=== PATIENT | female | born 1950 | race African-American/Black ===

== ENCOUNTER → 2017-08-21 15:03 | Outpatient (CLI) | payer MEDICARE, SELFPAY ==
[2017-08-21 16:24] LABS: Absolute Lymphocyte Count 1.56 X10^3/ul (0.83-4.51); Absolute Neutrophil Count 2.5 X10^3/uL (2.0-7.7); Basophil# 0.01 X10^3/uL; Basophil% 0.2 % (0-1); Eosinophil# 0.21 X10^3/uL; Hemoglobin 14.3 g/dl (12.0-15.0); Lymphocyte # 1.56 X10^3/ul (4.0); Lymphocyte % 29.7 % (19-41); Mean Corp Hgb Conc 32.5 g/gl (32-36); Mean Corpuscular Hgb 28.2 pg (27.0-32.0); Mean Corpuscular Volume 86.8 fL (81-99); Mean Platelet Vol. 11.2 fl (6.2-12.0); Monocyte# 1.01 X10^3/uL; Monocyte% 19.2 % (0-10); Neutrophil # 2.47 X10^3/uL (2.7-7.7); Neutrophil % 46.9 % (47-70); Platelet Count 206 K/mm3 (150-450); RBC Distribution Width CV 16.4 % (11.6-14.6); RBC Distribution Width SD 51.8 fl (35.1-43.9); Red Blood Count 5.07 M/mm3 (4.2-5.4); White Blood Count 5.3 K/mm3 (4.4-11.0)
[2017-08-21 16:28] LABS: POSITIVE COUNT NO; POSITIVE DIFFERENTIAL NO; POSITIVE MORPHOLOGY NO
[2017-08-21 16:46] LABS: ALB/GLOB Ratio 0.8 RATIO (0.9-2.4); AST(SGOT) 24 U/L (15-37); Alanine Aminotransfer ALT/SGPT 24 U/L (13-56); Albumin, Serum 3.3 g/dL (3.2-5.0); Alkaline Phosphatase 114 U/L (45-117); Anion Gap 6 (5-15); BUN 15 mg/dL (7-18); BUN/Creat Ratio 23.8 RATIO (10-20); Calcium,Total 8.7 mg/dL (8.5-10.1); Chloride 107 mmol/L (98-107); Creatinine, Serum 0.63 mg/dL (0.55-1.02); EST Glomerular Filtration Rate 101 mL/min (>60); Est Glom Filt Rate - Afr Amer 122 mL/min (>60); Globulin 3.9 g/dL (2.2-4.2); Glucose 81 mg/dL (74-106); Potassium 3.8 mmol/L (3.5-5.1); Protein, Total 7.2 g/dL (6.4-8.2); Sodium Level 142 mmol/L (136-145)
[2017-08-21 16:52] LABS: Vitamin D,25 Hydroxy 40.3 ng/mL (29.95-100.01)
== END ==
PROVIDERS: Family Provider Family Medicine Geriatric Medicine; PCP Family Medicine Geriatric Medicine; Visit Provider Family Medicine Geriatric Medicine
DX: I10 Essential (primary) hypertension (principal); E55.9 Vitamin D deficiency, unspecified
CPT/HCPCS: 36415; 80053; 82306; 84443; 85025

== ENCOUNTER 2017-10-03 14:30 | Outpatient (RCR) | payer MEDICARE, MEDICAID, SELFPAY ==
--- NOTE | 2017-08-30 09:55 | HP.PTEVAL_ITS ---
Patient's Visit Information PRICE MACK is a 66 year old F referred to Physical Therapy by Manjeet CANTOR with a diagnosis of Bilateral knee OA. Date of Evaluation: 08/30/17 Physical Therapist: Tiffanie Jones - Visit Plan Frequency: 2x /Week Duration: 4 Weeks Plan: Focus on LE strength and functional mobility - Subjective Subjective: Patient reports that her knees don't hurt when she is sitting they only hurt when she is moving. Both legs are equally painful. Can't walk due to her RA which damaged her joints- has been walking with an AD since 2008. Still lives in assisted living indpendently- 2nd floor apt with an elevator. Has someone who cooks meals, laundry and cleaning. Does not do the stairs without a lot of help. Does do stairs at her sisters house but 2 people have to carry her up the stairs. Agg: getting up from sitting to standing Worst: 7 /10 Best: 0/10 Eases: sitting down. Sometimes the right ankle hurts worse than the left. No pain in the hip or back. No recent x-rays. Does not walk outside on a normal basis due to the uneven ground. Feels like the knees are getting worse. PMHx/Meds: scanned in chart- no changes. Sleep: not disturbed. - Objective Posture: FH, RS, increased kyphosis. Gait: antalgic-uses FWW- slow small steps. Stairs: 6 step with I with significant use of UE. Balance: WS but unable to SLS. Sit to Stand: single UE with significant UE use. ROM: WFL. Strength:4/5 throughout LE - Goals Goal 1:: Patient will be I with HEP and progression Goal Time Frame: 4-6 Weeks Goal 2:: Patient will ambulate >300 feet with LRD and a good pattern Goal Time Frame: 4-6 Weeks Goal 3:: Patient will demo ability to asc/desc 8'' stairs x5 with 2 HR for saftey exiting her apt Goal Time Frame: 4-6 Weeks Goal 4:: Patient will sit to stand with no UE A x3 Goal Time Frame: 4-6 Weeks - Rehabilitation Potential Physical Therapy Diagnosis: Patient presents with hypmobility- she has decreased strength and endurance leading to poor gait and inability to perform ADL's. Rehabilitation Potential: Fair - Anticipated Interventions Patient/Client Instruction: Educate patient on: Benefits of Fitness Program For the Purpose of:: To increase tolerance to activity/condition/position Therapeutic Exercise to Include: Strength training, Endurance training, Balance training, Agility training, Body mechanics, Postural training, Flexibilty training, Gait and locomotor training, Passive ROM, Active ROM, Dynamic Lumbar Stabilization For the Purpose of:: To improve muscle performance and motor function Functional Training to Include: Gait training Thank you for the opportunity to evaluate your patient. For Medicare and Medicare HMO plans, please review the plan of care and approve it. It will need to be FAXED BACK to us at [phone] for Medicare purposes. Please let me know if there are questions or concerns regarding this plan of care. Physician Signature: Date:
--- NOTE | 2017-10-03 15:35 | HP.PTREVAL_ITS ---
Manjeet Chi Issac, It has been my pleasure to treat PRICE MACK over the last 7 visits for Bilateral knee OA. Please see the progress note below for an update on the physical therapy plan of care! Subjective: Patient reports that she is tired and sleepy but PT seems to help. Feels tightness in the knees when she is walking. Worst: 4/10 Best: 0/10. Painfree when she is sitting. Is using the walking inside the apartment- but is in the w/c in open spaces. Objective/Function: Posture: FH, RS, Increased kyphosis. Gait: antalgic- wide silva- walker- decreased step length. Palpation: tender along medial and lateral joint line. ROM: wfl. Strength: Ankle: 4+/5, Knee: 4+/5, hip: 4+/5. Stairs: non recip with 2 HR and mod A. Sit to Stand: x5 with 2 hands Plan Plan: hold until insurance verification is completed Goals Goal 1:: Patient will be I with HEP and progression Goal Time Frame: 4-6 Weeks Goal Progress: Progressing Goal 2:: Patient will ambulate >300 feet with LRD and a good pattern Goal Time Frame: 4-6 Weeks Goal Progress: Progressing Goal 3:: Patient will demo ability to asc/desc 8'' stairs x5 with 2 HR for saftey exiting her apt Goal Time Frame: 4-6 Weeks Goal Progress: Progressing Goal 4:: Patient will sit to stand with no UE A x3 Goal Time Frame: 4-6 Weeks Goal Progress: Progressing Anticipated Interventions Patient/Client Instruction: Educate patient on: Benefits of Fitness Program For the Purpose of:: To increase tolerance to activity/condition/position Therapeutic Exercise to Include: Strength training, Endurance training, Balance training, Agility training, Body mechanics, Postural training, Flexibilty training, Gait and locomotor training, Passive ROM, Active ROM, Dynamic Lumbar Stabilization For the Purpose of:: To improve muscle performance and motor function Functional Training to Include: Gait training Please do not hesitate to contact me at [phone] by phone or Fax: if you have questions or concerns regarding this new plan of care! Sincerely, Tiffanie Jones
--- NOTE | 2017-11-13 14:01 | HP.PT.NRP ---
HP - Discharge Summary (1) - Patient Information PRICE MACK was seen in my office for initial evaluation on 08/30/17. The following Plan of Care was established for this patient: Initial Frequency: 2x /Week Initial Duration: 4 Weeks - Anticipated Interventions Patient/Client Instruction: Educate patient on: Benefits of Fitness Program For the Purpose of:: To increase tolerance to activity/condition/position Therapeutic Exercise to Include: Strength training, Endurance training, Balance training, Agility training, Body mechanics, Postural training, Flexibilty training, Gait and locomotor training, Passive ROM, Active ROM, Dynamic Lumbar Stabilization For the Purpose of:: To improve muscle performance and motor function Functional Training to Include: Gait training This patient was last seen in our office . Pertinent comments regarding their Physical therapy will appear below: Patient has not returned for 30 days and is appropriate for discharge. Return to MD for further evaluation as needed. At this point I will be discontinuing this patient from physical therapy. I would be happy to see this patient again in the future if found appropriate by the physician. Thank you! Tiffanie Jones
== END 2017-10-03 19:00 | disposition home or self-care (01) ==
LOC: PT 14:30
PROVIDERS: Family Provider Family Medicine Geriatric Medicine; PCP Family Medicine Geriatric Medicine; Visit Provider Family Medicine Geriatric Medicine
DX: M17.0 Bilateral primary osteoarthritis of knee (principal)
CPT/HCPCS: 97110; 97162; 97530

== ENCOUNTER → 2017-12-07 20:00 | Outpatient (CLI) | payer MEDICARE, MEDICAID, SELFPAY | PROVIDERS: Family Provider Family Medicine Geriatric Medicine; PCP Family Medicine Geriatric Medicine; Visit Provider Nurse Practitioner Acute Care | DX: G47.10 Hypersomnia, unspecified (principal) | CPT/HCPCS: 95810 ==

== ENCOUNTER → 2018-10-15 | Outpatient (CLI) | payer MEDICARE, MEDICAID, SELFPAY ==
--- NOTE | 2018-10-15 13:16 | ECHOD_ITS ---
Reason For Study: Dyspnea/SOB Procedure This was a 2D Doppler, Color Flow transthoracic echocardiogram. Exam performed in department. Left Ventricle Normal LV size. Left ventricular systolic function is normal. The estimated ejection fraction is 65 %. Stage 1 diastolic dysfunction. No regional wall motion abnormalities noted. Right Ventricle Normal RV size. Normal systolic function. Atria Normal left atrium. Normal right atrium. Mitral Valve Normal mitral valve. Tricuspid Valve Normal tricuspid valve. Mild (1+) tricuspid valve insufficiency. Pulmonary artery systolic pressure is 31 mmHg. Aortic Valve Normal aortic valve. Trisinus/trileaflet aortic valve. Pulmonic Valve Normal pulmonic valve. Great Vessels Normal aortic root. The pulmonary artery is normal size. Normal inferior vena cava. Pericardium/Pleural No pericardial effusion. MMode/2D Measurements & Calculations LVIDd: 4.3 cm IVSd: 0.94 cm Ao root diam: 2.4 cm LVIDs: 2.7 cm LVPWd: 0.83 cm RVDd: 3.5 cm FS: 37.5 % LAV(MOD-bp): 50.5 ml LVAd ap4: 21.5 cm2 SV(MOD-sp4): 36.2 ml LAV(MOD-bp) Indexed: 28.2 ml/m2 EDV(MOD-sp4): 53.4 ml LAV(MOD-sp2): 34.5 ml EDV(sp4-el): 52.4 ml LAV(MOD-sp4): 65.2 ml LVAs ap4: 10.6 cm2 ESV(MOD-sp4): 17.1 ml ESV(sp4-el): 16.7 ml EF(MOD-sp4): 67.9 % EF(sp4-el): 68.1 % SV(sp4-el): 35.7 ml LA A4 area: 20.9 cm2 LA dimension(2D): 4.8 cm RA A4 area: 12.1 cm2 Doppler Measurements & Calculations MV E max edson: 86.1 cm/sec Lat Peak E' Edson: 8.8 cm/sec Med Peak E' Edson: 10.6 cm/sec MV A max edson: 97.0 cm/sec E/E' lat: 9.7 E/E' med: 8.1 MV E/A: 0.89 Ao V2 max: 190.6 cm/sec LV V1 max: 118.5 cm/sec PA V2 max: 102.9 cm/sec Ao max P.5 mmHg LV V1 max P.6 mmHg Ao V2 mean: 118.4 cm/sec Ao mean P.5 mmHg Ao V2 VTI: 39.5 cm TR max edson: 267.9 cm/sec TR max P.7 mmHg Interpretation Summary Normal LV size. Left ventricular systolic function is normal. The estimated ejection fraction is 65 %. Mild (1+) tricuspid valve insufficiency. Stage 1 diastolic dysfunction. Ordering Physician: Gokul Dumont Referring Physician: Manjeet Davenport Chi Performed By: Jennifer Inman, BLAS, RVT
== END | disposition home or self-care (01) ==
LOC: CVS 13:15
PROVIDERS: Family Provider Family Medicine Geriatric Medicine; PCP Family Medicine Geriatric Medicine; Referring Provider Internal Medicine Cardiovascular Disease; Visit Provider Internal Medicine Cardiovascular Disease
DX: R60.0 Localized edema (principal)
CPT/HCPCS: 93306

== ENCOUNTER → 2019-04-08 | Outpatient (CLI) | payer MEDICARE, MEDICAID, SELFPAY ==
[2019-01-08 12:08] VITALS: BMI 34.7
[2019-04-08 16:13] LABS: Amphetamine Urine VISTA NEGATIVE (<1000 ng/mL); Barbiturate Urine VISTA NEGATIVE (< 200 ng/mL); Benzodiazepine Urine VISTA POSITIVE (< 200 ng/mL); Cocaine Urine VISTA NEGATIVE (< 300 ng/mL); Ecstacy Urine VISTA NEGATIVE (< 500 ng/mL); Methadone Urine VISTA NEGATIVE (< 300 ng/mL); PCP Urine VISTA NEGATIVE (< 25 ng/mL); THC Urine VISTA NEGATIVE (< 50 ng/mL); Vista UDS pH Range 6
== END | disposition home or self-care (01) ==
PROVIDERS: Family Provider Family Medicine Geriatric Medicine; PCP Family Medicine Geriatric Medicine; Referring Provider Anesthesiology Pain Medicine; Visit Provider Anesthesiology Pain Medicine
DX: F11.20 Opioid dependence, uncomplicated (principal)
CPT/HCPCS: 80307

== ENCOUNTER 2019-07-01 10:30 | Outpatient (RCR) | payer MEDICARE, MEDICAID, SELFPAY ==
[2019-01-08 12:08] VITALS: BMI 34.7
--- NOTE | 2019-05-13 14:59 | HP.PTEVAL_ITS ---
Patient's Visit Information PRICE MACK is a 68 year old F referred to Physical Therapy by ROBERT GONCALVES with a diagnosis of RA, sarcopenia, osteoporosis,. Date of Evaluation: 05/13/19 Physical Therapist: DILLON Patterson - Visit Plan Frequency: 2x /Week Duration: 4 Weeks Plan: 2X/ week for 4 weeks for R knee AROM, R knee and hip strengthening, sit to stand transfers, gait training, standing balance activities with HEP - Subjective Findings: Pt is living at [facility] and is in Assisted Living. Pt reports that her R leg is bone on bone and they did a shot and a procedure and it did not work. Getting up it hurts and then walking only sometimes makes it hurt. It does not hurt much to sit in a chair. She might have to have a R TKR and wants to hold off on it. Pt is having trouble doing anything at home unless she is sitting. Pt reports that she has trouble picking her R leg up and that her R leg is weak. She never walks around without the rollator. She is able to get in and out of bed by herself. She does microwave stuff or goes down for meals. She uses her walker to go down for meals. She does not do stairs and she does not drive. She need B UE's to be able to get up out of a chair and it takes her awhile to get up. Pt feels that getting into the van was a little difficult for her to get into. - Pain R leg Pain Intensity (Out of 10): 1 Comment: dull discomfort ache - Objective Sit to stand: uses B arms to stand up and takes her approx 30 seconds to stand and get her bearings before she graps her rollator and gets ready to walk. Gait: walks pushing through the rollator with her hands and decrease step length and not completely picking R leg up off the floor. LE MMT: B hip flex 3-//5, R knee ext 3-/5, L knee ext 3+/5, B knee flex 4-/5 ( increase pain on the R), B hip abd 4-/5. R knee AROM: 94 degrees flexion and -61 degrees extension. Pt refused to do a step up in the // bars due to knee pain. Pt was able to stand and balance unsupported X 15 seconds before she had to hold onto the // bars. - Goals Goal 1:: I HEP Goal Time Frame: 4-6 Weeks Goal 2:: Increase LE strength by 1/2 muscle grade (At time of eval: LE MMT: B hip flex 3-//5, R knee ext 3-/5, L knee ext 3+/5, B knee flex 4-/5 ( increase pain on the R), B hip abd 4-/5). Goal Time Frame: 4-6 Weeks Goal 3:: Be able to walk not dragging R LE with gait with front wheeled walker with SBA Goal Time Frame: 4-6 Weeks Goal 4:: R knee AROM: -12 degrees extension to 110 degrees knee flexion Goal Time Frame: 4-6 Weeks - Rehabilitation Potential Rehabilitation Potential: Good - Anticipated Interventions Thank you for the opportunity to evaluate your patient. For Medicare and Medicare HMO plans, please review the plan of care and approve it. It will need to be FAXED BACK to us at [phone] for Medicare purposes. For Medicare only, by signing this I certify the plan of care. Please let me know if there are questions or concerns regarding this plan of care. Physician Sign ature: Date:
--- NOTE | 2019-05-15 08:08 | HP.OTEVAL ---
Patient's Visit Information PRICE MACK is a 68 year old F, referred to Occupational Therapy by ROBERT GONCALVES, with a diagnosis of OA.RA. Date of Evaluation: 05/13/19 Occupational Therapist: Kerry Webster, WILLIAN/Tone, CHT - Subjective Subjective: This 68 year old female was seen for OT eval with dx of RA, OA -. Pt arrives with order for eval and teat- pt states has concerns are for her right knee- pt states her hands are not painful but she would like to know what she can do to prevent them from getting worse. Pt states she has had OA and RA deformitites for years, but recently noticed the inability to straighten her finers. pt does not wear braces at night and reports she does sit and read and feels her fingers are partially closed the majority of the time. - ADLs Dressing: Shoes Comments: needs help with shoes Fasteners: Tie shoes Kitchen: Open jars, Open bottle caps Comments: pt states she does use a shower chair while bathing, long handled sponge, grab bars. Pt states she has a wc, scooter, long handle shoe horn, and warm in worker. Pt states she does participate in a ex group 2-3 x week. pt states staff cleans and does her laundry 1x week. Pt states her sister does her shopping. - ROM Wrist: right 30/15 left 10/15 ROM Comments: right RF -40/105. right MF -50/95. right RF -60/100 - Strength Diesel Locomotive Firer: right staffing specialist 25# left 25# - Sensation Sensation Comments: denies - Quick DASH-Disab of Arm,Shoulder& Hand Quick DASH Score: 52.2725 - Goals Goal:: Pt will demo a increase in bilateral staffing specialist strength by 10# to increase pts ind with ADls by d/c Goal:: Pt will demo understanding of joint protection and ergonomics when performing BADLs and IADLs by d/c. Pt will demo understanding of ad. Eq. use to decrease stress on joints to allow pt to perform BADSL and IADLS at AKHIL level. - Rehabilitation General Assessment: Pt demo with OA, RA deformities to bilateral wrist/hands limiting pts strength and ability to perform ADLs and IADLS. Pt demo need for skilled OT services 1-2x week for 4 weeks to increase pts understanding of joint protection, ad. eq use to increase pts ind. with ADls. Today therapist was ed. on joint protection danette. to apply to her ADls and IADLs. pt was given handout and demo understanding and agree to POC. Rehabilitation Potential: Fair - Anticipated Interventions Anticipated Interventions: A/AAROM/PROM, Strengthening, Modalities, Joint Protection/Energy Conservation, Ergonomic Education - Visit Plan Frequency: 1x/Week Duration: 3 Weeks TEXT: Thank you for the opportunity to evaluate your patient. For Medicare and Medicare HMO plans, please review the plan of care and approve it. It will need to be FAXED BACK to us at [phone] for Medicare purposes. Please let me know if there are questions or concerns regarding this plan of care. Physician Signature: Date:
--- NOTE | 2019-06-11 10:41 | HP.OTDCSUM_ITS ---
HP - OT D/C Summary It has been my pleasure to treat PRICE MACK under orders from ROBERT GONCALVES, for the diagnosis of OA.RA for a total of 4 visit(s). Please see the following information for a summary of their discharge status. - Objective Objective/Function: pt demo B emergency medical technician strength at 30#. pt continues to demo limited bilateral shoulder ROM due to arthritis but this is has been pts baseline for past 10 years. pt does got to adult day center 2 days a week and does a group exercise program. pt has no new concerns and agrees to D/C - Goals Patient Goals: Regain Mobility, Regain Strength, Decrease Swelling/Stiffness, Be More Independent in ADLS Goal:: Pt will demo a increase in bilateral emergency medical technician strength by 10# to increase pts ind with ADls by d/c Goal:: Pt will demo understanding of joint protection and ergonomics when performing BADLs and IADLs by d/c. Pt will demo understanding of ad. Eq. use to decrease stress on joints to allow pt to perform BADSL and IADLS at AKHIL level. - Plan Plan: D/C - D/C Information Discharge Comments: Pt was seen in OT for 4 therapy sessions, ed.pt on use of ad. eq and joint protection danette. for hands and use of ad. eq. due to limited shoulder ROM. Pt is at baseline for shoulder ROM as her limitations has been 10 years or more since her RA flared. pt resides in [facility] and has assist for ADLs as needed. pt demo understanding of ROM ex, joint protecion and ad. eq. and agree to D/C If there are questions or concerns regarding this patient's occupational therapy, please fell free to call me at [phone]. Thank you for the referral of this patient. Sincerely, Kerry Webster, OTR/L, CHT
--- NOTE | 2019-07-01 11:50 | HP.PTDCSUM ---
HP - PT D/C Summary It has been my pleasure to treat PRICE MACK under orders from ROBERT GONCALVES, for the diagnosis of RA, sarcopenia, osteoporosis, for a total of 7 visit(s). Discharge Date: 07/01/19 Please see the following information for a summary of their discharge status. - Subjective Subjective: Pt reports that she starts with pain management on Jul 08 to see if the shots help and then she will get a knee replacement. SHe is also going to the wound center for a wound on her leg that she has been digging and scratching and it and now it is infected and they have to dig it out at the wound center. She feels that she might be walkign a little better but that is it. Maybe she is a little stronger. - Pain R leg Pain Intensity (Out of 10): 0 - Overall Improvement % Improvement: 20 - Objective Objective/Function: Seated in a chair as pt did not want to lay down (-50 degrees from full extension to 95 degrees R knee flexion). LE MMT: B hip flex 3-/5, R knee ext 3-/5, L knee ext 3+/5, B knee flex 4-/5, B hip abd 4-/5). LEFS - Goals Goal 1:: I HEP Goal Progress: Goal Met Goal 2:: Increase LE strength by 1/2 muscle grade (At time of eval: LE MMT: B hip flex 3-//5, R knee ext 3-/5, L knee ext 3+/5, B knee flex 4-/5 ( increase pain on the R), B hip abd 4-/5). Goal Progress: Not Progressing Goal 3:: Be able to walk not dragging R LE with gait with front wheeled walker with SBA Goal Progress: Progressing Goal 4:: R knee AROM: -12 degrees extension to 110 degrees knee flexion Goal Progress: Not Progressing - Plan Plan: DC PT - D/C Information Discharge Comments: DC PT to HEP If there are questions or concerns regarding this patient's physical therapy, please feel free to call me at [phone]. Thank you for the referral of this patient. Sincerely, Brenda Vaughn, MPT
== END 2019-07-01 19:00 | disposition home or self-care (01) ==
LOC: PT 10:30
PROVIDERS: Family Provider Family Medicine Geriatric Medicine; PCP Family Medicine Geriatric Medicine
DX: M06.9 Rheumatoid arthritis, unspecified (principal); M19.90 Unspecified osteoarthritis, unspecified site; M62.84 Sarcopenia
CPT/HCPCS: 97110; 97162; 97166; 97530

== ENCOUNTER 2019-07-25 10:00 | Outpatient (RCR) | payer MEDICARE, MEDICAID, SELFPAY ==
[2019-01-08 12:08] VITALS: BMI 34.7
[2019-07-11 09:30] VITALS: BP 127/83; PULSE 75; RESP 16; TEMP 36.3; BMI 36.8
[2019-07-11 11:19] LABS: Absolute Lymphocyte Count 1.67 X10^3/uL (0.83-4.51); Basophil# 0.02 X10^3/uL; Basophil% 0.3 % (0-1); Eosinophil# 0.21 X10^3/uL; Eosinophils% 3.6 % (0-5); Hematocrit 44.6 % (37-47); Hemoglobin 13.9 g/dL (12.0-15.0); Lymphocyte # 1.67 X10^3/ul (4.0); Lymphocyte % 28.9 % (19-41); Mean Corp Hgb Conc 31.2 g/dL (32-36); Mean Corpuscular Hgb 26.9 pg (27.0-32.0); Mean Corpuscular Volume 86.3 fL (81-99); Mean Platelet Vol. 10.7 fl (6.2-12.0); Monocyte# 0.85 X10^3/uL; Monocyte% 14.7 % (0-10); NRBC Flagged by Analyzer 0 % (0-5); Neutrophil # 3.02 X10^3/uL (2.7-7.7); Neutrophil % 52.3 % (47-70); Platelet Count 268 K/mm3 (150-450); RBC Distribution Width CV 17.2 % (11.6-14.6); RBC Distribution Width SD 54.1 fl (35.1-43.9); Red Blood Count 5.17 M/mm3 (4.2-5.4); White Blood Count 5.8 K/mm3 (4.4-11.0)
[2019-07-11 11:22] LABS: Erythrocyte Sedimentation Rate 25 mm/hr (0-30)
[2019-07-11 11:33] LABS: ALB/GLOB Ratio 0.7 RATIO (0.9-2.4); AST(SGOT) 23 U/L (15-37); Alanine Aminotransfer ALT/SGPT 27 U/L (13-56); Albumin, Serum 3.3 g/dL (3.2-5.0); Alkaline Phosphatase 112 U/L (45-117); Anion Gap 3 (5-15); BUN 16 mg/dL (7-18); BUN/Creat Ratio 20.6 RATIO (10-20); Calcium,Total 9.3 mg/dL (8.5-10.1); Chloride 109 mmol/L (98-107); Creatinine, Serum 0.78 mg/dL (0.55-1.02); EST Glomerular Filtration Rate 79 mL/min (>60); Est Glom Filt Rate - Afr Amer 95 mL/min (>60); Estimated Creatinine Clearance 67.37 ml/min; Globulin 4.8 g/dL (2.2-4.2); Glucose 76 mg/dL (74-106); Prealbumin 24.5 mg/dL (20.0-40.0); Protein, Total 8.1 g/dL (6.4-8.2); Sodium Level 141 mmol/L (136-145)
--- NOTE | 2019-07-11 12:14 | PCM.WC.HP ---
(1) Ulcer of right lower extremity with fat layer exposed Status: Chronic Current Visit: Yes Code(s): L97.912 - Non-pressure chronic ulcer of unspecified part of right lower leg with fat layer exposed (2) Venous insufficiency of both lower extremities Status: Chronic Current Visit: Yes Code(s): I87.2 - Venous insufficiency (chronic) (peripheral) History of Present Illness Date of Service: 07/11/19 Chief Complaint: Non healing right leg ulcer History of Wound: Ms. Sanabria presents today due to nonhealing right leg ulcer. The exact etiology is unknown but it appears that it got worse from persistent scratching which patient admits to you. She was initially taken to a [facility] dealer by the [facility]. Per note from facility, they have been applying Santyl. Patient reports some drainage but denies chills, fever or feeling unwell. She however attests to significant pain. She admits to tobacco abuse and states that she smokes about 5-6 drinks daily. Denies any known history of diabetes mellitus. Past Medical History Past Medical History: Chronic Problems (Last Reviewed 07/11/19 @ 06:46 by Kiara Londono) Ulcer of right lower extremity with fat layer exposed (Chronic) Venous insufficiency of both lower extremities (Chronic) Essential (primary) hypertension (Chronic) Lower extremity edema (Chronic) Intermittent palpitations (Chronic) Hyperlipidemia (Chronic) Surgical History: noncontributory Allergies/Adverse Reactions: Allergies No Known Allergies Allergy (Verified 07/11/19 09:50) Home Medications: Ambulatory Orders Medication Instructions Recorded Adalimumab [Humira] 40 mg SQ Q14D 03/27/15 Celecoxib [Celebrex] 200 mg PO DAILY 03/27/15 Mirabegron [Myrbetriq] 50 mg PO DAILY 03/27/15 [place]-3 Fatty Acids/Fish Oil [Fish 2 ea PO DAILY 03/27/15 Oil 1,000 mg Capsule] Potassium Chloride [K-Dur] 10 meq PO DAILY 03/27/15 Sertraline HCl [Zoloft] 200 mg PO DAILY 03/27/15 Vitamin B Complex 1 ea PO DAILY 03/27/15 predniSONE tablet 5 mg PO DAILY 03/27/15 Pravastatin Sodium [Pravachol] 40 mg PO QHS 09/14/15 Warfarin [Coumadin ([facility])] 5.5 mg PO SUMOWEFR 09/14/15 Warfarin [Coumadin ([facility])] 6 mg PO TUTHSA 09/14/15 montelukast 10 mg tablet 10 mg PO QPM 01/03/18 metoprolol tartrate 25 mg tablet 25 mg PO BID #60 tab 01/08/19 Acetaminophen [Acetaminophen Extra 1,000 mg PO BID PRN 07/11/19 Strength] Alprazolam [Xanax] 0.5 mg PO Q6H PRN 07/11/19 Benzonatate [Tessalon Perle] 200 mg PO Q8H PRN 07/11/19 Bismuth Subsalicylate [Siletz 15 ml PO Q6H PRN 07/11/19 Bismuth] Diphenhydramine HCl [Banophen] 25 mg PO Q6H PRN 07/11/19 Fluticasone 0.05% [Flonase Nasal 1 spray NASAL BID 07/11/19 [place]] Gluc Light/Chondro Light A/Vit C/Mn 2 ea PO DAILY 07/11/19 [Glucosamine Chondroitin Tab] Guaifenesin [Mucus Relief] 400 mg PO BID PRN 07/11/19 Hydrocodone/Acetaminophen 1 ea PO TID 07/11/19 [Hydrocodon-Acetaminophen 5-325] Lactobacillus Acidophilus 1 ea PO DAILY 07/11/19 [Acidophilus] Loperamide [Imodium] 2 mg PO Q8H PRN PRN 07/11/19 Multivitamin [Daily Value] 1 ea PO DAILY 07/11/19 Naphazoline HCl/Glycerin [Clear 2 drp OP BID 07/11/19 Eyes Max Redness Rlf Drp] Peg 400/Hypromellose/Glycerin 15 ml OP DAILY PRN 07/11/19 [Artificial Tears] Psyllium Husk [Natural Fiber] 0.52 gm PO DAILY PRN 07/11/19 Saliva Substitute Combo No.9 ml MM DAILY PRN 07/11/19 [Biotene] Simethicone 125 mg PO 4X/DAY PRN 07/11/19 Tizanidine HCl [Zanaflex] 2 mg PO Q8H PRN 07/11/19 Smoking Status: Current every day smoker Review of Systems Constitutional: Denies: Anorexia, Chills, Fever Eyes: Denies: Pain, Redness HEENT: Denies: Difficulty Swallowing Cardiovascular: Denies: Chest Pain, Chest Pressure Respiratory: Denies: Hemoptysis Gastrointestinal: Denies: Hematemesis, Vomiting Skin: Denies: Jaundice - Physical Exam Vital Signs Temp Pulse Resp BP 97.3 F L 75 16 127/83 H 07/11/19 09:30 07/11/19 09:30 07/11/19 09:30 07/11/19 09:30 General: Alert, Oriented x3, Cooperative, No apparent distress HEENT: Atraumatic, Normocephalic Oral: Moist Mucosa Neck: Supple Lungs: Normal air movement Cardiovascular: Regular rate, Regular Rhythm, Normal S1, Normal S2 Abdomen: Soft, Non Tender, Obese Extremities: No cyanosis, Edema Skin: Ulcer/ Wound Wound Measurements and Assessment WC - Nurse 1 - General Ulcer Measurement Start: 07/11/19 09:29 Freq: Status: Active Protocol: Activity Type Activity Date Activity User E-Sign Co-Sign Detail Recorded Client Recorded Date Recorded By Document 07/11/19 09:30 [facility] [id number] 07/11/19 09:47 [facility] 07/11/19 09:30 Wound Center Nurse 1 [Ulcer Assessment] #1- R MED LE -Combined with other wound No -Current Size (cm) - Length 2.1 -Current Size (cm) - Width 2.2 -Current Size (cm) - Depth 0.5 -Total Square Cm 4.62 -Date of Last Picture (Recall this 07/11/19 field) -Photo Taken Yes -Epithelialization None Present -Tunneling No -Undermining/Tunneling No -Circular Undermining No -Exudate Amt Small -Exudate Type Serosanguineous -Wound Margin Distinct, Outline Attached -Granulation Amt None Present (0 %) -Granulation Quality Red -Slough/Fibrin Yes -Necrosis Amt Large (67-100%) -Necrotic Tissue Type Adherent Slough -Texture (Yajaira-wound Skin Appearance) Assessed, Scarring -Moisture (Yajaira-wound Skin Appearance Assessed ) -Color (Yajaira-wound Skin Appearance) Assessed -Temperature (Yajaira-wound Skin No Abnormality Appearance) (Pt Warm) -Tenderness on Palpation (Yajaira-wound No Skin Appearance) -Ulcer Cleansing Rinsed/ Irrigated with Saline -Foul Odor after Cleansing No -Anesthetic Used 5% Lidocaine Gel [Edema Assessment] -Lower Limb Edema Present Yes -Right Calf (cm) 36 -Right Ankle (cm) 26.1 -Left Calf (cm) 37.5 -Left Ankle (cm) 24.5 WC - Nurse 2 - General Ulcer CM Notes Start: 07/11/19 09:29 Freq: Status: Active Protocol: Activity Type Activity Date Activity User E-Sign Co-Sign Detail Recorded Client Recorded Date Recorded By Document 07/11/19 10:03 MW [id number] 07/11/19 10:10 MW 07/11/19 10:03 Wound Center Nurse 2 [Procedure/Treatment] #1- R MED LE -Time 10:03 -Correct Patient Yes -Correct Side, Site, Position Yes -Correct Procedure Yes -Procedure Performed Yes -Type of Procedure Debridement -Clinical Debridement Subcutaneous -Post Debridement Size (cm) - Length 2.3 -Post Debridement Size (cm) - Width 2.5 -Post Debridement Size (cm) - Depth 0.7 -Total Square Cm 5.75 -Wound/Ulcer Outcome Not Healed -Ulcer Cleansing Rinsed/ Irrigated with Saline -Foul Odor after Cleansing No -Bioengineered Tissue No -Bleeding Controlled with Pressure -Offloading No -Treatment Response Procedure Tolerated Well [See Physician Procedure note for Specifics] Pain Scale: 0-10 Numeric [Pain] -Is Patient Pain Free? Yes Musculoskeletal: No Muscle Wasting Neurological: Cranial nerves II-XII grossly intact Psych/Mental Status: Normal Affect Debridement Note Post-Debridement Measurements/Treatment - Nurse 2 - General Ulcer CM Notes Start: 07/11/19 09:29 Freq: Status: Active Protocol: Activity Type Activity Date Activity User E-Sign Co-Sign Detail Recorded Client Recorded Date Recorded By Document 07/11/19 10:03 MW [id number] 07/11/19 10:10 MW 07/11/19 10:03 Wound Center Nurse 2 #1- R MED LE -Time 10:03 -Correct Patient Yes -Correct Side, Site, Position Yes -Correct Procedure Yes -Procedure Performed Yes -Type of Procedure Debridement -Clinical Debridement Subcutaneous -Post Debridement Size (cm) - Length 2.3 -Post Debridement Size (cm) - Width 2.5 -Post Debridement Size (cm) - Depth 0.7 -Total Square Cm 5.75 -Wound/Ulcer Outcome Not Healed -Ulcer Cleansing Rinsed/ Irrigated with Saline -Foul Odor after Cleansing No -Bioengineered Tissue No -Bleeding Controlled with Pressure -Offloading No -Treatment Response Procedure Tolerated Well Pain Scale: 0-10 Numeric Is Patient Pain Free? Yes Wound debrided: Right leg Type of Debridement: Excisional debridement Anesthesia Used: 4% Lidocaine Solution Depth: Down to and including healthy tissue, in the subcutaneous layer Percentage of wound debrided: 100 Instrument Used: 5mm curette Tissue Removed: Slough and devitalized tissue Severity: Fat Layer Exposed Amount of bleeding with debridement: Mild Bleeding Controlled with: Pressure Patient tolerated procedure well Assessment/Plan Active Problems (Last Reviewed 07/11/19 @ 06:46 by Kiara Londono) Ulcer of right lower extremity with fat layer exposed (Chronic) Venous insufficiency of both lower extremities (Chronic) Assessment: Nonhealing right leg ulcer. Probes to bone. Plan: Debridement done as documented above. Procedure was well-tolerated. As above, bone probed. Concern for osteomyelitis. X-ray ordered. Cultures taken. CBC, CMP, prealbumin, CRP and ESR also ordered. Follow-up with results. For now, continue Santyl daily. Double layer Tubigrip for edema management. Elevate lower extremities when seated in bed. Increase protein intake. Questions were answered and she was advised to call with any further questions or concerns. Follow-up in a week. This note was generated with [employer] dictation software. It may contain incorrect words, spelling, and punctuation that were not noted in checking the note before signing. Multi Select Codes - Visit Charges Office Visit/Consults: 65087 OV L4 New - E and M code level 4 - Integumentary Integumentary CPT Codes: 40905 Jennifer subq tissue 20 sq cm/<
[2019-07-18 09:51] VITALS: BP 136/76; PULSE 84; RESP 18; TEMP 36.6; BMI 36.8
--- NOTE | 2019-07-18 10:59 | PCM.WC.PN ---
(1) Ulcer of right lower extremity with fat layer exposed Status: Chronic Current Visit: Yes Code(s): L97.912 - Non-pressure chronic ulcer of unspecified part of right lower leg with fat layer exposed (2) Venous insufficiency of both lower extremities Status: Chronic Current Visit: Yes Code(s): I87.2 - Venous insufficiency (chronic) (peripheral) Type of Wound Date of Service: 07/18/19 Chief Complaint: Non healing right leg ulcer History of Wound: Ms. Sanabria presents today due to nonhealing right leg ulcer. The exact etiology is unknown but it appears that it got worse from persistent scratching which patient admits to you. 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 Per note from facility, they have been applying Santyl. Patient reports some drainage but denies chills, fever or feeling unwell. She however attests to significant pain. She admits to tobacco abuse and states that she smokes about 5-6 drinks daily. Denies any known history of diabetes mellitus. Progress of Wound: No new concerns at this time. Xray not suggestive of Osteomyelitis and culture with minimal growth. - Physical Exam Vital Signs Temp Pulse Resp BP 97.8 F 84 18 136/76 H 07/18/19 09:51 07/18/19 09:51 07/18/19 09:51 07/18/19 09:51 General: Alert, Oriented x3, Cooperative, No apparent distress HEENT: Atraumatic, Normocephalic Oral: Moist Mucosa Neck: Supple Lungs: Normal air movement Extremities: No cyanosis Skin: Ulcer/ Wound Wound Measurements and Assessment WC - Nurse 1 - General Ulcer Measurement Start: 07/11/19 09:29 Freq: Status: Active Protocol: Activity Type Activity Date Activity User E-Sign Co-Sign Detail Recorded Client Recorded Date Recorded By Document 07/18/19 09:51 RB [id number] 07/18/19 10:01 RB 07/18/19 09:51 Wound Center Nurse 1 [Ulcer Assessment] #1- R MED LE -Combined with other wound No -Current Size (cm) - Length 2.7 -Current Size (cm) - Width 2.1 -Current Size (cm) - Depth 0.5 -Total Square Cm 5.67 -Tunneling No -Undermining/Tunneling No -Circular Undermining No -Exudate Amt Medium -Exudate Type Serosanguineous -Wound Margin Thickened & Rolled Under -Granulation Amt Medium (34-66%) -Granulation Quality [place] -Slough/Fibrin Yes -Necrosis Amt Large (67-100%) -Necrotic Tissue Type Adherent Slough -Structure Exposed N/A -Texture (Yajaira-wound Skin Appearance) Assessed -Moisture (Yajaira-wound Skin Appearance Assessed ) -Color (Yajaira-wound Skin Appearance) Assessed -Temperature (Yajaira-wound Skin No Abnormality Appearance) (Pt Warm) -Tenderness on Palpation (Yajaira-wound No Skin Appearance) -Ulcer Cleansing Rinsed/ Irrigated with Saline -Foul Odor after Cleansing No -Anesthetic Used 4% Lidocaine Solution [Edema Assessment] -Lower Limb Edema Present Yes -Right Calf (cm) 34.9 -Right Ankle (cm) 24 WC - Nurse 2 - General Ulcer CM Notes Start: 07/11/19 09:29 Freq: Status: Active Protocol: Activity Type Activity Date Activity User E-Sign Co-Sign Detail Recorded Client Recorded Date Recorded By Document 07/18/19 10:11 MW [id number] 07/18/19 10:15 MW 07/18/19 10:11 Wound Center Nurse 2 [Procedure/Treatment] #1- R MED LE -Time 10:11 -Correct Patient Yes -Correct Side, Site, Position Yes -Correct Procedure Yes -Procedure Performed Yes -Type of Procedure Debridement -Clinical Debridement Subcutaneous -Post Debridement Size (cm) - Length 2.3 -Post Debridement Size (cm) - Width 2.1 -Post Debridement Size (cm) - Depth 0.8 -Total Square Cm 4.83 -Wound/Ulcer Outcome Not Healed -Ulcer Cleansing Rinsed/ Irrigated with Saline -Foul Odor after Cleansing No -Bioengineered Tissue No -Bleeding Controlled with Pressure -Offloading No -Treatment Response Procedure Tolerated Well [See Physician Procedure note for Specifics] Pain Scale: 0-10 Numeric [Pain] -Is Patient Pain Free? Yes Musculoskeletal: No Muscle Wasting Neurological: Cranial nerves II-XII grossly intact Psych/Mental Status: Normal Affect Debridement Note Post-Debridement Measurements/Treatment WC - Nurse 2 - General Ulcer CM Notes Start: 07/11/19 09:29 Freq: Status: Active Protocol: Activity Type Activity Date Activity User E-Sign Co-Sign Detail Recorded Client Recorded Date Recorded By Document 07/11/19 10:03 MW [id number] 07/11/19 10:10 MW Document 07/18/19 10:11 MW [id number] 07/18/19 10:15 MW 07/11/19 07/18/19 10:03 10:11 Wound Center Nurse 2 #1- R MED LE -Time 10:03 10:11 -Correct Patient Yes Yes -Correct Side, Site, Position Yes Yes -Correct Procedure Yes Yes -Procedure Performed Yes Yes -Type of Procedure Debridement Debridement -Clinical Debridement Subcutaneous Subcutaneous -Post Debridement Size (cm) - Length 2.3 2.3 -Post Debridement Size (cm) - Width 2.5 2.1 -Post Debridement Size (cm) - Depth 0.7 0.8 -Total Square Cm 5.75 4.83 -Wound/Ulcer Outcome Not Healed Not Healed -Ulcer Cleansing Rinsed/ Rinsed/ Irrigated with Irrigated with Saline Saline -Foul Odor after Cleansing No No -Bioengineered Tissue No No -Bleeding Controlled with Pressure Pressure -Offloading No No -Treatment Response Procedure Procedure Tolerated Well Tolerated Well Pain Scale: 0-10 Numeric Is Patient Pain Free? Yes Yes Wound debrided: Right Leg Type of Debridement: Excisional debridement Anesthesia Used: 4% Lidocaine Solution Depth: Down to and including healthy tissue, in the subcutaneous layer Percentage of wound debrided: 100 Instrument Used: 7mm curette Tissue Removed: Slough and devitalized tissue Severity: Fat Layer Exposed Amount of bleeding with debridement: Mild Bleeding Controlled with: Pressure Patient tolerated procedure well Assessment/Plan Active Problems (Last Reviewed 07/11/19 @ 06:46 by Kiara Londono) Ulcer of right lower extremity with fat layer exposed (Chronic) Venous insufficiency of both lower extremities (Chronic) Assessment: Nonhealing right leg ulcer. Probes to bone. Plan: Debridement done as documented above. Procedure was well-tolerated. As above, Xray negative for acute osseous abnormality. Still significant depth, will apply fo a SNAP Vac due to depth and drainage. Continue Santyl for now. Double layer Tubigrip for edema management. Elevate lower extremities when seated and in bed. Increase protein intake. Her questions were answered and she was advised to call with any further questions or concerns. Follow-up in a week. This note was generated with [employer] software. It may contain incorrect words, spelling, and punctuation that were not noted in checking the note before signing. Code Visit 111xxx-113xx: 88662 Jennifer subq tissue 20 sq cm/<
[2019-07-25 09:42] VITALS: BP 155/100; RESP 16; TEMP 36.3; BMI 36.8
--- NOTE | 2019-07-25 10:24 | PN.PCM_ITS ---
(1) Ulcer of right lower extremity with fat layer exposed Status: Chronic Current Visit: Yes Code(s): L97.912 - Non-pressure chronic ulcer of unspecified part of right lower leg with fat layer exposed (2) Venous insufficiency of both lower extremities Status: Chronic Current Visit: Yes Code(s): I87.2 - Venous insufficiency (chronic) (peripheral) Type of Wound Date of Service: 07/25/19 Chief Complaint: Non healing right leg ulcer History of Wound: Ms. Sanabria presents today due to nonhealing right leg ulcer. The exact etiology is unknown but it appears that it got worse from persistent scratching which patient admits to you. She was initially taken to a mechanical applications engineer by the residential/assisted living facility. Per note from facility, they have been applying Santyl. Patient reports some drainage but denies chills, fever or feeling unwell. She however attests to significant pain. She admits to tobacco abuse and states that she smokes about 5-6 drinks daily. Denies any known history of diabetes mellitus. Progress of Wound: No new concerns at this time. Now approved for snap. - Physical Exam Vital Signs Temp Pulse Resp BP 97.3 F L 84 16 155/100 H 07/25/19 09:42 07/18/19 09:51 07/25/19 09:42 07/25/19 09:42 General: Alert, Oriented x3, Cooperative, No apparent distress HEENT: Atraumatic, Normocephalic Oral: Moist Mucosa Neck: Supple Abdomen: Soft, Obese Extremities: No cyanosis Skin: Ulcer/ Wound Wound Measurements and Assessment WC - Nurse 1 - General Ulcer Measurement Start: 07/11/19 09:29 Freq: Status: Active Protocol: Activity Type Activity Date Activity User E-Sign Co-Sign Detail Recorded Client Recorded Date Recorded By Document 07/25/19 09:42 PHAN [id number] 07/25/19 09:58 PHAN 07/25/19 09:42 Wound Center Nurse 1 [Ulcer Assessment] #1- R MED LE -Combined with other wound No -Current Size (cm) - Length 2.5 -Current Size (cm) - Width 2.4 -Current Size (cm) - Depth 0.6 -Total Square Cm 6.00 -Photo Taken No -Epithelialization None Present -Tunneling No -Undermining/Tunneling No -Circular Undermining No -Exudate Amt Small -Exudate Type Serosanguineous -Wound Margin Distinct, Outline Attached -Granulation Amt None Present (0 %) -Granulation Quality Hyper- granulation -Slough/Fibrin Yes -Necrosis Amt None Present (0 %) -Necrotic Tissue Type Adherent Slough -Structure Exposed N/A -Texture (Yajaira-wound Skin Appearance) Scarring -Moisture (Yajaira-wound Skin Appearance No Abnormality, ) Assessed -Color (Yajaira-wound Skin Appearance) No Abnormality, Assessed -Temperature (Yajaira-wound Skin No Abnormality Appearance) (Pt Warm) -Tenderness on Palpation (Yajaira-wound Yes Skin Appearance) -Ulcer Cleansing Rinsed/ Irrigated with Saline -Foul Odor after Cleansing No -Anesthetic Used 4% Lidocaine Solution [Edema Assessment] -Lower Limb Edema Present No -Right Calf (cm) 34 -Right Ankle (cm) 24.1 WC - Nurse 2 - General Ulcer CM Notes Start: 07/11/19 09:29 Freq: Status: Active Protocol: Activity Type Activity Date Activity User E-Sign Co-Sign Detail Recorded Client Recorded Date Recorded By Document 07/25/19 10:20 MW [id number] 07/25/19 10:21 MW 07/25/19 10:20 Wound Center Nurse 2 [Procedure/Treatment] #1- R MED LE -Time 10:20 -Correct Patient Yes -Correct Side, Site, Position Yes -Correct Procedure Yes -Procedure Performed Yes -Type of Procedure Debridement -Clinical Debridement Subcutaneous -Post Debridement Size (cm) - Length 2.4 -Post Debridement Size (cm) - Width 2.0 -Post Debridement Size (cm) - Depth 0.8 -Total Square Cm 4.80 -Wound/Ulcer Outcome Not Healed -Ulcer Cleansing Rinsed/ Irrigated with Saline -Foul Odor after Cleansing No -Bioengineered Tissue No -Bleeding Controlled with Pressure -Offloading No -Treatment Response Procedure Tolerated Well [See Physician Procedure note for Specifics] Pain Scale: 0-10 Numeric [Pain] -Is Patient Pain Free? Yes Musculoskeletal: No Muscle Wasting Neurological: Cranial nerves II-XII grossly intact Psych/Mental Status: Normal Affect Debridement Note Post-Debridement Measurements/Treatment WC - Nurse 2 - General Ulcer CM Notes Start: 07/11/19 09:29 Freq: Status: Active Protocol: Activity Type Activity Date Activity User E-Sign Co-Sign Detail Recorded Client Recorded Date Recorded By Document 07/11/19 10:03 MW [id number] 07/11/19 10:10 MW Document 07/18/19 10:11 MW [id number] 07/18/19 10:15 MW Document 07/25/19 10:20 MW [id number] 07/25/19 10:21 MW 07/11/19 07/18/19 07/25/19 10:03 10:11 10:20 Wound Center Nurse 2 #1- R MED LE -Time 10:03 10:11 10:20 -Correct Patient Yes Yes Yes -Correct Side, Site, Position Yes Yes Yes -Correct Procedure Yes Yes Yes -Procedure Performed Yes Yes Yes -Type of Procedure Debridement Debridement Debridement -Clinical Debridement Subcutaneous Subcutaneous Subcutaneous -Post Debridement Size (cm) - Length 2.3 2.3 2.4 -Post Debridement Size (cm) - Width 2.5 2.1 2.0 -Post Debridement Size (cm) - Depth 0.7 0.8 0.8 -Total Square Cm 5.75 4.83 4.80 -Wound/Ulcer Outcome Not Healed Not Healed Not Healed -Ulcer Cleansing Rinsed/ Rinsed/ Rinsed/ Irrigated with Irrigated with Irrigated with Saline Saline Saline -Foul Odor after Cleansing No No No -Bioengineered Tissue No No No -Bleeding Controlled with Pressure Pressure Pressure -Offloading No No No -Treatment Response Procedure Procedure Procedure Tolerated Well Tolerated Well Tolerated Well Pain Scale: 0-10 Numeric Is Patient Pain Free? Yes Yes Yes Wound debrided: Right Leg Type of Debridement: Excisional debridement Anesthesia Used: 5% Lidocaine Gel Depth: Down to and including healthy tissue, in the subcutaneous layer Percentage of wound debrided: 100 Instrument Used: 7mm curette Tissue Removed: Slough and devitalized tissue Severity: Fat Layer Exposed Amount of bleeding with debridement: Mild Bleeding Controlled with: Pressure Patient tolerated procedure well Assessment/Plan Active Problems (Last Reviewed 07/11/19 @ 06:46 by Kiara Londono) Ulcer of right lower extremity with fat layer exposed (Chronic) Venous insufficiency of both lower extremities (Chronic) Assessment: Nonhealing right leg ulcer. Probes to bone. Plan: Debridement done as documented above. Procedure was well-tolerated. Switch to Snap. Change on Monday. Double layer Tubigrip for edema management. Elevate lower extremities when seated and in bed. Increase protein intake. Her questions were answered and she was advised to call with any further questions or concerns. Follow-up in a week. This note was generated with [employer] dictation software. It may contain incorrect words, spelling, and punctuation that were not noted in checking the note before signing. Code Visit 111xxx-113xx: 30768 Jennifer subq tissue 20 sq cm/<
== END 2019-07-26 23:59 ==
LOC: WC 10:00
PROVIDERS: PCP Family Medicine Geriatric Medicine; Referring Provider Family Medicine Geriatric Medicine; Visit Provider Internal Medicine
DX: I87.2 Venous insufficiency (chronic) (peripheral) (principal); L97.812 Non-pressure chronic ulcer of other part of right lower leg with fat layer exposed; F17.200 Nicotine dependence, unspecified, uncomplicated; E78.5 Hyperlipidemia, unspecified; I10 Essential (primary) hypertension; Z79.899 Other long term (current) drug therapy
CPT/HCPCS: 11042; 80053; 84134; 85025; 85652; 87070; 87075; 87077; 87186; 87205; 97607; 99213; G0463

== ENCOUNTER 2019-07-27 01:15 | Emergency (ER) | payer MEDICARE, MEDICAID, SELFPAY ==
[2019-07-27 01:16] VITALS: BP 144/79; PULSE 68; RESP 16; TEMP 36.7; O2SAT 100; BMI 35.2
--- NOTE | 2019-07-27 01:37 | ED.DCSUM_ITS ---
- ER Visit Summary Date of Service: 07/27/19 Chief Complaint: Wound VAC not working History of Present Illness: The patient is a [address] Jeni Hollingsworth. She is a poor informant. She reports that she has a wound on her right leg that she goes to the wound center for. She denies having had surgery on this. She reports that tonight she stepped on the tubing for her wound VAC. She denies any pain. Physical Examination: Vitals: Stable. Afebrile. General: Well-nourished and well-developed. Head: Normocephalic atraumatic. Neck: Supple, no lymphadenopathy. No JVD. Nontender. Cardiovascular: Regular rate and rhythm. No murmurs. Respiratory: No respiratory distress. Clear to auscultation bilaterally. Abdominal: Soft, nontender, nondistended, normal bowel sounds. No guarding, rebound, or peritoneal signs. Back: Nontender. Extremities: Nontender, no edema. Anterior right cobb there is a wound VAC that is approximately 3 cm in diameter. It is sealed well. There is no drainage from this. There is no erythema. Skin: Normal color, no rash. Neurologic: Alert and oriented ?3. Cranial nerves II through XII are intact. Normal strength and sensation. Psych: Normal affect. Emergency Department Course and Treatment: The patient's dressing was inspected. It is sealed well. The pump was reset and is functioning. Treatment Plan: Patient will be discharged with instructions to follow-up with the wound clinic as previously scheduled. Return to the emergency department for any worsening symptoms. Disposition: To home in improved and stable condition. Impression: 1 1. Wound check. This note was generated with [email or web address] dictation software. It may contain incorrect words, spelling, and punctuation that were not noted in review of the chart prior to signing ED Disposition - Plan for ED Patient: Disposition: [facility] Acute Care Instructions: Wound Care Referrals: Clinic,Wound [None] - Keep Rosalie appointment
--- NOTE | 2019-07-27 01:38 | ED.RN ---
tubing to wound vac trimmed so patient wound not trip over tubing anymore, suction obtained. care home staff called and updated on education and function of the wound vac
== END 2019-07-27 02:57 ==
LOC: ED 01:45
PROVIDERS: Emergency Provider Emergency Medicine; PCP Nurse Practitioner Adult Health; Referring Provider Nurse Practitioner Adult Health
DX: Z48.01 Encounter for change or removal of surgical wound dressing (principal); Z72.0 Tobacco use
CPT/HCPCS: 99284

== ENCOUNTER 2019-08-22 11:30 | Outpatient (RCR) | payer MEDICARE, MEDICAID, SELFPAY ==
[2019-07-27 01:10] VITALS: BP 155/100; PULSE 84; RESP 16; TEMP 36.3
[2019-07-29 14:22] VITALS: BP 129/76; PULSE 71; RESP 16; TEMP 36.8; BMI 35.2
[2019-08-01 09:59] VITALS: BP 121/69; PULSE 63; RESP 18; TEMP 36.3; BMI 35.2
--- NOTE | 2019-08-01 11:47 | PCM.WC.PN ---
(1) Ulcer of right lower extremity with fat layer exposed Status: Chronic Current Visit: Yes Code(s): L97.912 - Non-pressure chronic ulcer of unspecified part of right lower leg with fat layer exposed (2) Venous insufficiency of both lower extremities Status: Chronic Current Visit: Yes Code(s): I87.2 - Venous insufficiency (chronic) (peripheral) (3) Lower extremity edema Status: Chronic Current Visit: No Code(s): R60.0 - Localized edema Type of Wound Date of Service: 08/01/19 Chief Complaint: Non healing right leg ulcer History of Wound: Ms. Sanabria presents today due to nonhealing right leg ulcer. The exact etiology is unknown but it appears that it got worse from persistent scratching which patient admits to you. She was initially taken to a tobacco sieve operator by the senior living/assisted living facility. Per note from facility, they have been applying Santyl. Patient reports some drainage but denies chills, fever or feeling unwell. She however attests to significant pain. She admits to tobacco abuse and states that she smokes about 5-6 drinks daily. Denies any known history of diabetes mellitus. Progress of Wound: Stable. No new concerns at this time. - Physical Exam Vital Signs Temp Pulse Resp BP 97.3 F L 63 18 121/69 H 08/01/19 09:59 08/01/19 09:59 08/01/19 09:59 08/01/19 09:59 General: Alert, Oriented x3, Cooperative, No apparent distress HEENT: Atraumatic, Normocephalic Oral: Moist Mucosa Neck: Supple Lungs: Normal air movement Extremities: No cyanosis, Edema Skin: Ulcer/ Wound Wound Measurements and Assessment - Nurse 1 - General Ulcer Measurement Start: 07/29/19 14:22 Freq: Status: Active Protocol: Activity Type Activity Date Activity User E-Sign Co-Sign Detail Recorded Client Recorded Date Recorded By Document 08/01/19 09:59 [id number] 08/01/19 10:07 08/01/19 09:59 Wound Center Nurse 1 [Ulcer Assessment] #1- R MED LE -Combined with other wound No -Current Size (cm) - Length 2.3 -Current Size (cm) - Width 2 -Current Size (cm) - Depth 0.6 -Total Square Cm 4.6 -Photo Taken No -Epithelialization None Present -Tunneling No -Undermining/Tunneling No -Circular Undermining No -Exudate Amt Medium -Exudate Type Serosanguineous -Wound Margin Distinct, Outline Attached -Granulation Amt Large (67-100%) -Granulation Quality [place] -Slough/Fibrin Yes -Necrosis Amt None Present (0 %) -Necrotic Tissue Type Adherent Slough -Structure Exposed N/A,None/ Limited to Skin Breakdown -Texture (Yajaira-wound Skin Appearance) No Abnormality, Assessed -Moisture (Yajaira-wound Skin Appearance No Abnormality, ) Assessed -Color (Yajaira-wound Skin Appearance) No Abnormality, Assessed -Temperature (Yajaira-wound Skin No Abnormality Appearance) (Pt Warm) -Tenderness on Palpation (Yajaira-wound No Skin Appearance) -Ulcer Cleansing Wound Cleanser -Foul Odor after Cleansing No -Anesthetic Used 4% Lidocaine Solution,5% Lidocaine Gel [Edema Assessment] -Lower Limb Edema Present Yes -Right Calf (cm) 33.4 -Right Ankle (cm) 24.7 WC - Nurse 2 - General Ulcer CM Notes Start: 07/29/19 14:22 Freq: Status: Active Protocol: Activity Type Activity Date Activity User E-Sign Co-Sign Detail Recorded Client Recorded Date Recorded By Document 08/01/19 10:42 MW [id number] 08/01/19 11:02 MW 08/01/19 10:42 Wound Center Nurse 2 [Procedure/Treatment] #1- R MED LE -Time 10:58 -Correct Patient Yes -Correct Side, Site, Position Yes -Correct Procedure Yes -Procedure Performed Yes -Type of Procedure Debridement -Clinical Debridement Subcutaneous -Post Debridement Size (cm) - Length 2.3 -Post Debridement Size (cm) - Width 1.8 -Post Debridement Size (cm) - Depth 0.8 -Total Square Cm 4.14 -Wound/Ulcer Outcome Not Healed -Ulcer Cleansing Rinsed/ Irrigated with Saline -Foul Odor after Cleansing No -Bioengineered Tissue No -Bleeding Controlled with Pressure -Offloading No -Treatment Response Procedure Tolerated Well [See Physician Procedure note for Specifics] Pain Scale: 0-10 Numeric [Pain] -Is Patient Pain Free? Yes Neurological: Cranial nerves II-XII grossly intact Psych/Mental Status: Normal Affect Debridement Note Post-Debridement Measurements/Treatment WC - Nurse 2 - General Ulcer CM Notes Start: 07/29/19 14:22 Freq: Status: Active Protocol: Activity Type Activity Date Activity User E-Sign Co-Sign Detail Recorded Client Recorded Date Recorded By Document 08/01/19 10:42 MW [id number] 08/01/19 11:02 MW 08/01/19 10:42 Wound Center Nurse 2 #1- R MED LE -Time 10:58 -Correct Patient Yes -Correct Side, Site, Position Yes -Correct Procedure Yes -Procedure Performed Yes -Type of Procedure Debridement -Clinical Debridement Subcutaneous -Post Debridement Size (cm) - Length 2.3 -Post Debridement Size (cm) - Width 1.8 -Post Debridement Size (cm) - Depth 0.8 -Total Square Cm 4.14 -Wound/Ulcer Outcome Not Healed -Ulcer Cleansing Rinsed/ Irrigated with Saline -Foul Odor after Cleansing No -Bioengineered Tissue No -Bleeding Controlled with Pressure -Offloading No -Treatment Response Procedure Tolerated Well Pain Scale: 0-10 Numeric Is Patient Pain Free? Yes Wound debrided: Right Leg Type of Debridement: Excisional debridement Anesthesia Used: 4% Lidocaine Solution Depth: Down to and including healthy tissue, in the subcutaneous layer Percentage of wound debrided: 100 Instrument Used: 5mm curette Tissue Removed: Slough and devitalized tissue Severity: Fat Layer Exposed Amount of bleeding with debridement: Mild Bleeding Controlled with: Pressure Patient tolerated procedure well Assessment/Plan Active Problems (Last Reviewed 07/11/19 @ 06:46 by Kiara Londono) Ulcer of right lower extremity with fat layer exposed (Chronic) Venous insufficiency of both lower extremities (Chronic) Assessment: Nonhealing right leg ulcer. Probes to bone. Plan: Debridement done as documented above. Procedure was well-tolerated. Continue Snap. Change on Monday. Elevate lower extremities when seated and in bed. Increase protein intake. Her questions were answered and she was advised to call with any further questions or concerns. Follow-up in a week. This note was generated with [employer] software. It may contain incorrect words, spelling, and punctuation that were not noted in checking the note before signing. Code Visit 111xxx-113xx: [id number] Jennifer subq tissue 20 sq cm/<
[2019-08-05 14:53] VITALS: BP 154/84; PULSE 78; RESP 16; TEMP 36.6; BMI 35.2
[2019-08-08 10:35] VITALS: BP 134/99; PULSE 77; RESP 16; BMI 35.2
--- NOTE | 2019-08-08 12:53 | PCM.WC.PN ---
(1) Ulcer of right lower extremity with fat layer exposed Status: Chronic Current Visit: Yes Code(s): L97.912 - Non-pressure chronic ulcer of unspecified part of right lower leg with fat layer exposed (2) Venous insufficiency of both lower extremities Status: Chronic Current Visit: Yes Code(s): I87.2 - Venous insufficiency (chronic) (peripheral) (3) Lower extremity edema Status: Chronic Current Visit: Yes Code(s): R60.0 - Localized edema Type of Wound Date of Service: 08/08/19 Chief Complaint: Non healing right leg ulcer History of Wound: Ms. Sanabria presents today due to nonhealing right leg ulcer. The exact etiology is unknown but it appears that it got worse from persistent scratching which patient admits to you. She was initially taken to a nurse midwife by the [place] [facility]. Per note from facility, they have been applying Santyl. Patient reports some drainage but denies chills, fever or feeling unwell. She however attests to significant pain. She admits to tobacco abuse and states that she smokes about 5-6 drinks daily. Denies any known history of diabetes mellitus. Progress of Wound: Stable, no new concerns at this time. - Physical Exam Vital Signs Temp Pulse Resp BP 97.8 F 77 16 134/99 H 08/05/19 14:53 08/08/19 10:35 08/08/19 10:35 08/08/19 10:35 General: Alert, Oriented x3, Cooperative, No apparent distress HEENT: Atraumatic, Normocephalic Oral: Moist Mucosa Neck: Supple Lungs: Normal air movement Abdomen: Non Tender, Obese Extremities: No cyanosis, Edema Skin: Ulcer/ Wound Wound Measurements and Assessment WC - Nurse 1 - General Ulcer Measurement Start: 07/29/19 14:22 Freq: Status: Active Protocol: Activity Type Activity Date Activity User E-Sign Co-Sign Detail Recorded Client Recorded Date Recorded By Document 08/05/19 14:53 MW [id number] 08/05/19 15:19 MW Document 08/08/19 10:35 BMF [id number] 08/08/19 10:50 BMF 08/05/19 08/08/19 14:53 10:35 Wound Center Nurse 1 [Ulcer Assessment] #1- R MED LE -Combined with other wound No No -Current Size (cm) - Length 2.3 -Current Size (cm) - Width 2.5 -Current Size (cm) - Depth 0.5 -Total Square Cm 5.75 -Photo Taken No -Epithelialization None Present -Tunneling No -Undermining/Tunneling No -Circular Undermining No -Exudate Amt Small -Exudate Type Serosanguineous -Wound Margin Distinct, Outline Attached -Granulation Amt Medium (34-66%) -Granulation Quality Red -Slough/Fibrin Yes -Necrosis Amt Medium (34-66%) -Necrotic Tissue Type Adherent Slough -Texture (Yajaira-wound Skin Appearance) Assessed, Scarring -Moisture (Yajaira-wound Skin Appearance Assessed,Dry/ ) Scaly -Color (Yajaira-wound Skin Appearance) Assessed -Temperature (Yajaira-wound Skin No Abnormality Appearance) (Pt Warm) -Tenderness on Palpation (Yajaira-wound Yes Skin Appearance) -Ulcer Cleansing soapy water -Foul Odor after Cleansing No -Anesthetic Used 4% Lidocaine Solution,5% Lidocaine Gel [Edema Assessment] -Lower Limb Edema Present No WC - Nurse 2 - General Ulcer CM Notes Start: 07/29/19 14:22 Freq: Status: Active Protocol: Activity Type Activity Date Activity User E-Sign Co-Sign Detail Recorded Client Recorded Date Recorded By Document 08/08/19 11:25 MW [id number] 08/08/19 11:29 MW 08/08/19 11:25 Wound Center Nurse 2 [Procedure/Treatment] -Time 11:26 -Correct Patient Yes -Correct Side, Site, Position Yes -Correct Procedure Yes -Procedure Performed Yes -Type of Procedure Debridement -Clinical Debridement Subcutaneous -Post Debridement Size (cm) - Length 2.1 -Post Debridement Size (cm) - Width 2.0 -Post Debridement Size (cm) - Depth 0.8 -Total Square Cm 4.20 -Wound/Ulcer Outcome Not Healed -Ulcer Cleansing Rinsed/ Irrigated with Saline -Foul Odor after Cleansing No -Bioengineered Tissue No -Bleeding Controlled with Pressure -Offloading No -Treatment Response Procedure Tolerated Well [See Physician Procedure note for Specifics] Pain Scale: 0-10 Numeric [Pain] -Is Patient Pain Free? Yes Musculoskeletal: No Muscle Wasting Neurological: Cranial nerves II-XII grossly intact Psych/Mental Status: Normal Affect Debridement Note Post-Debridement Measurements/Treatment WC - Nurse 2 - General Ulcer CM Notes Start: 07/29/19 14:22 Freq: Status: Active Protocol: Activity Type Activity Date Activity User E-Sign Co-Sign Detail Recorded Client Recorded Date Recorded By Document 08/01/19 10:42 MW [id number] 08/01/19 11:02 MW Document 08/08/19 11:25 MW [id number] 08/08/19 11:29 MW 08/01/19 08/08/19 10:42 11:25 Wound Center Nurse 2 #1- R MED LE -Time 10:58 11:26 -Correct Patient Yes Yes -Correct Side, Site, Position Yes Yes -Correct Procedure Yes Yes -Procedure Performed Yes Yes -Type of Procedure Debridement Debridement -Clinical Debridement Subcutaneous Subcutaneous -Post Debridement Size (cm) - Length 2.3 2.1 -Post Debridement Size (cm) - Width 1.8 2.0 -Post Debridement Size (cm) - Depth 0.8 0.8 -Total Square Cm 4.14 4.20 -Wound/Ulcer Outcome Not Healed Not Healed -Ulcer Cleansing Rinsed/ Rinsed/ Irrigated with Irrigated with Saline Saline -Foul Odor after Cleansing No No -Bioengineered Tissue No No -Bleeding Controlled with Pressure Pressure -Offloading No No -Treatment Response Procedure Procedure Tolerated Well Tolerated Well Pain Scale: 0-10 Numeric Is Patient Pain Free? Yes Yes Wound debrided: Right Leg Type of Debridement: Excisional debridement Anesthesia Used: 4% Lidocaine Solution, 5% Lidocaine Gel Depth: Down to and including healthy tissue, in the subcutaneous layer Percentage of wound debrided: 100 Instrument Used: 7mm curette Tissue Removed: Slough and devitalized tissue Severity: Fat Layer Exposed Amount of bleeding with debridement: Mild Bleeding Controlled with: Pressure Patient tolerated procedure well Assessment/Plan Active Problems (Last Reviewed 07/11/19 @ 06:46 by Kiara Londono) Ulcer of right lower extremity with fat layer exposed (Chronic) Venous insufficiency of both lower extremities (Chronic) Lower extremity edema (Chronic) Assessment: Nonhealing right leg ulcer. Probes to bone. Plan: Debridement done as documented above. Procedure was well-tolerated. Snap not available so will switch to Pomogram with guaze overtop. 3M wraps for edema management. Follow up on Monday for a nurse visit/ change. Elevate lower extremities when seated and in bed. Increase protein intake. Her questions were answered and she was advised to call with any further questions or concerns. Follow-up in a week with me. This note was generated with [email or web address] dictation software. It may contain incorrect words, spelling, and punctuation that were not noted in checking the note before signing. Code Visit 111xxx-113xx: [id number] Jennifer subq tissue 20 sq cm/<
[2019-08-12 13:23] VITALS: BP 151/96; PULSE 72; RESP 16; TEMP 36.3; BMI 35.2
[2019-08-15 11:59] VITALS: BP 128/67; PULSE 75; RESP 16; BMI 35.2
--- NOTE | 2019-08-15 12:27 | PCM.WC.PN ---
(1) Ulcer of right lower extremity with fat layer exposed Status: Chronic Current Visit: Yes Code(s): L97.912 - Non-pressure chronic ulcer of unspecified part of right lower leg with fat layer exposed (2) Venous insufficiency of both lower extremities Status: Chronic Current Visit: Yes Code(s): I87.2 - Venous insufficiency (chronic) (peripheral) (3) Lower extremity edema Status: Chronic Current Visit: Yes Code(s): R60.0 - Localized edema Type of Wound Date of Service: 08/15/19 Chief Complaint: Non healing right leg ulcer History of Wound: Ms. Sanabria presents today due to nonhealing right leg ulcer. The exact etiology is unknown but it appears that it got worse from persistent scratching which patient admits to you. She was initially taken to a residential treatment specialist by [facility]. Per note from facility, they have been applying Santyl. Patient reports some drainage but denies chills, fever or feeling unwell. She however attests to significant pain. She admits to tobacco abuse and states that she smokes about 5-6 drinks daily. Denies any known history of diabetes mellitus. Progress of Wound: No new concerns. Tolerated the 3M wraps. - Physical Exam Vital Signs Temp Pulse Resp BP 97.3 F L 75 16 128/67 H 08/12/19 13:23 08/15/19 11:59 08/15/19 11:59 08/15/19 11:59 General: Alert, Oriented x3, Cooperative, No apparent distress HEENT: Atraumatic, Normocephalic Oral: Moist Mucosa Neck: Supple Lungs: Normal air movement Extremities: No cyanosis Skin: Ulcer/ Wound Wound Measurements and Assessment WC - Nurse 1 - General Ulcer Measurement Start: 07/29/19 14:22 Freq: Status: Active Protocol: Activity Type Activity Date Activity User E-Sign Co-Sign Detail Recorded Client Recorded Date Recorded By Document 08/12/19 13:23 [facility] [id number] 08/12/19 13:25 BM Document 08/15/19 11:59 BM [id number] 08/15/19 12:07 BM 08/12/19 08/15/19 13:23 11:59 [Ulcer Assessment] #1- R MED LE -Combined with other wound No -Current Size (cm) - Length 2.4 -Current Size (cm) - Width 1.9 -Current Size (cm) - Depth 0.5 -Total Square Cm 4.56 -Photo Taken No -Epithelialization None Present -Tunneling No -Undermining/Tunneling No -Circular Undermining No -Exudate Amt Small -Exudate Type Serosanguineous -Wound Margin Distinct, Outline Attached -Granulation Amt Medium (34-66%) -Granulation Quality Red -Slough/Fibrin Yes -Necrosis Amt Medium (34-66%) -Necrotic Tissue Type Adherent Slough -Texture (Yajaira-wound Skin Appearance) Assessed, Scarring -Moisture (Yajaira-wound Skin Appearance Assessed,Dry/ ) Scaly -Color (Yajaira-wound Skin Appearance) Assessed -Temperature (Yajaira-wound Skin No Abnormality Appearance) (Pt Warm) -Tenderness on Palpation (Yajaira-wound No Skin Appearance) -Ulcer Cleansing SOAPY WATER -Foul Odor after Cleansing No -Anesthetic Used 5% Lidocaine Gel Wound Center Nurse 1 [Edema Assessment] -Lower Limb Edema Present Yes No -Right Calf (cm) 33.5 33.6 -Right Ankle (cm) 23.5 23.5 WC - Nurse 2 - General Ulcer CM Notes Start: 07/29/19 14:22 Freq: Status: Active Protocol: Activity Type Activity Date Activity User E-Sign Co-Sign Detail Recorded Client Recorded Date Recorded By Document 08/15/19 12:23 MW [id number] 08/15/19 12:26 MW 08/15/19 12:23 Wound Center Nurse 2 [Procedure/Treatment] #1- R MED LE -Time 12:24 -Correct Patient Yes -Correct Side, Site, Position Yes -Correct Procedure Yes -Procedure Performed Yes -Type of Procedure Debridement -Clinical Debridement Subcutaneous -Post Debridement Size (cm) - Length 2.2 -Post Debridement Size (cm) - Width 1.7 -Post Debridement Size (cm) - Depth 0.8 -Total Square Cm 3.74 -Wound/Ulcer Outcome Not Healed -Ulcer Cleansing Rinsed/ Irrigated with Saline -Foul Odor after Cleansing No -Bioengineered Tissue No -Bleeding Controlled with Pressure -Offloading No -Treatment Response Procedure Tolerated Well [See Physician Procedure note for Specifics] Pain Scale: 0-10 Numeric [Pain] -Is Patient Pain Free? Yes Neurological: Cranial nerves II-XII grossly intact Psych/Mental Status: Normal Affect Debridement Note Post-Debridement Measurements/Treatment WC - Nurse 2 - General Ulcer CM Notes Start: 07/29/19 14:22 Freq: Status: Active Protocol: Activity Type Activity Date Activity User E-Sign Co-Sign Detail Recorded Client Recorded Date Recorded By Document 08/01/19 10:42 MW [id number] 08/01/19 11:02 MW Document 08/08/19 11:25 MW [id number] 08/08/19 11:29 MW Document 08/15/19 12:23 MW [id number] 08/15/19 12:26 MW 08/01/19 08/08/19 08/15/19 10:42 11:25 12:23 Wound Center Nurse 2 #1- R MED LE -Time 10:58 11:26 12:24 -Correct Patient Yes Yes Yes -Correct Side, Site, Position Yes Yes Yes -Correct Procedure Yes Yes Yes -Procedure Performed Yes Yes Yes -Type of Procedure Debridement Debridement Debridement -Clinical Debridement Subcutaneous Subcutaneous Subcutaneous -Post Debridement Size (cm) - Length 2.3 2.1 2.2 -Post Debridement Size (cm) - Width 1.8 2.0 1.7 -Post Debridement Size (cm) - Depth 0.8 0.8 0.8 -Total Square Cm 4.14 4.20 3.74 -Wound/Ulcer Outcome Not Healed Not Healed Not Healed -Ulcer Cleansing Rinsed/ Rinsed/ Rinsed/ Irrigated with Irrigated with Irrigated with Saline Saline Saline -Foul Odor after Cleansing No No No -Bioengineered Tissue No No No -Bleeding Controlled with Pressure Pressure Pressure -Offloading No No No -Treatment Response Procedure Procedure Procedure Tolerated Well Tolerated Well Tolerated Well Pain Scale: 0-10 Numeric Is Patient Pain Free? Yes Yes Yes Wound debrided: Right Leg Type of Debridement: Excisional debridement Anesthesia Used: 4% Lidocaine Solution, 5% Lidocaine Gel Depth: Down to and including healthy tissue, in the subcutaneous layer Percentage of wound debrided: 100 Instrument Used: 7mm curette Tissue Removed: Slough and devitalized tissue Severity: Fat Layer Exposed Amount of bleeding with debridement: Mild Bleeding Controlled with: Pressure Patient tolerated procedure well Assessment/Plan Active Problems (Last Reviewed 07/11/19 @ 06:46 by Kiara Londono) Ulcer of right lower extremity with fat layer exposed (Chronic) Venous insufficiency of both lower extremities (Chronic) Lower extremity edema (Chronic) Assessment: Nonhealing right leg ulcer. Probes to bone. Plan: Debridement done as documented above. Procedure was well-tolerated. Some improvement noted. Continue Pomogram with guaze overtop and 3M wraps for edema management. Leave in place for 1 week. Elevate lower extremities when seated and in bed. Increase protein intake. Her questions were answered and she was advised to call with any further questions or concerns. Follow-up in a week with me. This note was generated with [employer] dictation software. It may contain incorrect words, spelling, and punctuation that were not noted in checking the note before signing. Code Visit 111xxx-113xx: [id number] Jennifer subq tissue 20 sq cm/<
[2019-08-22 12:19] VITALS: BP 138/79; PULSE 76; RESP 18; TEMP 37; BMI 35.2
--- NOTE | 2019-08-22 16:32 | PCM.WC.PN ---
(1) Ulcer of right lower extremity with fat layer exposed Status: Chronic Current Visit: Yes Code(s): L97.912 - Non-pressure chronic ulcer of unspecified part of right lower leg with fat layer exposed (2) Venous insufficiency of both lower extremities Status: Chronic Current Visit: Yes Code(s): I87.2 - Venous insufficiency (chronic) (peripheral) (3) Lower extremity edema Status: Chronic Current Visit: Yes Code(s): R60.0 - Localized edema Type of Wound Date of Service: 08/22/19 Chief Complaint: Non healing right leg ulcer History of Wound: Ms. Sanabria presents today due to nonhealing right leg ulcer. The exact etiology is unknown but it appears that it got worse from persistent scratching which patient admits to you. She was initially taken to a screen cleaner by the skilled nursing/assisted living facility. Per note from facility, they have been applying Santyl. Patient reports some drainage but denies chills, fever or feeling unwell. She however attests to significant pain. She admits to tobacco abuse and states that she smokes about 5-6 drinks daily. Denies any known history of diabetes mellitus. Progress of Wound: No new concerns. Improving. tolerating 3M wraps. - Physical Exam Vital Signs Temp Pulse Resp BP 98.6 F 76 18 138/79 H 08/22/19 12:19 08/22/19 12:19 08/22/19 12:19 08/22/19 12:19 General: Alert, Oriented x3, Cooperative, No apparent distress HEENT: Atraumatic, Normocephalic Oral: Moist Mucosa Neck: Supple Lungs: Normal air movement Extremities: No cyanosis, Edema Skin: Ulcer/ Wound Wound Measurements and Assessment WC - Nurse 1 - General Ulcer Measurement Start: 07/29/19 14:22 Freq: Status: Active Protocol: Activity Type Activity Date Activity User E-Sign Co-Sign Detail Recorded Client Recorded Date Recorded By Document 08/22/19 12:19 DV [id number] 08/22/19 12:21 DV 08/22/19 12:19 Wound Center Nurse 1 [Ulcer Assessment] #1- R MED LE -Combined with other wound No -Current Size (cm) - Length 2.2 -Current Size (cm) - Width 1.7 -Current Size (cm) - Depth 0.8 -Total Square Cm 3.74 -Photo Taken No -Epithelialization None Present -Tunneling No -Undermining/Tunneling No -Circular Undermining No -Exudate Amt Large -Exudate Type Serosanguineous -Wound Margin Flat & Intact -Granulation Amt Small (1-33%) -Granulation Quality [place] -Slough/Fibrin Yes -Necrosis Amt Large (67-100%) -Necrotic Tissue Type Adherent Slough -Structure Exposed None/Limited to Skin Breakdown -Texture (Yajaira-wound Skin Appearance) Assessed, Localized Edema ,Scarring -Moisture (Yajaira-wound Skin Appearance Assessed, ) Maceration, Weeping -Color (Yajaira-wound Skin Appearance) Assessed, Erythema -Temperature (Yajaira-wound Skin No Abnormality Appearance) (Pt Warm) -Tenderness on Palpation (Yajaira-wound No Skin Appearance) -Ulcer Cleansing Rinsed/ Irrigated with Saline -Foul Odor after Cleansing No -Anesthetic Used 4% Lidocaine Solution,5% Lidocaine Gel WC - Nurse 2 - General Ulcer CM Notes Start: 07/29/19 14:22 Freq: Status: Active Protocol: Activity Type Activity Date Activity User E-Sign Co-Sign Detail Recorded Client Recorded Date Recorded By Document 08/22/19 12:36 MW [id number] 08/22/19 12:39 MW 08/22/19 12:36 Wound Center Nurse 2 [Procedure/Treatment] -Time 12:38 -Correct Patient Yes -Correct Side, Site, Position Yes -Correct Procedure Yes -Procedure Performed Yes -Type of Procedure Debridement -Clinical Debridement Subcutaneous -Post Debridement Size (cm) - Length 1.8 -Post Debridement Size (cm) - Width 1.6 -Post Debridement Size (cm) - Depth 0.6 -Total Square Cm 2.88 -Wound/Ulcer Outcome Not Healed -Ulcer Cleansing Rinsed/ Irrigated with Saline -Foul Odor after Cleansing No -Bioengineered Tissue No -Bleeding Controlled with Pressure -Offloading No -Treatment Response Procedure Tolerated Well [See Physician Procedure note for Specifics] Pain Scale: 0-10 Numeric [Pain] -Is Patient Pain Free? Yes Musculoskeletal: No Muscle Wasting Neurological: Cranial nerves II-XII grossly intact Psych/Mental Status: Normal Affect Debridement Note Post-Debridement Measurements/Treatment WC - Nurse 2 - General Ulcer CM Notes Start: 07/29/19 14:22 Freq: Status: Active Protocol: Activity Type Activity Date Activity User E-Sign Co-Sign Detail Recorded Client Recorded Date Recorded By Document 08/01/19 10:42 MW [id number] 08/01/19 11:02 MW Document 08/08/19 11:25 MW [id number] 08/08/19 11:29 MW Document 08/15/19 12:23 MW [id number] 08/15/19 12:26 MW Document 08/22/19 12:36 MW [id number] 08/22/19 12:39 MW 08/01/19 08/08/19 08/15/19 10:42 11:25 12:23 Wound Center Nurse 2 #1- R ip.access LE -Time 10:58 11:26 12:24 -Correct Patient Yes Yes Yes -Correct Side, Site, Position Yes Yes Yes -Correct Procedure Yes Yes Yes -Procedure Performed Yes Yes Yes -Type of Procedure Debridement Debridement Debridement -Clinical Debridement Subcutaneous Subcutaneous Subcutaneous -Post Debridement Size (cm) - Length 2.3 2.1 2.2 -Post Debridement Size (cm) - Width 1.8 2.0 1.7 -Post Debridement Size (cm) - Depth 0.8 0.8 0.8 -Total Square Cm 4.14 4.20 3.74 -Wound/Ulcer Outcome Not Healed Not Healed Not Healed -Ulcer Cleansing Rinsed/ Rinsed/ Rinsed/ Irrigated with Irrigated with Irrigated with Saline Saline Saline -Foul Odor after Cleansing No No No -Bioengineered Tissue No No No -Bleeding Controlled with Pressure Pressure Pressure -Offloading No No No -Treatment Response Procedure Procedure Procedure Tolerated Well Tolerated Well Tolerated Well Pain Scale: 0-10 Numeric Is Patient Pain Free? Yes Yes Yes 08/22/19 12:36 Wound Center Nurse 2 #1- R ip.access LE -Time 12:38 -Correct Patient Yes -Correct Side, Site, Position Yes -Correct Procedure Yes -Procedure Performed Yes -Type of Procedure Debridement -Clinical Debridement Subcutaneous -Post Debridement Size (cm) - Length 1.8 -Post Debridement Size (cm) - Width 1.6 -Post Debridement Size (cm) - Depth 0.6 -Total Square Cm 2.88 -Wound/Ulcer Outcome Not Healed -Ulcer Cleansing Rinsed/ Irrigated with Saline -Foul Odor after Cleansing No -Bioengineered Tissue No -Bleeding Controlled with Pressure -Offloading No -Treatment Response Procedure Tolerated Well Pain Scale: 0-10 Numeric Is Patient Pain Free? Yes Wound debrided: Right leg Type of Debridement: Excisional debridement Anesthesia Used: 4% Lidocaine Solution Depth: Down to and including healthy tissue, in the subcutaneous layer Percentage of wound debrided: 100 Instrument Used: 5mm curette Tissue Removed: Slough and devitalized tissue Severity: Fat Layer Exposed Amount of bleeding with debridement: Mild Bleeding Controlled with: Pressure Patient tolerated procedure well Assessment/Plan Active Problems (Last Reviewed 07/11/19 @ 06:46 by Kiara Londono) Ulcer of right lower extremity with fat layer exposed (Chronic) Venous insufficiency of both lower extremities (Chronic) Lower extremity edema (Chronic) Assessment: Nonhealing right leg ulcer. Probes to bone. Plan: Debridement done as documented above. Procedure was well-tolerated. Some improvement noted. Continue Pomogram with guaze overtop and 3M wraps for edema management. Leave in place for 1 week. Elevate lower extremities when seated and in bed. Increase protein intake. Her questions were answered and she was advised to call with any further questions or concerns. Follow-up in a week with me. This note was generated with [employer] dictation software. It may contain incorrect words, spelling, and punctuation that were not noted in checking the note before signing. Code Visit [id number]: [id number] Jennifer subq tissue 20 sq cm/<
== END 2019-08-24 23:59 ==
LOC: WC 11:30
PROVIDERS: PCP Nurse Practitioner Adult Health; Referring Provider Family Medicine Geriatric Medicine; Visit Provider Internal Medicine
DX: I87.2 Venous insufficiency (chronic) (peripheral) (principal); R60.0 Localized edema; L97.812 Non-pressure chronic ulcer of other part of right lower leg with fat layer exposed; F17.200 Nicotine dependence, unspecified, uncomplicated
CPT/HCPCS: 11042; 29581; 97607

== ENCOUNTER 2019-09-19 10:00 | Outpatient (RCR) | payer MEDICARE, MEDICAID, SELFPAY ==
[2019-08-25 00:52] VITALS: BP 138/79; PULSE 76; RESP 18; TEMP 37
[2019-09-05 13:08] VITALS: BP 128/82; PULSE 66; RESP 16; TEMP 36.3; BMI 35.2
--- NOTE | 2019-09-06 08:30 | PN.PCM_ITS ---
(1) Ulcer of right lower extremity with fat layer exposed Status: Chronic Current Visit: Yes Code(s): L97.912 - Non-pressure chronic ulcer of unspecified part of right lower leg with fat layer exposed (2) Essential (primary) hypertension Status: Chronic Current Visit: No Code(s): I10 - Essential (primary) hypertension (3) Lower extremity edema Status: Chronic Current Visit: Yes Code(s): R60.0 - Localized edema (4) Venous insufficiency of both lower extremities Status: Chronic Current Visit: No Code(s): I87.2 - Venous insufficiency (chronic) (peripheral) Type of Wound Date of Service: 09/05/19 Chief Complaint: Non healing right leg ulcer History of Wound: Ms. Sanabria presents today due to nonhealing right leg ulcer. The exact etiology is unknown but it appears that it got worse from persistent scratching which patient admits to you. She was initially taken to a rod filler by the [place] [facility]. Per note from facility, they have been applying Santyl. Patient reports some drainage but denies chills, fever or feeling unwell. She however attests to significant pain. She admits to tobacco abuse and states that she smokes about 5-6 drinks daily. Denies any known history of diabetes mellitus. Progress of Wound: No new concerns. Improving. tolerating 3M wraps. - Physical Exam Vital Signs Temp Pulse Resp BP 97.3 F L 66 16 128/82 H 09/05/19 13:08 09/05/19 13:08 09/05/19 13:08 09/05/19 13:08 General: Alert, Oriented x3, Cooperative, No apparent distress HEENT: Atraumatic Oral: Moist Mucosa Lungs: Clear to auscultation, Normal air movement Cardiovascular: Regular rate Abdomen: Soft, Non Tender, Obese Extremities: No clubbing, No cyanosis, Edema - Generalized bilateral lower extremity edema, Peripheral Pulses Normal Skin: Ulcer/ Wound - See nursing documentation, slough and devitalized tissue present, no signs of infection at this time Wound Measurements and Assessment WC - Nurse 1 - General Ulcer Measurement Start: 09/05/19 13:08 Freq: Status: Active Protocol: Activity Type Activity Date Activity User E-Sign Co-Sign Detail Recorded Client Recorded Date Recorded By Document 09/05/19 13:08 [facility] [id number] 09/05/19 13:18 BMF 09/05/19 13:08 Wound Center Nurse 1 [Ulcer Assessment] #1- R MED LE -Combined with other wound No -Current Size (cm) - Length 1.5 -Current Size (cm) - Width 0.8 -Current Size (cm) - Depth 0.4 -Total Square Cm 1.20 -Date of Last Picture (Recall this 09/05/19 field) -Photo Taken Yes -Epithelialization None Present -Tunneling No -Undermining/Tunneling No -Circular Undermining No -Exudate Amt Small -Exudate Type Serosanguineous -Wound Margin Distinct, Outline Attached -Granulation Amt Large (67-100%) -Granulation Quality Red -Slough/Fibrin Yes -Necrosis Amt Small (1-33%) -Necrotic Tissue Type Adherent Slough -Texture (Yajaira-wound Skin Appearance) Assessed, Scarring -Moisture (Yajaira-wound Skin Appearance Assessed,Dry/ ) Scaly -Color (Yajaira-wound Skin Appearance) Assessed -Temperature (Yajaira-wound Skin No Abnormality Appearance) (Pt Warm) -Tenderness on Palpation (Yajaira-wound No Skin Appearance) -Ulcer Cleansing soapy water -Foul Odor after Cleansing No -Anesthetic Used 5% Lidocaine Gel [Edema Assessment] -Lower Limb Edema Present Yes -Right Calf (cm) 32 -Right Ankle (cm) 22.7 WC - Nurse 2 - General Ulcer CM Notes Start: 09/05/19 13:08 Freq: Status: Active Protocol: Activity Type Activity Date Activity User E-Sign Co-Sign Detail Recorded Client Recorded Date Recorded By Document 09/05/19 13:37 [id number] 09/05/19 13:38 09/05/19 13:37 Wound Center Nurse 2 [Procedure/Treatment] #1- R MED LE -Time 13:37 -Correct Patient Yes -Correct Side, Site, Position Yes -Correct Procedure Yes -Procedure Performed Yes -Type of Procedure Debridement -Clinical Debridement Subcutaneous -Post Debridement Size (cm) - Length 1.2 -Post Debridement Size (cm) - Width 1.1 -Post Debridement Size (cm) - Depth 0.5 -Total Square Cm 1.32 -Wound/Ulcer Outcome Not Healed -Ulcer Cleansing Rinsed/ Irrigated with Saline -Foul Odor after Cleansing No -Bioengineered Tissue No -Bleeding Controlled with Pressure -Offloading No -Treatment Response Procedure Tolerated Well [See Physician Procedure note for Specifics] Pain Scale: 0-10 Numeric [Pain] -Is Patient Pain Free? Yes Neurological: Neuro grossly intact Psych/Mental Status: Normal Affect, Alert and oriented to time, place, person, mood and affect Debridement Note Post-Debridement Measurements/Treatment WC - Nurse 2 - General Ulcer CM Notes Start: 09/05/19 13:08 Freq: Status: Active Protocol: Activity Type Activity Date Activity User E-Sign Co-Sign Detail Recorded Client Recorded Date Recorded By Document 09/05/19 13:37 [id number] 09/05/19 13:38 PHAN 09/05/19 13:37 Wound Center Nurse 2 #1- R MED LE -Time 13:37 -Correct Patient Yes -Correct Side, Site, Position Yes -Correct Procedure Yes -Procedure Performed Yes -Type of Procedure Debridement -Clinical Debridement Subcutaneous -Post Debridement Size (cm) - Length 1.2 -Post Debridement Size (cm) - Width 1.1 -Post Debridement Size (cm) - Depth 0.5 -Total Square Cm 1.32 -Wound/Ulcer Outcome Not Healed -Ulcer Cleansing Rinsed/ Irrigated with Saline -Foul Odor after Cleansing No -Bioengineered Tissue No -Bleeding Controlled with Pressure -Offloading No -Treatment Response Procedure Tolerated Well Pain Scale: 0-10 Numeric Is Patient Pain Free? Yes Wound debrided: Right lower extremity ulceration Laterality: Right Type of Debridement: Excisional debridement Anesthesia Used: 5% Lidocaine Gel Depth: in the subcutaneous layer Percentage of wound debrided: 100 Instrument Used: 5mm curette Tissue Removed: Slough and devitalized tissue Severity: Fat Layer Exposed Amount of bleeding with debridement: Mild Bleeding Controlled with: Pressure Patient tolerated procedure well Assessment/Plan Active Problems (Last Reviewed 07/11/19 @ 06:46 by Kiara Londono) Ulcer of right lower extremity with fat layer exposed (Chronic) Lower extremity edema (Chronic) Assessment: Nonhealing right leg ulcer. Probes to bone. Plan: Courtesy visit for Dr. Marion-Debridement done as documented above. Procedure was well-tolerated. Some improvement noted. Continue Promogram with Gauze overtop and 3M wraps for edema management. Leave in place for 1 week. Elevate lower extremities when seated and in bed. Increase protein intake. Her questions were answered and she was advised to call with any further questions or concerns. Follow-up in a week with me. This note was generated with [employer] dictation software. It may contain incorrect words, spelling, and punctuation that were not noted in checking the note before signing. 111xxx-113xx: [id number] Jennifer subq tissue 20 sq cm/<
[2019-09-12 09:59] VITALS: BP 157/82; PULSE 72; RESP 18; TEMP 36.2; BMI 35.2
--- NOTE | 2019-09-12 11:49 | PCM.WC.PN ---
(1) Ulcer of right lower extremity with fat layer exposed Status: Chronic Current Visit: Yes Code(s): L97.912 - Non-pressure chronic ulcer of unspecified part of right lower leg with fat layer exposed (2) Venous insufficiency of both lower extremities Status: Chronic Current Visit: Yes Code(s): I87.2 - Venous insufficiency (chronic) (peripheral) Type of Wound Date of Service: 09/12/19 Chief Complaint: Non healing right leg ulcer History of Wound: Ms. Sanabria presents today due to nonhealing right leg ulcer. The exact etiology is unknown but it appears that it got worse from persistent scratching which patient admits to you. She was initially taken to a carbon dioxide operator by the intermediate/assisted living facility. Per note from facility, they have been applying Santyl. Patient reports some drainage but denies chills, fever or feeling unwell. She however attests to significant pain. She admits to tobacco abuse and states that she smokes about 5-6 drinks daily. Denies any known history of diabetes mellitus. Progress of Wound: No new concerns. Improving. tolerating 3M wraps. - Physical Exam Vital Signs Temp Pulse Resp BP 97.2 F L 72 18 157/82 H 09/12/19 09:59 09/12/19 09:59 09/12/19 09:59 09/12/19 09:59 General: Alert, Oriented x3, Cooperative, No apparent distress HEENT: Atraumatic Oral: Moist Mucosa Neck: Supple Lungs: Normal air movement Extremities: No cyanosis, Edema Skin: Ulcer/ Wound Wound Measurements and Assessment WC - Nurse 1 - General Ulcer Measurement Start: 09/05/19 13:08 Freq: Status: Active Protocol: Activity Type Activity Date Activity User E-Sign Co-Sign Detail Recorded Client Recorded Date Recorded By Document 09/12/19 09:59 RB [id number] 09/12/19 10:09 RB 09/12/19 09:59 Wound Center Nurse 1 [Ulcer Assessment] #1- R MED LE -Combined with other wound No -Current Size (cm) - Length 1 -Current Size (cm) - Width 0.6 -Current Size (cm) - Depth 0.1 -Total Square Cm 0.6 -Tunneling No -Undermining/Tunneling No -Circular Undermining No -Exudate Amt Small -Exudate Type Serosanguineous -Wound Margin Flat & Intact -Granulation Amt Large (67-100%) -Granulation Quality Red -Slough/Fibrin Yes -Necrosis Amt Small (1-33%) -Necrotic Tissue Type Adherent Slough -Structure Exposed N/A -Texture (Yajaira-wound Skin Appearance) Assessed, Scarring -Moisture (Yajaira-wound Skin Appearance Assessed,Dry/ ) Scaly -Color (Yajaira-wound Skin Appearance) Assessed -Temperature (Yajaira-wound Skin No Abnormality Appearance) (Pt Warm) -Tenderness on Palpation (Yajaira-wound No Skin Appearance) -Ulcer Cleansing Wound Cleanser -Foul Odor after Cleansing No -Anesthetic Used 5% Lidocaine Gel [Edema Assessment] -Lower Limb Edema Present Yes -Right Calf (cm) 33 -Right Ankle (cm) 23 WC - Nurse 2 - General Ulcer CM Notes Start: 09/05/19 13:08 Freq: Status: Active Protocol: Activity Type Activity Date Activity User E-Sign Co-Sign Detail Recorded Client Recorded Date Recorded By Document 09/12/19 10:13 MW [id number] 09/12/19 10:16 MW 09/12/19 10:13 Wound Center Nurse 2 [Procedure/Treatment] #1- R MED LE -Time 10:15 -Correct Patient Yes -Correct Side, Site, Position Yes -Correct Procedure Yes -Procedure Performed Yes -Type of Procedure Debridement -Clinical Debridement Subcutaneous -Post Debridement Size (cm) - Length 1.4 -Post Debridement Size (cm) - Width 0.6 -Post Debridement Size (cm) - Depth 0.2 -Total Square Cm 0.84 -Wound/Ulcer Outcome Not Healed -Ulcer Cleansing Wound Cleanser -Foul Odor after Cleansing No -Bioengineered Tissue No -Bleeding Controlled with Pressure -Offloading No -Treatment Response Procedure Tolerated Well [See Physician Procedure note for Specifics] Pain Scale: 0-10 Numeric [Pain] -Is Patient Pain Free? Yes Neurological: Cranial nerves II-XII grossly intact Psych/Mental Status: Normal Affect Debridement Note Post-Debridement Measurements/Treatment - Nurse 2 - General Ulcer CM Notes Start: 09/05/19 13:08 Freq: Status: Active Protocol: Activity Type Activity Date Activity User E-Sign Co-Sign Detail Recorded Client Recorded Date Recorded By Document 09/05/19 13:37 [id number] 09/05/19 13:38 JF Document 09/12/19 10:13 MW [id number] 09/12/19 10:16 MW 09/05/19 09/12/19 13:37 10:13 Wound Center Nurse 2 #1- R MED LE -Time 13:37 10:15 -Correct Patient Yes Yes -Correct Side, Site, Position Yes Yes -Correct Procedure Yes Yes -Procedure Performed Yes Yes -Type of Procedure Debridement Debridement -Clinical Debridement Subcutaneous Subcutaneous -Post Debridement Size (cm) - Length 1.2 1.4 -Post Debridement Size (cm) - Width 1.1 0.6 -Post Debridement Size (cm) - Depth 0.5 0.2 -Total Square Cm 1.32 0.84 -Wound/Ulcer Outcome Not Healed Not Healed -Ulcer Cleansing Rinsed/ Wound Cleanser Irrigated with Saline -Foul Odor after Cleansing No No -Bioengineered Tissue No No -Bleeding Controlled with Pressure Pressure -Offloading No No -Treatment Response Procedure Procedure Tolerated Well Tolerated Well Pain Scale: 0-10 Numeric Is Patient Pain Free? Yes Yes Wound debrided: Right Leg Type of Debridement: Excisional debridement Anesthesia Used: 4% Lidocaine Solution Depth: Down to and including healthy tissue, in the subcutaneous layer Percentage of wound debrided: 100 Instrument Used: 3mm curette Tissue Removed: Slough and devitalized tissue Severity: Fat Layer Exposed Amount of bleeding with debridement: Mild Bleeding Controlled with: Pressure Patient tolerated procedure well Assessment/Plan Active Problems (Last Reviewed 07/11/19 @ 06:46 by Kiara Londono) Ulcer of right lower extremity with fat layer exposed (Chronic) Venous insufficiency of both lower extremities (Chronic) Lower extremity edema (Chronic) Assessment: Nonhealing right leg ulcer. Probes to bone. Plan: Improving. Debridement done as documented above. Procedure was well-tolerated. Continue Promogram with Gauze overtop and 3M wraps for edema management. Leave in place for 1 week. Elevate lower extremities when seated and in bed. Increase protein intake. Her questions were answered and she was advised to call with any further questions or concerns. Follow-up in a week. This note was generated with [employer] software. It may contain incorrect words, spelling, and punctuation that were not noted in checking the note before signing. 111xxx-[id number]: [id number] Jennifer subq tissue 20 sq cm/<
[2019-09-19 09:51] VITALS: BP 150/81; PULSE 70; RESP 18; TEMP 36.3; BMI 35.2
--- NOTE | 2019-09-19 11:12 | PCM.WC.PN ---
(1) Ulcer of right lower extremity with fat layer exposed Status: Chronic Current Visit: Yes Code(s): L97.912 - Non-pressure chronic ulcer of unspecified part of right lower leg with fat layer exposed (2) Venous insufficiency of both lower extremities Status: Chronic Current Visit: Yes Code(s): I87.2 - Venous insufficiency (chronic) (peripheral) Type of Wound Date of Service: 09/19/19 Chief Complaint: Non healing right leg ulcer History of Wound: Ms. Sanabria presents today due to nonhealing right leg ulcer. The exact etiology is unknown but it appears that it got worse from persistent scratching which patient admits to you. She was initially taken to a dental hygiene administrative assistant by the fpc/assisted living facility. Per note from facility, they have been applying Santyl. Patient reports some drainage but denies chills, fever or feeling unwell. She however attests to significant pain. She admits to tobacco abuse and states that she smokes about 5-6 drinks daily. Denies any known history of diabetes mellitus. Progress of Wound: Continues to show good improvement. No acute concerns at this time. - Physical Exam Vital Signs Temp Pulse Resp BP 97.3 F L 70 18 150/81 H 09/19/19 09:51 09/19/19 09:51 09/19/19 09:51 09/19/19 09:51 General: Alert, Oriented x3, Cooperative, No apparent distress HEENT: Atraumatic, Normocephalic Oral: Moist Mucosa Neck: Supple Lungs: Normal air movement Extremities: No cyanosis, Edema Skin: Ulcer/ Wound Wound Measurements and Assessment WC - Nurse 1 - General Ulcer Measurement Start: 09/05/19 13:08 Freq: Status: Active Protocol: Activity Type Activity Date Activity User E-Sign Co-Sign Detail Recorded Client Recorded Date Recorded By Document 09/19/19 09:51 [facility] [id number] 09/19/19 09:59 [facility] 09/19/19 09:51 Wound Center Nurse 1 [Ulcer Assessment] #1- R MED LE -Combined with other wound No -Current Size (cm) - Length 0.7 -Current Size (cm) - Width 0.4 -Current Size (cm) - Depth 0.2 -Total Square Cm 0.28 -Photo Taken No -Epithelialization Small 1-33% -Tunneling No -Undermining/Tunneling No -Circular Undermining No -Exudate Amt Small -Exudate Type Serosanguineous -Wound Margin Distinct, Outline Attached -Granulation Amt Small (1-33%) -Granulation Quality [place] -Slough/Fibrin Yes -Necrosis Amt Medium (34-66%) -Necrotic Tissue Type Adherent Slough -Texture (Yajaira-wound Skin Appearance) Assessed, Scarring -Moisture (Yajaira-wound Skin Appearance Assessed,Dry/ ) Scaly -Color (Yajaira-wound Skin Appearance) Assessed -Temperature (Yajaira-wound Skin No Abnormality Appearance) (Pt Warm) -Tenderness on Palpation (Yajaira-wound Yes Skin Appearance) -Ulcer Cleansing SOAPY WATER -Foul Odor after Cleansing No -Anesthetic Used 5% Lidocaine Gel [Edema Assessment] -Lower Limb Edema Present Yes -Right Calf (cm) 34.1 -Right Ankle (cm) 22.1 WC - Nurse 2 - General Ulcer CM Notes Start: 09/05/19 13:08 Freq: Status: Active Protocol: Activity Type Activity Date Activity User E-Sign Co-Sign Detail Recorded Client Recorded Date Recorded By Document 09/19/19 10:15 MW [id number] 09/19/19 10:16 MW 09/19/19 10:15 Wound Center Nurse 2 [Procedure/Treatment] #1- R MED LE -Time 10:16 -Correct Patient Yes -Correct Side, Site, Position Yes -Correct Procedure Yes -Procedure Performed Yes -Type of Procedure Debridement -Clinical Debridement Subcutaneous -Post Debridement Size (cm) - Length 0.4 -Post Debridement Size (cm) - Width 0.4 -Post Debridement Size (cm) - Depth 0.1 -Total Square Cm 0.16 -Wound/Ulcer Outcome Not Healed -Ulcer Cleansing Rinsed/ Irrigated with Saline -Foul Odor after Cleansing No -Bioengineered Tissue No -Bleeding Controlled with Pressure -Offloading No -Treatment Response Procedure Tolerated Well [See Physician Procedure note for Specifics] Pain Scale: 0-10 Numeric [Pain] -Is Patient Pain Free? Yes Musculoskeletal: No Muscle Wasting Neurological: Cranial nerves II-XII grossly intact Psych/Mental Status: Normal Affect Debridement Note Post-Debridement Measurements/Treatment WC - Nurse 2 - General Ulcer CM Notes Start: 09/05/19 13:08 Freq: Status: Active Protocol: Activity Type Activity Date Activity User E-Sign Co-Sign Detail Recorded Client Recorded Date Recorded By Document 09/05/19 13:37 [id number] 09/05/19 13:38 JF Document 09/12/19 10:13 MW [id number] 09/12/19 10:16 MW Document 09/19/19 10:15 MW [id number] 09/19/19 10:16 MW 09/05/19 09/12/19 09/19/19 13:37 10:13 10:15 Wound Center Nurse 2 #1- R MED LE -Time 13:37 10:15 10:16 -Correct Patient Yes Yes Yes -Correct Side, Site, Position Yes Yes Yes -Correct Procedure Yes Yes Yes -Procedure Performed Yes Yes Yes -Type of Procedure Debridement Debridement Debridement -Clinical Debridement Subcutaneous Subcutaneous Subcutaneous -Post Debridement Size (cm) - Length 1.2 1.4 0.4 -Post Debridement Size (cm) - Width 1.1 0.6 0.4 -Post Debridement Size (cm) - Depth 0.5 0.2 0.1 -Total Square Cm 1.32 0.84 0.16 -Wound/Ulcer Outcome Not Healed Not Healed Not Healed -Ulcer Cleansing Rinsed/ Wound Cleanser Rinsed/ Irrigated with Irrigated with Saline Saline -Foul Odor after Cleansing No No No -Bioengineered Tissue No No No -Bleeding Controlled with Pressure Pressure Pressure -Offloading No No No -Treatment Response Procedure Procedure Procedure Tolerated Well Tolerated Well Tolerated Well Pain Scale: 0-10 Numeric Is Patient Pain Free? Yes Yes Yes Wound debrided: Right Leg Type of Debridement: Excisional debridement Anesthesia Used: 4% Lidocaine Solution, 5% Lidocaine Gel Depth: Down to and including healthy tissue, in the subcutaneous layer Percentage of wound debrided: 100 Instrument Used: 3mm curette Tissue Removed: Slough and devitalized tissue Severity: Fat Layer Exposed Amount of bleeding with debridement: Mild Bleeding Controlled with: Pressure Patient tolerated procedure well Assessment/Plan Active Problems (Last Reviewed 07/11/19 @ 06:46 by Kiara Londono) Ulcer of right lower extremity with fat layer exposed (Chronic) Venous insufficiency of both lower extremities (Chronic) Lower extremity edema (Chronic) Assessment: Nonhealing right leg ulcer. Probes to bone. Plan: Improving. Debridement done as documented above. Procedure was well-tolerated. Continue Promogram with Gauze overtop and 3M wraps for edema management. Leave in place for 1 week. Elevate lower extremities when seated and in bed. Increase protein intake. Her questions were answered and she was advised to call with any further questions or concerns. Follow-up in a week. This note was generated with [employer] dictation software. It may contain incorrect words, spelling, and punctuation that were not noted in checking the note before signing. [id number]: [id number] Jennifer subq tissue 20 sq cm/<
== END 2019-09-24 23:59 ==
LOC: WC 10:00
PROVIDERS: PCP Nurse Practitioner Adult Health; Referring Provider Family Medicine Geriatric Medicine; Visit Provider Internal Medicine
DX: I87.2 Venous insufficiency (chronic) (peripheral) (principal); R60.0 Localized edema; L97.812 Non-pressure chronic ulcer of other part of right lower leg with fat layer exposed; I10 Essential (primary) hypertension; F17.200 Nicotine dependence, unspecified, uncomplicated
CPT/HCPCS: 11042; 29581

== ENCOUNTER 2019-09-26 10:04 | Outpatient (RCR) | payer MEDICARE, MEDICAID, SELFPAY ==
[2019-09-25 00:41] VITALS: BP 150/81; PULSE 70; RESP 18; TEMP 36.3
[2019-09-26 11:46] VITALS: BP 123/87; PULSE 82; RESP 16; TEMP 35.9; BMI 35.2
--- NOTE | 2019-09-26 13:24 | PCM.WC.PN ---
(1) Ulcer of right lower extremity with fat layer exposed Status: Chronic Current Visit: Yes Code(s): L97.912 - Non-pressure chronic ulcer of unspecified part of right lower leg with fat layer exposed (2) Venous insufficiency of both lower extremities Status: Chronic Current Visit: Yes Code(s): I87.2 - Venous insufficiency (chronic) (peripheral) Type of Wound Date of Service: 09/26/19 Chief Complaint: Non healing right leg ulcer History of Wound: Ms. Sanabria presents today due to nonhealing right leg ulcer. The exact etiology is unknown but it appears that it got worse from persistent scratching which patient admits to you. She was initially taken to a applications support specialist by the long term/assisted living facility. Per note from facility, they have been applying Santyl. Patient reports some drainage but denies chills, fever or feeling unwell. She however attests to significant pain. She admits to tobacco abuse and states that she smokes about 5-6 drinks daily. Denies any known history of diabetes mellitus. Progress of Wound: Healed. No new concerns at this time. - Physical Exam Vital Signs Temp Pulse Resp BP 96.6 F L 82 16 123/87 H 09/26/19 11:46 09/26/19 11:46 09/26/19 11:46 09/26/19 11:46 General: Alert, Oriented x3, Cooperative, No apparent distress HEENT: Atraumatic, Normocephalic Oral: Moist Mucosa Neck: Supple Lungs: Normal air movement Extremities: Edema Wound Measurements and Assessment WC - Nurse 1 - General Ulcer Measurement Start: 09/26/19 11:46 Freq: Status: Active Protocol: Activity Type Activity Date Activity User E-Sign Co-Sign Detail Recorded Client Recorded Date Recorded By Document 09/26/19 11:46 [facility] [id number] 09/26/19 11:57 [facility] 09/26/19 11:46 Wound Center Nurse 1 [Ulcer Assessment] #1- R MED LE -Combined with other wound No -Current Size (cm) - Length 0.1 -Current Size (cm) - Width 0.1 -Current Size (cm) - Depth 0.1 -Total Square Cm 0.01 -Photo Taken No -Epithelialization Large 67-100% -Tunneling No -Undermining/Tunneling No -Circular Undermining No -Exudate Amt None Present -Necrosis Amt Small (1-33%) -Necrotic Tissue Type Eschar -Texture (Yajaira-wound Skin Appearance) Assessed, Scarring -Moisture (Yajaira-wound Skin Appearance Assessed,Dry/ ) Scaly -Color (Yajaira-wound Skin Appearance) Assessed -Temperature (Yajaira-wound Skin No Abnormality Appearance) (Pt Warm) -Tenderness on Palpation (Yajaira-wound No Skin Appearance) -Ulcer Cleansing soapy water -Foul Odor after Cleansing No -Anesthetic Used 5% Lidocaine Gel [Edema Assessment] -Lower Limb Edema Present Yes -Right Calf (cm) 33.6 -Right Ankle (cm) 22.5 WC - Nurse 2 - General Ulcer CM Notes Start: 09/26/19 11:46 Freq: Status: Active Protocol: Activity Type Activity Date Activity User E-Sign Co-Sign Detail Recorded Client Recorded Date Recorded By Document 09/26/19 12:09 MW [id number] 09/26/19 12:17 MW 09/26/19 12:09 Wound Center Nurse 2 [Procedure/Treatment] #1- R [employer] LE -Time 12:11 -Correct Patient Yes -Correct Side, Site, Position Yes -Correct Procedure Yes -Procedure Performed No -Post Debridement Size (cm) - Length 0 -Post Debridement Size (cm) - Width 0 -Post Debridement Size (cm) - Depth 0 -Total Square Cm 0 -Wound/Ulcer Outcome Healed- Epithelialized [See Physician Procedure note for Specifics] Pain Scale: 0-10 Numeric [Pain] -Is Patient Pain Free? Yes Neurological: Cranial nerves II-XII grossly intact Psych/Mental Status: Normal Affect Debridement Note Post-Debridement Measurements/Treatment WC - Nurse 2 - General Ulcer CM Notes Start: 09/26/19 11:46 Freq: Status: Active Protocol: Activity Type Activity Date Activity User E-Sign Co-Sign Detail Recorded Client Recorded Date Recorded By Document 09/26/19 12:09 MW [id number] 09/26/19 12:17 MW 09/26/19 12:09 Wound Center Nurse 2 #1- R MED LE -Time 12:11 -Correct Patient Yes -Correct Side, Site, Position Yes -Correct Procedure Yes -Procedure Performed No -Post Debridement Size (cm) - Length 0 -Post Debridement Size (cm) - Width 0 -Post Debridement Size (cm) - Depth 0 -Total Square Cm 0 -Wound/Ulcer Outcome Healed- Epithelialized Pain Scale: 0-10 Numeric Is Patient Pain Free? Yes No debridement was completed today Assessment/Plan Active Problems (Last Reviewed 07/11/19 @ 06:46 by Kiara Londono) Ulcer of right lower extremity with fat layer exposed (Chronic) Venous insufficiency of both lower extremities (Chronic) Assessment: Nonhealing right leg ulcer. Probes to bone. ( Healed ) Plan: Healed. No new concerns at this time. Adaptic and guaze x 2 weeks. Compression stockings. Elevate lower extremities when seated and in bed. Increase protein intake. Her questions were answered and she was advised to call with any further questions or concerns. Discharged from the wound clinic. This note was generated with [employer] dictation software. It may contain incorrect words, spelling, and punctuation that were not noted in checking the note before signing. Office Visits / Consults: [id number] OV L3 Est
== END 2019-10-24 23:59 ==
LOC: WC 10:04
PROVIDERS: PCP Nurse Practitioner Adult Health; Referring Provider Family Medicine Geriatric Medicine; Visit Provider Internal Medicine
DX: L97.912 Non-pressure chronic ulcer of unspecified part of right lower leg with fat layer exposed (principal); I87.2 Venous insufficiency (chronic) (peripheral); F17.210 Nicotine dependence, cigarettes, uncomplicated
CPT/HCPCS: 99213; G0463

== ENCOUNTER → 2020-08-06 10:01 | Outpatient (CLI) | payer MEDICARE, MEDICAID, SELFPAY ==
[2020-03-16 15:40] VITALS: BMI 35.2
== END ==
PROVIDERS: PCP Nurse Practitioner Adult Health; Visit Provider Internal Medicine Cardiovascular Disease
DX: R00.2 Palpitations (principal); R53.83 Other fatigue; I10 Essential (primary) hypertension; E78.5 Hyperlipidemia, unspecified; R60.0 Localized edema; I87.2 Venous insufficiency (chronic) (peripheral); F17.200 Nicotine dependence, unspecified, uncomplicated; Z86.711 Personal history of pulmonary embolism
CPT/HCPCS: 93225; 93226

== ENCOUNTER 2020-09-07 08:32 | Day surgery (SDC) | payer MEDICARE, MEDICAID, SELFPAY ==
[2020-08-21 09:12] VITALS: BMI 29.0
[2020-09-07] VITALS (10 sets, daily range): BP systolic 118–157; BP diastolic 67–95; PULSE 55–78; RESP 16; TEMP 36.1–36.2; O2SAT 18–100; BMI 39.6
--- NOTE | 2020-09-07 05:53 | HP_ITS ---
Intake Vital Signs 08/21/20 Height 4 ft 9 in 08/21/20 Weight: 134 lb 08/21/20 BMI 29.0 08/21/20 BP 132/85 H 08/21/20 Blood Pressure Location Rt brachial 08/21/20 Position Sitting 08/21/20 Respiration 16 Intake Visit Reasons: COLONOSCOPY, ABNORMAL COLOGUARD Chief Complaint: Follow-up visit. [employer] Required: No Is patient in pain?: No Allergies No Known Allergies Allergy (Verified 08/21/20 09:13) Medications Celecoxib [Celebrex] 200 mg PO DAILY 03/27/15 [History Confirmed 08/21/20] Julian-3 Fatty Acids/Fish Oil [Fish Oil 1,000 mg Capsule] 2 ea PO DAILY 03/27/15 [History Confirmed 08/21/20] Potassium Chloride Oral Tablet [K-Dur] 10 meq PO DAILY 03/27/15 [History Confirmed 08/21/20] Sertraline HCl [Zoloft] 200 mg PO DAILY 03/27/15 [History Confirmed 08/21/20] Vitamin B Complex 1 ea PO DAILY 03/27/15 [History Confirmed 08/21/20] predniSONE tablet 5 mg PO DAILY 03/27/15 [History Confirmed 08/21/20] Pravastatin Sodium [Pravachol] 40 mg PO QHS 09/14/15 [History Confirmed 08/21/20] metoprolol tartrate 25 mg tablet 25 mg PO BID #60 tab 01/08/19 [History Confirmed 08/21/20] Acetaminophen [Acetaminophen Extra Strength] 1,000 mg PO BID PRN 07/11/19 [History Confirmed 08/21/20] Alprazolam [Xanax] 0.5 mg PO Q6H PRN 07/11/19 [History Confirmed 08/21/20] Benzonatate [Tessalon Perle] 200 mg PO Q8H PRN 07/11/19 [History Confirmed 08/21/20] Bismuth Subsalicylate [[place] Bismuth] 15 ml PO Q6H PRN 07/11/19 [History Confirmed 08/21/20] Diphenhydramine HCl [Banophen] 25 mg PO Q6H PRN 07/11/19 [History Confirmed 08/21/20] Gluc Light/Chondro Light A/Vit C/Mn [Glucosamine Chondroitin Tab] 2 ea PO DAILY 07/11/19 [History Confirmed 08/21/20] Guaifenesin [Mucus Relief] 400 mg PO BID PRN 07/11/19 [History Confirmed 08/21/20] Loperamide [Imodium] 2 mg PO Q8H PRN PRN 07/11/19 [History Confirmed 08/21/20] Multivitamin [Daily Value] 1 ea PO DAILY 07/11/19 [History Confirmed 08/21/20] Naphazoline HCl/Glycerin [Clear Eyes Max Redness Rlf Drp] 2 drp OP BID 07/11/19 [History Confirmed 08/21/20] Saliva Substitute Combo No.9 [Biotene] ml MM DAILY PRN 07/11/19 [History Confirmed 08/21/20] Simethicone 125 mg PO 4X/DAY PRN 07/11/19 [History Confirmed 08/21/20] Tizanidine HCl [Zanaflex] 2 mg PO Q8H PRN 07/11/19 [History Confirmed 08/21/20] Lactobacillus acidophilus 10 mg PO DAILY 08/07/20 [History Confirmed 08/21/20] adalimumab 40 mg/0.8 mL subcutaneous syringe kit See Rx Instructions SC .COMPLEX 08/07/20 [History Confirmed 08/21/20] cholecalciferol (vitamin D3) 50 mcg (2,000 unit) capsule 50 mcg PO DAILY 08/07/20 [History Confirmed 08/21/20] fluticasone propionate 50 mcg/actuation nasal spray,suspension 1 spray INTRANASAL BID PRN 08/07/20 [History Confirmed 08/21/20] hydrocodone 5 mg-acetaminophen 325 mg tablet 1 tab PO TID tab 08/07/20 [History Confirmed 08/21/20] mirabegron 50 mg tablet,extended release 24 hr 50 mg PO DAILY 08/07/20 [History Confirmed 08/21/20] psyllium husk 0.4 gram capsule 0.4 g PO DAILY PRN 08/07/20 [History Confirmed 08/21/20] warfarin 6 mg tablet 6 mg PO DAILY tab 08/07/20 [History Confirmed 08/21/20] PFSH Medical History Essential (primary) hypertension (Chronic) Hyperlipidemia (Chronic) Lower extremity edema (Chronic) Venous insufficiency of both lower extremities (Chronic) History of pulmonary embolism (Resolved 2011) Nicotine dependence (Chronic) Positive colorectal cancer screening using Cologuard test (Acute) Anxiety (Chronic) Bladder dysfunction (Chronic) Compression fracture of thoracic vertebra (Chronic) Mental retardation (Chronic) Morbid obesity (Chronic) Osteoporosis (Chronic) Rheumatoid arthritis (Chronic) Deep vein thrombosis (Resolved) Ulcer of right lower extremity with fat layer exposed (Resolved) Surgical History History of right hip replacement (Chronic) History of total left knee replacement (Chronic) Family History Other Hypertension Social History (Updated 08/21/20 @ 09:[address] Maryse Samuels MD) Smoking Status: Current every day smoker alcohol intake: current alcohol intake frequency: holidays/special occasions only HPI HPI HPI: PRICE MACK, is a 69 F who presents to the office today for HPI HPI Surgical H&P: Yes HPI: PRICE MACK, is a 69 F who presents to the office today for positive Cologuard test. Patient states she has bowel movements daily denies any blood. She states sometimes she feels like she still needs to go out; however she states she has been having decent sized bowel movements. Patient states she had 1 previous colonoscopy thinks at [facility] prior about 10 years ago unable to remember the exact date. Patient denies any abdominal pain/nausea/vomiting/reflux. Patient is on Coumadin due to previous PE sounds like after her left knee replacement in 2006. ROS General General: Yes fatigue; no breast cancer Psych Psychiatric: Yes depression and anxiety Resp Respiratory: Yes cough Gastro Gastrointestinal: No abdominal pain, No nausea or vomiting, No diarrhea, Yes constipation, No blood in stool, No acid reflux, Yes hemorrhoids, No black,tarry stools Exam Const General: cooperative, comfortable, no acute distress Resp Effort & Inspection: normal respiratory effort Cardio Rate: regular rate GI Inspection: non-distended Palpation: soft, no guarding, nontender Psych Affect: normal affect Assessment & Plan Problems 1. Positive colorectal cancer screening using Cologuard test R19.5 Plan We will have discussed with the WATER SUPERINTENDENT Bobbi Pandey and whether patient is able to come off her Coumadin or if she needs to be bridged with Lovenox due to her history of PE. Would want patient off the Coumadin 5 days prior to EGD and colonoscopy I have discussed the above with the patient and her sister. I have offered the patient EGD and colonoscopy for evaluation. I have explained the risks/benefits of the procedure and described the procedure. I have discussed the risks with the patient, including but not limited to: infection, bleeding, perforation of the GI tract requiring emergency surgery, inability to complete the procedure, injury to any internal organs, complications of anesthesia, etc. - the patient understands and agrees to proceed. I have answered all the patient's questions to the patient's satisfaction and the patient has no further questions. The patient has been given instructions for the colon cleansing preparation. 1 day of clears, MiraLAX Dulcolax prep starting at 10 AM/noon. Maryse Samuels M.D. Pager: [phone] [facility] [address] [place] [address], [address] [place] [address] Office: [phone] Orders Orders: Colonoscopy Today EGD Today Plan Detail Follow Up We will schedule EGD and colonoscopy for 18 see about patient is able to stop her Coumadin her needs to be bridged prior. Coding Level of Care Code Off vis,new,level 3 Diagnoses Positive colorectal cancer screening using Cologuard test R19.5 COVID (Procedure Consent) Procedure Criteria Procedure Criteria: Yes Elective The surgeon/proceduralist and patient have discussed in detail the risk of exposure to and/or potential harm posed by the COVID-19 virus with having a surgery/procedure at this time versus the risk of? delaying the surgery/procedure. It is not possible to know either the risk of delaying the surgery or procedure or chance of getting an infection with perfect accuracy, but a joint decision was made between the patient and the surgeon/proceduralist ?to proceed at this time with the scheduled surgery/procedure as indicated on the consent form. I have re-examined the patient. There are no clinical changes since date of exam.
[2020-09-07] MEDS: Lactated Ringers 1,000 ML 100 ML IV (09:27)
--- NOTE | 2020-09-07 09:45 | IMM_PTH ---
PATIENT: PRICE MACK LOC: EN U#:[id number] AGE/SX: 69/F ROOM: RE09/07/[address]: Dr. Maryse Samuels MD : 1950 BED: DIS: 09/07/2020 SPEC #: [id number] RECD: 09/08/20 08:20 STATUS: SHALINI REBrenna #: [id number] JAMAL: 09/07/20 09:[address]: Maryse Samuels DEPT: IMMUNOHISTOCHEMISTRY RECD BY: Vikki Wilde ENTERED: 09/08/20 08:20 SP TYPE: IMMUNO OTHR DR: Bobbi Pandey, HAIR OR BEAUTY SALON MANAGER-C Tissues: A - Stomach, NOS Procedures: H Pylori (initial) PHYSICIAN & INSTITUTION [place] [address] SPECIMEN INFORMATION: Tissue Source: A - Antral biopsy Clinical Info: Abnormal Cologuard Specimen Number: [id number] CPT code: 25467 METHODOLOGY: Deparaffinized sections of prefer/formalin-fixed tissue or PAP/DQ stained slides are incubated with monoclonal/polyclonal antibodies/oligonucleotide probes. Localization is made via biotin free immunoperoxidase method. Appropriate controls are performed and reacted as expected. Results on target cell population are indicated in the following table: RESULTS: ANTIBODY / CLONE RESULT Block A H Pylori (polyclonal) negative These tests were developed and their performance characteristics determined by [facility]. They may not have been cleared or approved by the U.S. Food and Drug Administration. The FDA has determined that such clearance or approval is not necessary. INTERPRETATION: A. Antral biopsy: Negative for Helicobacter pylori organisms. AM:etelvina 09/10/2020
--- NOTE | 2020-09-07 09:45 | COLBX_PTH ---
PATIENT: PRICE MACK LOC: EN U#:[id number] AGE/SX: 69/F ROOM: RE09/07/[address]: Dr. Maryse Samuels MD : 1950 BED: DIS: 09/07/2020 SPEC #: [id number] RECD: 09/07/20 13:02 STATUS: SHALINI JENNIFER #: [id number] JAMAL: 09/07/20 09:[address]: Maryse Samuels DEPT: SURGICAL PATHOLOGY RECD BY: Sofía Isaac ENTERED: 09/08/20 07:44 SP TYPE: COLON BX OTHR DR: Bobbi Pandey, BARGE CAPTAIN-C Tissues: A - Gastric mucous membrane B - Gastric mucous membrane C - Ascending colon D - Sigmoid colon biopsy Procedures: Special Stain Group II Special Stain Group I Surgery Specimen Level IV GMS Stain (control) Alcian Blue/PAS (control) HEADER OPERATION: Colonoscopy, [place] [place] PRE-OP DIAGNOSIS: Abnormal Cologuard TISSUE SUBMITTED: A - Antral biopsy, H. pylori and path, B - GE junction biopsy, C - Proximal ascending polyp, D - Sigmoid colon polyp MICROSCOPIC DIAGNOSIS A. Gastric antrum, biopsy: Mild chronic inflammation. See comment. B. Gastroesophageal junction, biopsy: Focal changes of reflux. Focal acute inflammation. No evidence of goblet cell metaplasia. See comment. C. Proximal ascending colon polyp, biopsy: Fragments of tubular adenoma. D. Sigmoid colon polyp, biopsy: Mild architectural change. No evidence of inflammation. No adenomatous change. AM:etelvina 09/09/2020 COMMENT A. The results of immunohistochemistry for Helicobacter pylori will be reported separately ([id number]). B. Alcian blue/PAS stain with matched control supports the above diagnosis. GMS stain with matched control was used in the evaluation of this case. MICROSCOPIC DESCRIPTION Slides are reviewed. GROSS DESCRIPTION A - Received in fixative is one container labeled with the patient's name and designated antral biopsy. The specimen consists of one irregular fragment of light altamirano soft tissue that measures 0.5 x 0.3 x 0.1 cm. The specimen is totally submitted in one cassette. B - Received in fixative is one container labeled with the patient's name and designated GE junction. The specimen consists of multiple irregular fragments of light altamirano soft tissue that in aggregate measure 1 x 0.5 x 0.1 cm. The specimen is totally submitted in one cassette. C - Received in fixative is one container labeled with the patient's name and designated proximal ascending colon polyp. The specimen consists of multiple irregular fragments of light altamirano soft tissue that in aggregate measure 1 x 0.5 x 0.1 cm. The specimen is totally submitted in one cassette. D - Received in fixative is one container labeled with the patient's name and designated sigmoid colon. The specimen consists of two irregular fragments of light altamirano soft tissue that in aggregate measure 0.5 x 0.3 x 0.1 cm. The specimen is totally submitted in one cassette. / AM:etelvina 09/08/20 TC:2 CPT: 45042 x4, 06128, 62917
[2020-09-07 10:56] LABS: INR Fingerstick 1.2
--- NOTE | 2020-09-07 11:20 | RAD_ITS ---
STUDY: X-RAY CHEST REASON FOR EXAM: Female, 69 years old. SHORTNESS OF BREATH -- PORTABLE IN PACU TECHNIQUE: Single AP portable view of the chest. COMPARISON: Comparison is made with prior study dated 10/23/2015. FINDINGS: EKG electrodes are seen. Minimal increased markings at the lung bases suggestive of linear scarring. There is no demonstrated pleural abnormality. There is moderate cardiac enlargement. Normal mediastinum and dora. Normal visualized pulmonary arteries. There is atherosclerotic tortuosity of the aortic arch and descending thoracic aorta. Normal visualized thoracic spine. There is degenerative osteoarthritis of the bilateral shoulders. There is no demonstrated abnormality of the visualized soft tissue structures of the upper abdomen. RAD/Chest 1 View (Portable) IMPRESSION: Cardiomegaly. Mild increased linear markings at the lung bases suggestive of scarring. Electronically Signed: Burak Han MD at 12:24 EDT , Service support ,
--- NOTE | 2020-09-07 14:50 | OP.CCLET_ITS ---
09/07/2020 Bobbi Pandey Re : Upper GI endoscopy procedure for Ana M Sanabria Dear Dannie This procedure was performed on Monday, September 07, 2020. My impressions and recommendations are as follows: Impressions : - Z-line irregular, 37 cm from the incisors. Biopsied. - Esophageal mucosal changes were present. Findings are suggestive of reflux inflammation. Biopsied. Injected. - Normal examined duodenum. - Erythematous mucosa in the antrum. Recommendations : - Discharge patient to home. - Resume previous diet. - Post-Procedure Resumption of Anticoagulants: Restart warfarin in 4 days [Dose] PO adjustment by primary physician. - Await pathology results. - Use Protonix (pantoprazole) 40 mg PO BID 2 weeks then Q day. - Use sucralfate tablets 1 gram PO QID for 1 month. My findings are described in the full procedure note, which is enclosed. If I can be of further assistance, please feel free to contact me at Doctor phone number(s): , Work: . Sincerely, MD Maryse Olivo MD 09/07/2020 11:08:42 AM This report has been signed electronically.
--- NOTE | 2020-09-07 14:50 | OP.COLON_ITS ---
Patient Name: Ana M Sanabria Procedure Date: 09/07/2020 10:31 AM Date of : 1950 Age: 69 Procedure: Colonoscopy Indications: Positive Cologuard test Providers: Maryse Samuels MD Referring MD: Bobbi Pandey Medicines: Monitored Anesthesia Care Patient Profile: This is a 69 year old female. Last Colonoscopy: more than 10 years ago. Complications: No immediate complications. Procedure: Pre-Anesthesia Assessment: - Prior to the procedure, a History and Physical was performed, and patient medications and allergies were reviewed. The patient's tolerance of previous anesthesia was also reviewed. The risks and benefits of the procedure and the sedation options and risks were discussed with the patient. All questions were answered, and informed consent was obtained. Prior Anticoagulants: The patient has taken Coumadin (warfarin), last dose was 5 days prior to procedure. ASA Grade Assessment: Per anesthesia. After reviewing the risks and benefits, the patient was deemed in satisfactory condition to undergo the procedure. After I obtained informed consent, the scope was passed under direct vision. Throughout the procedure, the patient's blood pressure, pulse, and oxygen saturations were monitored continuously. The colonoscope was introduced through the anus and advanced to the cecum, identified by the appendiceal orifice, ileocecal valve and palpation. The colonoscopy was performed without difficulty. The patient tolerated the procedure well. The quality of the bowel preparation was good. Scope In: 10:35:58 AM Scope Withdrawal Time 0 hours 17 minutes 19 seconds Scope Out: 11:00:54 AM Total Procedure Duration Time 0 hours 24 minutes 56 seconds Findings: A 5 mm polyp was found in the proximal ascending colon. The polyp was sessile. The polyp was removed with a cold biopsy forceps. Resection and retrieval were complete. A less than 5 mm polyp was found in the sigmoid colon. The polyp was sessile. The polyp was removed with a cold biopsy forceps. Resection and retrieval were complete. The retroflexed view of the distal rectum and anal verge was normal and showed no anal or rectal abnormalities. Hemorrhoids were found on perianal exam. Impression: - One 5 mm polyp in the proximal ascending colon, removed with a cold biopsy forceps. Resected and retrieved. - One less than 5 mm polyp in the sigmoid colon, removed with a cold biopsy forceps. Resected and retrieved. - The distal rectum and anal verge are normal on retroflexion view. - Hemorrhoids found on perianal exam. Recommendation: - Discharge patient to home. - Resume previous diet. - Continue present medications. - Await pathology results. - Repeat colonoscopy for surveillance based on pathology results. Procedure Code(s): --- Professional --- 52709, Colonoscopy, flexible; with biopsy, single or multiple Diagnosis Code(s): --- Professional --- D12.2, Benign neoplasm of ascending colon D12.5, Benign neoplasm of sigmoid colon K64.9, Unspecified hemorrhoids R19.5, Other fecal abnormalities CPT copyright 2017 [employer]. All rights reserved. The codes documented in this report are preliminary and upon traffic safety administrator review may be revised to meet current compliance requirements. MD Maryse Olivo MD 09/07/2020 11:12:09 AM This report has been signed electronically. Number of Addenda: 0 Note Initiated On: 09/07/2020 10:31 AM
--- NOTE | 2020-09-07 14:50 | OP.CCLET_ITS ---
09/07/2020 Bobbi Pandey Re : Colonoscopy procedure for Ana M Sanabria Dear Dannie This procedure was performed on Monday, September 07, 2020. My impressions and recommendations are as follows: Impressions : - One 5 mm polyp in the proximal ascending colon, removed with a cold biopsy forceps. Resected and retrieved. - One less than 5 mm polyp in the sigmoid colon, removed with a cold biopsy forceps. Resected and retrieved. - The distal rectum and anal verge are normal on retroflexion view. - Hemorrhoids found on perianal exam. Recommendations : - Discharge patient to home. - Resume previous diet. - Continue present medications. - Await pathology results. - Repeat colonoscopy for surveillance based on pathology results. My findings are described in the full procedure note, which is enclosed. If I can be of further assistance, please feel free to contact me at Doctor phone number(s): , Work: . Sincerely, MD Maryse Olivo MD 09/07/2020 11:12:09 AM This report has been signed electronically.
--- NOTE | 2020-09-07 14:50 | OP.EGD_ITS ---
Patient Name: Ana M Sanabria Procedure Date: 09/07/2020 9:37 AM Date of : 1950 Age: 69 Procedure: Upper GI endoscopy Indications: +cologuard Providers: Maryse Samuels MD Referring MD: Bobbi Pandey Medicines: Monitored Anesthesia Care Patient Profile: This is a 69 year old female. Complications: No immediate complications. Procedure: Pre-Anesthesia Assessment: - Prior to the procedure, a History and Physical was performed, and patient medications and allergies were reviewed. The patient's tolerance of previous anesthesia was also reviewed. The risks and benefits of the procedure and the sedation options and risks were discussed with the patient. All questions were answered, and informed consent was obtained. Prior Anticoagulants: The patient has taken Coumadin (warfarin), last dose was 5 days prior to procedure. ASA Grade Assessment: Per anesthesia. After reviewing the risks and benefits, the patient was deemed in satisfactory condition to undergo the procedure. After obtaining informed consent, the endoscope was passed under direct vision. Throughout the procedure, the patient's blood pressure, pulse, and oxygen saturations were monitored continuously. The gastroscope was introduced through the mouth, and advanced to the second part of duodenum. The upper GI endoscopy was accomplished without difficulty. The patient tolerated the procedure well. Scope In: 10:19:18 AM Scope Out: 10:31:36 AM Total Procedure Duration Time 0 hours 12 minutes 18 seconds Findings: The Z-line was irregular and was found 37 cm from the incisors. Biopsies were taken with a cold forceps for histology. Moderate inflammation was found in the distal esophagus. Biopsies were taken with a cold forceps for histology. Area was successfully injected with 0.4 cc of a 1:10,000 solution of epinephrine for hemostasis of bleeding caused by the procedure. The examined duodenum was normal. Mildly erythematous mucosa without bleeding was found in the gastric antrum. The cardia and gastric fundus were normal on retroflexion. Impression: - Z-line irregular, 37 cm from the incisors. Biopsied. - Esophageal mucosal changes were present. Findings are suggestive of reflux inflammation. Biopsied. Injected. - Normal examined duodenum. - Erythematous mucosa in the antrum. Recommendation: - Discharge patient to home. - Resume previous diet. - Post-Procedure Resumption of Anticoagulants: Restart warfarin in 4 days [Dose] PO adjustment by primary physician. - Await pathology results. - Use Protonix (pantoprazole) 40 mg PO BID 2 weeks then Q day. - Use sucralfate tablets 1 gram PO QID for 1 month. Procedure Code(s): --- Professional --- 80663, Esophagogastroduodenoscopy, flexible, transoral; with biopsy, single or multiple Diagnosis Code(s): --- Professional --- K22.8, Other specified diseases of esophagus K31.89, Other diseases of stomach and duodenum CPT copyright 2017 [employer]. All rights reserved. The codes documented in this report are preliminary and upon furniture polisher review may be revised to meet current compliance requirements. MD Maryse Olivo MD 09/07/2020 11:08:42 AM This report has been signed electronically. Number of Addenda: 0 Note Initiated On: 09/07/2020 9:37 AM
== END 2020-09-07 13:40 | disposition home or self-care (01) ==
LOC: EN 08:33 → AC 08:33
PROVIDERS: PCP Nurse Practitioner Adult Health; Referring Provider Nurse Practitioner Adult Health; Visit Provider Surgery
PROC: 0DJD8ZZ Inspection of Lower Intestinal Tract, Via Natural or Artificial Opening Endoscopic (ICD-10-PCS; CPT 45378; principal; 2020-09-07 09:40)
DX: R19.5 Other fecal abnormalities (principal); E78.5 Hyperlipidemia, unspecified; D12.2 Benign neoplasm of ascending colon; D12.5 Benign neoplasm of sigmoid colon; K64.9 Unspecified hemorrhoids; I10 Essential (primary) hypertension; E66.01 Morbid (severe) obesity due to excess calories; Z68.39 Body mass index [BMI] 39.0-39.9, adult; F41.9 Anxiety disorder, unspecified; M06.9 Rheumatoid arthritis, unspecified; F17.200 Nicotine dependence, unspecified, uncomplicated; F32.9 Major depressive disorder, single episode, unspecified; K22.8 Other specified diseases of esophagus; K31.89 Other diseases of stomach and duodenum; Z79.899 Other long term (current) drug therapy; Z79.52 Long term (current) use of systemic steroids; Z79.01 Long term (current) use of anticoagulants; Z79.51 Long term (current) use of inhaled steroids; Z86.711 Personal history of pulmonary embolism
CPT/HCPCS: 43239; 45380; 36416; 71045; 85610; 88305; 88312; 88313; 88342; J7120; J2405; J3490

== ENCOUNTER 2021-01-21 13:58 | Outpatient (RCR) | payer MEDICARE, MEDICAID, SELFPAY ==
[2021-01-12 08:53] VITALS: BMI 35.2
[2021-01-21 14:39] VITALS: BP 119/80; PULSE 72; TEMP 36.5; BMI 35.2
--- NOTE | 2021-01-21 16:57 | PCM.WC.HP ---
History of Present Illness Date of Service: 01/21/21 Chief Complaint: Non healing right fifth toe ulcer History of Wound: This is a 70-year-old female who presents to the wound healing center today with complaint of a nonhealing ulcer to her right fifth toe. 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 The patient states that she has had a callus on her toe for the past month and that she currently resides in a assisted living facility and they have been utilizing freeze away on the callus, she states that the callus then opened up and has had some purulent drainage. She has been covering with gauze but otherwise no other wound care at this time. She denies any systemic or localized signs of infection at this time. Past medical, family, and social history reviewed and not pertinent to the current visit and all other systems reviewed and negative with exception of those listed above. [facility] Medical History (Updated 01/21/21 @ 17:08 by Jason Alvarado NP, [employer]) Anxiety Bladder dysfunction Compression fracture of thoracic vertebra Deep vein thrombosis Essential (primary) hypertension History of pulmonary embolism (2011) Hyperlipidemia Lower extremity edema Mental retardation Morbid obesity Nicotine dependence Osteoporosis Positive colorectal cancer screening using Cologuard test Rheumatoid arthritis Toe ulcer, right Ulcer of right lower extremity with fat layer exposed Venous insufficiency of both lower extremities Home Medications omega-3 fatty acids-fish oil 2 ea PO DAILY 03/27/15 [History Last Taken Unknown] potassium chloride 10 meq PO DAILY 03/27/15 [History Last Taken Unknown] prednisone 10 mg PO DAILY 03/27/15 [History Last Taken Unknown] sertraline 200 mg PO DAILY 03/27/15 [History Last Taken Unknown] vitamin B complex 1 ea PO DAILY 03/27/15 [History Last Taken Unknown] pravastatin 40 mg PO QHS 09/14/15 [History Last Taken Unknown] metoprolol tartrate 25 mg tablet 25 mg PO BID #60 tab 01/08/19 [History Last Taken Unknown] acetaminophen 1,000 mg PO BID PRN 07/11/19 [History Last Taken Unknown] bismuth subsalicylate 15 ml PO Q6H PRN 07/11/19 [History Last Taken Unknown] diphenhydramine HCl 25 mg PO Q6H PRN 07/11/19 [History Last Taken Unknown] loperamide 2 mg PO Q8H PRN PRN 07/11/19 [History Last Taken Unknown] multivitamin 1 ea PO DAILY 07/11/19 [History Last Taken Unknown] naphazoline-glycerin 2 drp OP BID 07/11/19 [History Last Taken Unknown] saliva substitute combo no.9 30 ml MM DAILY PRN 07/11/19 [History Last Taken Unknown] simethicone 125 mg PO 4X/DAY PRN 07/11/19 [History Last Taken Unknown] tizanidine 2 mg PO Q8H PRN 07/11/19 [History Last Taken Unknown] cholecalciferol (vitamin D3) 50 mcg (2,000 unit) capsule 50 mcg PO DAILY 08/07/20 [History Last Taken Unknown] mirabegron 50 mg tablet,extended release 24 hr 50 mg PO DAILY 08/07/20 [History Last Taken Unknown] warfarin 6 mg tablet 6 mg PO DAILY tab 08/07/20 [History Last Taken Unknown] aripiprazole 2 mg PO DAILY 09/07/20 [History Last Taken Unknown] benzonatate 200 mg PO Q8H PRN PRN 09/07/20 [History Last Taken Unknown] buprenorphine 1 ea TD QWEEK 09/07/20 [History Last Taken Unknown] capsaicin 57 gm TP DAILY 09/07/20 [History Last Taken Unknown] celecoxib 200 mg PO DAILY 09/07/20 [History Last Taken Unknown] fluticasone propionate 2 spray NASAL DAILY 09/07/20 [History Last Taken Unknown] gabapentin 100 mg PO DAILY 09/07/20 [History Last Taken Unknown] guaifenesin 400 mg PO BID PRN 09/07/20 [History Last Taken Unknown] hydrocodone-acetaminophen 1 ea PO TID 09/07/20 [History Last Taken Unknown] methotrexate sodium 15 mg PO QWEEK 09/07/20 [History Last Taken Unknown] montelukast 10 mg PO DAILY 09/07/20 [History Last Taken Unknown] nystatin (bulk) 1,000,000 unit MC BID 09/07/20 [History Last Taken Unknown] oxybutynin chloride 10 mg PO DAILY 09/07/20 [History Last Taken Unknown] pantoprazole 40 mg PO BID #56 tab 09/07/20 [Rx Last Taken Unknown] phenol 177 ml MM Q2H PRN 09/07/20 [History Last Taken Unknown] psyllium husk 0.4 gm PO DAILY PRN 09/07/20 [History Last Taken Unknown] saliva substitute combo no.9 15 ml MM 5X/DAY 09/07/20 [History Last Taken Unknown] sucralfate 1 gm PO 4X/DAY #84 tab 09/07/20 [Rx Last Taken Unknown] warfarin 2.5 mg PO DAILY 09/07/20 [History Last Taken Unknown] Allergy/AdvReac Type Severity Reaction Status Date / Time No Known Allergies Allergy Verified 01/21/21 14:46 Family History Other Hypertension Surgical History History of right hip replacement History of total left knee replacement Social History Smoking Status: Current every day smoker alcohol intake: current alcohol intake frequency: holidays/special occasions only ROS ROS Narrative Negative x10 systems with exception of those listed above Constitutional Constitutional: Reports systems reviewed and no addt'l complaints, except as documented Eyes Eyes: Reports systems reviewed and no addt'l complaints, except as documented ENT HEENT: Reports systems reviewed and no addt'l complaints, except as documented Cardiovascular Cardiovascular: Reports systems reviewed and no addt'l complaints, except as documented Respiratory/Chest Respiratory/Chest: Reports systems reviewed and no addt'l complaints, except as documented Gastrointestinal Gastrointestinal: Reports systems reviewed and no addt'l complaints, except as documented Genitourinary Genitourinary: Reports systems reviewed and no addt'l complaints, except as documented Musculoskeletal Musculoskeletal: Reports systems reviewed and no addt'l complaints, except as documented Integumentary Integumentary: Reports systems reviewed and no addt'l complaints, except as documented Neurologic Neurologic: Reports systems reviewed and no addt'l complaints, except as documented Psychiatric Psychiatric: Reports systems reviewed and no addt'l complaints, except as documented Endocrine Endocrinology: Reports systems reviewed and no addt'l complaints, except as documented Hematologic/Lymphatic Hematologic/Lymphatic: Reports systems reviewed and no addt'l complaints, except as documented Allergic/Immunologic Allergic/Immunologic: Reports systems reviewed and no addt'l complaints, except as documented Vital Signs Vital Signs Vital Signs: 01/21/21 14:39 Temperature 97.7 F L Temperature Source Temporal Pulse Rate 72 Blood Pressure 119/80 Blood Pressure Mean 93 Blood Pressure Source Monitor Weight Body Mass Index (BMI) 35.2 Physical Exam Const alert, oriented x3, no apparent distress, healthy appearing and well nourished Constitutional Narrative: Patient does have limitations and is delayed at times General Appearance: cooperative Exam Limitations: no limitations HEENT normocephalic Head and Scalp: normal to inspection Mouth: oral and palatal mucosa normal Eyes General Eye: normal appearance of both eyes Resp normal respiratory effort, normal air movement and no use of accessory muscles Effort and Inspection: able to speak in complete sentences Auscultation: clear to auscultation bilaterally Cardio regular rate, regular rhythm, S1 normal heart sound, S2 normal heart sound, no murmurs and peripheral pulses 2+ throughout Palpation: normal PMI Rate: regular rate Heart Sounds: S1 normal and S2 normal GI normal to inspection, nondistended, normoactive bowel sounds, soft to palpation, non-tender and non-distended Palpation: soft Extremity normal to inspection and full ROM General Extremity: normal exam except as noted Skin Wound Narrative: Small ulceration noted on right fifth toe with callused edges and adherent slough, no signs of obvious infection at this time Neuro oriented x3 and moves all extremities Sensorium / Orientation: awake, alert, oriented to person, oriented to place and oriented to time Psych mental status grossly normal, thought process normal and denies hallucinations Psych Narrative: Cognitive delays Appearance: grossly normal Attitude: calm Activity / Motor Behavior: appropriate eye contact Speech: normal speech Thought Process: normal thought process Thought Content: normal thought content Attention / Concentration: attention grossly intact Insight: insight good Judgement: judgement good Debridement Note Debridement Note Post-Debridement Measurements and Additional Note: Post-Debridement Measurements/Treatment - Nurse 1 - General Ulcer Assessment Start: 01/21/21 14:39 Freq: Status: Active Protocol: JAZZ Activity Type Activity Date Activity User E-Sign Co-Sign Detail Recorded Client Recorded Date Recorded By Document 01/21/21 14:39 ABHI [id number] 01/21/21 14:46 ABHI 01/21/21 14:39 - Today's Visit Information Type of service Initial Visit Arrival Mode Ambulatory, Walker Patient Identification Verified (Name & Yes ) Patient Requires Transmission-Based No Precautions Safety Precautions NA Height and Weight Body Mass Index (BMI) 35.2 BMI Classification Obese Vital Signs Temperature (97.8 F-99.1 F) 97.7 F L Temperature Source Temporal Pulse Rate (60-100) 72 Pulse Location Monitor Blood Pressure (90/60-120/80) 119/80 Blood Pressure Mean 93 Source Monitor History Since Last Visit- (Skip if this is Patient's initial visit) Left Footwear Regular Shoe Right Footwear Surgical Shoe with pressure relief insole Pain Scale: 0-10 Numeric Is Patient Pain Free? Yes Pain Scale: [place]/López Faces Is Patient Pain Free? Yes Lower Extremity Assessment/ Foot Assessment/ Toe Nail Assessment Right -Popliteal Doppler Monophasic -Posterior Tibial Palpable No -Posterior Tibial Doppler Monophasic -Dorsalis Pedis Doppler Monophasic -Extremity Color Normal WC - Nurse 2 - General Ulcer CM Notes Start: 01/21/21 14:39 Freq: Status: Active Protocol: Activity Type Activity Date Activity User E-Sign Co-Sign Detail Recorded Client Recorded Date Recorded By Document 01/21/21 14:48 MW [id number] 01/21/21 14:57 MW 01/21/21 14:48 Wound Center Nurse 2 #2 RIGHT 5TH TOE -Time 14:51 -Correct Patient Yes -Correct Side, Site, Position Yes -Correct Procedure Yes -Procedure Performed Yes -Type of Procedure Debridement -Clinical Debridement Subcutaneous -Tissue Removed Subcutaneous -Post Debridement (cm) - Length 0.7 -Post Debridement (cm) - Width 0.7 -Post Debridement (cm) - Depth 0.3 -Total Square (Post) (cm) 0.49 -Area of Debridement (cm) - Length 0.7 -Area of Debridement (cm) - Width 0.7 -Total Square (Area) (cm) 0.49 -Tunneling No -Undermining/Tunneling No -Circular Undermining No -Wound/Ulcer Outcome Not Healed -Ulcer Cleansing Rinsed/ Irrigated with Saline -Foul Odor after Cleansing No -Bioengineered Tissue No -Bleeding Controlled with Pressure -Offloading No -Treatment Response Procedure Tolerated Well -Debridement - Subq, 1st 20sq cm Yes Pain Scale: 0-10 Numeric Is Patient Pain Free? Yes WC - Nurse 3 - General Ulcer D/C NN Start: 01/21/21 14:39 Freq: Status: Active Protocol: Activity Type Activity Date Activity User E-Sign Co-Sign Detail Recorded Client Recorded Date Recorded By Document 01/21/21 15:18 ABHI [id number] 01/21/21 15:21 ABHI 01/21/21 15:18 Wound Care Nurse 3 #2 RIGHT 5TH TOE -Ulcer Cleansing Rinsed/ Irrigated with Saline -Foul Odor after Cleansing No -Primary Dressing Applied Promogran -Primary Dressing Covered/Secured with Dry Gauze & Roll Gauze, Secured with Tape -Promogran 1 left leg -Lotion applied to leg before No compression wrap -Tubular Bandage Single Layer -Size of Tubigrip Used Size C -Size C ($) 1 -Stockings No Right leg -Lotion applied to leg before No compression wrap -Tubular Bandage Single Layer -Size of Tubigrip Used Size C -Size C ($) 1 -Stockings No WC - Visit Discharge Discharge Condition Stable Ambulatory Status Ambulatory, Walker Transportation Private Auto Clinical Summary of Care Provided Yes Additional Wound Wound debrided: Right fifth toe ulcer Laterality: Right Type of Debridement: Excisional debridement Anesthesia Used: 5% Lidocaine Gel Depth: Down to and including healthy tissue and in the subcutaneous layer Percentage of wound debrided: 100 Instrument Used: 3mm curette Tissue Removed: Slough and devitalized tissue Severity: Fat Layer Exposed Amount of bleeding with debridement: Mild Bleeding Controlled with: Pressure Patient tolerated procedure: Patient tolerated procedure well Charges/Coding Visit Charges Office Visits / Consults: [id number] OV L4 Est Procedures Integumentary [id number]: [id number] Jennifer subq tissue 20 sq cm/< Assessment/Plan Assessment/Plan (1) Toe ulcer, right: CODE(S): L97.519 - Non-pressure chronic ulcer of other part of right foot with unspecified severity (2) Essential (primary) hypertension: CODE(S): I10 - Essential (primary) hypertension (3) Venous insufficiency of both lower extremities: CODE(S): I87.2 - Venous insufficiency (chronic) (peripheral) (4) History of pulmonary embolism: CODE(S): Z86.711 - Personal history of pulmonary embolism (5) Nicotine dependence: CODE(S): F17.200 - Nicotine dependence, unspecified, uncomplicated PLAN: Debridement performed today in clinic as annotated above. Ashly applied. At home wound-care instructions: Daily application of moistened Ashly cover with gauze Change dressing once daily or more frequently as needed due to contamination. Wash wounds daily with antibacterial soap and water, rinse and dry thoroughly before each dressing change. Compression: Single-layer Tubigrip's Off-loading: The patient was instructed to avoid pressure and friction on the affected areas. Reposition every 2 hours at minimum. Avoid prolonged standing and/or dangling of legs. When seated, feet should be elevated at chest level. Frequent ambulation is encouraged. Diet: Patient encouraged to increase protein intake while taking caution to avoid high carbohydrate and/or sugar intake. [Smoking: The risks of smoking and benefits of smoking cessation were discussed with the patient today. The patient is encouraged to quit smoking. If smoking cessation aids are desired, the patient should contact their primary care provider to discuss appropriate options.] Labs/cultures/imaging: Cultures ordered and collected today. Routine baseline lab work held. Vascular studies held at this time. Follow-up: Return to clinic in 1 week for re-evaluation. Return sooner or report to the emergency room should symptoms worsen, or new symptoms arise. This note was generated with [employer] dictation software. It may contain incorrect words, spelling, and punctuation that were not noted in checking the note before signing. I have spent 35 minutes today reviewing labs, records, and history. Time includes coordinating care, interpretation of tests, and counseling the patient/family. This also includes time I spent with the patient for exam, treatment plan, and education as well as documenting clinical information in the electronic health record.
== END 2021-01-23 23:59 ==
LOC: WC 13:58
PROVIDERS: Visit Provider Nurse Practitioner Family
DX: I87.2 Venous insufficiency (chronic) (peripheral) (principal); L97.512 Non-pressure chronic ulcer of other part of right foot with fat layer exposed; I10 Essential (primary) hypertension; Z86.711 Personal history of pulmonary embolism; F17.200 Nicotine dependence, unspecified, uncomplicated; Z79.01 Long term (current) use of anticoagulants; E78.5 Hyperlipidemia, unspecified; F79 Unspecified intellectual disabilities; E66.01 Morbid (severe) obesity due to excess calories; M06.9 Rheumatoid arthritis, unspecified; Z79.52 Long term (current) use of systemic steroids; Z79.899 Other long term (current) drug therapy
CPT/HCPCS: 11042; 87070; 87075; 87077; 87205; 99213; G0463

== ENCOUNTER 2021-02-18 14:30 | Outpatient (RCR) | payer MEDICARE, MEDICAID, SELFPAY ==
[2021-01-24 00:39] VITALS: BP 119/80; PULSE 72; TEMP 36.5
[2021-01-28 14:41] VITALS: BP 115/72; PULSE 83; TEMP 36.1; BMI 35.2
--- NOTE | 2021-01-28 19:04 | PN.PCM_ITS ---
History of Present Illness Date of Service: 01/28/21 Chief Complaint: Non healing right fifth toe ulcer History of Wound: This is a 70-year-old female who presents to the wound healing center today with complaint of a nonhealing ulcer to her right fifth toe. 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 The patient states that she has had a callus on her toe for the past month and that she currently resides in a assisted living facility and they have been utilizing freeze away on the callus, she states that the callus then opened up and has had some purulent drainage. She has been covering with gauze but otherwise no other wound care at this time. She denies any systemic or localized signs of infection at this time. Past medical, family, and social history reviewed and not pertinent to the current visit and all other systems reviewed and negative with exception of those listed above. Progress of Wound: stable no new concerns Objective Data Objective Data Vital Signs: Vital Signs Temp Pulse BP 96.9 F L 83 115/72 01/28/21 14:41 01/28/21 14:41 01/28/21 14:41 Body Mass Index (BMI) 35.2 Charges/Coding Procedures Integumentary 111xxx-113xx: 41511 Jennifer subq tissue 20 sq cm/< Physical Exam Const alert, oriented x3, no apparent distress, healthy appearing and well nourished Constitutional Narrative: Patient does have limitations and is delayed at times General Appearance: cooperative Exam Limitations: no limitations HEENT normocephalic Head and Scalp: normal to inspection Mouth: oral and palatal mucosa normal Eyes General Eye: normal appearance of both eyes Resp normal respiratory effort, normal air movement and no use of accessory muscles Effort and Inspection: able to speak in complete sentences Auscultation: clear to auscultation bilaterally Cardio regular rate, regular rhythm, S1 normal heart sound, S2 normal heart sound, no murmurs and peripheral pulses 2+ throughout Palpation: normal PMI Rate: regular rate Heart Sounds: S1 normal and S2 normal GI normal to inspection, nondistended, normoactive bowel sounds, soft to palpation, non-tender and non-distended Palpation: soft Extremity normal to inspection and full ROM General Extremity: normal exam except as noted Skin Wound Narrative: Small ulceration noted on right fifth toe with callused edges and adherent slough, no signs of obvious infection at this time Neuro oriented x3 and moves all extremities Sensorium / Orientation: awake, alert, oriented to person, oriented to place and oriented to time Psych mental status grossly normal, thought process normal and denies hallucinations Psych Narrative: Cognitive delays Appearance: grossly normal Attitude: calm Activity / Motor Behavior: appropriate eye contact Speech: normal speech Thought Process: normal thought process Thought Content: normal thought content Attention / Concentration: attention grossly intact Insight: insight good Judgement: judgement good Debridement Note Debridement Note Post-Debridement Measurements and Additional Note: Post-Debridement Measurements/Treatment - Nurse 1 - General Ulcer Assessment Start: 01/28/21 14:41 Freq: Status: Active Protocol: JAZZ Activity Type Activity Date Activity User E-Sign Co-Sign Detail Recorded Client Recorded Date Recorded By Document 01/28/21 14:41 ABHI [id number] 01/28/21 14:51 ABHI 01/28/21 14:41 WC - Today's Visit Information Type of service Follow-up Visit (Physician/SENIOR MECHANICAL ESTIMATOR ) Arrival Mode Wheelchair Patient Identification Verified (Name & Yes ) Patient Requires Transmission-Based No Precautions Height and Weight Body Mass Index (BMI) 35.2 BMI Classification Obese Vital Signs Temperature (97.8 F-99.1 F) 96.9 F L Temperature Source Temporal Pulse Rate (60-100) 83 Pulse Location Monitor Blood Pressure (90/60-120/80) 115/72 Blood Pressure Mean (mm Hg) 86 Source Monitor History Since Last Visit- (Skip if this is Patient's initial visit) Have you changed medications since your No last visit? Any new allergies or adverse reactions No Had a fall/change in ADL's that may No increase risk of falls Signs or symptoms of abuse and/or No neglect since last visit Have you been in the hospital since your No last visit? Has dressing in place as prescribed Yes Has compression in place as prescribed No Has offloadiing in place as prescribed Yes Left Footwear Regular Shoe Right Footwear Surgical Shoe with pressure relief insole KESHAWN - Nurse 1 - General Ulcer Measurement Start: 01/28/21 14:41 Freq: Status: Active Protocol: Activity Type Activity Date Activity User E-Sign Co-Sign Detail Recorded Client Recorded Date Recorded By Document 01/28/21 14:41 ABHI [id number] 01/28/21 14:51 AK 01/28/21 14:41 Wound Center Nurse 1 #2 RIGHT 5TH TOE -Combined with other wound No -Current Size (cm) - Length 0.1 -Current Size (cm) - Width 0.1 -Current Size (cm) - Depth 0.1 -Total Square Cm 0.01 -Photo Taken No -Tunneling No -Undermining/Tunneling No -Circular Undermining No -Exudate Amt None Present -Wound Margin Distinct, Outline Attached -Granulation Amt None Present (0 %) -Slough/Fibrin No -Necrosis Amt None Present (0 %) -Texture (Yajaira-wound Skin Appearance) No Abnormality, Assessed -Moisture (Yajaira-wound Skin Appearance) No Abnormality, Assessed -Color (Yajaira-wound Skin Appearance) No Abnormality, Assessed -Temperature (Yajaira-wound Skin No Abnormality Appearance) (Pt Warm) -Tenderness on Palpation (Yajaira-wound No Skin Appearance) -Ulcer Cleansing Rinsed/ Irrigated with Saline -Anesthetic Used 4% Lidocaine Solution Lower Limb Edema Present No WC - Nurse 2 - General Ulcer CM Notes Start: 01/28/21 14:41 Freq: Status: Active Protocol: Activity Type Activity Date Activity User E-Sign Co-Sign Detail Recorded Client Recorded Date Recorded By Document 01/28/21 15:02 MW [id number] 01/28/21 15:03 MW 01/28/21 15:02 Wound Center Nurse 2 #2 RIGHT 5TH TOE -Time 15:02 -Correct Patient Yes -Correct Side, Site, Position Yes -Correct Procedure Yes -Procedure Performed Yes -Type of Procedure Debridement -Clinical Debridement Subcutaneous -Tissue Removed Subcutaneous -Post Debridement (cm) - Length 0.6 -Post Debridement (cm) - Width 0.5 -Post Debridement (cm) - Depth 0.2 -Total Square (Post) (cm) 0.30 -Area of Debridement (cm) - Length 0.6 -Area of Debridement (cm) - Width 0.5 -Total Square (Area) (cm) 0.30 -Tunneling No -Undermining/Tunneling No -Circular Undermining No -Wound/Ulcer Outcome Not Healed -Ulcer Cleansing Rinsed/ Irrigated with Saline -Foul Odor after Cleansing No -Bioengineered Tissue No -Bleeding Controlled with Pressure -Offloading No -Treatment Response Procedure Tolerated Well -Debridement - Subq, 1st 20sq cm Yes Pain Scale: 0-10 Numeric Is Patient Pain Free? Yes WC - Nurse 3 - General Ulcer D/C NN Start: 01/28/21 14:41 Freq: Status: Active Protocol: Activity Type Activity Date Activity User E-Sign Co-Sign Detail Recorded Client Recorded Date Recorded By Document 01/28/21 15:10 ABHI [id number] 01/28/21 15:29 AHBI 01/28/21 15:10 Wound Care Nurse 3 #2 RIGHT 5TH TOE -Ulcer Cleansing Rinsed/ Irrigated with Saline -Foul Odor after Cleansing No -Primary Dressing Applied Promogran Ashly Matter -Primary Dressing Covered/Secured with Dry Gauze & Roll Gauze, Secured with Tape -Promogran Ashly Matter 1 Additional Wound Wound debrided: Right fifth toe ulcer Laterality: Right Type of Debridement: Excisional debridement Anesthesia Used: 5% Lidocaine Gel Depth: in the subcutaneous layer Percentage of wound debrided: 100 Instrument Used: 5mm curette Tissue Removed: Slough and devitalized tissue Severity: Fat Layer Exposed Amount of bleeding with debridement: Mild Bleeding Controlled with: Pressure Patient tolerated procedure: Patient tolerated procedure well Assessment/Plan Assessment/Plan (1) Toe ulcer, right: CODE(S): L97.519 - Non-pressure chronic ulcer of other part of right foot with unspecified severity (2) Essential (primary) hypertension: CODE(S): I10 - Essential (primary) hypertension (3) Venous insufficiency of both lower extremities: CODE(S): I87.2 - Venous insufficiency (chronic) (peripheral) (4) History of pulmonary embolism: CODE(S): Z86.711 - Personal history of pulmonary embolism (5) Nicotine dependence: CODE(S): F17.200 - Nicotine dependence, unspecified, uncomplicated PLAN: Debridement performed today in clinic as annotated above. Ashly applied. At home wound-care instructions: Daily application of moistened Ashly cover with gauze Change dressing once daily or more frequently as needed due to contamination. Wash wounds daily with antibacterial soap and water, rinse and dry thoroughly before each dressing change. Compression: Single-layer Tubigrip's Off-loading: The patient was instructed to avoid pressure and friction on the affected areas. Reposition every 2 hours at minimum. Avoid prolonged standing and/or dangling of legs. When seated, feet should be elevated at chest level. F requent ambulation is encouraged. Diet: Patient encouraged to increase protein intake while taking caution to avoid high carbohydrate and/or sugar intake. [Smoking: The risks of smoking and benefits of smoking cessation were discussed with the patient today. The patient is encouraged to quit smoking. If smoking cessation aids are desired, the patient should contact their primary care provider to discuss appropriate options.] Labs/cultures/imaging: Cultures ordered and collected prior and showed anaerobic cocci, patient was started on Keflex. Routine baseline lab work held. Vascular studies held at this time. Follow-up: Return to clinic in 1 week for re-evaluation. Return sooner or report to the emergency room should symptoms worsen, or new symptoms arise. This note was generated with [employer] dictation software. It may contain incorrect words, spelling, and punctuation that were not noted in checking the note before signing. I have spent 35 minutes today reviewing labs, records, and history. Time includes coordinating care, interpretation of tests, and counseling the patient/family. This also includes time I spent with the patient for exam, treatment plan, and education as well as documenting clinical information in the electronic health record.
[2021-02-04 14:24] VITALS: BP 122/63; PULSE 67; TEMP 37.2; BMI 35.2
--- NOTE | 2021-02-04 19:16 | PCM.WC.PN ---
History of Present Illness Date of Service: 02/04/21 Chief Complaint: Non healing right fifth toe ulcer History of Wound: This is a 70-year-old female who presents to the wound healing center today with complaint of a nonhealing ulcer to her right fifth toe. 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 The patient states that she has had a callus on her toe for the past month and that she currently resides in a assisted living facility and they have been utilizing freeze away on the callus, she states that the callus then opened up and has had some purulent drainage. She has been covering with gauze but otherwise no other wound care at this time. She denies any systemic or localized signs of infection at this time. Past medical, family, and social history reviewed and not pertinent to the current visit and all other systems reviewed and negative with exception of those listed above. Progress of Wound: stable no new concerns, patient was previously initiated on Keflex for her positive anaerobic bacteria, however just started the antibiotic 3 days ago. She was instructed to check her INR due to her Coumadin levels Objective Data Objective Data Vital Signs: Vital Signs Temp Pulse BP 98.9 F 67 122/63 H 02/04/21 14:24 02/04/21 14:24 02/04/21 14:24 Body Mass Index (BMI) 35.2 Charges/Coding Procedures Integumentary 111xxx-113xx: 38906 Jennifer subq tissue 20 sq cm/< Physical Exam Const alert, oriented x3, no apparent distress, healthy appearing and well nourished Constitutional Narrative: Patient does have limitations and is delayed at times General Appearance: cooperative Exam Limitations: no limitations HEENT normocephalic Head and Scalp: normal to inspection Mouth: oral and palatal mucosa normal Eyes General Eye: normal appearance of both eyes Resp normal respiratory effort, normal air movement and no use of accessory muscles Effort and Inspection: able to speak in complete sentences Auscultation: clear to auscultation bilaterally Cardio regular rate, regular rhythm, S1 normal heart sound, S2 normal heart sound, no murmurs and peripheral pulses 2+ throughout Palpation: normal PMI Rate: regular rate Heart Sounds: S1 normal and S2 normal GI normal to inspection, nondistended, normoactive bowel sounds, soft to palpation, non-tender and non-distended Palpation: soft Extremity normal to inspection and full ROM General Extremity: normal exam except as noted Skin Wound Narrative: Small ulceration noted on right fifth toe with callused edges and adherent slough, no signs of obvious infection at this time Neuro oriented x3 and moves all extremities Sensorium / Orientation: awake, alert, oriented to person, oriented to place and oriented to time Psych mental status grossly normal, thought process normal and denies hallucinations Psych Narrative: Cognitive delays Appearance: grossly normal Attitude: calm Activity / Motor Behavior: appropriate eye contact Speech: normal speech Thought Process: normal thought process Thought Content: normal thought content Attention / Concentration: attention grossly intact Insight: insight good Judgement: judgement good Debridement Note Debridement Note Post-Debridement Measurements and Additional Note: Post-Debridement Measurements/Treatment - Nurse 1 - General Ulcer Assessment Start: 01/28/21 14:41 Freq: Status: Active Protocol: [email or web address].LOWEXT Activity Type Activity Date Activity User E-Sign Co-Sign Detail Recorded Client Recorded Date Recorded By Document 01/28/21 14:41 NH [id number] 01/28/21 14:51 NH Document 02/04/21 14:24 NH [id number] 02/04/21 14:36 NH 01/28/21 02/04/21 14:41 14:24 - Today's Visit Information Type of service Follow-up Visit Follow-up Visit (Physician/AUTOMATION MACHINE BUILDER (Physician/AUTOMATION MACHINE BUILDER ) ) Arrival Mode Wheelchair Ambulatory, Wheelchair Patient Identification Verified (Name & Yes Yes ) Patient Requires Transmission-Based No Precautions Height and Weight Body Mass Index (BMI) 35.2 35.2 BMI Classification Obese Obese Vital Signs Temperature (97.8 F-99.1 F) 96.9 F L 98.9 F Temperature Source Temporal Temporal Pulse Rate (60-100) 83 67 Pulse Location Monitor Monitor Blood Pressure (90/60-120/80) 115/72 122/63 H Blood Pressure Mean (mm Hg) 86 82 Source Monitor Monitor History Since Last Visit- (Skip if this is Patient's initial visit) Have you changed medications since your No No last visit? Any new allergies or adverse reactions No No Had a fall/change in ADL's that may No No increase risk of falls Signs or symptoms of abuse and/or No No neglect since last visit Have you been in the hospital since your No No last visit? Has dressing in place as prescribed Yes Yes Has compression in place as prescribed No Yes Has offloadiing in place as prescribed Yes Yes Left Footwear Regular Shoe Regular Shoe Right Footwear Surgical Shoe Surgical Shoe with pressure with pressure relief insole relief insole WC - Nurse 1 - General Ulcer Measurement Start: 01/28/21 14:41 Freq: Status: Active Protocol: Activity Type Activity Date Activity User E-Sign Co-Sign Detail Recorded Client Recorded Date Recorded By Document 01/28/21 14:41 AK [id number] 01/28/21 14:51 AK Document 02/04/21 14:24 AK [id number] 02/04/21 14:36 AK 01/28/21 02/04/21 14:41 14:24 Wound Center Nurse 1 #2 RIGHT 5TH TOE -Combined with other wound No -Current Size (cm) - Length 0.1 0.6 -Current Size (cm) - Width 0.1 0.4 -Current Size (cm) - Depth 0.1 0.1 -Total Square Cm 0.01 0.24 -Photo Taken No -Tunneling No No -Undermining/Tunneling No No -Circular Undermining No No -Exudate Amt None Present Medium -Exudate Type Serous -Wound Margin Distinct, Distinct, Outline Outline Attached Attached -Granulation Amt None Present (0 %) -Slough/Fibrin No -Necrosis Amt None Present (0 None Present (0 %) %) -Texture (Yajaira-wound Skin Appearance) No Abnormality, Assessed, Assessed Scarring -Moisture (Yajaira-wound Skin Appearance) No Abnormality, Assessed, Assessed Maceration -Color (Yajaira-wound Skin Appearance) No Abnormality, No Abnormality, Assessed Assessed -Temperature (Yajaira-wound Skin No Abnormality No Abnormality Appearance) (Pt Warm) (Pt Warm) -Tenderness on Palpation (Yajaira-wound No No Skin Appearance) -Ulcer Cleansing Rinsed/ Rinsed/ Irrigated with Irrigated with Saline Saline -Foul Odor after Cleansing No -Anesthetic Used 4% Lidocaine 4% Lidocaine Solution Solution Lower Limb Edema Present No Right Calf (cm) 35 Right Ankle (cm) 27 WC - Nurse 2 - General Ulcer CM Notes Start: 01/28/21 14:41 Freq: Status: Active Protocol: Activity Type Activity Date Activity User E-Sign Co-Sign Detail Recorded Client Recorded Date Recorded By Document 01/28/21 15:02 MW [id number] 01/28/21 15:03 MW Document 02/04/21 14:50 MW [id number] 02/04/21 14:51 MW 01/28/21 02/04/21 15:02 14:50 Wound Center Nurse 2 #2 RIGHT 5TH TOE -Time 15:02 14:50 -Correct Patient Yes Yes -Correct Side, Site, Position Yes Yes -Correct Procedure Yes Yes -Procedure Performed Yes Yes -Type of Procedure Debridement Debridement -Clinical Debridement Subcutaneous Subcutaneous -Tissue Removed Subcutaneous Subcutaneous -Post Debridement (cm) - Length 0.6 0.5 -Post Debridement (cm) - Width 0.5 0.4 -Post Debridement (cm) - Depth 0.2 0.2 -Total Square (Post) (cm) 0.30 0.20 -Area of Debridement (cm) - Length 0.6 0.5 -Area of Debridement (cm) - Width 0.5 0.4 -Total Square (Area) (cm) 0.30 0.20 -Tunneling No No -Undermining/Tunneling No No -Circular Undermining No No -Wound/Ulcer Outcome Not Healed Not Healed -Ulcer Cleansing Rinsed/ Rinsed/ Irrigated with Irrigated with Saline Saline -Foul Odor after Cleansing No No -Bioengineered Tissue No No -Bleeding Controlled with Pressure Pressure -Offloading No No -Treatment Response Procedure Procedure Tolerated Well Tolerated Well -Debridement - Subq, 1st 20sq cm Yes Yes Pain Scale: 0-10 Numeric Is Patient Pain Free? Yes Yes WC - Nurse 3 - General Ulcer D/C NN Start: 01/28/21 14:41 Freq: Status: Active Protocol: Activity Type Activity Date Activity User E-Sign Co-Sign Detail Recorded Client Recorded Date Recorded By Document 01/28/21 15:10 AK [id number] 01/28/21 15:29 AK Document 02/04/21 15:06 DL [id number] 02/04/21 15:06 DL 01/28/21 02/04/21 15:10 15:06 Wound Care Nurse 3 #2 RIGHT 5TH TOE -Ulcer Cleansing Rinsed/ Rinsed/ Irrigated with Irrigated with Saline Saline -Foul Odor after Cleansing No No -Primary Dressing Applied Promogran Promogran Ashly Matter -Primary Dressing Covered/Secured with Dry Gauze & Dry Gauze, Roll Gauze, Secured with Secured with Tape Tape -Other Covering tubigrips -Promogran 1 -Promogran Ashly Matter 1 Treatment Response Procedure Tolerated Well Pain Scale: 0-10 Numeric Is Patient Pain Free? Yes WC - Visit Discharge Discharge Condition Stable Ambulatory Status Ambulatory, Walker Additional Wound Wound debrided: right 5th toe ulcer Laterality: Right Type of Debridement: Excisional debridement Anesthesia Used: 5% Lidocaine Gel Depth: Down to and including healthy tissue and in the subcutaneous layer Percentage of wound debrided: 100 Instrument Used: 3mm curette Tissue Removed: Slough and devitalized tissue Severity: Fat Layer Exposed Amount of bleeding with debridement: Mild Bleeding Controlled with: Pressure Patient tolerated procedure: Patient tolerated procedure well Assessment/Plan Assessment/Plan (1) Toe ulcer, right: CODE(S): L97.519 - Non-pressure chronic ulcer of other part of right foot with unspecified severity (2) Essential (primary) hypertension: CODE(S): I10 - Essential (primary) hypertension (3) Venous insufficiency of both lower extremities: CODE(S): I87.2 - Venous insufficiency (chronic) (peripheral) (4) History of pulmonary embolism: CODE(S): Z86.711 - Personal history of pulmonary embolism (5) Nicotine dependence: CODE(S): F17.200 - Nicotine dependence, unspecified, uncomplicated PLAN: Debridement performed today in clinic as annotated above. Promogran applied. At home wound-care instructions: Daily application of moistened Promogran cover with gauze Change dressing once daily or more frequently as needed due to contamination. Wash wounds daily with antibacterial soap and water, rinse and dry thoroughly before each dressing change. Compression: Single-layer Tubigrip's Off-loading: The patient was instructed to avoid pressure and friction on the affected areas. Reposition every 2 hours at minimum. Avoid prolonged standing and/or dangling of legs. When seated, feet should be elevated at chest level. Frequent ambulation is encouraged. Diet: Patient encouraged to increase protein intake while taking caution to avoid high carbohydrate and/or sugar intake. [Smoking: The risks of smoking and benefits of smoking cessation were discussed with the patient today. The patient is encouraged to quit smoking. If smoking cessation aids are desired, the patient should contact their primary care provider to discuss appropriate options.] Labs/cultures/imaging: Cultures ordered and collected prior and showed anaerobic cocci, patient was started on Keflex, she was instructed to have her INR checked while on this. Routine baseline lab work held. Vascular studies held at this time. Follow-up: Return to clinic in 2 week for re-evaluation. Return sooner or report to the emergency room should symptoms worsen, or new symptoms arise. This note was generated with [employer] dictation software. It may contain incorrect words, spelling, and punctuation that were not noted in checking the note before signing. I have spent 35 minutes today reviewing labs, records, and history. Time includes coordinating care, interpretation of tests, and counseling the patient/family. This also includes time I spent with the patient for exam, treatment plan, and education as well as documenting clinical information in the electronic health record.
[2021-02-18 15:11] VITALS: BP 138/82; TEMP 36.6; BMI 35.2
--- NOTE | 2021-02-18 19:09 | PCM.WC.PN ---
History of Present Illness Date of Service: 02/18/21 Chief Complaint: Non healing right fifth toe ulcer History of Wound: This is a 70-year-old female who presents to the wound healing center today with complaint of a nonhealing ulcer to her right fifth toe. 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 The patient states that she has had a callus on her toe for the past month and that she currently resides in a assisted living facility and they have been utilizing freeze away on the callus, she states that the callus then opened up and has had some purulent drainage. She has been covering with gauze but otherwise no other wound care at this time. She denies any systemic or localized signs of infection at this time. Past medical, family, and social history reviewed and not pertinent to the current visit and all other systems reviewed and negative with exception of those listed above. Progress of Wound: The patient's wound is healed without any signs of infection at this time. Objective Data Objective Data Vital Signs: Vital Signs Temp Pulse BP 97.9 F 67 138/82 H 02/18/21 15:11 02/04/21 14:24 02/18/21 15:11 Body Mass Index (BMI) 35.2 Charges/Coding Visit Charges Office Visits / Consults: 27680 OV L3 Est Physical Exam Const alert, oriented x3, no apparent distress, healthy appearing and well nourished Constitutional Narrative: Patient does have limitations and is delayed at times General Appearance: cooperative Exam Limitations: no limitations HEENT normocephalic Head and Scalp: normal to inspection Mouth: oral and palatal mucosa normal Eyes General Eye: normal appearance of both eyes Resp normal respiratory effort, normal air movement and no use of accessory muscles Effort and Inspection: able to speak in complete sentences Auscultation: clear to auscultation bilaterally Cardio regular rate, regular rhythm, S1 normal heart sound, S2 normal heart sound, no murmurs and peripheral pulses 2+ throughout Palpation: normal PMI Rate: regular rate Heart Sounds: S1 normal and S2 normal GI normal to inspection, nondistended, normoactive bowel sounds, soft to palpation, non-tender and non-distended Palpation: soft Extremity normal to inspection and full ROM General Extremity: normal exam except as noted Skin Wound Narrative: Small ulceration noted on right fifth toe is now healed, no signs of obvious infection at this time Neuro oriented x3 and moves all extremities Sensorium / Orientation: awake, alert, oriented to person, oriented to place and oriented to time Psych mental status grossly normal, thought process normal and denies hallucinations Psych Narrative: Cognitive delays Appearance: grossly normal Attitude: calm Activity / Motor Behavior: appropriate eye contact Speech: normal speech Thought Process: normal thought process Thought Content: normal thought content Attention / Concentration: attention grossly intact Insight: insight good Judgement: judgement good Assessment/Plan Assessment/Plan (1) Toe ulcer, right: CODE(S): L97.519 - Non-pressure chronic ulcer of other part of right foot with unspecified severity (2) Essential (primary) hypertension: CODE(S): I10 - Essential (primary) hypertension (3) Venous insufficiency of both lower extremities: CODE(S): I87.2 - Venous insufficiency (chronic) (peripheral) (4) History of pulmonary embolism: CODE(S): Z86.711 - Personal history of pulmonary embolism (5) Nicotine dependence: CODE(S): F17.200 - Nicotine dependence, unspecified, uncomplicated PLAN: Patient's wound is healed without any signs of infection at this time. At home wound-care instructions: Daily application of Adaptic cover with gauze for wound protection for the next 2 weeks, also instructed to use her postop shoe for at least the next 2 weeks as well. Compression: Single-layer Tubigrip's Off-loading: The patient was instructed to avoid pressure and friction on the affected areas. Reposition every 2 hours at minimum. Avoid prolonged standing and/or dangling of legs. When seated, feet should be elevated at chest level. Frequent ambulation is encouraged. Diet: Patient encouraged to increase protein intake while taking caution to avoid high carbohydrate and/or sugar intake. [Smoking: The risks of smoking and benefits of smoking cessation were discussed with the patient today. The patient is encouraged to quit smoking. If smoking cessation aids are desired, the patient should contact their primary care provider to discuss appropriate options.] Follow-up: Discharge from the wound healing center today as her wounds are healed, follow-up if new wounds occur.. Return sooner or report to the emergency room should symptoms worsen, or new symptoms arise. This note was generated with [employer] software. It may contain incorrect words, spelling, and punctuation that were not noted in checking the note before signing. I have spent 35 minutes today reviewing labs, records, and history. Time includes coordinating care, interpretation of tests, and counseling the patient/family. This also includes time I spent with the patient for exam, treatment plan, and education as well as documenting clinical information in the electronic health record.
== END 2021-02-18 15:47 | disposition home or self-care (01) ==
LOC: WC 14:30
PROVIDERS: Visit Provider Nurse Practitioner Family
DX: I87.2 Venous insufficiency (chronic) (peripheral) (principal); I10 Essential (primary) hypertension; Z86.711 Personal history of pulmonary embolism; Z79.01 Long term (current) use of anticoagulants; L84 Corns and callosities; E66.9 Obesity, unspecified; Z68.35 Body mass index [BMI] 35.0-35.9, adult; L97.512 Non-pressure chronic ulcer of other part of right foot with fat layer exposed; F17.200 Nicotine dependence, unspecified, uncomplicated
CPT/HCPCS: 11042; 99213; G0463

== ENCOUNTER 2021-03-01 09:09 | Emergency (ER) | payer MEDICARE, MEDICAID, SELFPAY ==
[2021-03-01] VITALS (9 sets, daily range): BP systolic 94–129; BP diastolic 56–87; PULSE 85–97; RESP 14–20; TEMP 36.4–36.8; O2SAT 94–100; BMI 37.5
--- NOTE | 2021-03-01 09:25 | EKG12_ITS ---
Test Reason : WOUND Blood Pressure : / mmHG Vent. Rate : 093 BPM Atrial Rate : 093 BPM P-R Int : 142 ms QRS Dur : 086 ms QT Int : 360 ms P-R-T Axes : 039 -26 007 degrees QTc Int : 447 ms Normal sinus rhythm Poor R wave progression Confirmed by BARBARA CHU, HAYDEE ([id number]), editor managing newspaper ALEXANDRA LARRY ([id number]) on 03/02/2021 8:48:30 AM Referred By: TL Confirmed By:HAYDEE JIMENEZ MD
--- NOTE | 2021-03-01 09:26 | EDS_ITS ---
HPI History of Present Illness Chief Complaint: Wound Informant: patient Narrative Narrative: Sent in for wound check after being evaluated nursing from assisted living. States small redness left lower extremity 2 days ago overnight has progressed up the leg with blistering. She is on warfarin for history of PE. There is pain to the legs. She has bilateral lower extremity swelling with venous insufficiency history. Denies CHF. Denies fever cough or urinary symptoms. She is not a diabetic. Patient primary transport wheelchair and electric scooter however states can use a walker. Prior similar symptoms: No PFSH PFSH Medical History Anxiety Bladder dysfunction Compression fracture of thoracic vertebra Deep vein thrombosis Essential (primary) hypertension History of pulmonary embolism (2011) Hyperlipidemia Lower extremity edema Mental retardation Morbid obesity Nicotine dependence Osteoporosis Positive colorectal cancer screening using Cologuard test Rheumatoid arthritis Toe ulcer, right Ulcer of right lower extremity with fat layer exposed Venous insufficiency of both lower extremities Home Medications omega-3 fatty acids-fish oil 2 ea PO DAILY 03/27/15 [History Last Taken Unknown] potassium chloride 10 meq PO DAILY 03/27/15 [History Last Taken Unknown] prednisone 10 mg PO DAILY 03/27/15 [History Last Taken Unknown] sertraline 200 mg PO DAILY 03/27/15 [History Last Taken Unknown] vitamin B complex 1 ea PO DAILY 03/27/15 [History Last Taken Unknown] pravastatin 40 mg PO QHS 09/14/15 [History Last Taken Unknown] metoprolol tartrate 25 mg tablet 25 mg PO BID #60 tab 01/08/19 [History Last Taken Unknown] acetaminophen 1,000 mg PO BID PRN 07/11/19 [History Last Taken Unknown] bismuth subsalicylate 15 ml PO Q6H PRN 07/11/19 [History Last Taken Unknown] diphenhydramine HCl 25 mg PO Q6H PRN 07/11/19 [History Last Taken Unknown] loperamide 2 mg PO Q8H PRN PRN 07/11/19 [History Last Taken Unknown] multivitamin 1 ea PO DAILY 07/11/19 [History Last Taken Unknown] naphazoline-glycerin 2 drp OP BID 07/11/19 [History Last Taken Unknown] saliva substitute combo no.9 30 ml MM DAILY PRN 07/11/19 [History Last Taken Unknown] simethicone 125 mg PO 4X/DAY PRN 07/11/19 [History Last Taken Unknown] tizanidine 2 mg PO Q8H PRN 07/11/19 [History Last Taken Unknown] cholecalciferol (vitamin D3) 50 mcg (2,000 unit) capsule 50 mcg PO DAILY 08/07/20 [History Last Taken Unknown] mirabegron 50 mg tablet,extended release 24 hr 50 mg PO DAILY 08/07/20 [History Last Taken Unknown] warfarin 6 mg tablet 6 mg PO DAILY tab 08/07/20 [History Last Taken Unknown] aripiprazole 2 mg PO DAILY 09/07/20 [History Last Taken Unknown] benzonatate 200 mg PO Q8H PRN PRN 09/07/20 [History Last Taken Unknown] buprenorphine 1 ea TD QWEEK 09/07/20 [History Last Taken Unknown] capsaicin 57 gm TP DAILY 09/07/20 [History Last Taken Unknown] celecoxib 200 mg PO DAILY 09/07/20 [History Last Taken Unknown] fluticasone propionate 2 spray NASAL DAILY 09/07/20 [History Last Taken Unknown] gabapentin 100 mg PO DAILY 09/07/20 [History Last Taken Unknown] guaifenesin 400 mg PO BID PRN 09/07/20 [History Last Taken Unknown] hydrocodone-acetaminophen 1 ea PO TID 09/07/20 [History Last Taken Unknown] methotrexate sodium 15 mg PO QWEEK 09/07/20 [History Last Taken Unknown] montelukast 10 mg PO DAILY 09/07/20 [History Last Taken Unknown] nystatin (bulk) 1,000,000 unit MC BID 09/07/20 [History Last Taken Unknown] oxybutynin chloride 10 mg PO DAILY 09/07/20 [History Last Taken Unknown] pantoprazole 40 mg PO BID #56 tab 09/07/20 [Rx Last Taken Unknown] phenol 177 ml MM Q2H PRN 09/07/20 [History Last Taken Unknown] psyllium husk 0.4 gm PO DAILY PRN 09/07/20 [History Last Taken Unknown] saliva substitute combo no.9 15 ml MM 5X/DAY 09/07/20 [History Last Taken Unknown] sucralfate 1 gm PO 4X/DAY #84 tab 09/07/20 [Rx Last Taken Unknown] warfarin 2.5 mg PO DAILY 09/07/20 [History Last Taken Unknown] cephalexin 500 mg capsule 500 mg PO Q8H #21 cap 01/28/21 [Rx Last Taken Unknown] Allergy/AdvReac Type Severity Reaction Status Date / Time No Known Allergies Allergy Verified 01/21/21 14:46 Family History Other Hypertension Surgical History History of right hip replacement History of total left knee replacement Social History Smoking Status: Current every day smoker tobacco type: cigarettes alcohol intake: current alcohol intake frequency: holidays/special occasions only ROS ROS ED Constitutional Constitutional ED: Denies chills, fever(s) or sweats Eyes Eyes: Denies change in vision ENT ENT ED: Denies dysphagia or sore throat Cardiovascular Cardiovascular: Denies chest pain, leg edema, palpitations or racing heartbeat Respiratory/Chest Respiratory/Chest: Denies cough, dyspnea or dyspnea on exertion Gastrointestinal Gastrointestinal: Denies abdominal pain, diarrhea, nausea or vomiting Genitourinary Genitourinary ED: Denies dysuria, hematuria or urinary frequency Musculoskeletal Musculoskeletal: Denies back pain, extremity pain or neck pain Integumentary Reports rash and other Details: Erythema to the left lower extremity ; Denies wounds Neurologic Neurologic: Denies headache(s), paresthesias or weakness EXAM Physical Exam Const Vital Signs: 03/01/21 09:10 03/01/21 09:12 03/01/21 09:34 Temperature 98 F 98 F 98 F Temperature Source Oral Oral Oral Pulse Rate 97 97 Respiratory Rate 14 14 Blood Pressure 119/77 119/77 Blood Pressure Mean 91 91 Pulse Ox 97 97 100 Oxygen Delivery Method Room Air Room Air Room Air 03/01/21 10:42 03/01/21 10:44 03/01/21 11:10 Temperature 98.2 F 98.2 F 97.8 F Temperature Source Oral Oral Oral Pulse Rate 90 85 Respiratory Rate 20 H 19 H Blood Pressure 129/87 H 108/60 Blood Pressure Mean 101 76 Pulse Ox 97 94 Oxygen Delivery Method Room Air Room Air 03/01/21 12:00 Temperature 97.6 F L Temperature Source Temporal Pulse Rate 93 Respiratory Rate 14 Blood Pressure 126/76 H Blood Pressure Mean 92 Pulse Ox 98 Oxygen Delivery Method Room Air Positive well nourished and well developed General Appearance ED: well developed and NAD HEENT Reports moist mucous membranes normocephalic and atraumatic Eyes PERRL, EOMs intact bilaterally and conjunctivae normal General Eye ED: Yes normal appearance of both eyes Neck no lymphadenopathy and supple General: Negative for tenderness Chest Wall Chest: Negative for tenderness Resp normal respiratory effort and normal air movement Effort and Inspection: symmetric chest movement; Negative for respiratory distress Cardio regular rate, regular rhythm and no murmurs Peripheral Pulses: pulses 2+ throughout GI normal to inspection, nondistended, normoactive bowel sounds and non-tender Palpation: Negative for guarding or rebound tenderness present Back/Spine no CVA tenderness and no thoracic nor lumbar tenderness Extremity normal to inspection Extremity Narrative: 2-3+ bilateral lower extremity edema. Left lower extremity purpuric erythema whole left lower leg stenting to the medial thigh. There is a large blister medial aspect of the leg to palm sizes, small blister lateral distal leg golf ball size. Calf tenderness. Neurovascular intact distally. General Extremety ED: Yes edema; Negative for tenderness General Extremity: edema Neuro oriented x3 and no sensory deficits noted Sensorium / Orientation: awake and alert Skin no rashes or lesions noted and no wounds MDM MDM MDM Narrative Medical decision making narrative: Patient extensive cellulitis peripheral lesion with blister left lower leg extending up to the medial thigh. This was outlined by myself. Sepsis labs were ordered. White count returned at 25.7 lactic acid 2.3. She is afebrile. She is covered Zosyn and vancomycin. Ultrasound was negative. Creatinine returned at 1.5 up of 0.78 from comparison in June 2019. Given 500 cc bolus of fluids secondary to MATTHEW. INR 2.7. I did have hospitalist evaluate in the ED, with sudden onset redness up the leg concerning for a deep infection or necrotizing fasciitis. Clindamycin is added. We have no specialist available that can manage concerns for necrotizing fasciitis, plastic surgeon is out of town who would manages this. Call out to multiple facilities. Discussed with [facility] transfer line at [facility] with Dr. Flores, updated on concerns and findings. He accepts the patient. He did not want reversal at this time. Recommend keeping her n.p.o. Fluids were continued. Edition spoke with SICU attending Dr. Samuels also updated and is awaiting patient. Lab Data Attestation: I reviewed the patient's lab results. Labs: Laboratory Results - last 24 hr 03/01/21 03/01/21 03/01/21 09:20 09:20 09:20 WBC 25.7 H RBC 4.98 Hgb 14.7 Hct 46.1 MCV 92.6 MCH 29.5 MCHC 31.9 L RDW Std Deviation 56.0 H RDW Coeff of Isidro 17.2 H Plt Count 123 L MPV 11.0 Immature Gran % (Auto) 0.900 Neut % (Auto) 90.6 H Lymph % (Auto) 3.2 L Bent % (Auto) 4.7 Eos % (Auto) 0.3 Baso % (Auto) 0.3 Absolute Neuts (auto) 23.3 H Absolute Lymphs (auto) 0.83 Nucleated RBC % 0 Differential Comment SCANNED PT 28.0 H INR 2.7 APTT 34.5 Sodium 141 Potassium 4.2 Chloride 109 H Carbon Dioxide 25.0 Anion Gap 7 BUN 28 H Creatinine 1.51 H Estim Creat Clear Calc 30.79 Est GFR (MDRD) Af Amer 44 L Est GFR (MDRD) Non-Af 36 L BUN/Creatinine Ratio 18.5 Glucose 105 Lactic Acid Calcium 9.0 Total Bilirubin 1.10 H AST 33 ALT 47 Alkaline Phosphatase 83 Total Protein 6.8 Albumin 3.5 Globulin 3.3 Albumin/Globulin Ratio 1.1 03/01/21 09:20 WBC RBC Hgb Hct MCV MCH MCHC RDW Std Deviation RDW Coeff of Isidro Plt Count MPV Immature Gran % (Auto) Neut % (Auto) Lymph % (Auto) Bent % (Auto) Eos % (Auto) Baso % (Auto) Absolute Neuts (auto) Absolute Lymphs (auto) Nucleated RBC % Differential Comment PT INR APTT Sodium Potassium Chloride Carbon Dioxide Anion Gap BUN Creatinine Estim Creat Clear Calc Est GFR (MDRD) Af Amer Est GFR (MDRD) Non-Af BUN/Creatinine Ratio Glucose Lactic Acid 2.3 H* Calcium Total Bilirubin AST ALT Alkaline Phosphatase Total Protein Albumin Globulin Albumin/Globulin Ratio Radiography Diagnostic Testing: Left lower extremity ultrasound: Negative for DVT. EKG Initial EKG: Attestation: I personally reviewed and interpreted this EKG as follows: Comments: Sinus rate of 93, no ST or T wave changes. Critical Care Time Critical Care Time: Yes Critical care time (excluding procedures): 30-74 minutes, Discussing w/Patient &/or Family/Retail Loss Prevention Investigator, Discussing w/Consultants, Arranging Admission or Transfer, Performing Direct Patient Care at Bedside and - (50) Discharge Plan Triage Chief Complaint: Wound ED Provider: Julio Ayala Dx/Rx/DC Orders Clinical Impression: Cellulitis of left leg, Severe sepsis Prescriptions: No Action metoprolol tartrate 25 mg tablet 25 mg PO BID Qty: 60 RF: 0 Myrbetriq 50 mg tablet extended release 24 hr 50 mg PO DAILY RF: 0 cholecalciferol (vitamin D3) 50 mcg (2,000 unit) capsule 50 mcg PO DAILY RF: 0 warfarin 6 mg tablet 6 mg PO DAILY RF: 0 sertraline 100 MG tablet 200 mg PO DAILY RF: 0 prednisone 5 MG tablet 10 mg PO DAILY RF: 0 vitamin B complex 1 EACH capsule 1 ea PO DAILY RF: 0 potassium chloride 10 MEQ tablet 10 meq PO DAILY RF: 0 omega-3 fatty acids-fish oil 1 EACH capsule 2 ea PO DAILY RF: 0 pravastatin 10 MG tablet 40 mg PO QHS RF: 0 multivitamin 1 EACH tablet 1 ea PO DAILY RF: 0 loperamide 2 MG capsule 2 mg PO Q8H PRN PRN (Reason: Diarrhea) RF: 0 simethicone 125 MG capsule 125 mg PO 4X/DAY PRN (Reason: Indigestion) RF: 0 acetaminophen 500 MG tablet 1,000 mg PO BID PRN (Reason: Pain Or Fever) RF: 0 diphenhydramine HCl 25 MG capsule 25 mg PO Q6H PRN (Reason: Itching) RF: 0 bismuth subsalicylate 262 MG/15 ML suspension 15 ml PO Q6H PRN (Reason: Indigestion) RF: 0 tizanidine 2 MG capsule 2 mg PO Q8H PRN (Reason: Spasms) RF: 0 naphazoline-glycerin 30 ML drops 2 drp OP BID RF: 0 saliva substitute combo no.9 473 ML mouthwash 30 ml MM DAILY PRN (Reason: Dry Mouth) RF: 0 celecoxib 200 MG capsule 200 mg PO DAILY RF: 0 oxybutynin chloride 10 MG tablet extended release 24hr 10 mg PO DAILY RF: 0 capsaicin 57 GM cream 57 gm TP DAILY RF: 0 warfarin 3 MG tablet 2.5 mg PO DAILY RF: 0 methotrexate sodium 2.5 MG tablet 15 mg PO QWEEK RF: 0 benzonatate 100 MG capsule 200 mg PO Q8H PRN PRN (Reason: Cough) RF: 0 hydrocodone-acetaminophen 1 TABLET tablet 1 ea PO TID RF: 0 montelukast 10 MG tablet 10 mg PO DAILY RF: 0 gabapentin 100 MG capsule 100 mg PO DAILY RF: 0 fluticasone propionate 1 SPRAY spray,suspension 2 spray NASAL DAILY RF: 0 phenol 177 ML aerosol,spray 177 ml MM Q2H PRN (Reason: Sore Throat) RF: 0 guaifenesin 400 MG tablet 400 mg PO BID PRN (Reason: Congestion) RF: 0 aripiprazole 2 MG tablet 2 mg PO DAILY RF: 0 buprenorphine 1 EACH patch weekly 1 ea TD QWEEK RF: 0 saliva substitute combo no.9 237 ML bottle 15 ml MM 5X/DAY RF: 0 psyllium husk 0.4 GM capsule 0.4 gm PO DAILY PRN (Reason: Constipation) RF: 0 nystatin (bulk) 1,000,000 UNIT powder 1,000,000 unit MC BID RF: 0 pantoprazole 40 MG tablet 40 mg PO BID Qty: 56 RF: 1 sucralfate 1 GM tablet 1 gm PO 4X/DAY Qty: 84 RF: 0 cephalexin 500 mg capsule 500 mg PO Q8H Qty: 21 RF: 0 Referrals: Kamila Hollingsworth [Other] Disposition Disposition: Transfer to Another Type [facility]
--- NOTE | 2021-03-01 09:26 | VDLE_ITS ---
Reason For Study: LLE SWELLING RIGHT GSV is normal. CFV is compressible, spontaneous, phasic, competent and demonstrates normal augmentation. FV is compressible, spontaneous, phasic, competent and demonstrates normal augmentation. POP V is compressible, spontaneous, phasic, competent and demonstrates normal augmentation. T/P Trunk is compressible. PTV is compressible. PERV not visualized. Procedure This is a venous duplex using B-mode, color flow and spectral Doppler. Exam performed portable in ED. The exam was diagnostic. The study was technically difficult. A preliminary report was called and/or faxed to ED. VL/Venous Duplex US, Unilateral Interpretation Summary There is no evidence of left lower extremity deep vein thrombosis. Left great s aphenous vein appears patent and compressible segmentally. Technically difficult, left peroneal vein not visualized Ordering Physician: Julio Ayala Referring Physician: OTD Performed By: Jyothi Alexandra, BLAS, RVT
[2021-03-01 09:39] LABS: Absolute Lymphocyte Count 0.83 X10^3/uL (0.83-4.51); Absolute Neutrophil Count 23.3 X10^3/uL (2.0-7.7); Basophil# 0.07 X10^3/uL; Basophil% 0.3 % (0-1); Eosinophil# 0.07 X10^3/uL; Eosinophils% 0.3 % (0-5); Hematocrit 46.1 % (37-47); Hemoglobin 14.7 g/dL (12.0-15.0); Lymphocyte # 0.83 X10^3/ul (0.83-4.51); Lymphocyte % 3.2 % (19-41); Mean Corp Hgb Conc 31.9 g/dL (32-36); Mean Corpuscular Hgb 29.5 pg (27.0-32.0); Mean Corpuscular Volume 92.6 fL (81-99); Monocyte% 4.7 % (0-10); NRBC Flagged by Analyzer 0 % (0-5); Neutrophil # 23.32 X10^3/uL (2.7-7.7); Neutrophil % 90.6 % (47-70); POSITIVE DIFFERENTIAL YES; POSITIVE MORPHOLOGY YES; Platelet Count 123 K/mm3 (150-450); RBC Distribution Width CV 17.2 % (11.6-14.6); Red Blood Count 4.98 M/mm3 (4.2-5.4); White Blood Count 25.7 K/mm3 (4.4-11.0)
[2021-03-01 09:44] LABS: Differential Indicated SCAN CRITERIA MET
[2021-03-01 09:52] LABS: ALB/GLOB Ratio 1.1 RATIO (0.9-2.4); AST(SGOT) 33 U/L (15-37); Alanine Aminotransfer ALT/SGPT 47 U/L (13-56); Albumin, Serum 3.5 g/dL (3.2-5.0); Alkaline Phosphatase 83 U/L (45-117); Anion Gap 7 (5-15); BUN 28 mg/dL (7-18); BUN/Creat Ratio 18.5 RATIO (10-20); Chloride 109 mmol/L (98-107); Creatinine, Serum 1.51 mg/dL (0.55-1.02); EST Glomerular Filtration Rate 36 mL/min (>60); Est Glom Filt Rate - Afr Amer 44 mL/min (>60); Estimated Creatinine Clearance 30.79 ml/min; Globulin 3.3 g/dL (2.2-4.2); Glucose 105 mg/dL (74-106); Potassium 4.2 mmol/L (3.5-5.1); Protein, Total 6.8 g/dL (6.4-8.2); Sodium Level 141 mmol/L (136-145)
[2021-03-01 09:57] LABS: International Normalized Ratio 2.7; Partial Thromboplast Time 34.5 Seconds (24.1-36.2)
[2021-03-01 10:01] LABS: Differential Comment SCANNED; Lactic Acid 2.3 mmol/L (0.4-1.9)
[2021-03-01] MEDS: fentaNYL 100 MCG/2 ML Ampul 25 MCG IV (12:56)
[2021-03-01] MEDS: 0.9% Normal Saline 1,000 ML 1000 ML IV (12:56)
[2021-03-01 13:33] LABS: Reflex Lactate? Y
--- NOTE | 2021-03-01 14:12 | ED.RN ---
PT'S SISTER IVANA ZAVALA UPDATED ON PT'S STATUS AND TRANSFER TO [facility]
[2021-03-01 15:02] LABS: Lactic Acid 1.4 mmol/L (0.4-1.9)
== END 2021-03-01 14:52 | disposition other institution (70) ==
PROVIDERS: Emergency Provider Emergency Medicine
DX: L03.116 Cellulitis of left lower limb (principal); R65.20 Severe sepsis without septic shock; F17.210 Nicotine dependence, cigarettes, uncomplicated; Z86.711 Personal history of pulmonary embolism
CPT/HCPCS: 36415; 80053; 83605; 85025; 85610; 85730; 87040; 87426; 93005; 93971; 96361; 96365; 96366; 96367; 96375; 99285; J7030; J7040; J7050; A4216

== ENCOUNTER 2021-07-22 08:05 | Outpatient (RCR) | payer MEDICARE, MEDICAID, SELFPAY ==
[2021-07-22 08:21] VITALS: BP 127/71; PULSE 71; RESP 18; TEMP 36.3; BMI 39.4
--- NOTE | 2021-07-22 09:05 | PCM.WC.HP ---
History of Present Illness Date of Service: 07/22/21 Chief Complaint: Left lower extremity posterior ulceration History of Wound: This is a 70-year-old female who presents to the wound healing center today with complaint of a nonhealing ulcer posterior left lower extremity. 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 Patient states she is at an assisted living facility where they care for her posterior ulceration. They have been applying Aquacel Ag and a compression dressing with Jorge wraps. She is elevating the left lower extremity and offloading with pillow padding. She denies any systemic or localized signs of infection at this time. Past medical, family, and social history reviewed and not pertinent to the current visit and all other systems reviewed and negative with exception of those listed above. [facility] Medical History Anxiety Bladder dysfunction Compression fracture of thoracic vertebra Deep vein thrombosis Essential (primary) hypertension History of pulmonary embolism (2011) Hyperlipidemia Lower extremity edema Mental retardation Morbid obesity Nicotine dependence Osteoporosis Positive colorectal cancer screening using Cologuard test Rheumatoid arthritis Toe ulcer, right Ulcer of right lower extremity with fat layer exposed Venous insufficiency of both lower extremities Home Medications omega-3 fatty acids-fish oil 2 ea PO DAILY 03/27/15 [History Last Taken Unknown] potassium chloride 10 meq PO DAILY 03/27/15 [History Last Taken Unknown] prednisone 10 mg PO DAILY 03/27/15 [History Last Taken Unknown] sertraline 200 mg PO DAILY 03/27/15 [History Last Taken Unknown] vitamin B complex 1 ea PO DAILY 03/27/15 [History Last Taken Unknown] pravastatin 40 mg PO QHS 09/14/15 [History Last Taken Unknown] metoprolol tartrate 25 mg tablet 25 mg PO BID #60 tab 01/08/19 [History Last Taken Unknown] acetaminophen 1,000 mg PO BID PRN 07/11/19 [History Last Taken Unknown] bismuth subsalicylate 15 ml PO Q6H PRN 07/11/19 [History Last Taken Unknown] diphenhydramine HCl 25 mg PO Q6H PRN 07/11/19 [History Last Taken Unknown] loperamide 2 mg PO Q8H PRN PRN 07/11/19 [History Last Taken Unknown] multivitamin 1 ea PO DAILY 07/11/19 [History Last Taken Unknown] naphazoline-glycerin 2 drp OP BID 07/11/19 [History Last Taken Unknown] saliva substitute combo no.9 30 ml MM DAILY PRN 07/11/19 [History Last Taken Unknown] simethicone 125 mg PO 4X/DAY PRN 07/11/19 [History Last Taken Unknown] tizanidine 2 mg PO Q8H PRN 07/11/19 [History Last Taken Unknown] cholecalciferol (vitamin D3) 50 mcg (2,000 unit) capsule 50 mcg PO DAILY 08/07/20 [History Last Taken Unknown] mirabegron 50 mg tablet,extended release 24 hr 50 mg PO DAILY 08/07/20 [History Last Taken Unknown] warfarin 6 mg tablet 6 mg PO DAILY tab 08/07/20 [History Last Taken Unknown] aripiprazole 2 mg PO DAILY 09/07/20 [History Last Taken Unknown] benzonatate 200 mg PO Q8H PRN PRN 09/07/20 [History Last Taken Unknown] buprenorphine 1 ea TD QWEEK 09/07/20 [History Last Taken Unknown] capsaicin 57 gm TP DAILY 09/07/20 [History Last Taken Unknown] celecoxib 200 mg PO DAILY 09/07/20 [History Last Taken Unknown] fluticasone propionate 2 spray NASAL DAILY 09/07/20 [History Last Taken Unknown] gabapentin 100 mg PO DAILY 09/07/20 [History Last Taken Unknown] guaifenesin 400 mg PO BID PRN 09/07/20 [History Last Taken Unknown] hydrocodone-acetaminophen 1 ea PO TID 09/07/20 [History Last Taken Unknown] methotrexate sodium 15 mg PO QWEEK 09/07/20 [History Last Taken Unknown] montelukast 10 mg PO DAILY 09/07/20 [History Last Taken Unknown] nystatin (bulk) 1,000,000 unit MC BID 09/07/20 [History Last Taken Unknown] oxybutynin chloride 10 mg PO DAILY 09/07/20 [History Last Taken Unknown] pantoprazole 40 mg PO BID #56 tab 09/07/20 [Rx Last Taken Unknown] phenol 177 ml MM Q2H PRN 09/07/20 [History Last Taken Unknown] psyllium husk 0.4 gm PO DAILY PRN 09/07/20 [History Last Taken Unknown] saliva substitute combo no.9 15 ml MM 5X/DAY 09/07/20 [History Last Taken Unknown] sucralfate 1 gm PO 4X/DAY #84 tab 09/07/20 [Rx Last Taken Unknown] warfarin 2.5 mg PO DAILY 09/07/20 [History Last Taken Unknown] cephalexin 500 mg capsule 500 mg PO Q8H #21 cap 01/28/21 [Rx Last Taken Unknown] Allergy/AdvReac Type Severity Reaction Status Date / Time No Known Allergies Allergy Verified 01/21/21 14:46 Family History Other Hypertension Surgical History History of right hip replacement History of total left knee replacement Social History Smoking Status: Current every day smoker tobacco type: cigarettes alcohol intake: current alcohol intake frequency: holidays/special occasions only ROS Constitutional Constitutional: Denies chills, fatigue, fever(s) or weakness Eyes Eyes: Denies change in vision, double vision or dry eyes ENT HEENT: Denies dysphagia, nasal congestion, nasal discharge or sore throat Cardiovascular Cardiovascular: Denies chest pain, dyspnea or fatigue Respiratory/Chest Respiratory/Chest: Denies cough, productive cough or wheezing Gastrointestinal Gastrointestinal: Denies abdominal pain, constipation, diarrhea, nausea or vomiting Genitourinary Genitourinary: Denies dysuria, urinary frequency or urinary urgency Musculoskeletal Musculoskeletal: Denies joint pain, joint stiffness, numbness or tingling Integumentary Integumentary: Reports dry skin, skin ulcer, wounds and other Details: Posterior left lower extremity wound ; Denies pruritus or rash Neurologic Neurologic: Denies dizziness, numbness, paresthesias or tingling Psychiatric Psychiatric: Denies anxiety or depression Endocrine Endocrinology: Denies cold intolerance, heat intolerance or polydipsia Hematologic/Lymphatic Hematologic/Lymphatic: Denies easy bleeding or easy bruising Vital Signs Vital Signs Vital Signs: 07/22/21 08:21 Temperature 97.3 F L Temperature Source Temporal Pulse Rate 71 Respiratory Rate 18 Blood Pressure 127/71 H Blood Pressure Mean 89 Blood Pressure Source Monitor Blood Pressure Position Sitting Blood Pressure Location Left Forearm Weight Weight: 82.554 kg Body Mass Index (BMI) 39.4 Physical Exam Const alert, oriented x3 and no apparent distress General Appearance: cooperative HEENT normocephalic Eyes General Eye: normal appearance of both eyes Neck General: normal visual inspection Lymph Lymphatic: no lymphadenopathy noted Resp normal respiratory effort Cardio regular rate and regular rhythm Extremity Peripheral Pulses: Yes posterior tibial pulses present bilateral (Multiphasic on Doppler) dopplerable and dorsalis pedis pulses present bilateral (Multiphasic on Doppler) dopplerable Skin General Skin Exam: dry skin and venous stasis; Negative for fluctuance Lesions: No no lesions Rashes: No no rashes Wound Narrative: Left lower extremity posterior leg/calf ulceration secondary to chronic venous insufficiency. Wound measures 11 cm x 7.5 cm and demonstrates a 50-50 fibrotic granular base with rolled wound edges and fibrotic tissue at the margin with serosanguineous exudate. Wound demonstrates no localized signs of erythema, purulence, malodor, red streaking or other localized signs of infection. Surrounding skin is atrophic. Neuro Motor Exam: strength 5/5 throughout and clonus absent Debridement Note Debridement Note Wound debrided: Left posterior lower extremity Laterality: Left Wound Grade/Stage: Isaac grade 1 Type of Debridement: Excisional debridement Anesthesia Used: 4% Lidocaine Solution Depth: Down to and including healthy tissue and in the subcutaneous layer Percentage of wound debrided: 100 Instrument Used: 3mm curette Tissue Removed: Fibrous, devitalized subcutaneous, biofilm, slough Severity: Fat Layer Exposed Amount of bleeding with debridement: Mild Bleeding Controlled with: Pressure Patient tolerated procedure: Patient tolerated procedure well Post-Debridement Measurements and Additional Note: Post-Debridement Measurements/Treatment - Nurse 1 - General Ulcer Assessment Start: 07/22/21 08:20 Freq: Status: Active Protocol: KESHAWN.LOWJOY Activity Type Activity Date Activity User E-Sign Co-Sign Detail Recorded Client Recorded Date Recorded By Document 07/22/21 08:21 PHAN [id number] 07/22/21 08:40 PHAN Edit Result 07/22/21 08:21 PHAN (1) [id number] 07/22/21 08:42 PHAN (1) Left - Posterior Tibial Palpable => Yes - Posterior Tibial Doppler => Multiphasic - Dorsalis Pedis Palpable => Yes - Dorsalis Pedis Doppler => Multiphasic - Extremity Color => Hyperpigmented - Hair Growth on Legs => No - Hair Growth on Toes => No - Temperature of Extremity => Warm - Capillary Refill => Less than 3 => Seconds - Thick => Yes - Discolored => Yes - Deformed => Yes - Improper Length & Hygeine => No 07/22/21 08:21 WC - Today's Visit Information Type of service Initial Visit Arrival Mode Ambulatory, Walker, Wheelchair Transfer Assistance Manual Patient Identification Verified (Name & Yes ) Patient Requires Transmission-Based No Precautions Height and Weight Height 4 ft 9 in Weight 82.554 kg Weight in Pounds 182.0 lbs Weight Measurement Method Estimated by Patient Body Mass Index (BMI) 39.4 BMI Classification Obese BSA - [place] 1.73 Vital Signs Temperature (97.8 F-99.1 F) 97.3 F L Temperature Source Temporal Pulse Rate (60-100) 71 Pulse Location Monitor Respiratory Rate (12-18) 18 Respiratory rate source Observation Blood Pressure (90/60-120/80) 127/71 H Blood Pressure Mean 89 Source Monitor Position Sitting Blood Pressure Location Left Forearm History Since Last Visit- (Skip if this is Patient's initial visit) Left Footwear Regular Shoe Right Footwear Regular Shoe Pain Scale: 0-10 Numeric Is Patient Pain Free? Yes Lower Extremity Assessment/ Foot Assessment/ Toe Nail Assessment Left -Posterior Tibial Palpable Yes -Posterior Tibial Doppler Multiphasic -Dorsalis Pedis Palpable Yes -Dorsalis Pedis Doppler Multiphasic -Extremity Color Hyperpigmented -Hair Growth on Legs No -Hair Growth on Toes No -Temperature of Extremity Warm -Capillary Refill Less than 3 Seconds -Thick Yes -Discolored Yes -Deformed Yes -Improper Length & Hygeine No Communication Assessment Preferred language [place] Layer Required No Able to Read Yes Able to Write Yes Communication Tools None Right Hearing Abillity Normal Left Hearing Abillity Normal Visual Assistive Devices Glasses Teaching Assessment Preferences Verbal,Written, Audio/Visual, Demonstration Barriers to Learning None Readiness To Learn Good Willingness to Engage in Self Management Med Activies Readiness to Engage in Self Management Med Activities Anxiety Level Calm Cooperation Cooperative Perception Coherent Interest in Health Problem Asks Questions Education Importance Acknowledges Need Does Patient Smoke tobacco or other No substances Smoking Status Current every day smoker Is Patient Diabetic No Functional Assessment Recent Decline in Ability to Perform Ambulation Assistive Device With Patient Yes List Device(s) with Patient wheelchair and walker Culture/Christianity/Airport Traffic Controller Cultural/Christianity Needs that may affect No Treatment Plan Would you allow our hospital band aid machine operator to No meet you for the purpose of spiritual/ emotional support? Airport Traffic Controller to contact place of sabianist No Teaching: Wound Center *Welcome to the Wound Center -Person Taught Patient -Teaching Method Discussion, Demonstration -Response to teaching Return demonstration, Verbalize understanding WC - Nurse 1 - General Ulcer Measurement Start: 07/22/21 08:20 Freq: Status: Active Protocol: Activity Type Activity Date Activity User E-Sign Co-Sign Detail Recorded Client Recorded Date Recorded By Document 07/22/21 08:21 [id number] 07/22/21 08:40 PHAN 07/22/21 08:21 Wound Center Nurse 1 3-left medial lower leg -Combined with other wound No -Current Size (cm) - Length 11 -Current Size (cm) - Width 7.5 -Current Size (cm) - Depth 0.8 -Total Square Cm 82.5 -Photo Taken Yes -Epithelialization Small 1-33% -Tunneling No -Undermining/Tunneling No -Circular Undermining No -Classification - Thickness Full Thickness without Exposed Support Structure -Exudate Amt Large -Exudate Type Serosanguineous -Wound Margin Flat & Intact -Granulation Amt Large (67-100%) -Granulation Quality [place] -Slough/Fibrin Yes -Necrosis Amt Medium (34-66%) -Necrotic Tissue Type Adherent Slough -Structure Exposed N/A -Texture (Yajaira-wound Skin Appearance) Assessed, Localized Edema -Moisture (Yajaira-wound Skin Appearance) Assessed,Dry/ Scaly -Color (Yajaira-wound Skin Appearance) Assessed, Hemosiderin Staining -Temperature (Yajaira-wound Skin No Abnormality Appearance) (Pt Warm) -Tenderness on Palpation (Yajaira-wound No Skin Appearance) -Ulcer Cleansing Rinsed/ Irrigated with Saline -Foul Odor after Cleansing No -Anesthetic Used 4% Lidocaine Solution Lower Limb Edema Present Yes Right Calf (cm) 34.6 Right Ankle (cm) 26.2 Left Calf (cm) 41.6 Left Ankle (cm) 25.3 Assessment/Plan Assessment/Plan (1) Venous insufficiency of both lower extremities: CODE(S): I87.2 - Venous insufficiency (chronic) (peripheral) (2) Lower extremity edema: CODE(S): R60.0 - Localized edema (3) History of pulmonary embolism: CODE(S): Z86.711 - Personal history of pulmonary embolism (4) Hyperlipidemia: CODE(S): E78.5 - Hyperlipidemia, unspecified (5) Essential (primary) hypertension: CODE(S): I10 - Essential (primary) hypertension (6) Venous ulcer of left lower extremity without varicose veins: CODE(S): I87.2 - Venous insufficiency (chronic) (peripheral); L97.929 - Non-pressure chronic ulcer of unspecified part of left lower leg with unspecified severity (7) Non-pressure chronic ulcer of 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 She has prior history of pulmonary embolism and is currently on warfarin. She states she is living in an assisted living facility and has not been able to have a cigarette since she has been there. She states that they change her dressings daily with Aquacel Ag, dry sterile dressing, and compressive Jorge wrap. She is elevating her lower extremities and using a pillow to offload the back of her leg. Ulceration posterior left lower extremity was examined today. Ulceration site measures 11 cm x 7.5 cm with no localized signs of infection. I discussed continued offloading with soft pillows to the back of the leg. Debridement was performed to the ulceration site today with a #3 curette removing fibrous, devitalized subcutaneous, biofilm, slough. Surrounding skin is atrophic and dry. She may apply lotion to the surrounding skin. Promogran placed into the wound bed and dressed with Aquacel Ag then a super absorbent dressing with 3M 2 layer Coban dressing. Dressings are to be changed once a day at her assisted living facility. Patient is a known chronic smoker who asks me today if she can continue to smoke. I discussed with her the essentials of proper wound healing and stressed the importance of smoking cessation today to ensure proper wound healing. I informed her that continuing to smoke will slow down the progression of her wound healing by decreasing blood flow to the extremity and the ulceration site and complicate her healing status and overall health. Patient states that she will try the best she can. I reviewed and discussed his case today. Debridement was performed today as noted in the clinical panel to all of the ulcer sites. The following work up and care recommendations were made: Dressing: Promogran to the ulceration site, Aquacel Ag then super absorbent then 3M 2 layer Coban changed once daily Wash: Soap and water Tissue growth optimization: Promogran Offload: Offload with pillows soft to the back of the leg Vascular: Multiphasic pulses on Doppler Edema: Elevate the left lower extremity and comply with compression wrap dressing Infection: No localized signs of infection Pain: Patient may take over the [id number] Tylenol extra strength Host factors: Smoking cessation and edema control, increase protein intake I answered all the patient's questions. To return to the wound healing center in 1 week or call sooner if the patient has any questions or concerns. The problems addressed require a low medical decision making level which includes two or more minor problems, a stable chronic illness, or an acute uncomplicated illness or injury. The medical decision making level is low. There is noted low risk of morbidity after considering this treatment plan and diagnostic data. Note: [employer] speech recognition pasta maker software was used to create portions of this document. Sound-alike and misspelled words, as well as other pasta maker errors may be contained in the documentation.
== END 2021-07-26 23:59 ==
LOC: WC 08:05
PROVIDERS: PCP Family Medicine; Visit Provider Student in an Organized Health Care Education/Training Program
DX: I87.2 Venous insufficiency (chronic) (peripheral) (principal); L97.222 Non-pressure chronic ulcer of left calf with fat layer exposed; M06.9 Rheumatoid arthritis, unspecified; E66.01 Morbid (severe) obesity due to excess calories; I10 Essential (primary) hypertension; E78.5 Hyperlipidemia, unspecified; R60.0 Localized edema; Z86.711 Personal history of pulmonary embolism; F17.210 Nicotine dependence, cigarettes, uncomplicated; Z79.01 Long term (current) use of anticoagulants; Z86.718 Personal history of other venous thrombosis and embolism; F79 Unspecified intellectual disabilities; Z68.39 Body mass index [BMI] 39.0-39.9, adult; Z79.899 Other long term (current) drug therapy; Z79.52 Long term (current) use of systemic steroids
CPT/HCPCS: 11042; 11045; 29581; 99213; G0463

== ENCOUNTER 2021-08-19 11:00 | Outpatient (RCR) | payer MEDICARE, MEDICAID, SELFPAY ==
[2021-07-27 00:49] VITALS: BP 127/71; PULSE 71; RESP 18; TEMP 36.3; BMI 39.4
[2021-08-05 11:07] VITALS: TEMP 36.8; BMI 39.4
--- NOTE | 2021-08-05 12:40 | PN.PCM_ITS ---
History of Present Illness Date of Service: 08/05/21 Chief Complaint: Left lower extremity posterior ulceration History of Wound: This is a 70-year-old female who presents to the wound healing center today with complaint of a nonhealing ulcer posterior left lower extremity. 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 Patient states she is at an assisted living facility where they care for her posterior ulceration. They have been applying Aquacel Ag and a compression dressing with Jorge wraps. She is elevating the left lower extremity and o ffloading with pillow padding. She denies any systemic or localized signs of infection at this time. Past medical, family, and social history reviewed and not pertinent to the current visit and all other systems reviewed and negative with exception of those listed above. Subjective Subjective This is a 70-year-old female who presents to the wound care center for follow-up of a nonhealing posterior left lower extremity ulceration secondary to chronic venous insufficiency. She denies any nausea, vomiting, fever, chills, shortness of breath or other constitutional symptoms. She states that she is still trying to stop smoking. She denies any other complaints at this time. Objective Data Objective Data Vital Signs: Vital Signs Temp Pulse Resp BP 98.3 F 71 18 127/71 H 08/05/21 11:07 07/27/21 00:49 07/27/21 00:49 07/27/21 00:49 Weight: 82.554 kg Body Mass Index (BMI) 39.4 Physical Exam Const alert, oriented x3 and no apparent distress General Appearance: cooperative and comfortable HEENT normocephalic Eyes General Eye: normal appearance of both eyes Neck General: normal visual inspection Lymph Lymphatic: no lymphadenopathy noted and no lymphedema noted Resp normal respiratory effort Cardio regular rate and regular rhythm Skin General Skin Exam: dry skin and venous stasis; Negative for fluctuance Lesions: no lesions Rashes: no rashes Wound Narrative: Left lower extremity posterior leg/calf ulceration secondary to venous insufficiency. Wound previously measured 11 cm x 7.5 cm by 0.8 cm on 07/22/2021. Ulceration measures 12 cm x 5.7 cm x 0.3 cm today and demonstrates a 50-50 fibrotic granular base with rolled wound edges and fibrotic tissue at the margin with serosanguineous exudate. Wound demonstrates no localized signs of erythema, purulence, malodor, red streaking or other localized signs of infection. Surrounding skin is atrophic. Neuro Motor Exam: strength 5/5 throughout Debridement Note Debridement Note Wound debrided: Left posterior lower extremity Laterality: Left Wound Grade/Stage: Isaac grade 1 Type of Debridement: Excisional debridement Anesthesia Used: 5% Lidocaine Gel and Cetacaine Depth: in the subcutaneous layer Percentage of wound debrided: 100 Instrument Used: 3mm curette Tissue Removed: Fibrous, devitalized subcutaneous, biofilm, slough Severity: Fat Layer Exposed Amount of bleeding with debridement: Mild Bleeding Controlled with: Pressure Patient tolerated procedure: Patient tolerated procedure well Post-Debridement Measurements and Additional Note: Post-Debridement Measurements/Treatment - Nurse 1 - General Ulcer Assessment Start: 08/05/21 11:07 Freq: Status: Active Protocol: JAZZ Activity Type Activity Date Activity User E-Sign Co-Sign Detail Recorded Client Recorded Date Recorded By Document 08/05/21 11:07 PHAN [id number] 08/05/21 11:19 PHAN 08/05/21 11:07 - Today's Visit Information Type of service Follow-up Visit (Physician/SPOOL SALVAGER ) Arrival Mode Wheelchair Transfer Assistance Manual Patient Identification Verified (Name & Yes ) Patient Requires Transmission-Based No Precautions Height and Weight Body Mass Index (BMI) 39.4 BMI Classification Obese Vital Signs Temperature (97.8 F-99.1 F) 98.3 F Temperature Source Temporal History Since Last Visit- (Skip if this is Patient's initial visit) Have you changed medications since your Yes last visit? Any new allergies or adverse reactions No Had a fall/change in ADL's that may No increase risk of falls Signs or symptoms of abuse and/or No neglect since last visit Have you been in the hospital since your No last visit? Has dressing in place as prescribed Yes Has compression in place as prescribed Yes Has offloadiing in place as prescribed Yes Experienced any changes in pain level or No management Left Footwear Regular Shoe Right Footwear Regular Shoe Pain Scale: 0-10 Numeric Is Patient Pain Free? Yes - Nurse 1 - General Ulcer Measurement Start: 08/05/21 11:07 Freq: Status: Active Protocol: Activity Type Activity Date Activity User E-Sign Co-Sign Detail Recorded Client Recorded Date Recorded By Document 08/05/21 11:07 PHAN [id number] 08/05/21 11:19 PHAN 08/05/21 11:07 Wound Center Nurse 1 3-left medial lower leg -Combined with other wound No -Current Size (cm) - Length 12.0 -Current Size (cm) - Width 5.7 -Current Size (cm) - Depth 0.3 -Total Square Cm 68.40 -Photo Taken Yes -Epithelialization Small 1-33% -Tunneling No -Undermining/Tunneling No -Circular Undermining No -Exudate Amt Large -Exudate Type Serosanguineous -Wound Margin Flat & Intact -Granulation Amt Large (67-100%) -Granulation Quality [place] -Slough/Fibrin Yes -Necrosis Amt Small (1-33%) -Necrotic Tissue Type Adherent Slough -Structure Exposed N/A -Texture (Yajaira-wound Skin Appearance) Assessed, Localized Edema -Moisture (Yajaira-wound Skin Appearance) Assessed,Dry/ Scaly -Color (Yajaira-wound Skin Appearance) Assessed -Temperature (Yajaira-wound Skin No Abnormality Appearance) (Pt Warm) -Tenderness on Palpation (Yajaira-wound No Skin Appearance) -Ulcer Cleansing Wound Cleanser -Foul Odor after Cleansing No -Anesthetic Used 4% Lidocaine Solution Lower Limb Edema Present Yes Left Calf (cm) 34.8 Left Ankle (cm) 23.0 Assessment/Plan Assessment/Plan (1) Non-pressure chronic ulcer of left calf with fat layer exposed: CODE(S): L97.222 - Non-pressure chronic ulcer of left calf with fat layer exposed (2) Venous ulcer of left lower extremity without varicose veins: CODE(S): I87.2 - Venous insufficiency (chronic) (peripheral); L97.929 - Non-pressure chronic ulcer of unspecified part of left lower leg with unspecified severity (3) Venous insufficiency of both lower extremities: CODE(S): I87.2 - Venous insufficiency (chronic) (peripheral) (4) Lower extremity edema: CODE(S): R60.0 - Localized edema (5) History of pulmonary embolism: CODE(S): Z86.711 - Personal history of pulmonary embolism (6) Nicotine dependence: CODE(S): F17.200 - Nicotine dependence, unspecified, uncomplicated (7) Hyperlipidemia: CODE(S): E78.5 - Hyperlipidemia, unspecified (8) Essential (primary) hypertension: CODE(S): I10 - Essential (primary) hypertension PLAN: This is a 70-year-old female who presents to the wound care center for follow-up of left lower extremity ulceration secondary to venous insufficiency, complicated by essential primary hypertension, hyperlipidemia, lower extremity edema, and nicotine dependence. She has prior history of pulmonary embolism is currently on warfarin. She states she is living in an assisted living facility has not been able to have a cigarette since she has been there. She states that they change her dressings daily with Aquacel Ag, dry sterile dressing, and a compressive Jorge wrap. She is elevating her lower extremity and using a pillow to offload the back of her leg. I reviewed vascular studies which demonstrate multiphasic pulses on Doppler. Ulceration posterior left lower extremity was examined today and noted to be decreasing in size. Ulceration on 07/22/2021 measured 11 cm x 7.5 cm x 0.8 cm and today measures 12 cm x 5.7 cm x 0.3 cm with no localized signs of infection. Ulceration site was debrided sharply with a 3 mm curette removing fibrous, devitalized subcutaneous, biofilm, slough. Surrounding skin is atrophic and dry. Promogran applied to ulceration site and dressed with Aquacel Ag, then a super absorbent dressing with 3M 2 layer Coban dressing. Dressings are to be changed once a day at her assisted living facility. I discussed that she may apply lotion to the surrounding skin in between dressing changes but not to place any lotion in the wound bed. Patient is a known chronic smoker who has previously asked to continue to smoke. I discussed with her the essentials of proper wound healing and stressed the importance of smoking cessation today to ensure proper wound healing. I informed her that continued to smoke will slow down the progression of her wound healing by decreasing blood flow to the extremity in the ulceration site and complicate her healing status and overall health. Patient states that she will try the best she can to stop smoking. I reviewed and discussed his case today. Debridement was performed today as noted in the clinical panel to all of the ulcer sites. The following work up and care recommendations were made: Dressing: Promogran to the ulceration site, Aquacel Ag then super absorbent dressing, then 3M 2 layer Coban changed once daily. Wash: Soap and water Tissue growth optimization: Promogran Offload: Offloading with soft pillows to the back of the leg and elevate lower extremity Vascular: Multiphasic pulses on Doppler Edema: Elevate left lower extremity comply with compression wrap dressing Infection: No localized signs of infection Pain: May take [id number] Tylenol extra strength Host factors: Smoking cessation and edema control secondary to chronic venous insufficiency, increase protein intake I answered all the patient's questions. To return to the wound healing center in 1 week or call sooner if the patient has any questions or concerns. Note: [employer] speech recognition taxi driver supervisor software was used to create portions of this document. Sound-alike and misspelled words, as well as other taxi driver supervisor errors may be contained in the documentation.
[2021-08-12 11:36] VITALS: BP 131/64; PULSE 91; RESP 16; TEMP 35.9; BMI 39.4
--- NOTE | 2021-08-12 13:15 | PN.PCM_ITS ---
History of Present Illness Date of Service: 08/12/21 Chief Complaint: Left lower extremity posterior ulceration History of Wound: This is a 70-year-old female who presents to the wound healing center today with complaint of a nonhealing ulcer posterior left lower extremity. 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 Patient states she is at an assisted living facility where they care for her posterior ulceration. They have been applying Aquacel Ag and a compression dressing with Jorge wraps. She is elevating the left lower extremity and o ffloading with pillow padding. She denies any systemic or localized signs of infection at this time. Past medical, family, and social history reviewed and not pertinent to the current visit and all other systems reviewed and negative with exception of those listed above. Subjective Subjective This is a 70-year-old female who presents to the wound care center for follow-up of left lower extremity ulceration secondary to chronic venous insufficiency complicated by lower extremity edema, nicotine dependence, and hyperlipidemia. She denies any nausea, vomiting, chills, fever, shortness of breath, or other constitutional symptoms. She has no other acute complaints at this time. Objective Data Objective Data Vital Signs: Vital Signs Temp Pulse Resp BP 96.7 F L 91 16 131/64 H 08/12/21 11:36 08/12/21 11:36 08/12/21 11:36 08/12/21 11:36 Oxygen Delivery Method Room Air Weight: 82.554 kg Body Mass Index (BMI) 39.4 Physical Exam Const alert, oriented x3 and no apparent distress General Appearance: cooperative and comfortable HEENT normocephalic Eyes General Eye: normal appearance of both eyes Neck General: normal visual inspection Lymph Lymphatic: no lymphadenopathy noted and no lymphedema noted Resp normal respiratory effort Cardio regular rate and regular rhythm Skin General Skin Exam: dry skin and venous stasis; Negative for fluctuance Lesions: no lesions Rashes: no rashes Wound Narrative: Left lower extremity posterior leg/calf ulceration secondary to venous insufficiency. Wound previously measured 11 cm x 7.5 cm by 0.8 cm on 07/22/2021. Ulceration measures 12 cm x 5.7 cm x 0.3 cm on 08/05/2021. Ulceration measures 11.6 cm x 5.5 cm x 0.3 cm today and demonstrates a 50-50 fibrotic granular base with rolled wound edges and fibrotic tissue at the margin with serosanguineous exudate. Wound demonstrates no localized signs of erythema, purulence, malodor, red streaking or other localized signs of inf ection. Surrounding skin is atrophic. Neuro Motor Exam: strength 5/5 throughout Debridement Note Debridement Note Wound debrided: Left lower extremity ulceration Laterality: Left Wound Grade/Stage: Isaac stage I Type of Debridement: Excisional debridement Anesthesia Used: 5% Lidocaine Gel and Cetacaine Depth: in the subcutaneous layer Percentage of wound debrided: 100 Instrument Used: 3mm curette Tissue Removed: Fibrous, devitalized subcutaneous, biofilm, slough Severity: Fat Layer Exposed Amount of bleeding with debridement: Mild Bleeding Controlled with: Pressure Patient tolerated procedure: Patient tolerated procedure well Post-Debridement Measurements and Additional Note: Post-Debridement Measurements/Treatment - Nurse 1 - General Ulcer Assessment Start: 08/05/21 11:07 Freq: Status: Active Protocol: JAZZ Activity Type Activity Date Activity User E-Sign Co-Sign Detail Recorded Client Recorded Date Recorded By Document 08/05/21 11:07 [id number] 08/05/21 11:19 Document 08/12/21 11:36 [facility] [id number] 08/12/21 11:41 [facility] 08/05/21 08/12/21 11:07 11:36 - Today's Visit Information Type of service Follow-up Visit Follow-up Visit (Physician/BIOMEDICAL REPAIR TECHNICIAN (Physician/BIOMEDICAL REPAIR TECHNICIAN ) ) Arrival Mode Wheelchair Wheelchair Transfer Assistance Manual Other Transfer Assist (Other) 1 assist Patient Identification Verified (Name & Yes Yes ) Patient Requires Transmission-Based No No Precautions Height and Weight Body Mass Index (BMI) 39.4 39.4 BMI Classification Obese Obese Vital Signs Temperature (97.8 F-99.1 F) 98.3 F 96.7 F L Temperature Source Temporal Temporal Pulse Rate (60-100) 91 Pulse Location Monitor Respiratory Rate (12-18) 16 Respiratory rate source Observation Oxygen Delivery Method Room Air Blood Pressure (90/60-120/80) 131/64 H Blood Pressure Mean (mm Hg) 86 Source Monitor Position Sitting Blood Pressure Location Left Arm History Since Last Visit- (Skip if this is Patient's initial visit) Have you changed medications since your Yes No last visit? Any new allergies or adverse reactions No No Had a fall/change in ADL's that may No No increase risk of falls Signs or symptoms of abuse and/or No No neglect since last visit Have you been in the hospital since your No No last visit? Has dressing in place as prescribed Yes Yes Has compression in place as prescribed Yes Yes Has offloadiing in place as prescribed Yes N/A Experienced any changes in pain level or No No management Left Footwear Regular Shoe Regular Shoe Right Footwear Regular Shoe Regular Shoe Pain Scale: 0-10 Numeric Is Patient Pain Free? Yes Yes WC - Nurse 1 - General Ulcer Measurement Start: 08/05/21 11:07 Freq: Status: Active Protocol: Activity Type Activity Date Activity User E-Sign Co-Sign Detail Recorded Client Recorded Date Recorded By Document 08/05/21 11:07 [id number] 08/05/21 11:19 Document 08/12/21 11:36 [facility] [id number] 08/12/21 11:41 [facility] 08/05/21 08/12/21 11:07 11:36 Wound Center Nurse 1 3-left medial lower leg -Combined with other wound No No -Current Size (cm) - Length 12.0 11.6 -Current Size (cm) - Width 5.7 5.5 -Current Size (cm) - Depth 0.3 0.3 -Total Square Cm 68.40 63.80 -Photo Taken Yes No -Epithelialization Small 1-33% None Present -Tunneling No No -Undermining/Tunneling No No -Circular Undermining No No -Exudate Amt Large Large -Exudate Type Serosanguineous Yellow/Green -Wound Margin Flat & Intact Thickened -Granulation Amt Large (67-100%) Small (1-33%) -Granulation Quality [place] Red -Slough/Fibrin Yes Yes -Necrosis Amt Small (1-33%) Large (67-100%) -Necrotic Tissue Type Adherent Slough Adherent Slough -Structure Exposed N/A -Texture (Yajaira-wound Skin Appearance) Assessed, Assessed, Localized Edema Scarring -Moisture (Yajaira-wound Skin Appearance) Assessed,Dry/ Assessed,Dry/ Scaly Scaly -Color (Yajaira-wound Skin Appearance) Assessed Assessed, Hemosiderin Staining -Temperature (Yajaira-wound Skin No Abnormality No Abnormality Appearance) (Pt Warm) (Pt Warm) -Tenderness on Palpation (Yajaira-wound No Yes Skin Appearance) -Ulcer Cleansing Wound Cleanser Soap and Water -Foul Odor after Cleansing No No -Anesthetic Used 4% Lidocaine 4% Lidocaine Solution Solution,5% Lidocaine Gel Lower Limb Edema Present Yes Yes Left Calf (cm) 34.8 34 Left Ankle (cm) 23.0 24 WC - Nurse 2 - General Ulcer CM Notes Start: 08/05/21 11:07 Freq: Status: Active Protocol: Activity Type Activity Date Activity User E-Sign Co-Sign Detail Recorded Client Recorded Date Recorded By Document 08/05/21 13:13 PL [id number] 08/05/21 13:19 PL Document 08/12/21 12:56 PL [id number] 08/12/21 12:57 PL 08/05/21 08/12/21 13:13 12:56 Wound Center Nurse 2 3-left medial lower leg -Time 12:09 12:00 -Correct Patient Yes Yes -Correct Side, Site, Position Yes Yes -Correct Procedure Yes Yes -Procedure Performed Yes Yes -Type of Procedure Debridement Debridement -Clinical Debridement Subcutaneous Subcutaneous -Tissue Removed Subcutaneous Subcutaneous -Post Debridement (cm) - Length 12.0 11.6 -Post Debridement (cm) - Width 5.7 5.5 -Post Debridement (cm) - Depth 0.3 0.3 -Total Square (Post) (cm) 68.40 63.80 -Area of Debridement (cm) - Length 12 11.6 -Area of Debridement (cm) - Width 5.7 5.5 -Total Square (Area) (cm) 68.4 63.80 -Tunneling No No -Undermining/Tunneling No No -Circular Undermining No No -Wound/Ulcer Outcome Not Healed Not Healed -Ulcer Cleansing Rinsed/ Rinsed/ Irrigated with Irrigated with Saline Saline -Foul Odor after Cleansing No No -Bioengineered Tissue No No -Bleeding Controlled with Pressure Pressure -Treatment Response Procedure Procedure Tolerated Well Tolerated Well -Debridement - Subq, 1st 20sq cm Yes Yes -Debridement, SubQ, ea addt'l 20sq cm 3 3 or part thereof Pain Scale: 0-10 Numeric Is Patient Pain Free? Yes Yes - Nurse 3 - General Ulcer D/C NN Start: 08/05/21 11:07 Freq: Status: Active Protocol: Activity Type Activity Date Activity User E-Sign Co-Sign Detail Recorded Client Recorded Date Recorded By Document 08/05/21 13:43 JF [id number] 08/05/21 13:44 Document 08/12/21 12:30 AK [id number] 08/12/21 12:32 AK 08/05/21 08/12/21 13:43 12:30 Wound Care Nurse 3 3-left medial lower leg -Ulcer Cleansing Rinsed/ Rinsed/ Irrigated with Irrigated with Saline Saline -Foul Odor after Cleansing No No -Negative Pressure Wound Therapy N/A -Primary Dressing Applied Aquacel AG 4x4, Aquacel AG 4x4, Optilok 6.5x10, Promogran Promogran -Primary Dressing Covered/Secured with Dry Gauze -Aquacel AG 4x4 1 1 -Optilok 6.5x10 1 -Promogran 2 2 Left -Multi-Layered Wrap Application Multi-Layer Comp - Left ($) Pain Scale: 0-10 Numeric Is Patient Pain Free? Yes Yes WC - Visit Discharge Discharge Condition Stable Stable Ambulatory Status Wheelchair Wheelchair Transportation [facility] Medication Reconcilliation completed & Yes Yes provided to patient/care provider Clinical Summary of Care Provided Yes Yes Assessment/Plan Assessment/Plan (1) Non-pressure chronic ulcer of left calf with fat layer exposed: CODE(S): L97.222 - Non-pressure chronic ulcer of left calf with fat layer exposed (2) Venous ulcer of left lower extremity without varicose veins: CODE(S): I87.2 - Venous insufficiency (chronic) (peripheral); L97.929 - Non-pressure chronic ulcer of unspecified part of left lower leg with unspecified severity (3) Venous insufficiency of both lower extremities: CODE(S): I87.2 - Venous insufficiency (chronic) (peripheral) (4) Lower extremity edema: CODE(S): R60.0 - Localized edema (5) History of pulmonary embolism: CODE(S): Z86.711 - Personal history of pulmonary embolism (6) Nicotine dependence: CODE(S): F17.200 - Nicotine dependence, unspecified, uncomplicated (7) Hyperlipidemia: CODE(S): E78.5 - Hyperlipidemia, unspecified (8) Essential (primary) hypertension: CODE(S): I10 - Essential (primary) hypertension PLAN: This is a 70-year-old female who presents to the wound care center for follow-up of left lower extremity ulceration secondary to venous insufficiency, complicated by essential primary hypertension, hyperlipidemia, lower extremity edema, and nicotine dependence. She has prior history of pulmonary embolism is currently on warfarin. She states she is living in an assisted living facility has not been able to have a cigarette since she has been there. She states that they change her dressings daily with Aquacel Ag, dry sterile dressing, and a compressive Jorge wrap. She is elevating her lower extremity and using a pillow to offload the back of her leg. I reviewed vascular studies on 07/22/2021 which demonstrate multiphasic pulses on Doppler. Ulceration posterior left lower extremity was examined today and noted to be decreasing in size. Ulceration on 07/22/2021 measured 11 cm x 7.5 cm x 0.8 cm. On 08/05/2021 measures 12 cm x 5.7 cm x 0.3 cm. Today ulceration measures 11.6 cm x 5.5 cm x 0.3 cm with no localized signs of infection. Ulceration continues to show progress. Ulceration site was debrided sharply with a 3 mm curette removing fibrous, devitalized subcutaneous, biofilm, slough. Surrounding skin is atrophic and dry. Promogran applied to ulceration site and dressed with Aquacel Ag, then a super absorbent dressing with 3M 2 layer Coban dressing. Dressings are to be changed once a day at her assisted living facility. She is to continue to elevate her lower extremities during periods of rest and offload the site with a soft pillow to the back of her leg. I discussed that she may continue to apply lotion to the surrounding skin in between dressing changes but not to place any lotion in the wound bed or between her toes. Patient is a known chronic smoker who has previously asked to continue to smoke. I reminded her on the essentials of proper wound healing and stressed the importance of smoking cessation today to ensure proper wound healing. I informed her that continued to smoke will slow down the progression of her wound healing by decreasing blood flow to the extremity in the ulceration site and complicate her healing status and overall health. Patient states that she will try the best she can to stop smoking. I reviewed and discussed his case today. Debridement was performed today as noted in the clinical panel to all of the ulcer sites. The following work up and care recommendations were made: Dressing: Promogran to the ulceration site, Aquacel Ag then super absorbent dressing, then 3M 2 layer Coban changed once daily. Wash: Soap and water Tissue growth optimization: Promogran Offload: Offloading with soft pillows to the back of the leg and elevate lower extremity Vascular: Multiphasic pulses on Doppler Edema: Elevate left lower extremity comply with compression wrap dressing Infection: No localized signs of infection Pain: May take [id number] Tylenol extra strength Host factors: Smoking cessation and edema control secondary to chronic venous insufficiency, increase protein intake I answered all the patient's questions. To return to the wound healing center in 1 week or call sooner if the patient has any questions or concerns. Note: [employer] speech recognition receivable manager software was used to create portions of this document. Sound-alike and misspelled words, as well as other receivable manager errors may be contained in the documentation.
[2021-08-19 11:10] VITALS: BP 114/69; PULSE 62; TEMP 36.4; BMI 39.4
--- NOTE | 2021-08-19 12:14 | PN.PCM_ITS ---
History of Present Illness Date of Service: 08/19/21 Chief Complaint: Left lower extremity posterior ulceration History of Wound: This is a 70-year-old female who presents to the wound healing center today with complaint of a nonhealing ulcer posterior left lower extremity. 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 Patient states she is at an assisted living facility where they care for her posterior ulceration. They have been applying Aquacel Ag and a compression dressing with Jorge wraps. She is elevating the left lower extremity and o ffloading with pillow padding. She denies any systemic or localized signs of infection at this time. Past medical, family, and social history reviewed and not pertinent to the current visit and all other systems reviewed and negative with exception of those listed above. Subjective Subjective This is a 70-year-old female who presents to the wound care center for follow-up of left lower extremity ulceration secondary to chronic venous insufficiency complicated by lower extremity edema, nicotine dependence, and hyperlipidemia. She denies any nausea, vomiting, chills, fever, shortness of breath, or other constitutional symptoms. She has no other acute complaints at this time. She also asks for help with debridement of her toenails today. Objective Data Objective Data Vital Signs: Vital Signs Temp Pulse Resp BP 97.6 F L 62 16 114/69 08/19/21 11:10 08/19/21 11:10 08/12/21 11:36 08/19/21 11:10 Oxygen Delivery Method Room Air Weight: 82.554 kg Body Mass Index (BMI) 39.4 Physical Exam Const alert, oriented x3 and no apparent distress General Appearance: cooperative and comfortable HEENT normocephalic Eyes General Eye: normal appearance of both eyes Neck General: normal visual inspection Lymph Lymphatic: no lymphadenopathy noted and no lymphedema noted Resp normal respiratory effort Cardio regular rate and regular rhythm Skin General Skin Exam: dry skin and venous stasis; Negative for fluctuance Lesions: no lesions Rashes: no rashes Wound Narrative: Left lower extremity posterior leg/calf ulceration secondary to venous insufficiency. Wound previously measured 11 cm x 7.5 cm by 0.8 cm on 07/22/2021. Ulceration measures 12 cm x 5.7 cm x 0.3 cm on 08/05/2021. Ulceration measures 11.6 cm x 5.5 cm x 0.3 cm today and demonstrates a 50-50 fibrotic granular base with rolled wound edges and fibrotic tissue at the margin with serosanguineous exudate. Wound demonstrates no localized signs of erythema, purulence, malodor, red streaking or other localized signs of infection. Surrounding skin is atrophic. Neuro Motor Exam: strength 5/5 throughout Debridement Note Debridement Note Wound debrided: Left lower posterior extremity Laterality: Left Wound Grade/Stage: Isaac stage I Type of Debridement: Excisional debridement Anesthesia Used: 5% Lidocaine Gel Depth: in the subcutaneous layer Percentage of wound debrided: 100 Instrument Used: - ([employer] ultrasonic debrider) Tissue Removed: Fibrous, devitalized subcutaneous, biofilm, slough Severity: Fat Layer Exposed Amount of bleeding with debridement: Mild Bleeding Controlled with: Pressure Patient tolerated procedure: Patient tolerated procedure well Post-Debridement Measurements and Additional Note: Post-Debridement Measurements/Treatment - Nurse 1 - General Ulcer Assessment Start: 08/05/21 11:07 Freq: Status: Active Protocol: JAZZ Activity Type Activity Date Activity User E-Sign Co-Sign Detail Recorded Client Recorded Date Recorded By Document 08/05/21 11:07 [id number] 08/05/21 11:19 Document 08/12/21 11:36 [facility] [id number] 08/12/21 11:41 [facility] Document 08/19/21 11:10 [facility] [id number] 08/19/21 11:12 VA 08/05/21 08/12/21 08/19/21 11:07 11:36 11:10 - Today's Visit Information Type of service Follow-up Visit Follow-up Visit Follow-up Visit (Physician/BEDSPREAD CUTTER HAND (Physician/BEDSPREAD CUTTER HAND (Physician/BEDSPREAD CUTTER HAND ) ) ) Arrival Mode Wheelchair Wheelchair Wheelchair Transfer Assistance Manual Other Transfer Assist (Other) 1 assist Patient Identification Verified (Name & Yes Yes Yes ) Patient Requires Transmission-Based No No No Precautions Height and Weight Body Mass Index (BMI) 39.4 39.4 39.4 BMI Classification Obese Obese Obese Vital Signs Temperature (97.8 F-99.1 F) 98.3 F 96.7 F L 97.6 F L Temperature Source Temporal Temporal Temporal Pulse Rate (60-100) 91 62 Pulse Location Monitor Monitor Respiratory Rate (12-18) 16 Respiratory rate source Observation Oxygen Delivery Method Room Air Blood Pressure (90/60-120/80) 131/64 H 114/69 Blood Pressure Mean (mm Hg) 86 84 Source Monitor Monitor Position Sitting Blood Pressure Location Left Arm History Since Last Visit- (Skip if this is Patient's initial visit) Have you changed medications since your Yes No No last visit? Any new allergies or adverse reactions No No No Had a fall/change in ADL's that may No No No increase risk of falls Signs or symptoms of abuse and/or No No No neglect since last visit Have you been in the hospital since your No No No last visit? Has dressing in place as prescribed Yes Yes Yes Has compression in place as prescribed Yes Yes Yes Has offloadiing in place as prescribed Yes N/A N/A Experienced any changes in pain level or No No No management Left Footwear Regular Shoe Regular Shoe Regular Shoe Right Footwear Regular Shoe Regular Shoe Regular Shoe Pain Scale: 0-10 Numeric Is Patient Pain Free? Yes Yes No - Nurse 1 - General Ulcer Measurement Start: 08/05/21 11:07 Freq: Status: Active Protocol: Activity Type Activity Date Activity User E-Sign Co-Sign Detail Recorded Client Recorded Date Recorded By Document 08/05/21 11:07 [id number] 08/05/21 11:19 Document 08/12/21 11:36 [facility] [id number] 08/12/21 11:41 [facility] Document 08/19/21 11:10 [facility] [id number] 08/19/21 11:12 [facility] 08/05/21 08/12/21 08/19/21 11:07 11:36 11:10 Wound Center Nurse 1 3-left medial lower leg -Combined with other wound No No No -Current Size (cm) - Length 12.0 11.6 -Current Size (cm) - Width 5.7 5.5 -Current Size (cm) - Depth 0.3 0.3 -Total Square Cm 68.40 63.80 -Photo Taken Yes No No -Epithelialization Small 1-33% None Present -Tunneling No No No -Undermining/Tunneling No No No -Circular Undermining No No No -Change in Wound Grade/Stage No -Exudate Amt Large Large Large -Exudate Type Serosanguineous Yellow/Green Yellow/Green -Wound Margin Flat & Intact Thickened Distinct, Outline Attached -Granulation Amt Large (67-100%) Small (1-33%) Small (1-33%) -Granulation Quality [place] -Slough/Fibrin Yes Yes Yes -Necrosis Amt Small (1-33%) Large (67-100%) Large (67-100%) -Necrotic Tissue Type Adherent Slough Adherent Slough Adherent Slough -Structure Exposed N/A -Texture (Yajaira-wound Skin Appearance) Assessed, Assessed, No Abnormality, Localized Edema Scarring Assessed -Moisture (Yajaira-wound Skin Appearance) Assessed,Dry/ Assessed,Dry/ No Abnormality, Scaly Scaly Assessed -Color (Yajaira-wound Skin Appearance) Assessed Assessed, No Abnormality, Hemosiderin Assessed Staining -Temperature (Yajaira-wound Skin No Abnormality No Abnormality No Abnormality Appearance) (Pt Warm) (Pt Warm) (Pt Warm) -Tenderness on Palpation (Yajaira-wound No Yes No Skin Appearance) -Ulcer Cleansing Wound Cleanser Soap and Water Soap and Water -Foul Odor after Cleansing No No No -Anesthetic Used 4% Lidocaine 4% Lidocaine 4% Lidocaine Solution Solution,5% Solution Lidocaine Gel Lower Limb Edema Present Yes Yes Left Calf (cm) 34.8 34 28.2 Left Ankle (cm) 23.0 24 24 WC - Nurse 2 - General Ulcer CM Notes Start: 08/05/21 11:07 Freq: Status: Active Protocol: Activity Type Activity Date Activity User E-Sign Co-Sign Detail Recorded Client Recorded Date Recorded By Document 08/05/21 13:13 PL [id number] 08/05/21 13:19 PL Document 08/12/21 12:56 PL [id number] 08/12/21 12:57 PL 08/05/21 08/12/21 13:13 12:56 Wound Center Nurse 2 3-left medial lower leg -Time 12:09 12:00 -Correct Patient Yes Yes -Correct Side, Site, Position Yes Yes -Correct Procedure Yes Yes -Procedure Performed Yes Yes -Type of Procedure Debridement Debridement -Clinical Debridement Subcutaneous Subcutaneous -Tissue Removed Subcutaneous Subcutaneous -Post Debridement (cm) - Length 12.0 11.6 -Post Debridement (cm) - Width 5.7 5.5 -Post Debridement (cm) - Depth 0.3 0.3 -Total Square (Post) (cm) 68.40 63.80 -Area of Debridement (cm) - Length 12 11.6 -Area of Debridement (cm) - Width 5.7 5.5 -Total Square (Area) (cm) 68.4 63.80 -Tunneling No No -Undermining/Tunneling No No -Circular Undermining No No -Wound/Ulcer Outcome Not Healed Not Healed -Ulcer Cleansing Rinsed/ Rinsed/ Irrigated with Irrigated with Saline Saline -Foul Odor after Cleansing No No -Bioengineered Tissue No No -Bleeding Controlled with Pressure Pressure -Treatment Response Procedure Procedure Tolerated Well Tolerated Well -Debridement - Subq, 1st 20sq cm Yes Yes -Debridement, SubQ, ea addt'l 20sq cm 3 3 or part thereof Pain Scale: 0-10 Numeric Is Patient Pain Free? Yes Yes - Nurse 3 - General Ulcer D/C NN Start: 08/05/21 11:07 Freq: Status: Active Protocol: Activity Type Activity Date Activity User E-Sign Co-Sign Detail Recorded Client Recorded Date Recorded By Document 08/05/21 13:43 JF [id number] 08/05/21 13:44 JF Document 08/12/21 12:30 AK [id number] 08/12/21 12:32 AK Edit Result 08/12/21 12:30 AK (1) [id number] 08/13/21 06:55 PL (1) Left - Multi-Layered Wrap Application => Multi-Layer Comp - => Left ($) 08/05/21 08/12/21 13:43 12:30 Wound Care Nurse 3 3-left medial lower leg -Ulcer Cleansing Rinsed/ Rinsed/ Irrigated with Irrigated with Saline Saline -Foul Odor after Cleansing No No -Negative Pressure Wound Therapy N/A -Primary Dressing Applied Aquacel AG 4x4, Aquacel AG 4x4, Optilok 6.5x10, Promogran Promogran -Primary Dressing Covered/Secured with Dry Gauze -Aquacel AG 4x4 1 1 -Optilok 6.5x10 1 -Promogran 2 2 Left -Multi-Layered Wrap Application Multi-Layer Multi-Layer Comp - Left ($) Comp - Left ($) Pain Scale: 0-10 Numeric Is Patient Pain Free? Yes Yes - Visit Discharge Discharge Condition Stable Stable Ambulatory Status Wheelchair Wheelchair Transportation [facility] [employer] [facility] Medication Reconcilliation completed & Yes Yes provided to patient/care provider Clinical Summary of Care Provided Yes Yes Additional Wound Wound debrided: Left distal lateral posterior extremity Laterality: Left Type of Debridement: Excisional debridement Anesthesia Used: 5% Lidocaine Gel Depth: in the subcutaneous layer Percentage of wound debrided: 100 Instrument Used: - ([employer] ultrasonic debrider) Tissue Removed: Fibrous, devitalized subcutaneous, biofilm, slough Severity: Fat Layer Exposed Amount of bleeding with debridement: Mild Bleeding Controlled with: Pressure Patient tolerated procedure: Patient tolerated procedure well Assessment/Plan Assessment/Plan (1) Non-pressure chronic ulcer of left calf with fat layer exposed: CODE(S): L97.222 - Non-pressure chronic ulcer of left calf with fat layer exposed (2) Venous ulcer of left lower extremity without varicose veins: CODE(S): I87.2 - Venous insufficiency (chronic) (peripheral); L97.929 - Non-pressure chronic ulcer of unspecified part of left lower leg with unspecified severity (3) Venous insufficiency of both lower extremities: CODE(S): I87.2 - Venous insufficiency (chronic) (peripheral) (4) Lower extremity edema: CODE(S): R60.0 - Localized edema (5) History of pulmonary embolism: CODE(S): Z86.711 - Personal history of pulmonary embolism (6) Nicotine dependence: CODE(S): F17.200 - Nicotine dependence, unspecified, uncomplicated (7) Hyperlipidemia: CODE(S): E78.5 - Hyperlipidemia, unspecified (8) Essential (primary) hypertension: CODE(S): I10 - Essential (primary) hypertension PLAN: This is a 70-year-old female who presents to the wound care center for follow-up of left lower extremity ulceration secondary to venous insufficiency, complicated by essential primary hypertension, hyperlipidemia, lower extremity edema, and nicotine dependence. She has prior history of pulmonary embolism is currently on warfarin. She states she is living in an assisted living facility has not been able to have a cigarette since she has been there. She states that they change her dressings daily with Aquacel Ag, dry sterile dressing, and a compressive Jorge wrap. She is elevating her lower extremity and using a pillow to offload the back of her leg. I reviewed vascular studies on 07/22/2021 which demonstrate multiphasic pulses on Doppler. Ulceration posterior left lower extremity was examined today and noted to be decreasing in size. Ulceration on 07/22/2021 measured 11 cm x 7.5 cm x 0.8 cm. On 08/05/2021 measures 12 cm x 5.7 cm x 0.3 cm. On 08/12/2021 ulceration measures 11.6 cm x 5.5 cm x 0.3 cm with no localized signs of infection. Ulceration today demonstrates continued reduction in size and continues to show progress. Ulceration sites were debrided sharply with Misonix ultrasonic debridement removing fibrous, devitalized subcutaneous, biofilm, slough. She has developed a new wound just distal lateral to her current left lower extremity ulceration this wound measures 1.0 cm x 0.5 cm x 0.9 cm with a circumferential undermining of 0.3 cm. Wounds demonstrate no localized signs of infection. Surrounding skin is atrophic and dry. Promogran applied to ulceration site and dressed with Aquacel Ag, then a super absorbent dressing with 3M 2 layer Coban dressing. Distal lateral posterior ulceration packed with Aquacel Ag. Dressings are to be changed once a day at her assisted living facility. She is to continue to elevate her lower extremities during periods of rest and offload the site with a soft pillow to the back of her leg. I discussed that she may continue to apply lotion to the surrounding skin in between dressing changes but not to place any lotion in the wound bed or between her toes. Patient is a known chronic smoker who has previously asked to continue to smoke. I reminded her on the essentials of proper wound healing and stressed the importance of smoking cessation today to ensure proper wound healing. I informed her that continued to smoke will slow down the progression of her wound healing by decreasing blood flow to the extremity in the ulceration site and complicate her healing status, overall health, and possible loss of limb. Patient states that she will try the best she can to stop smoking. I reviewed her case. The etiology of thickened toenails was briefly reviewed including fungus or microtrauma. The nails were debrided with a nail nipper after verbal consent was obtained without incident. The nails were debrided in length and thickness to reduce pressure, potential fungal load, and to prevent w ound formation. The patient tolerated this well. The patient elects proceed with palliative care only at this time with the nails and will hold off on further work-up. To follow-up with the foot and ankle Center if needed in the future for this condition. To wear protective and supportive shoes. To check feet daily and keep webspaces clean and dry. To moisturize skin to preserve skin integrity was also recommended. I reviewed and discussed his case today. Debridement was performed today as noted in the clinical panel to all of the ulcer sites. The following work up and care recommendations were made: Dressing: Promogran to the ulceration site, Aquacel Ag then super absorbent dressing, then 3M 2 layer Coban changed once daily. Aquacel Ag packed to distal lateral posterior ulceration. Wash: Soap and water Tissue growth optimization: Promogran Offload: Offloading with soft pillows to the back of the leg and elevate lower extremity Vascular: Multiphasic pulses on Doppler Edema: Elevate left lower extremity comply with compression wrap dressing Infection: No localized signs of infection Pain: May take [id number] Tylenol extra strength Host factors: Smoking cessation and edema control secondary to chronic venous insufficiency, increase protein intake I answered all the patient's questions. To return to the wound healing center in 1 week or call sooner if the patient has any questions or concerns. Note: [employer] speech recognition certified paralegal software was used to create portions of this document. Sound-alike and misspelled words, as well as other certified paralegal errors may be contained in the documentation.
== END 2021-08-23 23:59 ==
LOC: WC 11:00
PROVIDERS: PCP Family Medicine; Visit Provider Student in an Organized Health Care Education/Training Program
DX: I87.2 Venous insufficiency (chronic) (peripheral) (principal); L97.222 Non-pressure chronic ulcer of left calf with fat layer exposed; R60.0 Localized edema; I10 Essential (primary) hypertension; F17.200 Nicotine dependence, unspecified, uncomplicated; E78.5 Hyperlipidemia, unspecified; Z86.711 Personal history of pulmonary embolism; Z79.01 Long term (current) use of anticoagulants
CPT/HCPCS: 11042; 11045; 29581

== ENCOUNTER 2021-09-23 10:45 | Outpatient (RCR) | payer MEDICARE, MEDICAID, SELFPAY ==
[2021-08-24 00:38] VITALS: BP 114/69; PULSE 62; RESP 16; TEMP 36.4; BMI 39.4
[2021-09-02 10:58] VITALS: BP 138/68; PULSE 76; TEMP 36.4; BMI 39.4
--- NOTE | 2021-09-02 14:21 | PN.PCM_ITS ---
History of Present Illness Date of Service: 09/02/21 Chief Complaint: Left lower extremity posterior ulceration History of Wound: This is a 70-year-old female who presents to the wound healing center today with complaint of a nonhealing ulcer posterior left lower extremity. 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 Patient states she is at an assisted living facility where they care for her posterior ulceration. They have been applying Aquacel Ag and a compression dressing with Jorge wraps. She is elevating the left lower extremity and o ffloading with pillow padding. She denies any systemic or localized signs of infection at this time. Past medical, family, and social history reviewed and not pertinent to the current visit and all other systems reviewed and negative with exception of those listed above. Subjective Subjective This is a 70-year-old female who presents to the wound care center for follow-up of left lower extremity ulceration secondary to chronic venous insufficiency complicated by lower extremity edema, nicotine dependence, and hyperlipidemia. She denies any nausea, vomiting, chills, fever, shortness of breath, or other constitutional symptoms. She also states she has another wound to the inside of her right leg. Objective Data Objective Data Vital Signs: Vital Signs Temp Pulse Resp BP 97.5 F L 76 16 138/68 H 09/02/21 10:58 09/02/21 10:58 08/24/21 00:38 09/02/21 10:58 Weight: 82.554 kg Body Mass Index (BMI) 39.4 Physical Exam Const alert, oriented x3 and no apparent distress General Appearance: cooperative and comfortable HEENT normocephalic Eyes General Eye: normal appearance of both eyes Lymph Lymphatic: no lymphadenopathy noted and no lymphedema noted Resp normal respiratory effort Cardio regular rate and regular rhythm Skin skin turgor normal General Skin Exam: venous stasis and dermatitis Wound Narrative: Left lower extremity posterior leg/calf ulceration secondary to venous insufficiency. Wound previously measured 11 cm x 7.5 cm by 0.8 cm on 07/22/2021. Ulceration measures 12 cm x 5.7 cm x 0.3 cm on 08/05/2021. Ulceration measures 11.6 cm x 5.5 cm x 0.3 cm today and demonstrates a 50-50 fibrotic granular base with rolled wound edges and fibrotic tissue at the margin with serosanguineous exudate. Wound demonstrates no localized signs of erythema, purulence, malodor, red streaking or other localized signs of infection. Surrounding skin is atrophic. Left lower extremity posterior leg/calf ulceration 1.4 cm x 1.4 cm x 0.1 cm with 12'o-clock tunneling of 3 cm and 6'o-clock tunneling of 6cm. With yellow, gooey fibrotic tissue in the wound bed. Right lower extremity medial leg/calf ulceration secondary to venous insufficiency. Wound measures 1.4 cm x 1.4 cm x 0.2 cm and demonstrates a 50-50 fibrotic granular base with rolled wound edges and fibrotic tissue at the margins with a serosanguineous exudate. Wound demonstrates no purulent drai nage, no malodor. Wound does demonstrate localized erythema about the right lower extremity. Neuro oriented x3 Debridement Note Debridement Note Wound debrided: Left posterior leg ulceration Laterality: Left Wound Grade/Stage: Isaac stage I Type of Debridement: Excisional debridement Anesthesia Used: 5% Lidocaine Gel Depth: in the subcutaneous layer Percentage of wound debrided: 100 Instrument Used: - (Misonix ultrasonic debrider) Tissue Removed: Fibrous, devitalized subcutaneous, biofilm, slough Severity: Fat Layer Exposed Amount of bleeding with debridement: Mild Bleeding Controlled with: Pressure Patient tolerated procedure: Patient tolerated procedure well Post-Debridement Measurements and Additional Note: Post-Debridement Measurements/Treatment - Nurse 1 - General Ulcer Assessment Start: 09/02/21 10:57 Freq: Status: Active Protocol: [email or web address].SINA Activity Type Activity Date Activity User E-Sign Co-Sign Detail Recorded Client Recorded Date Recorded By Document 09/02/21 10:58 FILIPPO [id number] 09/02/21 11:08 FILIPPO 09/02/21 10:58 - Today's Visit Information Type of service Follow-up Visit (Physician/[employer] ) Arrival Mode Wheelchair Patient Identification Verified (Name & Yes ) Height and Weight Body Mass Index (BMI) 39.4 BMI Classification Obese Vital Signs Temperature (97.8 F-99.1 F) 97.5 F L Temperature Source Temporal Pulse Rate (60-100) 76 Pulse Location Monitor Blood Pressure (90/60-120/80) 138/68 H Blood Pressure Mean (mm Hg) 91 Source Monitor Position Sitting Blood Pressure Location Right Arm History Since Last Visit- (Skip if this is Patient's initial visit) Have you changed medications since your No last visit? Any new allergies or adverse reactions No Had a fall/change in ADL's that may No increase risk of falls Signs or symptoms of abuse and/or No neglect since last visit Has dressing in place as prescribed Yes Has compression in place as prescribed Yes Has offloadiing in place as prescribed N/A Experienced any changes in pain level or No management Left Footwear Regular Shoe Right Footwear Regular Shoe Pain Scale: 0-10 Numeric Is Patient Pain Free? Yes WC - Nurse 1 - General Ulcer Measurement Start: 09/02/21 10:57 Freq: Status: Active Protocol: Activity Type Activity Date Activity User E-Sign Co-Sign Detail Recorded Client Recorded Date Recorded By Document 09/02/21 10:58 KR [id number] 09/02/21 11:08 KR 09/02/21 10:58 Wound Center Nurse 1 #4 Left Post Lateral -Current Size (cm) - Length 9.5 -Current Size (cm) - Width 0.5 -Current Size (cm) - Depth 0.2 -Total Square Cm 4.75 -Exudate Amt Large -Exudate Type Yellow/Green -Wound Margin Distinct, Outline Attached -Granulation Amt Large (67-100%) -Granulation Quality Red -Necrosis Amt Large (67-100%) -Necrotic Tissue Type Adherent Slough -Texture (Yajaira-wound Skin Appearance) Assessed, Scarring -Moisture (Yajaira-wound Skin Appearance) Assessed, Maceration -Color (Yajaira-wound Skin Appearance) No Abnormality, Assessed -Temperature (Yajaira-wound Skin No Abnormality Appearance) (Pt Warm) -Tenderness on Palpation (Yajaira-wound No Skin Appearance) -Ulcer Cleansing Soap and Water -Foul Odor after Cleansing No -Anesthetic Used 4% Lidocaine Solution Left Calf (cm) 44 Left Ankle (cm) 26.1 WC - Nurse 2 - General Ulcer CM Notes Start: 09/02/21 10:57 Freq: Status: Active Protocol: Activity Type Activity Date Activity User E-Sign Co-Sign Detail Recorded Client Recorded Date Recorded By Document 09/02/21 13:33 PL [id number] 09/02/21 13:37 PL 09/02/21 13:33 Wound Center Nurse 2 #4 Left Post Lateral -Time 11:35 -Correct Patient Yes -Correct Side, Site, Position Yes -Correct Procedure Yes -Procedure Performed Yes -Type of Procedure Debridement -Clinical Debridement Subcutaneous -Tissue Removed Subcutaneous -Post Debridement (cm) - Length 1.4 -Post Debridement (cm) - Width 1.4 -Post Debridement (cm) - Depth 0.1 -Total Square (Post) (cm) 1.96 -Area of Debridement (cm) - Length 1.4 -Area of Debridement (cm) - Width 1.4 -Total Square (Area) (cm) 1.96 -Tunneling Yes -Tunneling Position (O'clock) 12 -Tunneling Distance (cm) 3.0 -Tunneling Position #2 (O'clock) 6 -Tunneling Distance #2 (cm) 6 -Undermining/Tunneling No -Circular Undermining No -Wound/Ulcer Outcome Not Healed -Ulcer Cleansing Rinsed/ Irrigated with Saline -Foul Odor after Cleansing No -Bioengineered Tissue No -Bleeding Controlled with Pressure -Treatment Response Procedure Tolerated Well -Debridement - Subq, 1st 20sq cm No 3-left medial lower leg -Time 11:35 -Correct Patient Yes -Correct Side, Site, Position Yes -Correct Procedure Yes -Procedure Performed Yes -Type of Procedure Debridement -Clinical Debridement Subcutaneous -Tissue Removed Subcutaneous -Post Debridement (cm) - Length 9.5 -Post Debridement (cm) - Width 0.5 -Post Debridement (cm) - Depth 0.2 -Total Square (Post) (cm) 4.75 -Area of Debridement (cm) - Length 9.5 -Area of Debridement (cm) - Width 0.5 -Total Square (Area) (cm) 4.75 -Tunneling No -Undermining/Tunneling No -Circular Undermining No -Wound/Ulcer Outcome Not Healed -Ulcer Cleansing Rinsed/ Irrigated with Saline -Foul Odor after Cleansing No -Bioengineered Tissue No -Bleeding Controlled with Pressure -Treatment Response Procedure Tolerated Well -Debridement - Subq, 1st 20sq cm Yes Pain Scale: 0-10 Numeric Is Patient Pain Free? Yes WC - Nurse 3 - General Ulcer D/C NN Start: 09/02/21 10:57 Freq: Status: Active Protocol: Activity Type Activity Date Activity User E-Sign Co-Sign Detail Recorded Client Recorded Date Recorded By Document 09/02/21 11:55 [id number] 09/02/21 11:57 KR 09/02/21 11:55 Wound Care Nurse 3 #4 Left Post Lateral -Ulcer Cleansing Rinsed/ Irrigated with Saline -Primary Dressing Applied Nugauze, Iodoform -Primary Dressing Covered/Secured with Dry Gauze -Nugauze, Iodoform 1/4 1 3-left medial lower leg -Ulcer Cleansing Rinsed/ Irrigated with Saline -Primary Dressing Applied Promogran -Primary Dressing Covered/Secured with Dry Gauze -Promogran 1 Left -Multi-Layered Wrap Application Multi-Layer Comp - Left ($) Pain Scale: 0-10 Numeric Is Patient Pain Free? Yes WC - Visit Discharge Discharge Condition Stable Ambulatory Status Wheelchair Accompanied by gillcrest Additional Wound Wound debrided: Left posterior calf ulceration Laterality: Left Wound Grade/Stage: Isaac grade 2 Type of Debridement: Excisional debridement Anesthesia Used: 5% Lidocaine Gel Depth: in the subcutaneous layer Percentage of wound debrided: 100 Instrument Used: - (ChemiSenseoniKeenko ultrasonic debrider with tunnel probe) Tissue Removed: Fibrous, devitalized subcutaneous, biofilm, slough Amount of bleeding with debridement: Mild Bleeding Controlled with: Pressure Patient tolerated procedure: Patient tolerated procedure well Additional Wound Wound debrided: Right anterior medial leg Laterality: Right Type of Debridement: Excisional debridement Anesthesia Used: 5% Lidocaine Gel Depth: in the subcutaneous layer Percentage of wound debrided: 100 Instrument Used: 3mm curette Tissue Removed: Fibrous, devitalized subcutaneous, biofilm, slough Severity: Fat Layer Exposed Amount of bleeding with debridement: Mild Bleeding Controlled with: Pressure Patient tolerated procedure: Patient tolerated procedure well Assessment/Plan Assessment/Plan (1) Non-pressure chronic ulcer of left calf with fat layer exposed: CODE(S): L97.222 - Non-pressure chronic ulcer of left calf with fat layer exposed (2) Venous ulcer of left lower extremity without varicose veins: CODE(S): I87.2 - Venous insufficiency (chronic) (peripheral); L97.929 - Non-pressure chronic ulcer of unspecified part of left lower leg with unspecified severity (3) Venous insufficiency of both lower extremities: CODE(S): I87.2 - Venous insufficiency (chronic) (peripheral) (4) Lower extremity edema: CODE(S): R60.0 - Localized edema (5) History of pulmonary embolism: CODE(S): Z86.711 - Personal history of pulmonary embolism (6) Essential (primary) hypertension: CODE(S): I10 - Essential (primary) hypertension (7) Hyperlipidemia: CODE(S): E78.5 - Hyperlipidemia, unspecified (8) Nicotine dependence: CODE(S): F17.200 - Nicotine dependence, unspecified, uncomplicated (9) Non-pressure chronic ulcer of right calf with fat layer exposed: CODE(S): L97.212 - Non-pressure chronic ulcer of right calf with fat layer exposed PLAN: This is a 70-year-old female who presents to the wound care center for follow-up of left lower extremity ulceration secondary to venous insufficiency, complicated by essential primary hypertension, hyperlipidemia, lower extremity edema, and nicotine dependence. She has prior history of pulmonary embolism is currently on warfarin. She states she is living in an assisted living facility has not been able to have a cigarette since she has been there. She states that they change her dressings daily with Aquacel Ag, dry sterile dressing, and a compressive Jorge wrap. She is elevating her lower extremity and using a pillow to offload the back of her leg. I reviewed vascular studies on 07/22/2021 which demonstrate multiphasic pulses on Doppler. Ulceration posterior left lower extremity was examined today and noted to be decreasing in size. Ulceration on 07/22/2021 measured 11 cm x 7.5 cm x 0.8 cm. On 08/05/2021 measures 12 cm x 5.7 cm x 0.3 cm. On 08/12/2021 ulceration measures 11.6 cm x 5.5 cm x 0.3 cm with no localized signs of infection. On 09/02/2021 ulceration measures 9.5 cm x 0.5 cm x 0.2 cm. Ulceration today demonstrates continued reduction in size and continues to show progress. Ulceration sites were debrided sharply with Misonix ultrasonic debridement removing fibrous, de vitalized subcutaneous, biofilm, slough. Wound just distal lateral to her current left lower extremity ulceration this wound measures 1.4 cm x 1.4 cm x 0.9 cm with a tunneling of 12' oclock position of 3.0cm and 6'oclock position of 6cm with a yellow, gooey fibrotic tissue within the wound bed. Aerobic and anaerobic cultures taken of this wound site and the tunnel. Wounds demonstrate no localized signs of infection. Surrounding skin is atrophic and dry. Promogran applied to ulceration site and dressed with Aquacel Ag, then a super absorbent dressing with 3M 2 layer Coban dressing. Distal lateral posterior ulceration packed with Iodoform gauze in ulceration tunnel. Dressings are to be changed once a day at her assisted living facility. She is to continue to elevate her lower extremities during periods of rest and offload the site with a soft pillow to the back of her leg. Right anterior medial leg ulceration secondary to chronic venous insufficiency was sharply debrided with a 3 mm curette removing fibrous, devitalized subcutaneous, biofilm, slough. There is a localized redness about the ulceration site and to the right lower extremity. There is no malodor and no purulent drainage. The site was dressed with Ashly and a light compression wrap. As a precaution I am prescribing her oral antibiotics to be taken. Rx Augmentin 500 mg p.o. twice daily and cephalexin 500 mg p.o. twice daily. I discussed that she may continue to apply lotion to the surrounding skin in between dressing changes but not to place any lotion in the wound bed or between her toes. Patient is a known chronic smoker who has previously asked to continue to smoke. I continue to remind her on the essentials of proper wound healing and stressed the importance of smoking cessation today to ensure proper wound healing. I informed her that continued to smoke will slow down the progression of her wound healing by decreasing blood flow to the extremity in the ulceration site and complicate her healing status, overall health, and possible loss of limb. Patient states that she will try the best she can to stop smoking. I discussed localized signs of infection for her to observe. I discussed with her if she notices any increased redness moving up the leg, purulent drainage from the site, malodor, increased pain not controlled by [id number] medications, or if she experiences any fever, nausea, vomiting, chills or other constitutional symptoms that she is to report to the ED as these are signs of a progressing infection. She voices understanding of this. I reviewed and discussed his case today. Debridement was performed today as noted in the clinical panel to all of the ulcer sites. The following work up and care recommendations were made: Dressing: Promogran to the ulceration site, Aquacel Ag then super absorbent dressing, then 3M 2 layer Coban changed once daily. Iodoform packed to distal lateral posterior ulceration. Ashly right anterior leg ulceration Wash: Soap and water Tissue growth optimization: Promogran Offload: Offloading with soft pillows to the back of the leg and elevate lower extremity Vascular: Multiphasic pulses on Doppler Edema: Elevate left lower extremity comply with compression wrap dressing Infection: No localized signs of infection Pain: May take [id number] Tylenol extra strength Host factors: Smoking cessation and edema control secondary to chronic venous insufficiency, increase protein intake I answered all the patient's questions. To return to the wound healing center in 1 week or call sooner if the patient has any questions or concerns. Note: [employer] speech recognition endocrinology specialist software was used to create portions of this document. Sound-alike and misspelled words, as well as other endocrinology specialist errors may be contained in the documentation.
[2021-09-09 11:35] VITALS: BP 152/84; PULSE 78; TEMP 36.4; BMI 39.4
--- NOTE | 2021-09-09 11:50 | PCM.WC.PN ---
History of Present Illness Date of Service: 09/09/21 Chief Complaint: Left lower extremity posterior ulceration History of Wound: This is a 70-year-old female who presents to the wound healing center today with complaint of a nonhealing ulcer posterior left lower extremity. 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 Patient states she is at an assisted living facility where they care for her posterior ulceration. They have been applying Aquacel Ag and a compression dressing with Jorge wraps. She is elevating the left lower extremity and offloading with pillow padding. She denies any systemic or localized signs of infection at this time. Past medical, family, and social history reviewed and not pertinent to the current visit and all other systems reviewed and negative with exception of those listed above. Subjective Subjective This is a 70-year-old female who presents to the wound care center for follow-up of left lower extremity ulceration secondary to chronic venous insufficiency complicated by lower extremity edema, nicotine dependence, and hyperlipidemia. She denies any nausea, vomiting, chills, fever, shortness of breath, or other constitutional symptoms. She also has another wound to the inside of her right leg with serous fluid drainage and blister formation secondary to her chronic venous insufficiency. She states that she discontinued her previous prescribed antibiotics and started her new antibiotics yesterday that were prescribed to her. Objective Data Objective Data Vital Signs: Vital Signs Temp Pulse Resp BP 97.5 F L 78 16 152/84 H 09/09/21 11:35 09/09/21 11:35 08/24/21 00:38 09/09/21 11:35 Weight: 82.554 kg Body Mass Index (BMI) 39.4 Lab / Micro Data Micro: Microbiology 09/02/21 11:35 Wound Abcess - Leg, Left Gram Stain - Final 09/02/21 11:35 Wound Abcess - Leg, Left Wound Culture - Final Serratia liquefaciens group Meth. resistant Staph. aureus Streptococcus mitis/ oralis 09/02/21 11:35 Wound Abcess - Leg, Left Anaerobic Culture - Final Anaerobic cocci Physical Exam Const alert, oriented x3 and no apparent distress General Appearance: cooperative and comfortable HEENT normocephalic Eyes General Eye: normal appearance of both eyes Lymph Lymphatic: no lymphadenopathy noted and no lymphedema noted Resp normal respiratory effort Cardio regular rate and regular rhythm Skin skin turgor normal General Skin Exam: venous stasis and dermatitis Wound Narrative: Left lower extremity posterior leg/calf ulceration secondary to venous insufficiency. Wound previously measured 11 cm x 7.5 cm by 0.8 cm on 07/22/2021. Ulceration measures 12 cm x 5.7 cm x 0.3 cm on 08/05/2021. Ulceration measures 11.6 cm x 5.5 cm x 0.3 cm today and demonstrates a 50-50 fibrotic granular base with rolled wound edges and fibrotic tissue at the margin with serosanguineous exudate. Wound demonstrates no localized signs of erythema, purulence, malodor, red streaking or other localized signs of infection. Surrounding skin is atrophic. Left lower extremity posterior leg/calf ulceration 1.4 cm x 1.4 cm x 0.1 cm with 12'o-clock tunneling of 3 cm and 6'o-clock tunneling of 6cm. With yellow, gooey fibrotic tissue in the wound bed. Right lower extremity medial leg/calf ulceration secondary to venous insufficiency. Wound measures 1.4 cm x 1.4 cm x 0.2 cm and demonstrates a 50-50 fibrotic granular base with rolled wound edges and fibrotic tissue at the margins with a serosanguineous exudate. Wound demonstrates no purulent drainage, no malodor. Wound does demonstrate localized erythema about the right lower extremity with serous fluid-filled bulla drainage and a small wound that probes 0.3 cm deep and 1.5 cm proximally secondary to chronic exposure of wound fluid. Neuro oriented x3 Debridement Note Debridement Note Wound debrided: Left posterior medial leg Laterality: Left Wound Grade/Stage: Isaac stage I Type of Debridement: Excisional debridement Anesthesia Used: 5% Lidocaine Gel Depth: in the subcutaneous layer Percentage of wound debrided: 100 Instrument Used: - (Misonix ultrasonic debrider) Tissue Removed: Fibrous, devitalized subcutaneous, biofilm, slough Severity: Fat Layer Exposed Amount of bleeding with debridement: Mild Bleeding Controlled with: Pressure Patient tolerated procedure: Patient tolerated procedure well Post-Debridement Measurements and Additional Note: Post-Debridement Measurements/Treatment [email or web address] - Nurse 1 - General Ulcer Assessment Start: 09/02/21 10:57 Freq: Status: Active Protocol: JAZZ Activity Type Activity Date Activity User E-Sign Co-Sign Detail Recorded Client Recorded Date Recorded By Document 09/02/21 10:58 FILIPPO [id number] 09/02/21 11:08 KR Document 09/09/21 11:35 KR [id number] 09/09/21 11:43 KR 09/02/21 09/09/21 10:58 11:35 - Today's Visit Information Type of service Follow-up Visit Follow-up Visit (Physician/PUBLICATIONS WRITER (Physician/PUBLICATIONS WRITER ) ) Arrival Mode Wheelchair Wheelchair Patient Identification Verified (Name & Yes Yes ) Height and Weight Body Mass Index (BMI) 39.4 39.4 BMI Classification Obese Obese Vital Signs Temperature (97.8 F-99.1 F) 97.5 F L 97.5 F L Temperature Source Temporal Temporal Pulse Rate (60-100) 76 78 Pulse Location Monitor Monitor Blood Pressure (90/60-120/80) 138/68 H 152/84 H Blood Pressure Mean (mm Hg) 91 106 Source Monitor Monitor Position Sitting Semi-Fowlers Blood Pressure Location Right Arm Right Arm History Since Last Visit- (Skip if this is Patient's initial visit) Have you changed medications since your No No last visit? Any new allergies or adverse reactions No No Had a fall/change in ADL's that may No No increase risk of falls Signs or symptoms of abuse and/or No No neglect since last visit Have you been in the hospital since your No last visit? Has dressing in place as prescribed Yes Yes Has compression in place as prescribed Yes N/A Has offloadiing in place as prescribed N/A N/A Experienced any changes in pain level or No No management Left Footwear Regular Shoe Regular Shoe Right Footwear Regular Shoe Regular Shoe Pain Scale: 0-10 Numeric Is Patient Pain Free? Yes Yes - Nurse 1 - General Ulcer Measurement Start: 09/02/21 10:57 Freq: Status: Active Protocol: Activity Type Activity Date Activity User E-Sign Co-Sign Detail Recorded Client Recorded Date Recorded By Document 09/02/21 10:58 FILIPPO [id number] 09/02/21 11:08 KR Document 09/09/21 11:35 FILIPPO [id number] 09/09/21 11:43 KR 03/10/22 03/17/22 10:58 11:35 Wound Center Nurse 1 #4 Left Post Lateral -Current Size (cm) - Length 9.5 11 -Current Size (cm) - Width 0.5 6 -Current Size (cm) - Depth 0.2 0.2 -Total Square Cm 4.75 66 -Exudate Amt Large Large -Exudate Type Yellow/Green Yellow/Green -Wound Margin Distinct, Distinct, Outline Outline Attached Attached -Granulation Amt Large (67-100%) -Granulation Quality Red -Necrosis Amt Large (67-100%) Large (67-100%) -Necrotic Tissue Type Adherent Slough Adherent Slough -Texture (Yajaira-wound Skin Appearance) Assessed, Assessed, Scarring Scarring -Moisture (Yajaira-wound Skin Appearance) Assessed, Assessed Maceration -Color (Yajaira-wound Skin Appearance) No Abnormality, No Abnormality, Assessed Assessed -Temperature (Yajaira-wound Skin No Abnormality No Abnormality Appearance) (Pt Warm) (Pt Warm) -Tenderness on Palpation (Yajaira-wound No No Skin Appearance) -Ulcer Cleansing Soap and Water Soap and Water -Foul Odor after Cleansing No No -Anesthetic Used 4% Lidocaine 4% Lidocaine Solution Solution 3-right medial lower leg -Current Size (cm) - Length 1.8 -Current Size (cm) - Width 1 -Current Size (cm) - Depth 0.2 -Total Square Cm 1.8 -Exudate Amt Medium -Exudate Type Yellow/Green -Wound Margin Distinct, Outline Attached -Granulation Amt None Present (0 %) -Necrosis Amt Large (67-100%) -Necrotic Tissue Type Adherent Slough -Texture (Yajaira-wound Skin Appearance) Assessed, Scarring -Moisture (Yajaira-wound Skin Appearance) Assessed, Maceration -Color (Yajaira-wound Skin Appearance) No Abnormality, Assessed -Temperature (Yajaira-wound Skin No Abnormality Appearance) (Pt Warm) -Tenderness on Palpation (Yajaira-wound No Skin Appearance) -Ulcer Cleansing Soap and Water -Foul Odor after Cleansing No -Anesthetic Used 4% Lidocaine Solution Right Calf (cm) 37.5 Right Ankle (cm) 27.2 Left Calf (cm) 44 35 Left Ankle (cm) 26.1 23.5 WC - Nurse 2 - General Ulcer CM Notes Start: 09/02/21 10:57 Freq: Status: Active Protocol: Activity Type Activity Date Activity User E-Sign Co-Sign Detail Recorded Client Recorded Date Recorded By Document 09/02/21 13:33 PL [id number] 09/02/21 13:37 PL Edit Result 09/02/21 13:33 PL (1) [id number] 09/03/21 07:15 PL (1) 3-right medial lower leg - Debridement, SubQ, ea addt'l 20sq cm => 1 or part thereof 09/02/21 13:33 Wound Center Nurse 2 #4 Left Post Lateral -Time 11:35 -Correct Patient Yes -Correct Side, Site, Position Yes -Correct Procedure Yes -Procedure Performed Yes -Type of Procedure Debridement -Clinical Debridement Subcutaneous -Tissue Removed Subcutaneous -Post Debridement (cm) - Length 1.4 -Post Debridement (cm) - Width 1.4 -Post Debridement (cm) - Depth 0.1 -Total Square (Post) (cm) 1.96 -Area of Debridement (cm) - Length 1.4 -Area of Debridement (cm) - Width 1.4 -Total Square (Area) (cm) 1.96 -Tunneling Yes -Tunneling Position (O'clock) 12 -Tunneling Distance (cm) 3.0 -Tunneling Position #2 (O'clock) 6 -Tunneling Distance #2 (cm) 6 -Undermining/Tunneling No -Circular Undermining No -Wound/Ulcer Outcome Not Healed -Ulcer Cleansing Rinsed/ Irrigated with Saline -Foul Odor after Cleansing No -Bioengineered Tissue No -Bleeding Controlled with Pressure -Treatment Response Procedure Tolerated Well -Debridement - Subq, 1st 20sq cm No 3-right medial lower leg -Time 11:35 -Correct Patient Yes -Correct Side, Site, Position Yes -Correct Procedure Yes -Procedure Performed Yes -Type of Procedure Debridement -Clinical Debridement Subcutaneous -Tissue Removed Subcutaneous -Post Debridement (cm) - Length 9.5 -Post Debridement (cm) - Width 0.5 -Post Debridement (cm) - Depth 0.2 -Total Square (Post) (cm) 4.75 -Area of Debridement (cm) - Length 9.5 -Area of Debridement (cm) - Width 0.5 -Total Square (Area) (cm) 4.75 -Tunneling No -Undermining/Tunneling No -Circular Undermining No -Wound/Ulcer Outcome Not Healed -Ulcer Cleansing Rinsed/ Irrigated with Saline -Foul Odor after Cleansing No -Bioengineered Tissue No -Bleeding Controlled with Pressure -Treatment Response Procedure Tolerated Well -Debridement - Subq, 1st 20sq cm Yes -Debridement, SubQ, ea addt'l 20sq cm 1 or part thereof Pain Scale: 0-10 Numeric Is Patient Pain Free? Yes - Nurse 3 - General Ulcer D/C NN Start: 09/02/21 10:57 Freq: Status: Active Protocol: Activity Type Activity Date Activity User E-Sign Co-Sign Detail Recorded Client Recorded Date Recorded By Document 09/02/21 11:55 KR [id number] 09/02/21 11:57 KR Edit Result 09/02/21 11:55 KR (1) [id number] 09/03/21 07:02 PL (1) Bilateral - Multi-Layered Wrap Application => Multi-Layer Comp - => Bilat ($) Left - Multi-Layered Wrap Application Multi-Layer Comp - => Left ($) => 09/02/21 11:55 Wound Care Nurse 3 #4 Left Post Lateral -Ulcer Cleansing Rinsed/ Irrigated with Saline -Primary Dressing Applied Nugauze, Iodoform -Primary Dressing Covered/Secured with Dry Gauze -Nugauze, Iodoform 1/4 1 3-right medial lower leg -Ulcer Cleansing Rinsed/ Irrigated with Saline -Primary Dressing Applied Promogran -Primary Dressing Covered/Secured with Dry Gauze -Promogran 1 Bilateral -Multi-Layered Wrap Application Multi-Layer Comp - Bilat ($ ) Pain Scale: 0-10 Numeric Is Patient Pain Free? Yes - Visit Discharge Discharge Condition Stable Ambulatory Status Wheelchair Accompanied by aziza Additional Wound Wound debrided: Left posterior medial tunnel tract Laterality: Left Wound Grade/Stage: Isaac stage II Type of Debridement: Excisional debridement Anesthesia Used: 5% Lidocaine Gel Depth: in the subcutaneous layer Percentage of wound debrided: 100 Instrument Used: - (wildcraftonix ultrasonic debrider) Tissue Removed: Fibrous, devitalized subcutaneous, biofilm, slough Severity: Fat Layer Exposed Amount of bleeding with debridement: Mild Bleeding Controlled with: Pressure Patient tolerated procedure: Patient tolerated procedure well Additional Wound Wound debrided: Right anterior medial Laterality: Right Wound Grade/Stage: Isaac stage I Type of Debridement: Excisional debridement Anesthesia Used: 5% Lidocaine Gel Depth: in the subcutaneous layer Percentage of wound debrided: 100 Instrument Used: - (Misonix ultrasonic debrider) Tissue Removed: Fibrous, devitalized subcutaneous, biofilm, slough Severity: Fat Layer Exposed Amount of bleeding with debridement: Mild Bleeding Controlled with: Pressure Patient tolerated procedure: Patient tolerated procedure well Assessment/Plan Assessment/Plan (1) Non-pressure chronic ulcer of left calf with fat layer exposed: CODE(S): L97.222 - Non-pressure chronic ulcer of left calf with fat layer exposed (2) Venous ulcer of left lower extremity without varicose veins: CODE(S): I87.2 - Venous insufficiency (chronic) (peripheral); L97.929 - Non-pressure chronic ulcer of unspecified part of left lower leg with unspecified severity (3) Venous insufficiency of both lower extremities: CODE(S): I87.2 - Venous insufficiency (chronic) (peripheral) (4) Lower extremity edema: CODE(S): R60.0 - Localized edema (5) History of pulmonary embolism: CODE(S): Z86.711 - Personal history of pulmonary embolism (6) Essential (primary) hypertension: CODE(S): I10 - Essential (primary) hypertension (7) Hyperlipidemia: CODE(S): E78.5 - Hyperlipidemia, unspecified (8) Nicotine dependence: CODE(S): F17.200 - Nicotine dependence, unspecified, uncomplicated (9) Non-pressure chronic ulcer of right calf with fat layer exposed: CODE(S): L97.212 - Non-pressure chronic ulcer of right calf with fat layer exposed PLAN: This is a 70-year-old female who presents to the wound care center for follow-up of left lower extremity ulceration secondary to venous insufficiency, complicated by essential primary hypertension, hyperlipidemia, lower extremity edema, and nicotine dependence. She has prior history of pulmonary embolism is currently on warfarin. She states she is living in an assisted living facility has not been able to have a cigarette since she has been there. She states that they change her dressings daily with Aquacel Ag, dry sterile dressing, and a compressive Jorge wrap. She is elevating her lower extremity and using a pillow to offload the back of her leg. I reviewed vascular studies on 07/22/2021 which demonstrate multiphasic pulses on Doppler. Ulceration posterior left lower extremity was examined today and noted to be decreasing in size. Ulceration on 07/22/2021 measured 11 cm x 7.5 cm x 0.8 cm. On 08/05/2021 measures 12 cm x 5.7 cm x 0.3 cm. On 08/12/2021 ulceration measures 11.6 cm x 5.5 cm x 0.3 cm with no localized signs of infection. On 09/02/2021 ulceration measures 9.5 cm x 0.5 cm x 0.2 cm. On 09/09/2021 ulceration measures 11 cm x 6 cm x 0.2 cm. Ulceration today demonstrates continued reduction in size and continues to show progress. Ulceration sites were debrided sharply with Misonix ultrasonic debridement removing fibrous, devitalized subcutaneous, biofilm, slough. Wound just distal lateral to her current left lower extremity ulceration this wound measures 1.4 cm x 1.4 cm x 0.9 cm with a tunneling of 12' oclock position of 3.0cm and 6'oclock position of 6cm with a yellow, gooey fibrotic tissue within the wound bed. Wounds demonstrate no localized signs of infection. Surrounding skin is atrophic and dry. Promogran applied to ulceration site and dressed with Aquacel Ag, then a super absorbent dressing with compression dressing. Distal lateral posterior ulceration packed with Iodoform gauze in ulceration tunnel. Dressings are to be changed once a day at her assisted living facility. She is to continue to elevate her lower extremities during periods of rest and offload the site with a soft pillow to the back of her leg. Microbiology: Aerobic and anaerobic cultures taken of this wound site 09/02/2021 and the tunnel demonstrate +1 Serratia liquefaction's, rare MRSA, and +1 strep mitis. Right anterior medial leg ulceration secondary to chronic venous insufficiency was sharply debrided with a Misonix ultrasonic debrider removing fibrous, devitalized subcutaneous, biofilm, slough. Bulla to the right lower extremity was the drained and overlying skin removed. There is a localized redness about the ulceration site and to the right lower extremity. There is no malodor and no purulent drainage. The site was dressed with Ashly and a compression wrap to be changed daily. On 09/02/2021 I prescribed Augmentin 500 mg p.o. twice daily and cephalexin 500 mg p.o. twice daily. Following culture results I called the patient's assisted living facility on 09/06/2021 and instructed them to stop these 2 antibiotics. New antibiotics were prescribed to be taken. Patient started on doxycycline 100 mg p.o. twice daily for 14 days and levofloxacin 750 mg p.o. daily for 14 days. Patient started these antibiotics on 09/07/2021. I discussed that she may continue to apply lotion to the surrounding skin in between dressing changes but not to place any lotion in the wound bed or between her toes. Patient is a known chronic smoker who has previously asked to continue to smoke. I continue to remind her on the essentials of proper wound healing and stressed the importance of smoking cessation today to ensure proper wound healing. I informed her that continued to smoke will slow down the progression of her wound healing by decreasing blood flow to the extremity in the ulceration site and complicate her healing status, overall health, and possible loss of limb. Patient states that she will try the best she can to stop smoking. I discussed localized signs of infection for her to observe. I discussed with her if she notices any increased redness moving up the leg, purulent drainage from the site, malodor, increased pain not controlled by [id number] medications, or if she experiences any fever, nausea, vomiting, chills or other constitutional symptoms that she is to report to the ED as these are signs of a progressing infection. She voices understanding of this. I reviewed and discussed his case today. Debridement was performed today as noted in the clinical panel to all of the ulcer sites. The following work up and care recommendations were made: Dressing: Promogran to the ulceration site, Aquacel Ag then super absorbent dressing, then a compressive dressing changed once daily. Iodoform packed to distal lateral posterior ulceration. Ashly right anterior leg ulceration Wash: Soap and water Tissue growth optimization: Promogran Offload: Offloading with soft pillows to the back of the leg and elevate lower extremity Vascular: Multiphasic pulses on Doppler Edema: Elevate left lower extremity comply with compression wrap dressing Infection: No localized signs of infection Pain: May take [id number] Tylenol extra strength Host factors: Smoking cessation and edema control secondary to chronic venous insufficiency, increase protein intake I answered all the patient's questions. To return to the wound healing center in 1 week or call sooner if the patient has any questions or concerns. Note: [employer] speech recognition claims service representative software was used to create portions of this document. Sound-alike and misspelled words, as well as other claims service representative errors may be contained in the documentation.
[2021-09-16 12:41] VITALS: TEMP 35.7; BMI 39.4
--- NOTE | 2021-09-16 16:16 | PCM.WC.PN ---
History of Present Illness Date of Service: 09/16/21 Chief Complaint: Left lower extremity posterior ulceration History of Wound: This is a 70-year-old female who presents to the wound healing center today with complaint of a nonhealing ulcer posterior left lower extremity. 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 Patient states she is at an assisted living facility where they care for her posterior ulceration. They have been applying Aquacel Ag and a compression dressing with Jorge wraps. She is elevating the left lower extremity and offloading with pillow padding. She denies any systemic or localized signs of infection at this time. Past medical, family, and social history reviewed and not pertinent to the current visit and all other systems reviewed and negative with exception of those listed above. Subjective Subjective This is a 70-year-old female who presents to the wound care center for follow-up of left lower extremity ulceration secondary to chronic venous insufficiency complicated by lower extremity edema, nicotine dependence, and hyperlipidemia. She denies any nausea, vomiting, chills, fever, shortness of breath, or other constitutional symptoms. She also has another wound to the inside of her right leg secondary to her chronic venous insufficiency. She states that she is continuing to take her antibiotics as instructed. She has no other complaints today. Objective Data Objective Data Vital Signs: Vital Signs Temp Pulse Resp BP 96.2 F L 78 16 152/84 H 09/16/21 12:41 09/09/21 11:35 08/24/21 00:38 09/09/21 11:35 Weight: 82.554 kg Body Mass Index (BMI) 39.4 Lab / Micro Data Micro: Microbiology 09/02/21 11:35 Wound Abcess - Leg, Left Gram Stain - Final 09/02/21 11:35 Wound Abcess - Leg, Left Wound Culture - Final Serratia liquefaciens group Meth. resistant Staph. aureus Streptococcus mitis/ oralis 09/02/21 11:35 Wound Abcess - Leg, Left Anaerobic Culture - Final Anaerobic cocci Physical Exam Const alert, oriented x3 and no apparent distress General Appearance: cooperative and comfortable HEENT normocephalic Eyes General Eye: normal appearance of both eyes Lymph Lymphatic: no lymphadenopathy noted and no lymphedema noted Resp normal respiratory effort Cardio regular rate and regular rhythm Skin skin turgor normal General Skin Exam: venous stasis and dermatitis Wound Narrative: Left lower extremity posterior leg/calf ulceration secondary to venous insufficiency. Ulceration site demonstrates a 50-50 fibrotic granular base with rolled wound edges and fibrotic tissue at the margin with serosanguineous exudate. Wound demonstrates no localized signs of erythema, purulence, malodor, red streaking or other localized signs of infection. Surrounding skin is atrophic. Left lower extremity posterior leg/calf ulceration demonstrates reduction in size with less tunneling at the 12 o' clock and 6 o'clock position. Right lower extremity medial leg/calf ulceration secondary to venous insufficiency. Wound measures 1.4 cm x 1.4 cm x 0.2 cm and demonstrates a 50-50 fibrotic granular base with rolled wound edges and fibrotic tissue at the margins with a serosanguineous exudate. Wound demonstrates no purulent drainage, no malodor. Wound does demonstrate localized erythema about the right lower extremity with serous fluid-filled bulla drainage and a small wound that probes 0.3 cm deep and 1.5 cm proximally secondary to chronic exposure of wound fluid. Neuro oriented x3 Debridement Note Debridement Note Wound debrided: Left posterior medial Laterality: Left Wound Grade/Stage: Isaac stage I Type of Debridement: Excisional debridement Anesthesia Used: 5% Lidocaine Gel Depth: Down to and including healthy tissue and in the subcutaneous layer Percentage of wound debrided: 100 Instrument Used: - ([employer] [place] [employer] ultrasonic debrider) Tissue Removed: Fibrous, devitalized subcutaneous, biofilm, slough Severity: Fat Layer Exposed Amount of bleeding with debridement: Mild Bleeding Controlled with: Compression and gauze Patient tolerated procedure: Patient tolerated procedure well Post-Debridement Measurements and Additional Note: Post-Debridement Measurements/Treatment KESHAWN - Nurse 1 - General Ulcer Assessment Start: 09/02/21 10:57 Freq: Status: Active Protocol: JAZZ Activity Type Activity Date Activity User E-Sign Co-Sign Detail Recorded Client Recorded Date Recorded By Document 09/02/21 10:58 KR [id number] 09/02/21 11:08 KR Document 09/09/21 11:35 KR [id number] 09/09/21 11:43 KR Document 09/16/21 12:41 AK [id number] 09/16/21 12:44 AK 03/04/1609/09/21 09/16/21 10:58 11:35 12:41 - Today's Visit Information Type of service Follow-up Visit Follow-up Visit Follow-up Visit (Physician/INDUSTRIAL ACCOUNTANT (Physician/INDUSTRIAL ACCOUNTANT (Physician/INDUSTRIAL ACCOUNTANT ) ) ) Arrival Mode Wheelchair Wheelchair Wheelchair Patient Identification Verified (Name & Yes Yes Yes ) Patient Requires Transmission-Based No Precautions Safety Precautions NA Height and Weight Body Mass Index (BMI) 39.4 39.4 39.4 BMI Classification Obese Obese Obese Vital Signs Temperature (97.8 F-99.1 F) 97.5 F L 97.5 F L 96.2 F L Temperature Source Temporal Temporal Temporal Pulse Rate (60-100) 76 78 Pulse Location Monitor Monitor Blood Pressure (90/60-120/80) 138/68 H 152/84 H Blood Pressure Mean (mm Hg) 91 106 Source Monitor Monitor Position Sitting Semi-Fowlers Blood Pressure Location Right Arm Right Arm History Since Last Visit- (Skip if this is Patient's initial visit) Have you changed medications since your No No No last visit? Any new allergies or adverse reactions No No No Had a fall/change in ADL's that may No No No increase risk of falls Signs or symptoms of abuse and/or No No No neglect since last visit Have you been in the hospital since your No No last visit? Has dressing in place as prescribed Yes Yes Yes Has compression in place as prescribed Yes N/A Yes Has offloadiing in place as prescribed N/A N/A N/A Experienced any changes in pain level or No No No management Left Footwear Regular Shoe Regular Shoe Right Footwear Regular Shoe Regular Shoe Pain Scale: 0-10 Numeric Is Patient Pain Free? Yes Yes Yes - Nurse 1 - General Ulcer Measurement Start: 09/02/21 10:57 Freq: Status: Active Protocol: Activity Type Activity Date Activity User E-Sign Co-Sign Detail Recorded Client Recorded Date Recorded By Document 09/02/21 10:58 FILIPPO [id number] 09/02/21 11:08 KR Document 09/09/21 11:35 FILIPPO [id number] 09/09/21 11:43 KR Document 09/16/21 12:41 ABHI [id number] 09/16/21 12:44 AK 09/02/21 09/09/2122 10:58 11:35 12:41 Wound Center Nurse 1 #5 Right medial leg -Combined with other wound No -Current Size (cm) - Length 5.6 -Current Size (cm) - Width 1.5 -Current Size (cm) - Depth 1.3 -Total Square Cm 8.40 -Photo Taken No -Tunneling No -Undermining/Tunneling No -Circular Undermining No -Change in Wound Grade/Stage No -Exudate Amt Medium -Exudate Type Serosanguineous -Wound Margin Distinct, Outline Attached -Granulation Amt Medium (34-66%) -Granulation Quality Red -Slough/Fibrin Yes -Necrosis Amt Small (1-33%) -Necrotic Tissue Type Adherent Slough -Structure Exposed N/A -Texture (Yajaira-wound Skin Appearance) Assessed, Localized Edema -Moisture (Yajaira-wound Skin Appearance) No Abnormality, Assessed -Color (Yajaira-wound Skin Appearance) No Abnormality, Assessed -Temperature (Yajaira-wound Skin No Abnormality Appearance) (Pt Warm) -Tenderness on Palpation (Yajaira-wound No Skin Appearance) -Ulcer Cleansing Rinsed/ Irrigated with Saline -Foul Odor after Cleansing No -Anesthetic Used 4% Lidocaine Solution #4 Left Post Lateral -Current Size (cm) - Length 9.5 11 -Current Size (cm) - Width 0.5 6 -Current Size (cm) - Depth 0.2 0.2 -Total Square Cm 4.75 66 -Exudate Amt Large Large -Exudate Type Yellow/Green Yellow/Green -Wound Margin Distinct, Distinct, Outline Outline Attached Attached -Granulation Amt Large (67-100%) -Granulation Quality Red Red -Necrosis Amt Large (67-100%) Large (67-100%) -Necrotic Tissue Type Adherent Slough Adherent Slough -Texture (Yajaira-wound Skin Appearance) Assessed, Assessed, Scarring Scarring -Moisture (Yajaira-wound Skin Appearance) Assessed, Assessed Maceration -Color (Yajaira-wound Skin Appearance) No Abnormality, No Abnormality, Assessed Assessed -Temperature (Yajaira-wound Skin No Abnormality No Abnormality Appearance) (Pt Warm) (Pt Warm) -Tenderness on Palpation (Yajaira-wound No No Skin Appearance) -Ulcer Cleansing Soap and Water Soap and Water -Foul Odor after Cleansing No No -Anesthetic Used 4% Lidocaine 4% Lidocaine Solution Solution 3-right medial lower leg -Combined with other wound No -Current Size (cm) - Length 1.8 5.6 -Current Size (cm) - Width 1 1.5 -Current Size (cm) - Depth 0.2 1.3 -Total Square Cm 1.8 8.40 -Photo Taken No -Epithelialization None Present -Tunneling No -Undermining/Tunneling No -Circular Undermining No -Change in Wound Grade/Stage No -Exudate Amt Medium Medium -Exudate Type Yellow/Green Serosanguineous -Wound Margin Distinct, Distinct, Outline Outline Attached Attached -Granulation Amt None Present (0 Medium (34-66%) %) -Granulation Quality Red -Slough/Fibrin No -Necrosis Amt Large (67-100%) None Present (0 %) -Necrotic Tissue Type Adherent Slough -Structure Exposed N/A -Texture (Yajaira-wound Skin Appearance) Assessed, No Abnormality, Scarring Assessed -Moisture (Yajaira-wound Skin Appearance) Assessed, No Abnormality, Maceration Assessed -Color (Yajaira-wound Skin Appearance) No Abnormality, No Abnormality, Assessed Assessed -Temperature (Yajaira-wound Skin No Abnormality No Abnormality Appearance) (Pt Warm) (Pt Warm) -Tenderness on Palpation (Yajaira-wound No No Skin Appearance) -Ulcer Cleansing Soap and Water Rinsed/ Irrigated with Saline -Foul Odor after Cleansing No No -Anesthetic Used 4% Lidocaine 4% Lidocaine Solution Solution Right Calf (cm) 37.5 Point of measurement (cm from the medial 31 instep) Right Ankle (cm) 27.2 24.3 Left Calf (cm) 44 35 33.5 Left Ankle (cm) 26.1 23.5 23.3 WC - Nurse 2 - General Ulcer CM Notes Start: 09/02/21 10:57 Freq: Status: Active Protocol: Activity Type Activity Date Activity User E-Sign Co-Sign Detail Recorded Client Recorded Date Recorded By Document 09/02/21 13:33 PL [id number] 09/02/21 13:37 PL Edit Result 09/02/21 13:33 PL (1) [id number] 09/03/21 07:15 PL Document 09/09/21 16:06 PL [id number] 09/09/21 16:10 PL Edit Result 09/09/21 16:06 PL (2) [id number] 09/10/21 11:07 PL Document 09/16/21 14:43 PL [id number] 09/16/21 14:48 PL (1) 3-right medial lower leg - Debridement, SubQ, ea addt'l 20sq cm => 1 or part thereof (2) 3-right medial lower leg - Debridement - Subq, 1st 20sq cm Yes => No 09/02/21 09/09/21 09/16/21 13:33 16:06 14:43 Wound Center Nurse 2 #5 Right medial leg -Time 11:54 12:10 -Correct Patient Yes Yes -Correct Side, Site, Position Yes Yes -Correct Procedure Yes Yes -Procedure Performed Yes Yes -Type of Procedure Debridement Debridement -Clinical Debridement Subcutaneous Subcutaneous -Tissue Removed Subcutaneous Subcutaneous -Post Debridement (cm) - Length 0.5 5.6 -Post Debridement (cm) - Width 0.5 1.5 -Post Debridement (cm) - Depth 0.3 1.3 -Total Square (Post) (cm) 0.25 8.40 -Area of Debridement (cm) - Length 0.5 5.6 -Area of Debridement (cm) - Width 0.5 1.5 -Total Square (Area) (cm) 0.25 8.40 -Tunneling Yes No -Tunneling Position (O'clock) 12 -Tunneling Distance (cm) 1.5 -Undermining/Tunneling No -Circular Undermining No -Wound/Ulcer Outcome Not Healed Not Healed -Ulcer Cleansing Rinsed/ Rinsed/ Irrigated with Irrigated with Saline Saline -Foul Odor after Cleansing No No -Bioengineered Tissue No No -Bleeding Controlled with Pressure Pressure -Treatment Response Procedure Procedure Tolerated Well Tolerated Well -Debridement - Subq, 1st 20sq cm No No #4 Left Post Lateral -Time 11:35 11:54 12:10 -Correct Patient Yes Yes Yes -Correct Side, Site, Position Yes Yes Yes -Correct Procedure Yes Yes Yes -Procedure Performed Yes Yes Yes -Type of Procedure Debridement Debridement Debridement -Clinical Debridement Subcutaneous Subcutaneous Subcutaneous -Tissue Removed Subcutaneous Subcutaneous Subcutaneous -Post Debridement (cm) - Length 1.4 11.0 10 -Post Debridement (cm) - Width 1.4 6.0 4.0 -Post Debridement (cm) - Depth 0.1 0.2 0.2 -Total Square (Post) (cm) 1.96 66.00 40.0 -Area of Debridement (cm) - Length 1.4 11.0 10 -Area of Debridement (cm) - Width 1.4 6.0 4.0 -Total Square (Area) (cm) 1.96 66.00 40.0 -Tunneling Yes No No -Tunneling Position (O'clock) 12 -Tunneling Distance (cm) 3.0 -Tunneling Position #2 (O'clock) 6 -Tunneling Distance #2 (cm) 6 -Undermining/Tunneling No No No -Circular Undermining No No No -Wound/Ulcer Outcome Not Healed Not Healed Not Healed -Ulcer Cleansing Rinsed/ Rinsed/ Rinsed/ Irrigated with Irrigated with Irrigated with Saline Saline Saline -Foul Odor after Cleansing No No No -Bioengineered Tissue No No No -Bleeding Controlled with Pressure Pressure Pressure -Treatment Response Procedure Procedure Procedure Tolerated Well Tolerated Well Tolerated Well -Debridement - Subq, 1st 20sq cm No Yes Yes -Debridement, SubQ, ea addt'l 20sq cm 3 2 or part thereof 3-right medial lower leg -Time 11:35 11:54 12:10 -Correct Patient Yes Yes Yes -Correct Side, Site, Position Yes Yes Yes -Correct Procedure Yes Yes Yes -Procedure Performed Yes Yes Yes -Type of Procedure Debridement Debridement Debridement -Clinical Debridement Subcutaneous Subcutaneous Subcutaneous -Tissue Removed Subcutaneous Subcutaneous Subcutaneous -Post Debridement (cm) - Length 9.5 1.8 1.5 -Post Debridement (cm) - Width 0.5 1.0 1.0 -Post Debridement (cm) - Depth 0.2 0.2 0.2 -Total Square (Post) (cm) 4.75 1.80 1.50 -Area of Debridement (cm) - Length 9.5 1.8 1.5 -Area of Debridement (cm) - Width 0.5 1.0 1.0 -Total Square (Area) (cm) 4.75 1.80 1.50 -Tunneling No No No -Undermining/Tunneling No No No -Circular Undermining No No No -Wound/Ulcer Outcome Not Healed Not Healed Not Healed -Ulcer Cleansing Rinsed/ Rinsed/ Rinsed/ Irrigated with Irrigated with Irrigated with Saline Saline Saline -Foul Odor after Cleansing No No No -Bioengineered Tissue No No No -Bleeding Controlled with Pressure Pressure Pressure -Treatment Response Procedure Procedure Procedure Tolerated Well Tolerated Well Tolerated Well -Debridement - Subq, 1st 20sq cm Yes No No -Debridement, SubQ, ea addt'l 20sq cm 1 or part thereof Pain Scale: 0-10 Numeric Is Patient Pain Free? Yes Yes Yes WC - Nurse 3 - General Ulcer D/C NN Start: 09/02/21 10:57 Freq: Status: Active Protocol: Activity Type Activity Date Activity User E-Sign Co-Sign Detail Recorded Client Recorded Date Recorded By Document 09/02/21 11:55 KR [id number] 09/02/21 11:57 KR Edit Result 09/02/21 11:55 KR (1) [id number] 09/03/21 07:02 PL Document 09/16/21 13:03 PL [id number] 09/16/21 13:11 PL (1) Bilateral - Multi-Layered Wrap Application => Multi-Layer Comp - => Bilat ($) Left - Multi-Layered Wrap Application Multi-Layer Comp - => Left ($) => 09/02/21 09/16/21 11:55 13:03 Wound Care Nurse 3 #6 Left Posterior Leg -Ulcer Cleansing Soap and Water -Primary Dressing Applied Promogran -Primary Dressing Covered/Secured with Dry Gauze & Roll Gauze, Secured with Tape -Promogran 1 #5 Right medial leg -Ulcer Cleansing Soap and Water -Foul Odor after Cleansing No -Primary Dressing Applied Promogran -Primary Dressing Covered/Secured with Dry Gauze & Roll Gauze, Secured with Tape -Promogran 1 #4 Left Post Lateral -Ulcer Cleansing Rinsed/ Soap and Water Irrigated with Saline -Foul Odor after Cleansing No -Primary Dressing Applied Nugauze, Promogran Iodoform -Primary Dressing Covered/Secured with Dry Gauze Dry Gauze & Roll Gauze, Secured with Tape -Nugauze, Iodoform 1/4 1 -Promogran 2 3-right medial lower leg -Ulcer Cleansing Rinsed/ Rinsed/ Irrigated with Irrigated with Saline Saline -Foul Odor after Cleansing No -Primary Dressing Applied Promogran -Other Dressing Iodoform -Primary Dressing Covered/Secured with Dry Gauze Dry Gauze & Roll Gauze, Secured with Tape -Promogran 1 Right -Compression Wrap Surepress ($) Bilateral -Multi-Layered Wrap Application Multi-Layer Comp - Bilat ($ ) Left -Compression Wrap Surepress ($) Treatment Response Procedure Tolerated Well Pain Scale: 0-10 Numeric Is Patient Pain Free? Yes Yes WC - Visit Discharge Discharge Condition Stable Stable Ambulatory Status Wheelchair Wheelchair Accompanied by aziza Additional Wound Wound debrided: Left posterior leg tunnel Laterality: Left Type of Debridement: Excisional debridement Anesthesia Used: 5% Lidocaine Gel Depth: in the subcutaneous layer Percentage of wound debrided: 100 Instrument Used: - ([employer] [place] [employer] ultrasonic debrider tunnel probe) Tissue Removed: Fibrous, devitalized subcutaneous, biofilm, slough Severity: Fat Layer Exposed Amount of bleeding with debridement: Mild Bleeding Controlled with: Pressure Patient tolerated procedure: Patient tolerated procedure well Additional Wound Wound debrided: Right medial leg Laterality: Right Wound Grade/Stage: Isaac stage I Type of Debridement: Excisional debridement Anesthesia Used: 5% Lidocaine Gel Depth: in the subcutaneous layer Percentage of wound debrided: 100 Instrument Used: - ([employer] ultrasonic debrider) Tissue Removed: Fibrous, devitalized subcutaneous, biofilm, slough Severity: Fat Layer Exposed Amount of bleeding with debridement: Mild Bleeding Controlled with: Compression and gauze Patient tolerated procedure: Patient tolerated procedure well Assessment/Plan Assessment/Plan (1) Non-pressure chronic ulcer of left calf with fat layer exposed: CODE(S): L97.222 - Non-pressure chronic ulcer of left calf with fat layer exposed (2) Venous ulcer of left lower extremity without varicose veins: CODE(S): I87.2 - Venous insufficiency (chronic) (peripheral); L97.929 - Non-pressure chronic ulcer of unspecified part of left lower leg with unspecified severity (3) Venous insufficiency of both lower extremities: CODE(S): I87.2 - Venous insufficiency (chronic) (peripheral) (4) Lower extremity edema: CODE(S): R60.0 - Localized edema (5) History of pulmonary embolism: CODE(S): Z86.711 - Personal history of pulmonary embolism (6) Essential (primary) hypertension: CODE(S): I10 - Essential (primary) hypertension (7) Hyperlipidemia: CODE(S): E78.5 - Hyperlipidemia, unspecified (8) Nicotine dependence: CODE(S): F17.200 - Nicotine dependence, unspecified, uncomplicated (9) Non-pressure chronic ulcer of right calf with fat layer exposed: CODE(S): L97.212 - Non-pressure chronic ulcer of right calf with fat layer exposed PLAN: This is a 70-year-old female who presents to the wound care center for follow-up of left lower extremity ulceration secondary to venous insufficiency, complicated by essential primary hypertension, hyperlipidemia, lower extremity edema, and nicotine dependence. She has prior history of pulmonary embolism is currently on warfarin. She states she is living in an assisted living facility has not been able to have a cigarette since she has been there. She states that they change her dressings daily with Aquacel Ag, dry sterile dressing, and a compressive Jorge wrap. She is elevating her lower extremity and using a pillow to offload the back of her leg. I reviewed vascular studies on 07/22/2021 which demonstrate multiphasic pulses on Doppler. Ulceration posterior left lower extremity was examined today and noted to be decreasing in size. Ulceration on 07/22/2021 measured 11 cm x 7.5 cm x 0.8 cm. On 08/05/2021 measures 12 cm x 5.7 cm x 0.3 cm. On 08/12/2021 ulceration measures 11.6 cm x 5.5 cm x 0.3 cm with no localized signs of infection. On 09/02/2021 ulceration measures 9.5 cm x 0.5 cm x 0.2 cm. On 09/09/2021 ulceration measures 11 cm x 6 cm x 0.2 cm. Ulceration today demonstrates continued reduction in size and continues to show progress. Ulceration sites were debrided sharply with [employer] ultrasonic debridement removing fibrous, devitalized subcutaneous, biofilm, slough. Wound just distal lateral to her current left lower extremity ulceration this wound measures 1.4 cm x 1.4 cm x 0.9 cm with a tunneling of 12' oclock position of 3.0cm and 6'oclock position of 6cm with a yellow, gooey fibrotic tissue within the wound bed. Ulceration tunnel is granulating in and demonstrates a reduction in tunnel size. Wounds demonstrate no localized signs of infection. Surrounding skin is atrophic and dry. Promogran applied to ulceration site and dressed with Aquacel Ag, then a super absorbent dressing with compression dressing. Distal lateral posterior ulceration packed with Iodoform gauze in ulceration tunnel. Dressings are to be changed once a day at her assisted living facility. She is to continue to elevate her lower extremities during periods of rest and offload the site with a soft pillow to the back of her leg. Microbiology: Aerobic and anaerobic cultures taken of this wound site 09/02/2021 and the tunnel demonstrate +1 Serratia liquefaction's, rare MRSA, and +1 strep mitis. Right anterior medial leg ulceration secondary to chronic venous insufficiency was sharply debrided with a [employer] [place] [employer] ultrasonic debrider removing fibrous, devitalized subcutaneous, biofilm, slough. There is no localized erythema, malodor and no purulent drainage. The site was dressed with Ashly to the proximal aspect and iodoform gauze packing to the distal aspect and a compression wrap to be changed daily. Patient taking doxycycline 100 mg p.o. twice daily for 14 days and levofloxacin 750 mg p.o. daily for 14 days. Patient started these antibiotics on 09/07/2021 and will complete full course. I discussed that she may continue to apply lotion to the surrounding skin in between dressing changes but not to place any lotion in the wound bed or between her toes. Patient is a known chronic smoker who has previously asked to continue to smoke. I continue to remind her on the essentials of proper wound healing and stressed the importance of smoking cessation today to ensure proper wound healing. I informed her that continued to smoke will slow down the progression of her wound healing by decreasing blood flow to the extremity in the ulceration site and complicate her healing status, overall health, and possible loss of limb. Patient states that she will try the best she can to stop smoking. I discussed localized signs of infection for her to observe. I discussed with her if she notices any increased redness moving up the leg, purulent drainage from the site, malodor, increased pain not controlled by [id number] medications, or if she experiences any fever, nausea, vomiting, chills or other constitutional symptoms that she is to report to the ED as these are signs of a progressing infection. She voices understanding of this. I reviewed and discussed his case today. Debridement was performed today as noted in the clinical panel to all of the ulcer sites. The following work up and care recommendations were made: Dressing: Promogran to the ulceration site, Aquacel Ag then super absorbent dressing, then a compressive dressing changed once daily. Iodoform packed to distal lateral posterior ulceration. Ashly right anterior leg ulceration Wash: Soap and water Tissue growth optimization: Promogran Offload: Offloading with soft pillows to the back of the leg and elevate lower extremity Vascular: Multiphasic pulses on Doppler Edema: Elevate left lower extremity comply with compression wrap dressing Infection: No localized signs of infection Pain: May take [id number] Tylenol extra strength Host factors: Smoking cessation and edema control secondary to chronic venous insufficiency, increase protein intake I answered all the patient's questions. To return to the wound healing center in 1 week or call sooner if the patient has any questions or concerns. Note: [employer] speech recognition library science instructor software was used to create portions of this document. Sound-alike and misspelled words, as well as other library science instructor errors may be contained in the documentation.
[2021-09-23 10:48] VITALS: BP 122/81; PULSE 70; TEMP 35.9; BMI 39.4
--- NOTE | 2021-09-23 12:54 | PCM.WC.PN ---
History of Present Illness Date of Service: 09/23/21 Chief Complaint: Left lower extremity posterior ulceration History of Wound: This is a 70-year-old female who presents to the wound healing center today with complaint of a nonhealing ulcer posterior left lower extremity. 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 Patient states she is at an assisted living facility where they care for her posterior ulceration. They have been applying Aquacel Ag and a compression dressing with Jorge wraps. She is elevating the left lower extremity and offloading with pillow padding. She denies any systemic or localized signs of infection at this time. Past medical, family, and social history reviewed and not pertinent to the current visit and all other systems reviewed and negative with exception of those listed above. Subjective Subjective This is a 70-year-old female who presents to the wound care center for follow-up of left lower extremity ulceration secondary to chronic venous insufficiency complicated by lower extremity edema, nicotine dependence, and hyperlipidemia. She denies any nausea, vomiting, chills, fever, shortness of breath, or other constitutional symptoms. She also has another wound to the inside of her right leg secondary to her chronic venous insufficiency. She states that she has finished her antibiotics as instructed. She has no other complaints today. Objective Data Objective Data Vital Signs: Vital Signs Temp Pulse Resp BP 96.7 F L 70 16 122/81 H 09/23/21 10:48 09/23/21 10:48 08/24/21 00:38 09/23/21 10:48 Weight: 82.554 kg Body Mass Index (BMI) 39.4 Lab / Micro Data Micro: Microbiology 09/02/21 11:35 Wound Abcess - Leg, Left Gram Stain - Final 09/02/21 11:35 Wound Abcess - Leg, Left Wound Culture - Final Serratia liquefaciens group Meth. resistant Staph. aureus Streptococcus mitis/ oralis 09/02/21 11:35 Wound Abcess - Leg, Left Anaerobic Culture - Final Anaerobic cocci Physical Exam Const alert, oriented x3 and no apparent distress General Appearance: cooperative and comfortable HEENT normocephalic Eyes General Eye: normal appearance of both eyes Lymph Lymphatic: no lymphadenopathy noted and no lymphedema noted Resp normal respiratory effort Cardio regular rate and regular rhythm Skin skin turgor normal General Skin Exam: venous stasis and dermatitis Wound Narrative: Left lower extremity posterior leg/calf ulceration secondary to venous insufficiency. Ulceration site demonstrates a 50-50 fibrotic granular base with rolled wound edges and fibrotic tissue at the margin with serosanguineous exudate. Wound demonstrates no localized signs of erythema, purulence, malodor, red streaking or other localized signs of infection. Surrounding skin is atrophic. Left lower extremity posterior leg/calf ulceration demonstrates reduction in size with less tunneling at the 12 o' clock and 6 o'clock position. Right lower extremity medial leg/calf ulceration secondary to venous insufficiency. Wound measures 1.4 cm x 1.4 cm x 0.2 cm and demonstrates a 50-50 fibrotic granular base with rolled wound edges and fibrotic tissue at the margins with a serosanguineous exudate. Wound demonstrates no purulent drainage, no malodor. Wound does demonstrate localized erythema about the right lower extremity with serous fluid-filled bulla drainage and a small wound that probes 0.3 cm deep and 1.5 cm proximally secondary to chronic exposure of wound fluid. Neuro oriented x3 Debridement Note Debridement Note Wound debrided: Left posterior leg ulceration Laterality: Left Wound Grade/Stage: Isaac stage I Type of Debridement: Excisional debridement Anesthesia Used: 4% Lidocaine Solution Depth: Down to and including healthy tissue and in the subcutaneous layer Percentage of wound debrided: 100 Instrument Used: - (HandUp PBConix ultrasonic debrider) Tissue Removed: Fibrous, devitalized subcutaneous, biofilm, slough Severity: Fat Layer Exposed Amount of bleeding with debridement: Mild Bleeding Controlled with: Compression and gauze Patient tolerated procedure: Patient tolerated procedure well Post-Debridement Measurements and Additional Note: Post-Debridement Measurements/Treatment - Nurse 1 - General Ulcer Assessment Start: 09/02/21 10:57 Freq: Status: Active Protocol: JAZZ Activity Type Activity Date Activity User E-Sign Co-Sign Detail Recorded Client Recorded Date Recorded By Document 09/02/21 10:58 KR [id number] 09/02/21 11:08 KR Document 09/09/21 11:35 KR [id number] 09/09/21 11:43 KR Document 09/16/21 12:41 AK [id number] 09/16/21 12:44 AK Document 09/23/21 10:48 KR [id number] 09/23/21 11:00 KR 09/02/21 09/09/21 09/16/21 10:58 11:35 12:41 WC - Today's Visit Information Type of service Follow-up Visit Follow-up Visit Follow-up Visit (Physician/BIOTECH PRODUCTION SPECIALIST (Physician/BIOTECH PRODUCTION SPECIALIST (Physician/BIOTECH PRODUCTION SPECIALIST ) ) ) Arrival Mode Wheelchair Wheelchair Wheelchair Patient Identification Verified (Name & Yes Yes Yes ) Patient Requires Transmission-Based No Precautions Safety Precautions NA Height and Weight Body Mass Index (BMI) 39.4 39.4 39.4 BMI Classification Obese Obese Obese Vital Signs Temperature (97.8 F-99.1 F) 97.5 F L 97.5 F L 96.2 F L Temperature Source Temporal Temporal Temporal Pulse Rate (60-100) 76 78 Pulse Location Monitor Monitor Blood Pressure (90/60-120/80) 138/68 H 152/84 H Blood Pressure Mean (mm Hg) 91 106 Source Monitor Monitor Position Sitting Semi-Fowlers Blood Pressure Location Right Arm Right Arm History Since Last Visit- (Skip if this is Patient's initial visit) Have you changed medications since your No No No last visit? Any new allergies or adverse reactions No No No Had a fall/change in ADL's that may No No No increase risk of falls Signs or symptoms of abuse and/or No No No neglect since last visit Have you been in the hospital since your No No last visit? Has dressing in place as prescribed Yes Yes Yes Has compression in place as prescribed Yes N/A Yes Has offloadiing in place as prescribed N/A N/A N/A Experienced any changes in pain level or No No No management Left Footwear Regular Shoe Regular Shoe Right Footwear Regular Shoe Regular Shoe Pain Scale: 0-10 Numeric Is Patient Pain Free? Yes Yes Yes 09/23/21 10:48 WC - Today's Visit Information Type of service Nurse-only Visit Arrival Mode Wheelchair Patient Identification Verified (Name & Yes ) Patient Requires Transmission-Based Precautions Safety Precautions Height and Weight Body Mass Index (BMI) 39.4 BMI Classification Obese Vital Signs Temperature (97.8 F-99.1 F) 96.7 F L Temperature Source Temporal Pulse Rate (60-100) 70 Pulse Location Monitor Blood Pressure (90/60-120/80) 122/81 H Blood Pressure Mean (mm Hg) 94 Source Monitor Position Semi-Fowlers Blood Pressure Location Right Arm History Since Last Visit- (Skip if this is Patient's initial visit) Have you changed medications since your No last visit? Any new allergies or adverse reactions No Had a fall/change in ADL's that may No increase risk of falls Signs or symptoms of abuse and/or No neglect since last visit Have you been in the hospital since your No last visit? Has dressing in place as prescribed Yes Has compression in place as prescribed N/A Has offloadiing in place as prescribed Experienced any changes in pain level or No management Left Footwear Regular Shoe Right Footwear Regular Shoe Pain Scale: 0-10 Numeric Is Patient Pain Free? Yes WC - Nurse 1 - General Ulcer Measurement Start: 09/02/21 10:57 Freq: Status: Active Protocol: Activity Type Activity Date Activity User E-Sign Co-Sign Detail Recorded Client Recorded Date Recorded By Document 09/02/21 10:58 KR [id number] 09/02/21 11:08 KR Document 09/09/21 11:35 KR [id number] 09/09/21 11:43 KR Document 09/16/21 12:41 AK [id number] 09/16/21 12:44 AK Document 09/23/21 10:48 KR [id number] 09/23/21 11:00 KR 09/02/21 09/09/21 09/16/21 10:58 11:35 12:41 Wound Center Nurse 1 #6 Left Posterior Leg -Current Size (cm) - Length -Current Size (cm) - Width -Current Size (cm) - Depth -Total Square Cm -Undermining/Tunneling Starts (O'clock ) -Undermining/Tunneling Ends (O'clock) -Maximum Distance (cm) -Exudate Amt -Exudate Type -Wound Margin -Granulation Amt -Granulation Quality -Necrosis Amt -Necrotic Tissue Type -Texture (Yajaira-wound Skin Appearance) -Color (Yajaira-wound Skin Appearance) -Temperature (Yajaira-wound Skin Appearance) -Tenderness on Palpation (Yajaira-wound Skin Appearance) -Ulcer Cleansing -Foul Odor after Cleansing -Anesthetic Used #5 Right medial leg -Combined with other wound No -Current Size (cm) - Length 5.6 -Current Size (cm) - Width 1.5 -Current Size (cm) - Depth 1.3 -Total Square Cm 8.40 -Photo Taken No -Tunneling No -Undermining/Tunneling No -Circular Undermining No -Change in Wound Grade/Stage No -Exudate Amt Medium -Exudate Type Serosanguineous -Wound Margin Distinct, Outline Attached -Granulation Amt Medium (34-66%) -Granulation Quality Red -Slough/Fibrin Yes -Necrosis Amt Small (1-33%) -Necrotic Tissue Type Adherent Slough -Structure Exposed N/A -Texture (Yajaira-wound Skin Appearance) Assessed, Localized Edema -Moisture (Yajaira-wound Skin Appearance) No Abnormality, Assessed -Color (Yajaira-wound Skin Appearance) No Abnormality, Assessed -Temperature (Yajaira-wound Skin No Abnormality Appearance) (Pt Warm) -Tenderness on Palpation (Yajaira-wound No Skin Appearance) -Ulcer Cleansing Rinsed/ Irrigated with Saline -Foul Odor after Cleansing No -Anesthetic Used 4% Lidocaine Solution #4 Left Post Lateral -Current Size (cm) - Length 9.5 11 -Current Size (cm) - Width 0.5 6 -Current Size (cm) - Depth 0.2 0.2 -Total Square Cm 4.75 66 -Exudate Amt Large Large -Exudate Type Yellow/Green Yellow/Green -Wound Margin Distinct, Distinct, Outline Outline Attached Attached -Granulation Amt Large (67-100%) -Granulation Quality Red Red -Necrosis Amt Large (67-100%) Large (67-100%) -Necrotic Tissue Type Adherent Slough Adherent Slough -Texture (Yajaira-wound Skin Appearance) Assessed, Assessed, Scarring Scarring -Moisture (Yajaira-wound Skin Appearance) Assessed, Assessed Maceration -Color (Yajaira-wound Skin Appearance) No Abnormality, No Abnormality, Assessed Assessed -Temperature (Yajiara-wound Skin No Abnormality No Abnormality Appearance) (Pt Warm) (Pt Warm) -Tenderness on Palpation (Yajaira-wound No No Skin Appearance) -Ulcer Cleansing Soap and Water Soap and Water -Foul Odor after Cleansing No No -Anesthetic Used 4% Lidocaine 4% Lidocaine Solution Solution 3-right medial lower leg -Combined with other wound No -Current Size (cm) - Length 1.8 5.6 -Current Size (cm) - Width 1 1.5 -Current Size (cm) - Depth 0.2 1.3 -Total Square Cm 1.8 8.40 -Photo Taken No -Epithelialization None Present -Tunneling No -Undermining/Tunneling No -Circular Undermining No -Change in Wound Grade/Stage No -Exudate Amt Medium Medium -Exudate Type Yellow/Green Serosanguineous -Wound Margin Distinct, Distinct, Outline Outline Attached Attached -Granulation Amt None Present (0 Medium (34-66%) %) -Granulation Quality Red -Slough/Fibrin No -Necrosis Amt Large (67-100%) None Present (0 %) -Necrotic Tissue Type Adherent Slough -Structure Exposed N/A -Texture (Yajaira-wound Skin Appearance) Assessed, No Abnormality, Scarring Assessed -Moisture (Yajaira-wound Skin Appearance) Assessed, No Abnormality, Maceration Assessed -Color (Yajaira-wound Skin Appearance) No Abnormality, No Abnormality, Assessed Assessed -Temperature (Yajaira-wound Skin No Abnormality No Abnormality Appearance) (Pt Warm) (Pt Warm) -Tenderness on Palpation (Yajaira-wound No No Skin Appearance) -Ulcer Cleansing Soap and Water Rinsed/ Irrigated with Saline -Foul Odor after Cleansing No No -Anesthetic Used 4% Lidocaine 4% Lidocaine Solution Solution Right Calf (cm) 37.5 Point of measurement (cm from the medial 31 instep) Right Ankle (cm) 27.2 24.3 Left Calf (cm) 44 35 33.5 Left Ankle (cm) 26.1 23.5 23.3 09/23/21 10:48 Wound Center Nurse 1 #6 Left Posterior Leg -Current Size (cm) - Length 0.4 -Current Size (cm) - Width 0.4 -Current Size (cm) - Depth 0.2 -Total Square Cm 0.16 -Undermining/Tunneling Starts (O'clock 12 ) -Undermining/Tunneling Ends (O'clock) 1 -Maximum Distance (cm) 0.2 -Exudate Amt Small -Exudate Type Serosanguineous -Wound Margin Distinct, Outline Attached -Granulation Amt Small (1-33%) -Granulation Quality Red -Necrosis Amt Small (1-33%) -Necrotic Tissue Type Adherent Slough -Texture (Yajaira-wound Skin Appearance) Assessed, Scarring -Color (Yajaira-wound Skin Appearance) No Abnormality, Assessed -Temperature (Yajaira-wound Skin No Abnormality Appearance) (Pt Warm) -Tenderness on Palpation (Yajaira-wound No Skin Appearance) -Ulcer Cleansing Rinsed/ Irrigated with Saline -Foul Odor after Cleansing No -Anesthetic Used 4% Lidocaine Solution #5 Right medial leg -Combined with other wound -Current Size (cm) - Length 0.1 -Current Size (cm) - Width 0.1 -Current Size (cm) - Depth 0.1 -Total Square Cm 0.01 -Photo Taken -Tunneling -Undermining/Tunneling -Circular Undermining -Change in Wound Grade/Stage -Exudate Amt Medium -Exudate Type Serosanguineous -Wound Margin Distinct, Outline Attached -Granulation Amt Medium (34-66%) -Granulation Quality Red -Slough/Fibrin -Necrosis Amt Medium (34-66%) -Necrotic Tissue Type Adherent Slough -Structure Exposed -Texture (Yajaira-wound Skin Appearance) Assessed, Scarring -Moisture (Yajaira-wound Skin Appearance) Assessed,Dry/ Scaly -Color (Yajaira-wound Skin Appearance) No Abnormality, Assessed -Temperature (Yajaira-wound Skin No Abnormality Appearance) (Pt Warm) -Tenderness on Palpation (Yajaira-wound No Skin Appearance) -Ulcer Cleansing Rinsed/ Irrigated with Saline -Foul Odor after Cleansing No -Anesthetic Used 4% Lidocaine Solution #4 Left Post Lateral -Current Size (cm) - Length 10 -Current Size (cm) - Width 4 -Current Size (cm) - Depth 0.2 -Total Square Cm 40 -Exudate Amt Large -Exudate Type Serosanguineous -Wound Margin Distinct, Outline Attached -Granulation Amt Medium (34-66%) -Granulation Quality Red -Necrosis Amt Medium (34-66%) -Necrotic Tissue Type Adherent Slough -Texture (Yajaira-wound Skin Appearance) Assessed, Scarring -Moisture (Yajaira-wound Skin Appearance) Assessed,Dry/ Scaly -Color (Yajaira-wound Skin Appearance) No Abnormality, Assessed -Temperature (Yajaira-wound Skin No Abnormality Appearance) (Pt Warm) -Tenderness on Palpation (Yajaira-wound No Skin Appearance) -Ulcer Cleansing Rinsed/ Irrigated with Saline -Foul Odor after Cleansing No -Anesthetic Used 4% Lidocaine Solution 3-right medial lower leg -Combined with other wound -Current Size (cm) - Length 2 -Current Size (cm) - Width 2 -Current Size (cm) - Depth 0.8 -Total Square Cm 4 -Photo Taken -Epithelialization -Tunneling -Undermining/Tunneling -Circular Undermining -Change in Wound Grade/Stage -Exudate Amt Medium -Exudate Type Serosanguineous -Wound Margin Distinct, Outline Attached -Granulation Amt Medium (34-66%) -Granulation Quality Red -Slough/Fibrin -Necrosis Amt Medium (34-66%) -Necrotic Tissue Type Adherent Slough -Structure Exposed Tendon -Texture (Yajaira-wound Skin Appearance) Assessed, Scarring -Moisture (Yajaira-wound Skin Appearance) No Abnormality, Assessed,Dry/ Scaly -Color (Yajaira-wound Skin Appearance) No Abnormality, Assessed -Temperature (Yajaira-wound Skin No Abnormality Appearance) (Pt Warm) -Tenderness on Palpation (Yajaira-wound No Skin Appearance) -Ulcer Cleansing Rinsed/ Irrigated with Saline -Foul Odor after Cleansing No -Anesthetic Used 5% Lidocaine Gel Right Calf (cm) Point of measurement (cm from the medial instep) Right Ankle (cm) Left Calf (cm) Left Ankle (cm) WC - Nurse 2 - General Ulcer CM Notes Start: 09/02/21 10:57 Freq: Status: Active Protocol: Activity Type Activity Date Activity User E-Sign Co-Sign Detail Recorded Client Recorded Date Recorded By Document 09/02/21 13:33 PL [id number] 09/02/21 13:37 PL Edit Result 09/02/21 13:33 PL (1) [id number] 09/03/21 07:15 PL Document 09/09/21 16:06 PL [id number] 09/09/21 16:10 PL Edit Result 09/09/21 16:06 PL (2) [id number] 09/10/21 11:07 PL Document 09/16/21 14:43 PL [id number] 09/16/21 14:48 PL Document 09/23/21 12:42 PL Desktop 09/23/21 12:47 PL (1) 3-right medial lower leg - Debridement, SubQ, ea addt'l 20sq cm => 1 or part thereof (2) 3-right medial lower leg - Debridement - Subq, 1st 20sq cm Yes => No 09/02/21 09/09/21 09/16/21 13:33 16:06 14:43 Wound Center Nurse 2 #6 Left Posterior Leg -Time -Correct Patient -Correct Side, Site, Position -Correct Procedure -Procedure Performed -Type of Procedure -Clinical Debridement -Tissue Removed -Post Debridement (cm) - Length -Post Debridement (cm) - Width -Post Debridement (cm) - Depth -Total Square (Post) (cm) -Area of Debridement (cm) - Length -Area of Debridement (cm) - Width -Total Square (Area) (cm) -Tunneling -Undermining/Tunneling -Circular Undermining -Wound/Ulcer Outcome -Ulcer Cleansing -Foul Odor after Cleansing -Bioengineered Tissue -Bleeding Controlled with -Treatment Response -Debridement - Subq, 1st 20sq cm #5 Right medial leg -Time 11:54 12:10 -Correct Patient Yes Yes -Correct Side, Site, Position Yes Yes -Correct Procedure Yes Yes -Procedure Performed Yes Yes -Type of Procedure Debridement Debridement -Clinical Debridement Subcutaneous Subcutaneous -Tissue Removed Subcutaneous Subcutaneous -Post Debridement (cm) - Length 0.5 5.6 -Post Debridement (cm) - Width 0.5 1.5 -Post Debridement (cm) - Depth 0.3 1.3 -Total Square (Post) (cm) 0.25 8.40 -Area of Debridement (cm) - Length 0.5 5.6 -Area of Debridement (cm) - Width 0.5 1.5 -Total Square (Area) (cm) 0.25 8.40 -Tunneling Yes No -Tunneling Position (O'clock) 12 -Tunneling Distance (cm) 1.5 -Undermining/Tunneling No -Circular Undermining No -Wound/Ulcer Outcome Not Healed Not Healed -Ulcer Cleansing Rinsed/ Rinsed/ Irrigated with Irrigated with Saline Saline -Foul Odor after Cleansing No No -Bioengineered Tissue No No -Bleeding Controlled with Pressure Pressure -Treatment Response Procedure Procedure Tolerated Well Tolerated Well -Debridement - Subq, 1st 20sq cm No No #4 Left Post Lateral -Time 11:35 11:54 12:10 -Correct Patient Yes Yes Yes -Correct Side, Site, Position Yes Yes Yes -Correct Procedure Yes Yes Yes -Procedure Performed Yes Yes Yes -Type of Procedure Debridement Debridement Debridement -Clinical Debridement Subcutaneous Subcutaneous Subcutaneous -Tissue Removed Subcutaneous Subcutaneous Subcutaneous -Post Debridement (cm) - Length 1.4 11.0 10 -Post Debridement (cm) - Width 1.4 6.0 4.0 -Post Debridement (cm) - Depth 0.1 0.2 0.2 -Total Square (Post) (cm) 1.96 66.00 40.0 -Area of Debridement (cm) - Length 1.4 11.0 10 -Area of Debridement (cm) - Width 1.4 6.0 4.0 -Total Square (Area) (cm) 1.96 66.00 40.0 -Tunneling Yes No No -Tunneling Position (O'clock) 12 -Tunneling Distance (cm) 3.0 -Tunneling Position #2 (O'clock) 6 -Tunneling Distance #2 (cm) 6 -Undermining/Tunneling No No No -Circular Undermining No No No -Wound/Ulcer Outcome Not Healed Not Healed Not Healed -Ulcer Cleansing Rinsed/ Rinsed/ Rinsed/ Irrigated with Irrigated with Irrigated with Saline Saline Saline -Foul Odor after Cleansing No No No -Bioengineered Tissue No No No -Bleeding Controlled with Pressure Pressure Pressure -Treatment Response Procedure Procedure Procedure Tolerated Well Tolerated Well Tolerated Well -Debridement - Subq, 1st 20sq cm No Yes Yes -Debridement, SubQ, ea addt'l 20sq cm 3 2 or part thereof 3-right medial lower leg -Time 11:35 11:54 12:10 -Correct Patient Yes Yes Yes -Correct Side, Site, Position Yes Yes Yes -Correct Procedure Yes Yes Yes -Procedure Performed Yes Yes Yes -Type of Procedure Debridement Debridement Debridement -Clinical Debridement Subcutaneous Subcutaneous Subcutaneous -Tissue Removed Subcutaneous Subcutaneous Subcutaneous -Post Debridement (cm) - Length 9.5 1.8 1.5 -Post Debridement (cm) - Width 0.5 1.0 1.0 -Post Debridement (cm) - Depth 0.2 0.2 0.2 -Total Square (Post) (cm) 4.75 1.80 1.50 -Area of Debridement (cm) - Length 9.5 1.8 1.5 -Area of Debridement (cm) - Width 0.5 1.0 1.0 -Total Square (Area) (cm) 4.75 1.80 1.50 -Tunneling No No No -Undermining/Tunneling No No No -Circular Undermining No No No -Wound/Ulcer Outcome Not Healed Not Healed Not Healed -Ulcer Cleansing Rinsed/ Rinsed/ Rinsed/ Irrigated with Irrigated with Irrigated with Saline Saline Saline -Foul Odor after Cleansing No No No -Bioengineered Tissue No No No -Bleeding Controlled with Pressure Pressure Pressure -Treatment Response Procedure Procedure Procedure Tolerated Well Tolerated Well Tolerated Well -Debridement - Subq, 1st 20sq cm Yes No No -Debridement, SubQ, ea addt'l 20sq cm 1 or part thereof -Debridement - Muscle / Fascia, 1st 20sq cm Pain Scale: 0-10 Numeric Is Patient Pain Free? Yes Yes Yes 09/23/21 12:42 Wound Center Nurse 2 #6 Left Posterior Leg -Time 11:19 -Correct Patient Yes -Correct Side, Site, Position Yes -Correct Procedure Yes -Procedure Performed Yes -Type of Procedure Debridement -Clinical Debridement Subcutaneous -Tissue Removed Subcutaneous -Post Debridement (cm) - Length 0.4 -Post Debridement (cm) - Width 0.4 -Post Debridement (cm) - Depth 0.2 -Total Square (Post) (cm) 0.16 -Area of Debridement (cm) - Length 0.4 -Area of Debridement (cm) - Width 0.4 -Total Square (Area) (cm) 0.16 -Tunneling No -Undermining/Tunneling No -Circular Undermining No -Wound/Ulcer Outcome Not Healed -Ulcer Cleansing Rinsed/ Irrigated with Saline -Foul Odor after Cleansing No -Bioengineered Tissue No -Bleeding Controlled with Pressure -Treatment Response Procedure Tolerated Well -Debridement - Subq, 1st 20sq cm No #5 Right medial leg -Time -Correct Patient -Correct Side, Site, Position -Correct Procedure -Procedure Performed No -Type of Procedure -Clinical Debridement -Tissue Removed -Post Debridement (cm) - Length -Post Debridement (cm) - Width -Post Debridement (cm) - Depth -Total Square (Post) (cm) -Area of Debridement (cm) - Length -Area of Debridement (cm) - Width -Total Square (Area) (cm) -Tunneling -Tunneling Position (O'clock) -Tunneling Distance (cm) -Undermining/Tunneling -Circular Undermining -Wound/Ulcer Outcome Healed- Epithelialized -Ulcer Cleansing -Foul Odor after Cleansing -Bioengineered Tissue -Bleeding Controlled with -Treatment Response -Debridement - Subq, 1st 20sq cm #4 Left Post Lateral -Time 11:19 -Correct Patient Yes -Correct Side, Site, Position Yes -Correct Procedure Yes -Procedure Performed Yes -Type of Procedure Debridement -Clinical Debridement Subcutaneous -Tissue Removed Subcutaneous -Post Debridement (cm) - Length 10 -Post Debridement (cm) - Width 4 -Post Debridement (cm) - Depth 0.2 -Total Square (Post) (cm) 40 -Area of Debridement (cm) - Length 10 -Area of Debridement (cm) - Width 4 -Total Square (Area) (cm) 40 -Tunneling No -Tunneling Position (O'clock) -Tunneling Distance (cm) -Tunneling Position #2 (O'clock) -Tunneling Distance #2 (cm) -Undermining/Tunneling No -Circular Undermining No -Wound/Ulcer Outcome Not Healed -Ulcer Cleansing Rinsed/ Irrigated with Saline -Foul Odor after Cleansing No -Bioengineered Tissue No -Bleeding Controlled with -Treatment Response -Debridement - Subq, 1st 20sq cm Yes -Debridement, SubQ, ea addt'l 20sq cm 1 or part thereof 3-right medial lower leg -Time 11:19 -Correct Patient Yes -Correct Side, Site, Position Yes -Correct Procedure Yes -Procedure Performed Yes -Type of Procedure Debridement -Clinical Debridement Muscle / Fascia -Tissue Removed Subcutaneous, Muscle -Post Debridement (cm) - Length 2 -Post Debridement (cm) - Width 2 -Post Debridement (cm) - Depth 0.8 -Total Square (Post) (cm) 4 -Area of Debridement (cm) - Length 2 -Area of Debridement (cm) - Width 2 -Total Square (Area) (cm) 4 -Tunneling No -Undermining/Tunneling No -Circular Undermining No -Wound/Ulcer Outcome Not Healed -Ulcer Cleansing Rinsed/ Irrigated with Saline -Foul Odor after Cleansing No -Bioengineered Tissue No -Bleeding Controlled with Pressure -Treatment Response Procedure Tolerated Well -Debridement - Subq, 1st 20sq cm -Debridement, SubQ, ea addt'l 20sq cm or part thereof -Debridement - Muscle / Fascia, 1st Yes 20sq cm Pain Scale: 0-10 Numeric Is Patient Pain Free? Yes WC - Nurse 3 - General Ulcer D/C NN Start: 09/02/21 10:57 Freq: Status: Active Protocol: Activity Type Activity Date Activity User E-Sign Co-Sign Detail Recorded Client Recorded Date Recorded By Document 09/02/21 11:55 FILIPPO [id number] 09/02/21 11:57 KR Edit Result 09/02/21 11:55 KR (1) [id number] 09/03/21 07:02 PL Document 09/16/21 13:03 PL [id number] 09/16/21 13:11 PL (1) Bilateral - Multi-Layered Wrap Application => Multi-Layer Comp - => Bilat ($) Left - Multi-Layered Wrap Application Multi-Layer Comp - => Left ($) => 09/02/21 09/16/21 11:55 13:03 Wound Care Nurse 3 #6 Left Posterior Leg -Ulcer Cleansing Soap and Water -Primary Dressing Applied Promogran -Primary Dressing Covered/Secured with Dry Gauze & Roll Gauze, Secured with Tape -Promogran 1 #5 Right medial leg -Ulcer Cleansing Soap and Water -Foul Odor after Cleansing No -Primary Dressing Applied Promogran -Primary Dressing Covered/Secured with Dry Gauze & Roll Gauze, Secured with Tape -Promogran 1 #4 Left Post Lateral -Ulcer Cleansing Rinsed/ Soap and Water Irrigated with Saline -Foul Odor after Cleansing No -Primary Dressing Applied Nugauze, Promogran Iodoform -Primary Dressing Covered/Secured with Dry Gauze Dry Gauze & Roll Gauze, Secured with Tape -Nugauze, Iodoform 1/4 1 -Promogran 2 3-right medial lower leg -Ulcer Cleansing Rinsed/ Rinsed/ Irrigated with Irrigated with Saline Saline -Foul Odor after Cleansing No -Primary Dressing Applied Promogran -Other Dressing Iodoform -Primary Dressing Covered/Secured with Dry Gauze Dry Gauze & Roll Gauze, Secured with Tape -Promogran 1 Right -Compression Wrap Surepress ($) Bilateral -Multi-Layered Wrap Application Multi-Layer Comp - Bilat ($ ) Left -Compression Wrap Surepress ($) Treatment Response Procedure Tolerated Well Pain Scale: 0-10 Numeric Is Patient Pain Free? Yes Yes WC - Visit Discharge Discharge Condition Stable Stable Ambulatory Status Wheelchair Wheelchair Accompanied by [place] Additional Wound Wound debrided: Left posterior leg Laterality: Left Wound Grade/Stage: Isaac stage II Type of Debridement: Excisional debridement Anesthesia Used: 4% Lidocaine Solution Depth: Down to and including healthy tissue and in the subcutaneous layer Percentage of wound debrided: 100 Instrument Used: - (1 mm curette) Tissue Removed: Fibrous, devitalized subcutaneous, biofilm, slough Severity: Fat Layer Exposed Amount of bleeding with debridement: Mild Bleeding Controlled with: Compression and gauze Patient tolerated procedure: Patient tolerated procedure well Additional Wound Wound debrided: Right medial leg Laterality: Right Wound Grade/Stage: Isaac stage II Type of Debridement: Excisional debridement Anesthesia Used: 4% Lidocaine Solution Depth: Down to and including healthy tissue and in the subcutaneous layer Percentage of wound debrided: 100 Instrument Used: - (HandUp PBConix ultrasonic debrider) Tissue Removed: Fibrous, devitalized subcutaneous, biofilm, slough Severity: Fat Layer Exposed Amount of bleeding with debridement: Mild Bleeding Controlled with: Compression and gauze Patient tolerated procedure: Patient tolerated procedure well Assessment/Plan Assessment/Plan (1) Non-pressure chronic ulcer of left calf with fat layer exposed: CODE(S): L97.222 - Non-pressure chronic ulcer of left calf with fat layer exposed (2) Venous ulcer of left lower extremity without varicose veins: CODE(S): I87.2 - Venous insufficiency (chronic) (peripheral); L97.929 - Non-pressure chronic ulcer of unspecified part of left lower leg with unspecified severity (3) Venous insufficiency of both lower extremities: CODE(S): I87.2 - Venous insufficiency (chronic) (peripheral) (4) Lower extremity edema: CODE(S): R60.0 - Localized edema (5) History of pulmonary embolism: CODE(S): Z86.711 - Personal history of pulmonary embolism (6) Essential (primary) hypertension: CODE(S): I10 - Essential (primary) hypertension (7) Hyperlipidemia: CODE(S): E78.5 - Hyperlipidemia, unspecified (8) Nicotine dependence: CODE(S): F17.200 - Nicotine dependence, unspecified, uncomplicated (9) Non-pressure chronic ulcer of right calf with fat layer exposed: CODE(S): L97.212 - Non-pressure chronic ulcer of right calf with fat layer exposed PLAN: This is a 70-year-old female who presents to the wound care center for follow-up of left lower extremity ulceration secondary to venous insufficiency, complicated by essential primary hypertension, hyperlipidemia, lower extremity edema, and nicotine dependence. She has prior history of pulmonary embolism is currently on warfarin. She states she is living in an assisted living facility has not been able to have a cigarette since she has been there. She states that they change her dressings daily with Aquacel Ag, dry sterile dressing, and a compressive Jorge wrap. She is elevating her lower extremity and using a pillow to offload the back of her leg. Vascular studies on 07/22/2021 which demonstrate multiphasic pulses on Doppler. Microbiology: Aerobic and anaerobic cultures taken of this wound site 09/02/2021 and the tunnel demonstrate +1 Serratia liquefaction's, rare MRSA, and +1 strep mitis. She has completed full course of doxycycline and levofloxacin. Ulceration posterior left lower extremity was examined today and noted to be decreasing in size. Ulceration measures 10 cm x 4 cm x 0.2 cm. Ulceration demonstrates no localized signs of infection. Ulceration sites were debrided sharply with Misonix ultrasonic debridement removing fibrous, devitalized subcutaneous, biofilm, slough. Wound just distal lateral to her current left lower extremity ulceration this wound measures 0.4 cm x 0.4 cm x 0.2 cm with a tunneling of 12' oclock position of 1.0cm and 6'oclock position of 1cm. Ulceration tunnel is granulating in and demonstrates a reduction in tunnel size. Wounds demonstrate no localized signs of infection. Surrounding skin is atrophic and dry. Promogran applied to ulceration site and dressed with Aquacel Ag, then a super absorbent dressing with compression dressing. Distal lateral posterior ulceration packed with Iodoform gauze in ulceration tunnel. Dressings are to be changed once a day at her assisted living facility. She is to continue to elevate her lower extremities during periods of rest and offload the site with a soft pillow to the back of her leg. Right anterior medial leg ulceration secondary to chronic venous insufficiency was sharply debrided with a Misonix ultrasonic debrider removing fibrous, devitalized subcutaneous, biofilm, slough. There is no localized signs of infection. The site was dressed with iodoform gauze packing to the distal aspect and a compression wrap to be changed daily. I discussed that she may continue to apply lotion to the surrounding skin in between dressing changes but not to place any lotion in the wound bed or between her toes. Patient is a known chronic smoker who has previously asked to continue to smoke. I continue to remind her on the essentials of proper wound healing and stressed the importance of smoking cessation today to ensure proper wound healing. I informed her that continued to smoke will slow down the progression of her wound healing by decreasing blood flow to the extremity in the ulceration site and complicate her healing status, overall health, and possible loss of limb. Patient states that she will try the best she can to stop smoking. I discussed localized signs of infection for her to observe. I discussed with her if she notices any increased redness moving up the leg, purulent drainage from the site, malodor, increased pain not controlled by [id number] medications, or if she experiences any fever, nausea, vomiting, chills or other constitutional symptoms that she is to report to the ED as these are signs of a progressing infection. She voices understanding of this. I reviewed and discussed his case today. Debridement was performed today as noted in the clinical panel to all of the ulcer sites. The following work up and care recommendations were made: Dressing: Promogran to the ulceration site, Aquacel Ag then super absorbent dressing, then a compressive dressing changed once daily. Iodoform packed to distal lateral posterior ulceration. Ashly right anterior leg ulceration Wash: Soap and water Tissue growth optimization: Promogran Offload: Offloading with soft pillows to the back of the leg and elevate lower extremity Vascular: Multiphasic pulses on Doppler Edema: Elevate left lower extremity comply with compression wrap dressing Infection: No localized signs of infection Pain: May take [id number] Tylenol extra strength Host factors: Smoking cessation and edema control secondary to chronic venous insufficiency, increase protein intake I answered all the patient's questions. To return to the wound healing center in 1 week or call sooner if the patient has any questions or concerns. Note: Weesh speech recognition account services associate software was used to create portions of this document. Sound-alike and misspelled words, as well as other account services associate errors may be contained in the documentation.
== END 2021-09-23 23:59 | disposition home or self-care (01) ==
LOC: WC 10:45
PROVIDERS: PCP Family Medicine; Visit Provider Student in an Organized Health Care Education/Training Program
DX: I87.2 Venous insufficiency (chronic) (peripheral) (principal); L97.212 Non-pressure chronic ulcer of right calf with fat layer exposed; L97.222 Non-pressure chronic ulcer of left calf with fat layer exposed; R60.0 Localized edema; I10 Essential (primary) hypertension; E78.5 Hyperlipidemia, unspecified; F17.200 Nicotine dependence, unspecified, uncomplicated; Z86.711 Personal history of pulmonary embolism; Z79.01 Long term (current) use of anticoagulants
CPT/HCPCS: 11042; 11043; 11045; 29581; 87070; 87075; 87077; 87186; 87205

== ENCOUNTER 2021-10-14 10:30 | Outpatient (RCR) | payer MEDICARE, MEDICAID, SELFPAY ==
[2021-09-24 00:38] VITALS: BP 122/81; PULSE 70; RESP 16; TEMP 35.9; BMI 39.4
[2021-10-07 12:37] VITALS: BP 142/63; PULSE 88; TEMP 35.7; BMI 39.4
--- NOTE | 2021-10-07 13:03 | PCM.WC.PN ---
History of Present Illness Date of Service: 10/07/21 Chief Complaint: Left lower extremity posterior ulceration History of Wound: This is a 70-year-old female who presents to the wound healing center today with complaint of a nonhealing ulcer posterior left lower extremity. 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 Patient states she is at an assisted living facility where they care for her posterior ulceration. They have been applying Aquacel Ag and a compression dressing with Jorge wraps. She is elevating the left lower extremity and offloading with pillow padding. She denies any systemic or localized signs of infection at this time. Past medical, family, and social history reviewed and not pertinent to the current visit and all other systems reviewed and negative with exception of those listed above. Subjective Subjective This is a 70-year-old female who presents to the wound care center for a follow-up of her left lower extremity ulceration and right lower extremity ulceration secondary to chronic venous insufficiency. Her ulcerative sites are complicated by lower extremity edema, nicotine dependence, and hyperlipidemia. She denies any constitutional symptoms today. She states that sometimes at night the wound sites give her pain and she has difficulty sleeping. She states that nursing is still coming to change her dressings daily. She has no other complaints today. Objective Data Objective Data Vital Signs: Vital Signs Temp Pulse Resp BP 96.2 F L 88 16 142/63 H 10/07/21 12:37 10/07/21 12:37 09/24/21 00:38 10/07/21 12:37 Weight: 82.554 kg Body Mass Index (BMI) 39.4 Physical Exam Const alert, oriented x3 and no apparent distress General Appearance: cooperative and comfortable HEENT normocephalic Eyes General Eye: normal appearance of both eyes Neck General: normal visual inspection Lymph Lymphatic: no lymphadenopathy noted and no lymphedema noted Resp normal respiratory effort Cardio regular rate and regular rhythm Skin no rashes or lesions noted, skin turgor normal and no jaundice General Skin Exam: venous stasis Wound Narrative: Left lower extremity posterior leg/calf ulceration secondary to chronic venous insufficiency. Ulcerative site demonstrates a 50-50 fibrotic granular base with rolled wound edges and fibrotic tissue at the ulcerative margins with serosanguineous exudate. Ulcerative site measures 9.5 cm x 4 cm x 0.1 cm. Wound demonstrates no localized signs of infection. Surrounding skin is atrophic and intact Left lower extremity posterior leg/calf ulceration demonstrates a reduction in size with less tunneling at the 12 o' clock and 6 o'clock position. Ulceration measures 0.3 cm x 0.3 cm x 0.3 cm. Right lower extremity medial leg/calf ulceration secondary to chronic venous insufficiency. Ulcerative site demonstrates a 50-50 fibrotic granular base with serosanguineous exudate. Ulcerative site measures 1.2 cm x 1 cm x 0.6 cm. Wound demonstrates no localized signs of infection. Neuro oriented x3 Debridement Note Debridement Note Wound debrided: Left posterior leg Laterality: Left Wound Grade/Stage: Isaac stage I Type of Debridement: Excisional debridement Anesthesia Used: 4% Lidocaine Solution Depth: Down to and including healthy tissue and in the subcutaneous layer Percentage of wound debrided: 100 Instrument Used: - (Best Response [employer] Ultrasonic debrider) Tissue Removed: Fibrous, devitalized subcutaneous, biofilm, slough Severity: Fat Layer Exposed Amount of bleeding with debridement: Mild Bleeding Controlled with: Compression and gauze Patient tolerated procedure: Patient tolerated procedure well Post-Debridement Measurements and Additional Note: Post-Debridement Measurements/Treatment WC - Nurse 1 - General Ulcer Assessment Start: 10/07/21 12:04 Freq: Status: Active Protocol: JAZZ Activity Type Activity Date Activity User E-Sign Co-Sign Detail Recorded Client Recorded Date Recorded By Document 10/07/21 12:37 ABHI [id number] 10/07/21 12:43 ABHI 10/07/21 12:37 - Today's Visit Information Type of service Follow-up Visit (Physician/PLATE [facility]ER ) Arrival Mode Wheelchair Patient Identification Verified (Name & Yes ) Patient Requires Transmission-Based No Precautions Safety Precautions NA Height and Weight Body Mass Index (BMI) 39.4 BMI Classification Obese Vital Signs Temperature (97.8 F-99.1 F) 96.2 F L Temperature Source Temporal Pulse Rate (60-100) 88 Pulse Location Monitor Blood Pressure (90/60-120/80) 142/63 H Blood Pressure Mean (mm Hg) 89 Source Monitor History Since Last Visit- (Skip if this is Patient's initial visit) Have you changed medications since your No last visit? Any new allergies or adverse reactions No Had a fall/change in ADL's that may No increase risk of falls Signs or symptoms of abuse and/or No neglect since last visit Have you been in the hospital since your No last visit? Has dressing in place as prescribed Yes Has compression in place as prescribed Yes Has offloadiing in place as prescribed N/A Experienced any changes in pain level or No management Left Footwear Regular Shoe Right Footwear Regular Shoe Pain Scale: 0-10 Numeric Is Patient Pain Free? No WC - Nurse 1 - General Ulcer Measurement Start: 10/07/21 12:04 Freq: Status: Active Protocol: Activity Type Activity Date Activity User E-Sign Co-Sign Detail Recorded Client Recorded Date Recorded By Document 10/07/21 12:37 ABHI [id number] 10/07/21 12:43 ABHI 10/07/21 12:37 Wound Center Nurse 1 #6 Left Posterior Leg -Combined with other wound No -Current Size (cm) - Length 0.3 -Current Size (cm) - Width 0.3 -Current Size (cm) - Depth 0.3 -Total Square Cm 0.09 -Photo Taken No -Tunneling No -Undermining/Tunneling No -Circular Undermining No -Exudate Amt Medium -Exudate Type Serosanguineous -Wound Margin Distinct, Outline Attached -Granulation Amt None Present (0 %) -Granulation Quality N/A -Slough/Fibrin Yes -Necrosis Amt Small (1-33%) -Necrotic Tissue Type Adherent Slough -Structure Exposed N/A -Texture (Yajaira-wound Skin Appearance) No Abnormality, Assessed -Moisture (Yajaira-wound Skin Appearance) No Abnormality, Assessed -Color (Yajaira-wound Skin Appearance) No Abnormality, Assessed -Temperature (Yajaira-wound Skin No Abnormality Appearance) (Pt Warm) -Tenderness on Palpation (Yajaira-wound No Skin Appearance) -Ulcer Cleansing Soap and Water -Foul Odor after Cleansing No -Anesthetic Used 4% Lidocaine Solution #4 Left Post Lateral -Combined with other wound No -Current Size (cm) - Length 9.5 -Current Size (cm) - Width 4 -Current Size (cm) - Depth 0.1 -Total Square Cm 38.0 -Photo Taken No -Tunneling No -Undermining/Tunneling No -Circular Undermining No -Change in Wound Grade/Stage No -Exudate Amt Large -Exudate Type Serosanguineous -Wound Margin Flat & Intact -Granulation Amt Large (67-100%) -Granulation Quality Red -Slough/Fibrin Yes -Necrosis Amt Medium (34-66%) -Necrotic Tissue Type Adherent Slough -Structure Exposed N/A -Texture (Yajaira-wound Skin Appearance) No Abnormality, Assessed -Moisture (Yjaaira-wound Skin Appearance) Assessed, Weeping -Color (Yajaira-wound Skin Appearance) No Abnormality, Assessed -Temperature (Yajaira-wound Skin No Abnormality Appearance) (Pt Warm) -Tenderness on Palpation (Yajaira-wound No Skin Appearance) -Ulcer Cleansing Soap and Water -Foul Odor after Cleansing No -Anesthetic Used 4% Lidocaine Solution 3-right medial lower leg -Combined with other wound No -Current Size (cm) - Length 1.2 -Current Size (cm) - Width 1.1 -Current Size (cm) - Depth 0.6 -Total Square Cm 1.32 -Photo Taken No -Epithelialization None Present -Tunneling No -Undermining/Tunneling No -Change in Wound Grade/Stage No -Exudate Amt Medium -Exudate Type Serosanguineous -Wound Margin Distinct, Outline Attached -Granulation Amt None Present (0 %) -Slough/Fibrin No -Necrosis Amt Medium (34-66%) -Necrotic Tissue Type Adherent Slough -Structure Exposed N/A -Texture (Yajaira-wound Skin Appearance) No Abnormality, Assessed -Moisture (Yajaira-wound Skin Appearance) No Abnormality, Assessed -Color (Yajaira-wound Skin Appearance) No Abnormality, Assessed -Temperature (Yajaira-wound Skin No Abnormality Appearance) (Pt Warm) -Tenderness on Palpation (Yajaira-wound No Skin Appearance) -Ulcer Cleansing Soap and Water -Foul Odor after Cleansing No -Anesthetic Used 4% Lidocaine Solution Right Calf (cm) 33 Right Ankle (cm) 22.5 Left Calf (cm) 32 Left Ankle (cm) 23 WC - Nurse 3 - General Ulcer D/C NN Start: 10/07/21 12:04 Freq: Status: Active Protocol: Activity Type Activity Date Activity User E-Sign Co-Sign Detail Recorded Client Recorded Date Recorded By Document 10/07/21 12:04 ML [id number] 10/07/21 12:12 ML 10/07/21 12:04 Wound Care Nurse 3 #6 Left Posterior Leg -Primary Dressing Applied Aquacel Rope, Optilok 6.5x10 -Primary Dressing Covered/Secured with Dry Gauze & Roll Gauze, Secured with Tape -Other Covering surepress -Aquacel Rope 1 -Optilok 6.5x10 2 #4 Left Post Lateral -Ulcer Cleansing Rinsed/ Irrigated with Saline -Primary Dressing Applied Promogran -Primary Dressing Covered/Secured with Dry Gauze & Roll Gauze, Secured with Tape -Other Covering sure press -Promogran 1 3-right medial lower leg -Ulcer Cleansing Rinsed/ Irrigated with Saline -Primary Dressing Covered/Secured with Dry Gauze & Roll Gauze, Secured with Tape -Other Covering surepress Pain Scale: 0-10 Numeric Is Patient Pain Free? Yes WC - Visit Discharge Discharge Condition Stable Ambulatory Status Wheelchair Medication Reconcilliation completed & No provided to patient/care provider Clinical Summary of Care Provided Yes Additional Wound Wound debrided: Left posterior leg Laterality: Left Wound Grade/Stage: Isaac stage II Type of Debridement: Excisional debridement Anesthesia Used: 4% Lidocaine Solution Depth: Down to and including healthy tissue and in the subcutaneous layer Percentage of wound debrided: 100 Instrument Used: - (Misonix ultrasonic debrider) Tissue Removed: Fibrous, devitalized subcutaneous, biofilm, slough Severity: Fat Layer Exposed Amount of bleeding with debridement: Mild Bleeding Controlled with: Compression and gauze Patient tolerated procedure: Patient tolerated procedure well Additional Wound Wound debrided: Right medial leg Laterality: Right Wound Grade/Stage: Isaac stage II Type of Debridement: Excisional debridement Anesthesia Used: 4% Lidocaine Solution Depth: Down to and including healthy tissue, in the subcutaneous layer and to muscle Percentage of wound debrided: 100 Instrument Used: - (Misonix ultrasonic debrider) Tissue Removed: Fibrous, devitalized subcutaneous, biofilm, slough Severity: Fat Layer Exposed Amount of bleeding with debridement: Mild Bleeding Controlled with: Compression and gauze Patient tolerated procedure: Patient tolerated procedure well Assessment/Plan Assessment/Plan (1) Non-pressure chronic ulcer of left calf with fat layer exposed: CODE(S): L97.222 - Non-pressure chronic ulcer of left calf with fat layer exposed (2) Non-pressure chronic ulcer of right calf with fat layer exposed: CODE(S): L97.212 - Non-pressure chronic ulcer of right calf with fat layer exposed (3) Venous ulcer of left lower extremity without varicose veins: CODE(S): I87.2 - Venous insufficiency (chronic) (peripheral); L97.929 - Non-pressure chronic ulcer of unspecified part of left lower leg with unspecified severity (4) Venous insufficiency of both lower extremities: CODE(S): I87.2 - Venous insufficiency (chronic) (peripheral) (5) Lower extremity edema: CODE(S): R60.0 - Localized edema (6) Nicotine dependence: CODE(S): F17.200 - Nicotine dependence, unspecified, uncomplicated (7) Hyperlipidemia: CODE(S): E78.5 - Hyperlipidemia, unspecified (8) Essential (primary) hypertension: CODE(S): I10 - Essential (primary) hypertension (9) History of pulmonary embolism: CODE(S): Z86.711 - Personal history of pulmonary embolism PLAN: This is a 70-year-old female who presents to the wound care center for follow-up of left lower extremity ulceration secondary to venous insufficiency, complicated by essential primary hypertension, hyperlipidemia, lower extremity edema, and nicotine dependence. She has prior history of pulmonary embolism is currently on warfarin. She states she is living in an assisted living facility has not been able to have a cigarette since she has been there. She states that they change her dressings daily with Aquacel Ag, dry sterile dressing, and a compressive Jorge wrap. She is elevating her lower extremity and using a pillow to offload the back of her leg. Vascular studies on 07/22/2021 which demonstrate multiphasic pulses on Doppler. Microbiology: Aerobic and anaerobic cultures taken of this wound site 09/02/2021 and the tunnel demonstrate +1 Serratia liquefaction's, rare MRSA, and +1 strep mitis. She has completed full course of doxycycline and levofloxacin. Ulceration posterior left lower extremity was examined today and noted to be decreasing in size. Ulceration measures 9.5 cm x 4 cm x 0.1 cm. Ulceration demonstrates no localized signs of infection. Ulceration sites were debrided sharply with Misonix ultrasonic debridement removing fibrous, devitalized subcutaneous, biofilm, slough. Wound just distal lateral to her current left lower extremity ulceration this wound measures 0.3 cm x 0.3 cm x 0.3 cm with a tunneling of 12' oclock position of 0.4 cm and 6'oclock position of 0.4 cm. Ulceration tunnel is granulating in and demonstrates a reduction in tunnel size. Wounds demonstrate no localized signs of infection. Surrounding skin is atrophic and dry. Promogran applied to ulceration site and dressed with Aquacel Ag, then a super absorbent dressing with compression dressing. Distal lateral posterior ulceration packed with Iodoform gauze in ulceration tunnel. Dressings are to be changed once a day at her assisted living facility. She is to continue to elevate her lower extremities during periods of rest and offload the site with a soft pillow to the back of her leg. Right anterior medial leg ulceration secondary to chronic venous insufficiency was sharply debrided with a [employer] ultrasonic debrider removing fibrous, devitalized subcutaneous, biofilm, slough. Ulcerative site measures 1.2 cm x 1 cm x 0.6 cm. There is no localized signs of infection. The site was packed with Aquacel Ag rope to the distal aspect and a compression wrap to be changed daily. I discussed that she may continue to apply lotion to the surrounding skin in between dressing changes but not to place any lotion in the wound bed or between her toes. Patient is a known chronic smoker who has previously asked to continue to smoke. I continue to remind her on the essentials of proper wound healing and stressed the importance of smoking cessation today to ensure proper wound healing. I informed her that continued to smoke will slow down the progression of her wound healing by decreasing blood flow to the extremity in the ulceration site and complicate her healing status, overall health, and possible loss of limb. Patient states that she will try the best she can to stop smoking. I discussed localized signs of infection for her to observe. I discussed with her if she notices any increased redness moving up the leg, purulent drainage from the site, malodor, increased pain not controlled by [id number] medications, or if she experiences any fever, nausea, vomiting, chills or other constitutional symptoms that she is to report to the ED as these are signs of a progressing infection. She voices understanding of this. I reviewed and discussed her case today. Debridement was performed today as noted in the clinical panel to all of the ulcer sites. The following work up and care recommendations were made: Dressing: Promogran to the ulceration site, Aquacel Ag then super absorbent dressing, then a compressive dressing changed once daily. Iodoform packed to distal lateral posterior ulceration. Aquacel Ag rope pack to right leg ulceration Wash: Soap and water Tissue growth optimization: Promogran Offload: Offloading with soft pillows to the back of the leg and elevate lower extremity Vascular: Multiphasic pulses on Doppler Edema: Elevate left lower extremity comply with compression wrap dressing Infection: No localized signs of infection Pain: May take [id number] Tylenol extra strength Host factors: Smoking cessation and edema control secondary to chronic venous insufficiency, increase protein intake I answered all the patient's questions. To return to the wound healing center in 1 week or call sooner if the patient has any questions or concerns. Note: [employer] speech recognition ems coordinator software was used to create portions of this document. Sound-alike and misspelled words, as well as other ems coordinator errors may be contained in the documentation.
[2021-10-14 11:06] VITALS: BP 131/67; PULSE 57; TEMP 36.1; BMI 39.4
--- NOTE | 2021-10-14 13:04 | PN.PCM_ITS ---
History of Present Illness Date of Service: 10/14/21 Chief Complaint: Left lower extremity posterior ulceration History of Wound: This is a 70-year-old female who presents to the wound healing center today with complaint of a nonhealing ulcer posterior left lower extremity. 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 Patient states she is at an assisted living facility where they care for her posterior ulceration. They have been applying Aquacel Ag and a compression dressing with Jorge wraps. She is elevating the left lower extremity and o ffloading with pillow padding. She denies any systemic or localized signs of infection at this time. Past medical, family, and social history reviewed and not pertinent to the current visit and all other systems reviewed and negative with exception of those listed above. Subjective Subjective This is a 71-year-old female who presents to the wound care center for a follow- up of her left lower extremity ulceration and right lower extremity ulceration secondary to chronic venous insufficiency. Her ulcerative sites are complicated by lower extremity edema, nicotine dependence, and hyperlipidemia. She denies any constitutional symptoms today. She states that sometimes at night the wound sites give her pain and she has difficulty sleeping. She states that nursing is still coming to change her dressings daily. She has no other complaints today. Objective Data Objective Data Vital Signs: Vital Signs Temp Pulse Resp BP 96.9 F L 57 L 16 131/67 H 10/14/21 11:06 10/14/21 11:06 09/24/21 00:38 10/14/21 11:06 Weight: 82.554 kg Body Mass Index (BMI) 39.4 Physical Exam Const alert, oriented x3 and no apparent distress General Appearance: cooperative and comfortable HEENT normocephalic Eyes General Eye: normal appearance of both eyes Neck General: normal visual inspection Lymph Lymphatic: no lymphadenopathy noted and no lymphedema noted Resp normal respiratory effort Cardio regular rate and regular rhythm Skin no rashes or lesions noted, skin turgor normal and no jaundice General Skin Exam: venous stasis Wound Narrative: Left lower extremity posterior leg/calf ulceration secondary to chronic venous insufficiency. Ulcerative site demonstrates a 50-50 fibrotic granular base with rolled wound edges and fibrotic tissue at the ulcerative margins with serosanguineous exudate. Ulcerative site measures 10 cm x 4 cm x 0.1 cm. Wound demonstrates no localized signs of infection. Surrounding skin is atrophic and intact Left lower extremity posterior leg/calf ulceration healed with no localized signs of infection. Right lower extremity medial leg/calf ulceration secondary to chronic venous insufficiency. Ulcerative site demonstrates a 50-50 fibrotic granular base with serosanguineous exudate. Ulcerative site measures 1.5 cm x 1.5 cm x 1.2 cm. Wound demonstrates no localized signs of infection. Neuro oriented x3 Debridement Note Debridement Note Wound debrided: Right medial leg Laterality: Right Wound Grade/Stage: Isaac stage II Type of Debridement: Excisional debridement Anesthesia Used: 4% Lidocaine Solution Depth: Down to and including healthy tissue, in the subcutaneous layer and to muscle Percentage of wound debrided: 100 Instrument Used: - (Blockchainonix ultrasonic debrider) Tissue Removed: Fibrous, devitalized subcutaneous, biofilm, slough Severity: Fat Layer Exposed Amount of bleeding with debridement: Mild Bleeding Controlled with: Compression and gauze Patient tolerated procedure: Patient tolerated procedure well Post-Debridement Measurements and Additional Note: Post-Debridement Measurements/Treatment - Nurse 1 - General Ulcer Assessment Start: 10/07/21 12:04 Freq: Status: Active Protocol: [email or web address] Activity Type Activity Date Activity User E-Sign Co-Sign Detail Recorded Client Recorded Date Recorded By Document 10/07/21 12:37 ABHI [id number] 10/07/21 12:43 ND Document 10/14/21 11:06 ABHI [id number] 10/14/21 11:11 ND 10/07/21 10/14/21 12:37 11:06 - Today's Visit Information Type of service Follow-up Visit Follow-up Visit (Physician/SHIP PAINTER HELPER (Physician/SHIP PAINTER HELPER ) ) Arrival Mode Wheelchair Wheelchair Patient Identification Verified (Name & Yes Yes ) Patient Requires Transmission-Based No No Precautions Safety Precautions NA NA Height and Weight Body Mass Index (BMI) 39.4 39.4 BMI Classification Obese Obese Vital Signs Temperature (97.8 F-99.1 F) 96.2 F L 96.9 F L Temperature Source Temporal Temporal Pulse Rate (60-100) 88 57 L Pulse Location Monitor Monitor Blood Pressure (90/60-120/80) 142/63 H 131/67 H Blood Pressure Mean (mm Hg) 89 88 Source Monitor Monitor History Since Last Visit- (Skip if this is Patient's initial visit) Have you changed medications since your No No last visit? Any new allergies or adverse reactions No No Had a fall/change in ADL's that may No No increase risk of falls Signs or symptoms of abuse and/or No No neglect since last visit Have you been in the hospital since your No No last visit? Has dressing in place as prescribed Yes Yes Has compression in place as prescribed Yes Yes Has offloadiing in place as prescribed N/A N/A Experienced any changes in pain level or No No management Left Footwear Regular Shoe Regular Shoe Right Footwear Regular Shoe Regular Shoe Pain Scale: 0-10 Numeric Is Patient Pain Free? No Yes WC - Nurse 1 - General Ulcer Measurement Start: 10/07/21 12:04 Freq: Status: Active Protocol: Activity Type Activity Date Activity User E-Sign Co-Sign Detail Recorded Client Recorded Date Recorded By Document 10/07/21 12:37 ABHI [id number] 10/07/21 12:43 AK Document 10/14/21 11:06 ND [id number] 10/14/21 11:11 AK 10/07/21 10/14/21 12:37 11:06 Wound Center Nurse 1 #6 Left Posterior Leg -Combined with other wound No -Current Size (cm) - Length 0.3 -Current Size (cm) - Width 0.3 -Current Size (cm) - Depth 0.3 -Total Square Cm 0.09 -Photo Taken No -Tunneling No -Undermining/Tunneling No -Circular Undermining No -Exudate Amt Medium -Exudate Type Serosanguineous -Wound Margin Distinct, Outline Attached -Granulation Amt None Present (0 %) -Granulation Quality N/A -Slough/Fibrin Yes -Necrosis Amt Small (1-33%) -Necrotic Tissue Type Adherent Slough -Structure Exposed N/A -Texture (Yajaira-wound Skin Appearance) No Abnormality, Assessed -Moisture (Yajaira-wound Skin Appearance) No Abnormality, Assessed -Color (Yajaira-wound Skin Appearance) No Abnormality, Assessed -Temperature (Yajaira-wound Skin No Abnormality Appearance) (Pt Warm) -Tenderness on Palpation (Yajaira-wound No Skin Appearance) -Ulcer Cleansing Soap and Water -Foul Odor after Cleansing No -Anesthetic Used 4% Lidocaine Solution #4 Left Post Lateral -Combined with other wound No -Current Size (cm) - Length 9.5 1.5 -Current Size (cm) - Width 4 1.5 -Current Size (cm) - Depth 0.1 1.1 -Total Square Cm 38.0 2.25 -Photo Taken No No -Tunneling No No -Undermining/Tunneling No No -Circular Undermining No No -Change in Wound Grade/Stage No No -Exudate Amt Large Large -Exudate Type Serosanguineous Serosanguineous -Wound Margin Flat & Intact Distinct, Outline Attached -Granulation Amt Large (67-100%) Large (67-100%) -Granulation Quality Red [place],Red -Slough/Fibrin Yes Yes -Necrosis Amt Medium (34-66%) Small (1-33%) -Necrotic Tissue Type Adherent Slough Adherent Slough -Structure Exposed N/A N/A -Texture (Yajaira-wound Skin Appearance) No Abnormality, No Abnormality, Assessed Assessed -Moisture (Yajaira-wound Skin Appearance) Assessed, Assessed,Dry/ Weeping Scaly -Color (Yajaira-wound Skin Appearance) No Abnormality, Assessed, Assessed Hemosiderin Staining -Temperature (Yajaira-wound Skin No Abnormality No Abnormality Appearance) (Pt Warm) (Pt Warm) -Tenderness on Palpation (Yajaira-wound No No Skin Appearance) -Ulcer Cleansing Soap and Water Soap and Water -Foul Odor after Cleansing No No -Anesthetic Used 4% Lidocaine 4% Lidocaine Solution Solution 3-right medial lower leg -Combined with other wound No No -Current Size (cm) - Length 1.2 1.5 -Current Size (cm) - Width 1.1 1.5 -Current Size (cm) - Depth 0.6 1.2 -Total Square Cm 1.32 2.25 -Photo Taken No No -Epithelialization None Present -Tunneling No No -Undermining/Tunneling No No -Circular Undermining No -Change in Wound Grade/Stage No -Exudate Amt Medium Medium -Exudate Type Serosanguineous Serosanguineous -Wound Margin Distinct, Distinct, Outline Outline Attached Attached -Granulation Amt None Present (0 Small (1-33%) %) -Granulation Quality N/A -Slough/Fibrin No Yes -Necrosis Amt Medium (34-66%) Medium (34-66%) -Necrotic Tissue Type Adherent Slough Adherent Slough -Structure Exposed N/A N/A -Texture (Yajaira-wound Skin Appearance) No Abnormality, No Abnormality, Assessed Assessed -Moisture (Yajaira-wound Skin Appearance) No Abnormality, No Abnormality, Assessed Assessed -Color (Yajaira-wound Skin Appearance) No Abnormality, Assessed, Assessed Hemosiderin Staining -Temperature (Yajaira-wound Skin No Abnormality No Abnormality Appearance) (Pt Warm) (Pt Warm) -Tenderness on Palpation (Yajaira-wound No No Skin Appearance) -Ulcer Cleansing Soap and Water Soap and Water -Foul Odor after Cleansing No No -Anesthetic Used 4% Lidocaine 4% Lidocaine Solution Solution Right Calf (cm) 33 36 Right Ankle (cm) 22.5 24 Left Calf (cm) 32 36 Left Ankle (cm) 23 26 WC - Nurse 2 - General Ulcer CM Notes Start: 10/07/21 12:04 Freq: Status: Active Protocol: Activity Type Activity Date Activity User E-Sign Co-Sign Detail Recorded Client Recorded Date Recorded By Document 10/07/21 14:34 PL [id number] 10/07/21 14:38 PL Edit Result 10/07/21 14:34 PL (1) [id number] 10/08/21 07:01 PL (1) 3-right medial lower leg - Clinical Debridement Subcutaneous => Muscle / Fascia - Tissue Removed Subcutaneous => Subcutaneous, => Muscle - Debridement - Subq, 1st 20sq cm No => - Debridement - Muscle / Fascia, 1st => Yes 20sq cm 10/07/21 14:34 Wound Center Nurse 2 #6 Left Posterior Leg -Time 11:50 -Correct Patient Yes -Correct Side, Site, Position Yes -Correct Procedure Yes -Procedure Performed Yes -Type of Procedure Debridement -Clinical Debridement Subcutaneous -Tissue Removed Subcutaneous -Post Debridement (cm) - Length 0.3 -Post Debridement (cm) - Width 0.3 -Post Debridement (cm) - Depth 0.3 -Total Square (Post) (cm) 0.09 -Area of Debridement (cm) - Length 0.3 -Area of Debridement (cm) - Width 0.3 -Total Square (Area) (cm) 0.09 -Tunneling No -Undermining/Tunneling No -Circular Undermining No -Wound/Ulcer Outcome Not Healed -Ulcer Cleansing Rinsed/ Irrigated with Saline -Foul Odor after Cleansing No -Bioengineered Tissue No -Bleeding Controlled with Pressure -Treatment Response Procedure Tolerated Well -Debridement - Subq, 1st 20sq cm No #4 Left Post Lateral -Time 11:50 -Correct Patient Yes -Correct Side, Site, Position Yes -Correct Procedure Yes -Procedure Performed Yes -Type of Procedure Debridement -Clinical Debridement Subcutaneous -Tissue Removed Subcutaneous -Post Debridement (cm) - Length 9.5 -Post Debridement (cm) - Width 4.0 -Post Debridement (cm) - Depth 0.1 -Total Square (Post) (cm) 38.00 -Area of Debridement (cm) - Length 9.5 -Area of Debridement (cm) - Width 4.0 -Total Square (Area) (cm) 38.00 -Tunneling No -Undermining/Tunneling No -Circular Undermining No -Wound/Ulcer Outcome Not Healed -Ulcer Cleansing Rinsed/ Irrigated with Saline -Foul Odor after Cleansing No -Bioengineered Tissue No -Bleeding Controlled with Pressure -Treatment Response Procedure Tolerated Well -Debridement - Subq, 1st 20sq cm Yes -Debridement, SubQ, ea addt'l 20sq cm 1 or part thereof 3-right medial lower leg -Time 11:50 -Correct Patient Yes -Correct Side, Site, Position Yes -Correct Procedure Yes -Procedure Performed Yes -Type of Procedure Debridement -Clinical Debridement Muscle / Fascia -Tissue Removed Subcutaneous, Muscle -Post Debridement (cm) - Length 1.2 -Post Debridement (cm) - Width 1.1 -Post Debridement (cm) - Depth 0.6 -Total Square (Post) (cm) 1.32 -Area of Debridement (cm) - Length 1.2 -Area of Debridement (cm) - Width 1.1 -Total Square (Area) (cm) 1.32 -Tunneling No -Undermining/Tunneling No -Circular Undermining No -Wound/Ulcer Outcome Not Healed -Ulcer Cleansing Rinsed/ Irrigated with Saline -Foul Odor after Cleansing No -Bioengineered Tissue No -Bleeding Controlled with Pressure -Treatment Response Procedure Tolerated Well -Debridement - Muscle / Fascia, 1st Yes 20sq cm Pain Scale: 0-10 Numeric Is Patient Pain Free? Yes WC - Nurse 3 - General Ulcer D/C NN Start: 10/07/21 12:04 Freq: Status: Active Protocol: Activity Type Activity Date Activity User E-Sign Co-Sign Detail Recorded Client Recorded Date Recorded By Document 10/07/21 12:04 ML [id number] 10/07/21 12:12 ML Document 10/14/21 12:11 KR [id number] 10/14/21 12:13 KR 10/07/21 10/14/21 12:04 12:11 Wound Care Nurse 3 #6 Left Posterior Leg -Primary Dressing Applied Aquacel Rope, Promogran Optilok 6.5x10 -Primary Dressing Covered/Secured with Dry Gauze & Roll Gauze, Secured with Tape -Other Covering surepress -Aquacel Rope 1 -Optilok 6.5x10 2 -Promogran 1 #4 Left Post Lateral -Ulcer Cleansing Rinsed/ Irrigated with Saline -Primary Dressing Applied Promogran -Primary Dressing Covered/Secured with Dry Gauze & Roll Gauze, Secured with Tape -Other Covering sure press -Promogran 1 3-right medial lower leg -Ulcer Cleansing Rinsed/ Rinsed/ Irrigated with Irrigated with Saline Saline -Primary Dressing Applied Aquacel AG 4x4 -Primary Dressing Covered/Secured with Dry Gauze & Dry Gauze, Roll Gauze, Secured with Secured with Tape Tape -Other Covering surepress -Aquacel AG 4x4 1 Right -Compression Wrap Surepress ($) Left -Compression Wrap Surepress ($) Pain Scale: 0-10 Numeric Is Patient Pain Free? Yes Yes WC - Visit Discharge Discharge Condition Stable Stable Ambulatory Status Wheelchair Wheelchair Transportation Ambulance Medication Reconcilliation completed & No provided to patient/care provider Clinical Summary of Care Provided Yes Additional Wound Wound debrided: Left lower extremity Laterality: Left Wound Grade/Stage: Isaac stage I Type of Debridement: Excisional debridement Anesthesia Used: 4% Lidocaine Solution Depth: Down to and including healthy tissue and in the subcutaneous layer Percentage of wound debrided: 100 Instrument Used: - (Blockchainonix ultrasonic debrider) Tissue Removed: Fibrous, devitalized subcutaneous, biofilm, slough Severity: Fat Layer Exposed Amount of bleeding with debridement: Mild Bleeding Controlled with: Compression and gauze Patient tolerated procedure: Patient tolerated procedure well Assessment/Plan Assessment/Plan (1) Non-pressure chronic ulcer of left calf with fat layer exposed: CODE(S): L97.222 - Non-pressure chronic ulcer of left calf with fat layer exposed (2) Non-pressure chronic ulcer of right calf with fat layer exposed: CODE(S): L97.212 - Non-pressure chronic ulcer of right calf with fat layer exposed (3) Venous ulcer of left lower extremity without varicose veins: CODE(S): I87.2 - Venous insufficiency (chronic) (peripheral); L97.929 - Non-pressure chronic ulcer of unspecified part of left lower leg with unspecified severity (4) Venous insufficiency of both lower extremities: CODE(S): I87.2 - Venous insufficiency (chronic) (peripheral) (5) Lower extremity edema: CODE(S): R60.0 - Localized edema (6) Nicotine dependence: CODE(S): F17.200 - Nicotine dependence, unspecified, uncomplicated (7) Hyperlipidemia: CODE(S): E78.5 - Hyperlipidemia, unspecified (8) Essential (primary) hypertension: CODE(S): I10 - Essential (primary) hypertension (9) History of pulmonary embolism: CODE(S): Z86.711 - Personal history of pulmonary embolism PLAN: This is a 70-year-old female who presents to the wound care center for follow-up of left lower extremity ulceration secondary to venous insufficiency, complicated by essential primary hypertension, hyperlipidemia, lower extremity edema, and nicotine dependence. She has prior history of pulmonary embolism is currently on warfarin. She states she is living in an assisted living facility has not been able to have a cigarette since she has been there. She states that they change her dressings daily with Aquacel Ag, dry sterile dressing, and a compressive Jorge wrap. She is elevating her lower extremity and using a pillow to offload the back of her leg. Vascular studies on 07/22/2021 which demonstrate multiphasic pulses on Doppler. Microbiology: Aerobic and anaerobic cultures taken of this wound site 09/02/2021 and the tunnel demonstrate +1 Serratia liquefaction's, rare MRSA, and +1 strep mitis. She has completed full course of doxycycline and levofloxacin. Ulceration posterior left lower extremity was examined today and noted to be decreasing in size. Ulceration measures 10 cm x 4 cm x 0.1 cm. Ulceration demonstrates no localized signs of infection. Ulceration sites were debrided sharply with Misonix ultrasonic debridement removing fibrous, devitalized subcutaneous, biofilm, slough. Wound just distal lateral to her current left lower extremity ulceration has healed. Wound demonstrates no localized signs of infection. Surrounding skin is atrophic and dry. Promogran applied to ulceration site and dressed with Aquacel Ag, then a super absorbent dressing with compression dressing. Dressings are to be changed once a day at her assisted living facility. She is to continue to elevate her lower extremities during periods of rest and offload the site with a soft pillow to the back of her leg. Right anterior medial leg ulceration secondary to chronic venous insufficiency was sharply debrided with a Blockchainonix ultrasonic debrider removing fibrous, devitalized subcutaneous, biofilm, slough. Ulcerative site measures 1.5 cm x 1.5 cm x 1.2 cm. There is no localized signs of infection. The site was packed with Aquacel Ag rope to the distal aspect and a compression wrap to be changed daily. She may continue to apply lotion to the surrounding skin in between dressing changes but not to place any lotion in the wound bed or between her toes. Patient is a known chronic smoker who has previously asked to continue smoking. I continue to remind her on the essentials of proper wound healing and stressed the importance of smoking cessation today to ensure proper wound healing. I informed her that continuing to smoke will slow down the progression of her wound healing by decreasing blood flow to the extremity and the ulceration site and thus complicate her healing status, overall health, and result in possible loss of limb. Patient states that she will try the best she can to stop smoking. I discussed localized signs of infection for her to observe. I discussed with her if she notices any increased redness moving up the leg, purulent drainage from the site, malodor, increased pain not controlled by [id number] medications, or if she experiences any fever, nausea, vomiting, chills or other constitutional symptoms that she is to report to the ED as these are signs of a progressing infection. She voices understanding of this. I reviewed and discussed her case today. Debridement was performed today as noted in the clinical panel to all of the ulcer sites. The following work up and care recommendations were made: Dressing: Promogran to the ulceration site, Aquacel Ag then super absorbent dressing, then a compressive dressing changed once daily. Aquacel Ag rope pack to right leg ulceration Wash: Soap and water Tissue growth optimization: Promogran Offload: Offloading with soft pillows to the back of the leg and elevate lower extremity Vascular: Multiphasic pulses on Doppler Edema: Elevate left lower extremity comply with compression wrap dressing Infection: No localized signs of infection Pain: May take [id number] Tylenol extra strength Host factors: Smoking cessation and edema control secondary to chronic venous insufficiency, increase protein intake I answered all the patient's questions. To return to the wound healing center in 1 week or call sooner if the patient has any questions or concerns. Note: Propers speech recognition supervisor stave finishing software was used to create portions of this document. Sound-alike and misspelled words, as well as other supervisor stave finishing errors may be contained in the documentation.
== END 2021-10-23 23:59 | disposition home or self-care (01) ==
LOC: WC 10:30
PROVIDERS: PCP Family Medicine; Visit Provider Student in an Organized Health Care Education/Training Program
DX: I87.2 Venous insufficiency (chronic) (peripheral) (principal); L97.222 Non-pressure chronic ulcer of left calf with fat layer exposed; L97.212 Non-pressure chronic ulcer of right calf with fat layer exposed; I10 Essential (primary) hypertension; E78.5 Hyperlipidemia, unspecified; R60.0 Localized edema; Z86.711 Personal history of pulmonary embolism
CPT/HCPCS: 11042; 11043; 11045

== ENCOUNTER 2021-11-18 10:45 | Outpatient (RCR) | payer MEDICARE, MEDICAID, SELFPAY ==
[2021-10-24 00:33] VITALS: BP 131/67; PULSE 57; RESP 16; TEMP 36.1; BMI 39.4
[2021-11-04 10:38] VITALS: BP 137/75; PULSE 81; RESP 16; TEMP 36.2; BMI 39.4
--- NOTE | 2021-11-04 12:25 | PN.PCM_ITS ---
History of Present Illness Date of Service: 11/04/21 Chief Complaint: Left lower extremity posterior ulceration History of Wound: This is a 70-year-old female who presents to the wound healing center today with complaint of a nonhealing ulcer posterior left lower extremity. 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 Patient states she is at an assisted living facility where they care for her posterior ulceration. They have been applying Aquacel Ag and a compression dressing with Jorge wraps. She is elevating the left lower extremity and o ffloading with pillow padding. She denies any systemic or localized signs of infection at this time. Past medical, family, and social history reviewed and not pertinent to the current visit and all other systems reviewed and negative with exception of those listed above. Subjective Subjective This 71-year-old female presents to the wound care center for follow-up of bilateral lower extremity ulceration secondary to chronic venous insufficiency. She cites difficulty keeping her last 2 appointments due to inability to find a ride. She denies any constitutional symptoms today. She states her dressings are being changed at her assisted living facility daily. She has no other complaints. Objective Data Objective Data Vital Signs: Vital Signs Temp Pulse Resp BP 97.2 F L 81 16 137/75 H 11/04/21 10:38 11/04/21 10:38 11/04/21 10:38 11/04/21 10:38 Oxygen Delivery Method Room Air Weight: 82.554 kg Body Mass Index (BMI) 39.4 Physical Exam Const alert, oriented x3 and no apparent distress General Appearance: cooperative and comfortable HEENT normocephalic Eyes General Eye: normal appearance of both eyes Neck General: normal visual inspection Lymph Lymphatic: no lymphadenopathy noted and no lymphedema noted Resp normal respiratory effort Cardio regular rate and regular rhythm Extremity normal capillary refill, no joint enlargement and no calf tenderness Peripheral Pulses: Yes posterior tibial pulses present bilateral and dorsalis pedis pulses present bilateral Skin no rashes or lesions noted and no jaundice General Skin Exam: venous stasis Wound Narrative: Left lower extremity posterior leg/calf ulceration secondary to chronic venous insufficiency. Ulcerative site demonstrates a 50-50 fibrotic granular base with rolled wound edges and fibrotic tissue at the ulcerative margins with serosanguineous exudate. Ulcerative site measures 8.9 cm x 2 cm x 0.1 cm. Wound demonstrates no localized signs of infection. Surrounding skin is atrophic and intact Left lower extremity posterior leg/calf ulceration healed with no localized signs of infection. Right lower extremity medial leg/calf ulceration secondary to chronic venous insufficiency. Ulcerative site demonstrates a 50-50 fibrotic granular base with serosanguineous exudate. Ulcerative site measures 0.5 cm x 0.5 cm x 0.9 cm. Wound demonstrates no localized signs of infection. Right second digit wound secondary to pressure from abutting hallux and second digit hammer toe deformity. Wound measures 0.1cm x 0.1cm x 0.1cm. No signs of infection. Neuro oriented x3 and moves all extremities Debridement Note Debridement Note Wound debrided: Posterior medial left leg Laterality: Left Wound Grade/Stage: Isaac stage I Type of Debridement: Excisional debridement Anesthesia Used: 5% Lidocaine Gel Depth: Down to and including healthy tissue and in the subcutaneous layer Percentage of wound debrided: 100 Instrument Used: - ([employer] ultrasonic debrider) Tissue Removed: Fibrous, devitalized subcutaneous, biofilm, slough Severity: Fat Layer Exposed Amount of bleeding with debridement: Mild Bleeding Controlled with: Compression and gauze Patient tolerated procedure: Patient tolerated procedure well Post-Debridement Measurements and Additional Note: Post-Debridement Measurements/Treatment - Nurse 1 - General Ulcer Assessment Start: 11/04/21 10:38 Freq: Status: Active Protocol: JAZZ Activity Type Activity Date Activity User E-Sign Co-Sign Detail Recorded Client Recorded Date Recorded By Document 11/04/21 10:38 [facility] [id number] 11/04/21 10:56 [facility] 11/04/21 10:38 - Today's Visit Information Type of service Follow-up Visit (Physician/RAIL SPECIALIST ) Height and Weight Body Mass Index (BMI) 39.4 BMI Classification Obese Vital Signs Temperature (97.8 F-99.1 F) 97.2 F L Temperature Source Temporal Pulse Rate (60-100) 81 Pulse Location Monitor Respiratory Rate (12-18) 16 Respiratory rate source Observation Oxygen Delivery Method Room Air Blood Pressure (90/60-120/80) 137/75 H Blood Pressure Mean (mm Hg) 95 Source Monitor Position Sitting History Since Last Visit- (Skip if this is Patient's initial visit) Have you changed medications since your No last visit? Any new allergies or adverse reactions No Had a fall/change in ADL's that may No increase risk of falls Signs or symptoms of abuse and/or No neglect since last visit Have you been in the hospital since your No last visit? Has dressing in place as prescribed Yes Has compression in place as prescribed Yes Has offloadiing in place as prescribed Yes Experienced any changes in pain level or No management Left Footwear Custom Shoe Right Footwear Custom Shoe Pain Scale: 0-10 Numeric Is Patient Pain Free? Yes WC - Nurse 1 - General Ulcer Measurement Start: 11/04/21 10:38 Freq: Status: Active Protocol: Activity Type Activity Date Activity User E-Sign Co-Sign Detail Recorded Client Recorded Date Recorded By Document 11/04/21 10:38 [facility] [id number] 11/04/21 10:56 [facility] 11/04/21 10:38 Wound Center Nurse 1 #7 R 2nd toe -Combined with other wound No -Current Size (cm) - Length 0.1 -Current Size (cm) - Width 0.1 -Current Size (cm) - Depth 0.2 -Total Square Cm 0.01 -Date of Last Picture (Recall this 11/04/21 field) -Photo Taken Yes -Tunneling No -Undermining/Tunneling No -Circular Undermining No -Change in Wound Grade/Stage No -Exudate Amt None Present -Granulation Quality N/A -Slough/Fibrin No -Necrosis Amt None Present (0 %) -Structure Exposed N/A -Texture (Yajaira-wound Skin Appearance) Assessed,Callus -Moisture (Yajaira-wound Skin Appearance) No Abnormality, Assessed -Color (Yajaira-wound Skin Appearance) No Abnormality, Assessed -Temperature (Yajaira-wound Skin No Abnormality Appearance) (Pt Warm) -Tenderness on Palpation (Yajaira-wound Yes Skin Appearance) -Ulcer Cleansing Soap and Water -Foul Odor after Cleansing No -Anesthetic Used 4% Lidocaine Solution #4 Left Post Lateral -Combined with other wound No -Current Size (cm) - Length 8.9 -Current Size (cm) - Width 2 -Current Size (cm) - Depth 0.1 -Total Square Cm 17.8 -Date of Last Picture (Recall this 11/04/21 field) -Photo Taken Yes -Epithelialization None Present -Tunneling No -Undermining/Tunneling No -Circular Undermining No -Exudate Amt Medium -Exudate Type Serosanguineous -Wound Margin Distinct, Outline Attached -Granulation Amt Large (67-100%) -Granulation Quality [place] -Slough/Fibrin Yes -Necrosis Amt Small (1-33%) -Necrotic Tissue Type Adherent Slough -Texture (Yajaira-wound Skin Appearance) Assessed, Scarring -Moisture (Yajaira-wound Skin Appearance) Assessed -Color (Yajaira-wound Skin Appearance) Assessed, Hemosiderin Staining -Temperature (Yajaira-wound Skin No Abnormality Appearance) (Pt Warm) -Tenderness on Palpation (Yajaira-wound Yes Skin Appearance) -Ulcer Cleansing Soap and Water -Foul Odor after Cleansing No -Anesthetic Used 4% Lidocaine Solution 3-right medial lower leg -Combined with other wound No -Current Size (cm) - Length 0.5 -Current Size (cm) - Width 0.5 -Current Size (cm) - Depth 0.5 -Total Square Cm 0.25 -Date of Last Picture (Recall this 11/04/21 field) -Photo Taken Yes -Tunneling No -Undermining/Tunneling No -Circular Undermining No -Change in Wound Grade/Stage No -Exudate Amt Medium -Exudate Type Serosanguineous -Wound Margin Distinct, Outline Attached -Granulation Amt None Present (0 %) -Granulation Quality N/A -Slough/Fibrin Yes -Necrosis Amt Small (1-33%) -Necrotic Tissue Type Adherent Slough -Structure Exposed N/A -Texture (Yajaira-wound Skin Appearance) No Abnormality, Assessed -Moisture (Yajaira-wound Skin Appearance) No Abnormality, Assessed -Color (Yajaira-wound Skin Appearance) Assessed, Hemosiderin Staining -Temperature (Yajaira-wound Skin No Abnormality Appearance) (Pt Warm) -Tenderness on Palpation (Yajaira-wound Yes Skin Appearance) -Ulcer Cleansing Soap and Water -Foul Odor after Cleansing No -Anesthetic Used 4% Lidocaine Solution Right Calf (cm) 34.7 Right Ankle (cm) 21.4 Left Calf (cm) 35.5 Left Ankle (cm) 21.4 WC - Nurse 2 - General Ulcer CM Notes Start: 11/04/21 10:38 Freq: Status: Active Protocol: Activity Type Activity Date Activity User E-Sign Co-Sign Detail Recorded Client Recorded Date Recorded By Document 11/04/21 11:32 PHAN [id number] 11/04/21 11:44 JF 11/04/21 11:32 Wound Center Nurse 2 #7 R 2nd toe -Correct Patient No -Correct Side, Site, Position No -Correct Procedure No -Procedure Performed No -Wound/Ulcer Outcome Not Healed -Debridement - Subq, 1st 20sq cm No #4 Left Post Lateral -Time 11:33 -Correct Patient Yes -Correct Side, Site, Position Yes -Correct Procedure Yes -Procedure Performed Yes -Type of Procedure Debridement -Clinical Debridement Subcutaneous -Tissue Removed Subcutaneous -Post Debridement (cm) - Length 9 -Post Debridement (cm) - Width 2 -Post Debridement (cm) - Depth 0.1 -Total Square (Post) (cm) 18 -Area of Debridement (cm) - Length 9 -Area of Debridement (cm) - Width 2 -Total Square (Area) (cm) 18 -Tunneling No -Undermining/Tunneling No -Circular Undermining No -Wound/Ulcer Outcome Not Healed -Ulcer Cleansing Rinsed/ Irrigated with Saline -Foul Odor after Cleansing No -Bioengineered Tissue No -Bleeding Controlled with Pressure -Treatment Response Procedure Tolerated Well -Offloading No -Debridement - Subq, 1st 20sq cm No 3-right medial lower leg -Time 11:41 -Correct Patient Yes -Correct Side, Site, Position Yes -Correct Procedure Yes -Procedure Performed Yes -Type of Procedure Debridement -Clinical Debridement Subcutaneous -Tissue Removed Subcutaneous -Post Debridement (cm) - Length 0.6 -Post Debridement (cm) - Width 0.5 -Post Debridement (cm) - Depth 0.9 -Total Square (Post) (cm) 0.30 -Area of Debridement (cm) - Length 0.6 -Area of Debridement (cm) - Width 0.5 -Total Square (Area) (cm) 0.30 -Tunneling No -Undermining/Tunneling No -Circular Undermining No -Wound/Ulcer Outcome Not Healed -Ulcer Cleansing Rinsed/ Irrigated with Saline -Foul Odor after Cleansing No -Bioengineered Tissue No -Bleeding Controlled with Pressure -Treatment Response Procedure Tolerated Well -Offloading No -Debridement - Subq, 1st 20sq cm Yes Pain Scale: 0-10 Numeric Is Patient Pain Free? Yes WC - Nurse 3 - General Ulcer D/C NN Start: 11/04/21 10:38 Freq: Status: Active Protocol: Activity Type Activity Date Activity User E-Sign Co-Sign Detail Recorded Client Recorded Date Recorded By Document 11/04/21 12:05 [facility] [id number] 11/04/21 12:07 [facility] 11/04/21 12:05 Wound Care Nurse 3 #7 R 2nd toe -Primary Dressing Applied Other -Other Dressing apperture pads #4 Left Post Lateral -Ulcer Cleansing Rinsed/ Irrigated with Saline -Foul Odor after Cleansing No -Primary Dressing Applied Promogran Ashly Matter -Primary Dressing Covered/Secured with Dry Gauze & Roll Gauze, Secured with Tape,Other -Other Covering abd -Promogran Ashly Matter 1 3-right medial lower leg -Ulcer Cleansing Rinsed/ Irrigated with Saline -Foul Odor after Cleansing No -Primary Dressing Applied Aquacel AG 4x4 -Primary Dressing Covered/Secured with Dry Gauze & Roll Gauze, Secured with Tape,Other -Other Covering abd -Aquacel AG 4x4 1 Left -Compression Wrap Surepress ($) RIGHT -Compression Wrap Surepress ($) Treatment Response Procedure Tolerated Well Pain Scale: 0-10 Numeric Is Patient Pain Free? Yes WC - Visit Discharge Discharge Condition Stable Ambulatory Status Wheelchair Other [facility] Additional Wound Wound debrided: Right posterior medial Laterality: Right Wound Grade/Stage: Isaac stage II Type of Debridement: Excisional debridement Anesthesia Used: 5% Lidocaine Gel Depth: Down to and including healthy tissue and in the subcutaneous layer Percentage of wound debrided: 100 Instrument Used: - ([employer] ultrasonic debrider) Tissue Removed: Fibrous, devitalized subcutaneous, biofilm, slough Severity: Fat Layer Exposed Amount of bleeding with debridement: Mild Bleeding Controlled with: Compression and gauze Patient tolerated procedure: Patient tolerated procedure well Assessment/Plan Assessment/Plan (1) Non-pressure chronic ulcer of left calf with fat layer exposed: CODE(S): L97.222 - Non-pressure chronic ulcer of left calf with fat layer exposed (2) Non-pressure chronic ulcer of right calf with fat layer exposed: CODE(S): L97.212 - Non-pressure chronic ulcer of right calf with fat layer exposed (3) Venous ulcer of left lower extremity without varicose veins: CODE(S): I87.2 - Venous insufficiency (chronic) (peripheral); L97.929 - Non-pressure chronic ulcer of unspecified part of left lower leg with unspecified severity (4) Venous insufficiency of both lower extremities: CODE(S): I87.2 - Venous insufficiency (chronic) (peripheral) (5) Lower extremity edema: CODE(S): R60.0 - Localized edema (6) History of pulmonary embolism: CODE(S): Z86.711 - Personal history of pulmonary embolism (7) Essential (primary) hypertension: CODE(S): I10 - Essential (primary) hypertension (8) Hyperlipidemia: CODE(S): E78.5 - Hyperlipidemia, unspecified (9) Nicotine dependence: CODE(S): F17.200 - Nicotine dependence, unspecified, uncomplicated (10) Toe ulcer, right: CODE(S): L97.519 - Non-pressure chronic ulcer of other part of right foot with unspecified severity PLAN: This is a 71-year-old female who presents to the wound care center for follow-up of left lower extremity ulceration secondary to venous insufficiency, complicated by essential primary hypertension, hyperlipidemia, lower extremity edema, and nicotine dependence. She has prior history of pulmonary embolism is currently on warfarin. She is a chronic nicotine abuser and continues to smoke daily. Patient seen and evaluated She has a new wound measuring 0.1 cm x 0.1 cm x 0.1 cm to the medial aspect of the second digit secondary to a hammertoe deformity abutting against the hallux. No signs of infection. She is instructed to place a cotton ball between the toes to offload the site. Ulceration posterior left lower extremity was examined today and noted to be decreasing in size. Ulceration measures 8.9 cm x 2 cm x 0.1 cm. Ulceration demonstrates no localized signs of infection. Ulceration sites were debrided sharply with [employer]isonix ultrasonic debridement as stated in clinical panel above. Wound demonstrates no localized signs of infection. Surrounding skin is atrophic and dry. Promogran applied to ulceration site and dressed with Aquacel Ag, then a super absorbent dressing with compression dressing. Dressings are to be changed once a day at her assisted living facility. She is to continue to elevate her lower extremities during periods of rest and offload the site with a soft pillow to the back of her leg. Right anterior medial leg ulceration secondary to chronic venous insufficiency was sharply debrided with a [employer] ultrasonic debrider as stated in clinical panel above. Ulcerative site measures 0.5 cm x 0.5 cm x 0.9 cm. There is no localized signs of infection. The site was packed with Aquacel Ag rope to the distal aspect and a compression wrap to be changed daily. She may continue to apply lotion to the surrounding skin in between dressing changes but not to place any lotion in the wound bed or between her toes. Patient is a known chronic smoker who continues smoking. I continue to remind her on the essentials of proper wound healing and stressed the importance of smoking cessation today to ensure proper wound healing. I informed her that continuing to smoke will slow down the progression of her wound healing by decreasing blood flow to the extremity and the ulceration site and thus complicate her healing status, overall health, and result in possible loss of limb. Patient states that she will try the best she can to stop smoking. I discussed localized signs of infection for her to observe. I discussed with her if she notices any increased redness moving up the leg, purulent drainage from the site, malodor, increased pain not controlled by [id number] medications, or if she experiences any fever, nausea, vomiting, chills or other constitutional symptoms that she is to report to the ED as these are signs of a progressing infection. She voices understanding of this. I reviewed and discussed her case today. Debridement was performed today as noted in the clinical panel to all of the ulcer sites. The following work up and care recommendations were made: Dressing: Promogran to the ulceration site, Aquacel Ag then super absorbent dressing, then a compressive dressing changed once daily. Aquacel Ag rope pack to right leg ulceration Wash: Soap and water Tissue growth optimization: Promogran Offload: Offloading with soft pillows to the back of the leg and elevate lower extremity Vascular: Multiphasic pulses on Doppler from 07/22/21 Edema: Elevate left lower extremity comply with compression wrap dressing Infection: No localized signs of infection Pain: May take [id number] Tylenol extra strength Host factors: Smoking cessation and edema control secondary to chronic venous insufficiency, increase protein intake Microbiology: Aerobic and anaerobic cultures taken of this wound site 09/02/2021 and the tunnel demonstrate +1 Serratia liquefaction's, rare MRSA, and +1 strep mitis. She has completed full course of doxycycline and levofloxacin. Cellulitis resolved. I answered all the patient's questions. To return to the wound healing center in 1 week or call sooner if the patient has any questions or concerns. Note: [employer] speech recognition medical librarian software was used to create portions of this document. Sound-alike and misspelled words, as well as other medical librarian errors may be contained in the documentation.
[2021-11-11 10:52] VITALS: BP 152/101; PULSE 69; RESP 18; TEMP 35.7; BMI 39.4
--- NOTE | 2021-11-11 14:51 | PN.PCM_ITS ---
History of Present Illness Date of Service: 11/11/21 Chief Complaint: Left lower extremity posterior ulceration History of Wound: This is a 70-year-old female who presents to the wound healing center today with complaint of a nonhealing ulcer posterior left lower extremity. 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 Patient states she is at an assisted living facility where they care for her posterior ulceration. They have been applying Aquacel Ag and a compression dressing with Jorge wraps. She is elevating the left lower extremity and o ffloading with pillow padding. She denies any systemic or localized signs of infection at this time. Past medical, family, and social history reviewed and not pertinent to the current visit and all other systems reviewed and negative with exception of those listed above. Subjective Subjective This 71-year-old female presents to the wound care center for follow-up of bilateral lower extremity ulceration secondary to chronic venous insufficiency. She denies any constitutional symptoms today. She states her dressings are being changed at her assisted living facility daily. She states she is still smoking and would like to smoke a few more cigarettes than what she currently is smoking. She has no other complaints. Objective Data Objective Data Vital Signs: Vital Signs Temp Pulse Resp BP 96.2 F L 69 18 152/101 H 11/11/21 10:52 11/11/21 10:52 11/11/21 10:52 11/11/21 10:52 Oxygen Delivery Method Room Air Weight: 82.554 kg Body Mass Index (BMI) 39.4 Physical Exam Const alert, oriented x3 and no apparent distress General Appearance: cooperative and comfortable HEENT normocephalic Eyes General Eye: normal appearance of both eyes Neck General: normal visual inspection Lymph Lymphatic: no lymphadenopathy noted and no lymphedema noted Resp normal respiratory effort Cardio regular rate and regular rhythm Extremity normal capillary refill, no joint enlargement and no calf tenderness Skin no rashes or lesions noted and no jaundice General Skin Exam: venous stasis Wound Narrative: Left lower extremity posterior leg/calf ulceration secondary to chronic venous insufficiency. Ulcerative site demonstrates a 50-50 fibrotic granular base with rolled wound edges and fibrotic tissue at the ulcerative margins with serosanguineous exudate. Ulcerative site measures 7.5 cm x 2 cm x 0.1 cm. Wound demonstrates no localized signs of infection. Surrounding skin is atrophic and intact Left lower extremity posterior leg/calf ulceration healed with no localized sig ns of infection. Right lower extremity medial leg/calf ulceration secondary to chronic venous insufficiency. Ulcerative site demonstrates a 50-50 fibrotic granular base with serosanguineous exudate. Ulcerative site measures 0.5 cm x 0.5 cm x 0.6 cm. Wound demonstrates no localized signs of infection. Right second digit wound secondary to pressure from abutting hallux and second digit hammer toe deformity. Wound measures 0.1cm x 0.1cm x 0.1cm. No signs of infection. Neuro oriented x3 and moves all extremities Debridement Note Debridement Note Wound debrided: Left lower extremity Laterality: Left Wound Grade/Stage: Isaac stage I Type of Debridement: Excisional debridement Anesthesia Used: 5% Lidocaine Gel Depth: Down to and including healthy tissue and in the subcutaneous layer Percentage of wound debrided: 100 Instrument Used: - (WeYAPonix ultrasonic debrider) Tissue Removed: Fibrous, devitalized subcutaneous, biofilm, slough Severity: Fat Layer Exposed Amount of bleeding with debridement: Mild Bleeding Controlled with: Compression and gauze Patient tolerated procedure: Patient tolerated procedure well Post-Debridement Measurements and Additional Note: Post-Debridement Measurements/Treatment - Nurse 1 - General Ulcer Assessment Start: 11/04/21 10:38 Freq: Status: Active Protocol: JAZZ Activity Type Activity Date Activity User E-Sign Co-Sign Detail Recorded Client Recorded Date Recorded By Document 11/04/21 10:38 [facility] [id number] 11/04/21 10:56 [facility] Document 11/11/21 10:52 [facility] [id number] 11/11/21 11:06 [facility] 11/04/21 11/11/21 10:38 10:52 - Today's Visit Information Type of service Follow-up Visit Follow-up Visit (Physician/ELECTRONIC COMMERCE SPECIALIST (Physician/ELECTRONIC COMMERCE SPECIALIST ) ) Arrival Mode Wheelchair Transfer Assistance Other Transfer Assist (Other) 2 max assist Patient Identification Verified (Name & Yes ) Height and Weight Body Mass Index (BMI) 39.4 39.4 BMI Classification Obese Obese Vital Signs Temperature (97.8 F-99.1 F) 97.2 F L 96.2 F L Temperature Source Temporal Temporal Pulse Rate (60-100) 81 69 Pulse Location Monitor Monitor Respiratory Rate (12-18) 16 18 Respiratory rate source Observation Observation Oxygen Delivery Method Room Air Room Air Blood Pressure (90/60-120/80) 137/75 H 152/101 H Blood Pressure Mean (mm Hg) 95 118 Source Monitor Monitor Position Sitting Sitting Blood Pressure Location Right Forearm History Since Last Visit- (Skip if this is Patient's initial visit) Have you changed medications since your No No last visit? Any new allergies or adverse reactions No No Had a fall/change in ADL's that may No No increase risk of falls Signs or symptoms of abuse and/or No No neglect since last visit Have you been in the hospital since your No No last visit? Has dressing in place as prescribed Yes Yes Has compression in place as prescribed Yes Yes Has offloadiing in place as prescribed Yes N/A Experienced any changes in pain level or No No management Left Footwear Custom Shoe Regular Shoe Right Footwear Custom Shoe Regular Shoe Pain Scale: 0-10 Numeric Is Patient Pain Free? Yes No back -Description Aching -Intensity 7 -Duration (hours) Acute -Pain Behavior Withdrawal from Touch,Facial Grimacing -Pain Aggravating Factors Standing, Sitting -Alleviating Factors/Interventions Distraction, Will continue to monitor, Patient denies need for intervention, Emotional Support -Comments pt took norco prior to visit WC - Nurse 1 - General Ulcer Measurement Start: 11/04/21 10:38 Freq: Status: Active Protocol: Activity Type Activity Date Activity User E-Sign Co-Sign Detail Recorded Client Recorded Date Recorded By Document 11/04/21 10:38 [facility] [id number] 11/04/21 10:56 [facility] Document 11/11/21 10:52 [facility] [id number] 11/11/21 11:06 [facility] 11/04/21 11/11/21 10:38 10:52 Wound Center Nurse 1 #7 R 2nd toe -Combined with other wound No No -Current Size (cm) - Length 0.1 0.1 -Current Size (cm) - Width 0.1 0.1 -Current Size (cm) - Depth 0.2 0.2 -Total Square Cm 0.01 0.01 -Date of Last Picture (Recall this 11/04/21 11/11/21 field) -Photo Taken Yes Yes -Epithelialization None Present -Tunneling No No -Undermining/Tunneling No No -Circular Undermining No No -Change in Wound Grade/Stage No -Exudate Amt None Present Medium -Exudate Type Purulent -Wound Margin Distinct, Outline Attached -Granulation Quality N/A -Slough/Fibrin No -Necrosis Amt None Present (0 %) -Structure Exposed N/A -Texture (Yajaira-wound Skin Appearance) Assessed,Callus Assessed, Localized Edema -Moisture (Yajaira-wound Skin Appearance) No Abnormality, Assessed,Dry/ Assessed Scaly -Color (Yajaira-wound Skin Appearance) No Abnormality, Assessed Assessed -Temperature (Yajaira-wound Skin No Abnormality No Abnormality Appearance) (Pt Warm) (Pt Warm) -Tenderness on Palpation (Yajaira-wound Yes Yes Skin Appearance) -Ulcer Cleansing Soap and Water Rinsed/ Irrigated with Saline -Foul Odor after Cleansing No No -Anesthetic Used 4% Lidocaine 4% Lidocaine Solution Solution -Wound Comment(s) very small hole , difficult to assess #4 Left Post Lateral -Combined with other wound No No -Current Size (cm) - Length 8.9 7.5 -Current Size (cm) - Width 2 2 -Current Size (cm) - Depth 0.1 0.2 -Total Square Cm 17.8 15.0 -Date of Last Picture (Recall this 11/04/21 11/11/21 field) -Photo Taken Yes Yes -Epithelialization None Present None Present -Tunneling No No -Undermining/Tunneling No No -Circular Undermining No No -Exudate Amt Medium Medium -Exudate Type Serosanguineous Serosanguineous -Wound Margin Distinct, Distinct, Outline Outline Attached Attached -Granulation Amt Large (67-100%) Small (1-33%) -Granulation Quality Myers Flat Myers Flat -Slough/Fibrin Yes Yes -Necrosis Amt Small (1-33%) Large (67-100%) -Necrotic Tissue Type Adherent Slough Adherent Slough -Texture (Yajaira-wound Skin Appearance) Assessed, Assessed, Scarring Scarring -Moisture (Yajaira-wound Skin Appearance) Assessed Assessed,Dry/ Scaly -Color (Yajaira-wound Skin Appearance) Assessed, Assessed Hemosiderin Staining -Temperature (Yajaira-wound Skin No Abnormality No Abnormality Appearance) (Pt Warm) (Pt Warm) -Tenderness on Palpation (Yajaira-wound Yes No Skin Appearance) -Ulcer Cleansing Soap and Water Rinsed/ Irrigated with Saline -Foul Odor after Cleansing No No -Anesthetic Used 4% Lidocaine 4% Lidocaine Solution Solution 3-right medial lower leg -Combined with other wound No No -Current Size (cm) - Length 0.5 0.5 -Current Size (cm) - Width 0.5 0.5 -Current Size (cm) - Depth 0.5 0.6 -Total Square Cm 0.25 0.25 -Date of Last Picture (Recall this 11/04/21 11/11/21 field) -Photo Taken Yes Yes -Epithelialization None Present -Tunneling No No -Undermining/Tunneling No No -Circular Undermining No No -Change in Wound Grade/Stage No -Exudate Amt Medium Medium -Exudate Type Serosanguineous Serosanguineous -Wound Margin Distinct, Distinct, Outline Outline Attached Attached -Granulation Amt None Present (0 Large (67-100%) %) -Granulation Quality N/A Red -Slough/Fibrin Yes No -Necrosis Amt Small (1-33%) None Present (0 %) -Necrotic Tissue Type Adherent Slough -Structure Exposed N/A -Texture (Yajaira-wound Skin Appearance) No Abnormality, Assessed, Assessed Scarring -Moisture (Yajaira-wound Skin Appearance) No Abnormality, Assessed,Dry/ Assessed Scaly -Color (Yajaira-wound Skin Appearance) Assessed, Assessed Hemosiderin Staining -Temperature (Yajaira-wound Skin No Abnormality No Abnormality Appearance) (Pt Warm) (Pt Warm) -Tenderness on Palpation (Yajaira-wound Yes Yes Skin Appearance) -Ulcer Cleansing Soap and Water Rinsed/ Irrigated with Saline -Foul Odor after Cleansing No No -Anesthetic Used 4% Lidocaine 4% Lidocaine Solution Solution Right Calf (cm) 34.7 Right Ankle (cm) 21.4 Left Calf (cm) 35.5 Left Ankle (cm) 21.4 WC - Nurse 2 - General Ulcer CM Notes Start: 11/04/21 10:38 Freq: Status: Active Protocol: Activity Type Activity Date Activity User E-Sign Co-Sign Detail Recorded Client Recorded Date Recorded By Document 11/04/21 11:32 [facility] [id number] 11/04/21 11:44 Document 11/11/21 14:14 PL [id number] 11/11/21 14:19 PL 11/04/21 11/11/21 11:32 14:14 Wound Center Nurse 2 #7 R 2nd toe -Time 11:10 -Correct Patient No Yes -Correct Side, Site, Position No Yes -Correct Procedure No Yes -Procedure Performed No Yes -Type of Procedure Debridement -Clinical Debridement Subcutaneous -Tissue Removed Subcutaneous -Post Debridement (cm) - Length 0.1 -Post Debridement (cm) - Width 0.1 -Post Debridement (cm) - Depth 0.2 -Total Square (Post) (cm) 0.01 -Area of Debridement (cm) - Length 0.1 -Area of Debridement (cm) - Width 0.1 -Total Square (Area) (cm) 0.01 -Tunneling No -Undermining/Tunneling No -Circular Undermining No -Wound/Ulcer Outcome Not Healed Not Healed -Ulcer Cleansing Rinsed/ Irrigated with Saline -Foul Odor after Cleansing No -Bioengineered Tissue No -Bleeding Controlled with Pressure -Treatment Response Procedure Tolerated Well -Debridement - Subq, 1st 20sq cm No Yes #4 Left Post Lateral -Time 11:33 11:10 -Correct Patient Yes Yes -Correct Side, Site, Position Yes Yes -Correct Procedure Yes Yes -Procedure Performed Yes Yes -Type of Procedure Debridement Debridement -Clinical Debridement Subcutaneous Subcutaneous -Tissue Removed Subcutaneous Subcutaneous -Post Debridement (cm) - Length 9 7.5 -Post Debridement (cm) - Width 2 2 -Post Debridement (cm) - Depth 0.1 0.2 -Total Square (Post) (cm) 18 15.0 -Area of Debridement (cm) - Length 9 7.5 -Area of Debridement (cm) - Width 2 2.0 -Total Square (Area) (cm) 18 15.00 -Tunneling No No -Undermining/Tunneling No No -Circular Undermining No No -Wound/Ulcer Outcome Not Healed Not Healed -Ulcer Cleansing Rinsed/ Rinsed/ Irrigated with Irrigated with Saline Saline -Foul Odor after Cleansing No No -Bioengineered Tissue No No -Bleeding Controlled with Pressure Pressure -Treatment Response Procedure Procedure Tolerated Well Tolerated Well -Offloading No -Debridement - Subq, 1st 20sq cm No No 3-right medial lower leg -Time 11:41 11:10 -Correct Patient Yes Yes -Correct Side, Site, Position Yes Yes -Correct Procedure Yes Yes -Procedure Performed Yes Yes -Type of Procedure Debridement Debridement -Clinical Debridement Subcutaneous Subcutaneous -Tissue Removed Subcutaneous Subcutaneous -Post Debridement (cm) - Length 0.6 0.5 -Post Debridement (cm) - Width 0.5 0.5 -Post Debridement (cm) - Depth 0.9 0.6 -Total Square (Post) (cm) 0.30 0.25 -Area of Debridement (cm) - Length 0.6 0.5 -Area of Debridement (cm) - Width 0.5 0.5 -Total Square (Area) (cm) 0.30 0.25 -Tunneling No No -Undermining/Tunneling No No -Circular Undermining No No -Wound/Ulcer Outcome Not Healed Not Healed -Ulcer Cleansing Rinsed/ Rinsed/ Irrigated with Irrigated with Saline Saline -Foul Odor after Cleansing No No -Bioengineered Tissue No No -Bleeding Controlled with Pressure Pressure -Treatment Response Procedure Procedure Tolerated Well Tolerated Well -Offloading No -Debridement - Subq, 1st 20sq cm Yes Yes Pain Scale: 0-10 Numeric Is Patient Pain Free? Yes Yes WC - Nurse 3 - General Ulcer D/C NN Start: 11/04/21 10:38 Freq: Status: Active Protocol: Activity Type Activity Date Activity User E-Sign Co-Sign Detail Recorded Client Recorded Date Recorded By Document 11/04/21 12:05 [facility] [id number] 11/04/21 12:07 [facility] Document 11/11/21 11:44 [facility] [id number] 11/11/21 11:47 [facility] 11/04/21 11/11/21 12:05 11:44 Wound Care Nurse 3 #7 R 2nd toe -Ulcer Cleansing Rinsed/ Irrigated with Saline -Foul Odor after Cleansing No -Primary Dressing Applied Other -Other Dressing apperture pads aperture pad -Other Covering per ak broadcast journalist #4 Left Post Lateral -Ulcer Cleansing Rinsed/ Rinsed/ Irrigated with Irrigated with Saline Saline -Foul Odor after Cleansing No No -Primary Dressing Applied Promogran Promogran Ashly Matter -Primary Dressing Covered/Secured with Dry Gauze & Dry Gauze & Roll Gauze, Roll Gauze, Secured with Secured with Tape,Other Tape -Other Covering abd drsg per ak broadcast journalist -Promogran 1 -Promogran Ashly Matter 1 3-right medial lower leg -Ulcer Cleansing Rinsed/ Rinsed/ Irrigated with Irrigated with Saline Saline -Foul Odor after Cleansing No No -Primary Dressing Applied Aquacel AG 4x4 Aquacel AG 4x4 -Primary Dressing Covered/Secured with Dry Gauze & Dry Gauze & Roll Gauze, Roll Gauze, Secured with Secured with Tape,Other Tape -Other Covering abd drsg per ak broadcast journalist -Aquacel AG 4x4 1 1 Left -Compression Wrap Surepress ($) Surepress ($) RIGHT -Compression Wrap Surepress ($) Surepress ($) Treatment Response Procedure Procedure Tolerated Well Tolerated Well Pain Scale: 0-10 Numeric Is Patient Pain Free? Yes Yes WC - Visit Discharge Discharge Condition Stable Stable Ambulatory Status Wheelchair Wheelchair Other [facility] Additional Wound Wound debrided: Right lower extremity Laterality: Right Wound Grade/Stage: Isaac stage II Type of Debridement: Excisional debridement Anesthesia Used: 5% Lidocaine Gel Depth: Down to and including healthy tissue and in the subcutaneous layer Percentage of wound debrided: 100 Instrument Used: - (WeYAPonix ultrasonic debrider) Tissue Removed: Fibrous, devitalized subcutaneous, biofilm, slough Severity: Fat Layer Exposed Amount of bleeding with debridement: Mild Bleeding Controlled with: Compression and gauze Patient tolerated procedure: Patient tolerated procedure well Assessment/Plan Assessment/Plan (1) Non-pressure chronic ulcer of left calf with fat layer exposed: CODE(S): L97.222 - Non-pressure chronic ulcer of left calf with fat layer exposed (2) Non-pressure chronic ulcer of right calf with fat layer exposed: CODE(S): L97.212 - Non-pressure chronic ulcer of right calf with fat layer exposed (3) Venous ulcer of left lower extremity without varicose veins: CODE(S): I87.2 - Venous insufficiency (chronic) (peripheral); L97.929 - Non-pressure chronic ulcer of unspecified part of left lower leg with unspecified severity (4) Venous insufficiency of both lower extremities: CODE(S): I87.2 - Venous insufficiency (chronic) (peripheral) (5) Lower extremity edema: CODE(S): R60.0 - Localized edema (6) History of pulmonary embolism: CODE(S): Z86.711 - Personal history of pulmonary embolism (7) Essential (primary) hypertension: CODE(S): I10 - Essential (primary) hypertension (8) Hyperlipidemia: CODE(S): E78.5 - Hyperlipidemia, unspecified (9) Nicotine dependence: CODE(S): F17.200 - Nicotine dependence, unspecified, uncomplicated (10) Toe ulcer, right: CODE(S): L97.519 - Non-pressure chronic ulcer of other part of right foot with unspecified severity PLAN: This is a 71-year-old female who presents to the wound care center for follow-up of left lower extremity ulceration secondary to venous insufficiency, complicated by essential primary hypertension, hyperlipidemia, lower extremity edema, and nicotine dependence. She has prior history of pulmonary embolism is currently on warfarin. She is a chronic nicotine abuser and continues to smoke daily. Patient seen and evaluated Second digit medial wound measuring 0.1 cm x 0.1 cm x 0.1 cm secondary to a hammertoe deformity abutting against the hallux. No signs of infection. She is instructed to place a cotton ball/gauze/silicone spacer between the toes to offload the site. Ulceration posterior left lower extremity was examined today and noted to be decreasing in size. Ulceration measures 7.5 cm x 2 cm x 0.1 cm. Ulceration demonstrates no localized signs of infection. Ulceration sites were debrided sharply with Misonix ultrasonic debridement as stated in clinical panel above. Surrounding skin is atrophic and dry. Promogran applied to ulceration site and dressed with Aquacel Ag, then a super absorbent dressing with compression dressing. Dressings are to be changed once a day at her assisted living facility. She is to continue to elevate her lower extremities during periods of rest and offload the site with a soft pillow to the back of her leg. Right anterior medial leg ulceration secondary to chronic venous insufficiency was sharply debrided with a Misonix ultrasonic debrider as stated in clinical panel above. Ulcerative site measures 0.5 cm x 0.5 cm x 0.6 cm. There is no localized signs of infection. The site was packed with Aquacel Ag rope to the distal aspect and a compression wrap to be changed daily. Patient is a known chronic smoker who continues smoking. I continue to remind her on the essentials of proper wound healing and stressed the importance of smoking cessation today to ensure proper wound healing. I informed her that continuing to smoke will slow down the progression of her wound healing by decreasing blood flow to the extremity and the ulceration site and thus complicate her healing status, overall health, and result in possible loss of limb. Patient states that she will try the best she can to stop smoking. I discussed localized signs of infection for her to observe. I discussed with her if she notices any increased redness moving up the leg, purulent drainage from the site, malodor, increased pain not controlled by [id number] medications, or if she experiences any fever, nausea, vomiting, chills or other constitutional symptoms that she is to report to the ED as these are signs of a progressing infection. She voices understanding of this. I reviewed and discussed her case today. Debridement was performed today as noted in the clinical panel to all of the ulcer sites. The following work up and care recommendations were made: Dressing: Promogran to the ulceration site, Aquacel Ag then super absorbent dressing, then a compressive dressing changed once daily. Aquacel Ag rope pack to right leg ulceration Wash: Soap and water Tissue growth optimization: Promogran Offload: Offloading with soft pillows to the back of the leg and elevate lower extremity Vascular: Multiphasic pulses on Doppler from 07/22/21 Edema: Elevate left lower extremity comply with compression wrap dressing Infection: No localized signs of infection Pain: May take [id number] Tylenol extra strength Host factors: Smoking cessation and edema control secondary to chronic venous insufficiency, increase protein intake Microbiology: Aerobic and anaerobic cultures taken of this wound site 09/02/2021 and the tunnel demonstrate +1 Serratia liquefaction's, rare MRSA, and +1 strep mitis. She has completed full course of doxycycline and levofloxacin. Cellulitis resolved. I answered all the patient's questions. To return to the wound healing center in 1 week or call sooner if the patient has any questions or concerns. Note: [employer] speech recognition yard rigger software was used to create portio ns of this document. Sound-alike and misspelled words, as well as other yard rigger errors may be contained in the documentation.
[2021-11-18 10:58] VITALS: BMI 39.4
--- NOTE | 2021-11-18 17:16 | PN.PCM_ITS ---
History of Present Illness Date of Service: 11/18/21 Chief Complaint: Left lower extremity posterior ulceration History of Wound: This is a 70-year-old female who presents to the wound healing center today with complaint of a nonhealing ulcer posterior left lower extremity. 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 Patient states she is at an assisted living facility where they care for her posterior ulceration. They have been applying Aquacel Ag and a compression dressing with Jorge wraps. She is elevating the left lower extremity and o ffloading with pillow padding. She denies any systemic or localized signs of infection at this time. Past medical, family, and social history reviewed and not pertinent to the current visit and all other systems reviewed and negative with exception of those listed above. Subjective Subjective This 71-year-old female presents to the wound care center for follow-up of bilateral lower extremity ulceration secondary to chronic venous insufficiency. She denies any constitutional symptoms today. She states her dressings are being changed at her assisted living facility daily. She states she is still smoking. She has no other complaints. Objective Data Objective Data Vital Signs: Vital Signs Temp Pulse Resp BP 96.2 F L 69 18 152/101 H 11/11/21 10:52 11/11/21 10:52 11/11/21 10:52 11/11/21 10:52 Oxygen Delivery Method Room Air Weight: 82.554 kg Body Mass Index (BMI) 39.4 Physical Exam Const alert, oriented x3 and no apparent distress General Appearance: cooperative and comfortable HEENT normocephalic Eyes General Eye: normal appearance of both eyes Neck General: normal visual inspection Lymph Lymphatic: no lymphadenopathy noted and no lymphedema noted Resp normal respiratory effort Cardio regular rate and regular rhythm Extremity normal capillary refill, no joint enlargement and no calf tenderness Skin no rashes or lesions noted and no jaundice General Skin Exam: venous stasis Wound Narrative: Left lower extremity posterior leg/calf ulceration secondary to chronic venous insufficiency. Ulcerative site demonstrates a 50-50 fibrotic granular base with rolled wound edges and fibrotic tissue at the ulcerative margins with serosanguineous exudate. Ulcerative site measures 7.9 cm x 1.6 cm x 0.1 cm. Wound demonstrates no localized signs of infection. Surrounding skin is atrophic and intact Left lower extremity posterior leg/calf ulceration healed with no localized signs of infection. Right lower extremity medial leg/calf ulceration secondary to chronic venous insufficiency. Ulcerative site demonstrates a 50-50 fibrotic granular base with serosanguineous exudate. Ulcerative site measures 0.8 cm x 0.6 cm x 1.4cm. Wound demonstrates no localized signs of infection. Right second digit wound secondary to pressure from abutting hallux and second digit hammer toe deformity. Wound measures 0.1cm x 0.1cm x 0.1cm. No signs of infection. Neuro oriented x3 and moves all extremities Debridement Note Debridement Note Wound debrided: Left posterior lower extremity Laterality: Left Wound Grade/Stage: Isaac stage I Type of Debridement: Excisional debridement Anesthesia Used: 5% Lidocaine Gel Depth: Down to and including healthy tissue and in the subcutaneous layer Percentage of wound debrided: 100 Instrument Used: - (uma information technologyonix Ultrasonic Debrider) Tissue Removed: Fibrous, devitalized subcutaneous, biofilm, slough Severity: Fat Layer Exposed Amount of bleeding with debridement: Mild Bleeding Controlled with: Compression and gauze Patient tolerated procedure: Patient tolerated procedure well Post-Debridement Measurements and Additional Note: Post-Debridement Measurements/Treatment - Nurse 1 - General Ulcer Assessment Start: 11/04/21 10:38 Freq: Status: Active Protocol: JAZZ Activity Type Activity Date Activity User E-Sign Co-Sign Detail Recorded Client Recorded Date Recorded By Document 11/04/21 10:38 [facility] [id number] 11/04/21 10:56 [facility] Document 11/11/21 10:52 [facility] [id number] 11/11/21 11:06 [facility] Document 11/18/21 10:58 [id number] 11/18/21 11:04 11/04/21 11/11/21 11/18/21 10:38 10:52 10:58 - Today's Visit Information Type of service Follow-up Visit Follow-up Visit Follow-up Visit (Physician/LINE TENDER (Physician/LINE TENDER (Physician/LINE TENDER ) ) ) Arrival Mode Wheelchair Wheelchair Transfer Assistance Other Transfer Assist (Other) 2 max assist Patient Identification Verified (Name & Yes Yes ) Height and Weight Body Mass Index (BMI) 39.4 39.4 39.4 BMI Classification Obese Obese Obese Vital Signs Temperature (97.8 F-99.1 F) 97.2 F L 96.2 F L Temperature Source Temporal Temporal Temporal Pulse Rate (60-100) 81 69 Pulse Location Monitor Monitor Monitor Respiratory Rate (12-18) 16 18 Respiratory rate source Observation Observation Oxygen Delivery Method Room Air Room Air Blood Pressure (90/60-120/80) 137/75 H 152/101 H Blood Pressure Mean (mm Hg) 95 118 Source Monitor Monitor Monitor Position Sitting Sitting Sitting Blood Pressure Location Right Forearm Left Arm History Since Last Visit- (Skip if this is Patient's initial visit) Have you changed medications since your No No No last visit? Any new allergies or adverse reactions No No No Had a fall/change in ADL's that may No No No increase risk of falls Signs or symptoms of abuse and/or No No No neglect since last visit Have you been in the hospital since your No No No last visit? Has dressing in place as prescribed Yes Yes Yes Has compression in place as prescribed Yes Yes Yes Has offloadiing in place as prescribed Yes N/A N/A Experienced any changes in pain level or No No No management Left Footwear Custom Shoe Regular Shoe Regular Shoe Right Footwear Custom Shoe Regular Shoe Regular Shoe Pain Scale: 0-10 Numeric Is Patient Pain Free? Yes No Yes back -Description Aching -Intensity 7 -Duration (hours) Acute -Pain Behavior Withdrawal from Touch,Facial Grimacing -Pain Aggravating Factors Standing, Sitting -Alleviating Factors/Interventions Distraction, Will continue to monitor, Patient denies need for intervention, Emotional Support -Comments pt took norco prior to visit WC - Nurse 1 - General Ulcer Measurement Start: 11/04/21 10:38 Freq: Status: Active Protocol: Activity Type Activity Date Activity User E-Sign Co-Sign Detail Recorded Client Recorded Date Recorded By Document 11/04/21 10:38 [facility] [id number] 11/04/21 10:56 [facility] Document 11/11/21 10:52 [facility] [id number] 11/11/21 11:06 [facility] Document 11/18/21 10:58 KR [id number] 11/18/21 11:04 KR 11/04/21 11/11/21 11/18/21 10:38 10:52 10:58 Wound Center Nurse 1 #7 R 2nd toe -Combined with other wound No No -Current Size (cm) - Length 0.1 0.1 -Current Size (cm) - Width 0.1 0.1 -Current Size (cm) - Depth 0.2 0.2 -Total Square Cm 0.01 0.01 -Date of Last Picture (Recall this 11/04/21 11/11/21 field) -Photo Taken Yes Yes -Epithelialization None Present -Tunneling No No -Undermining/Tunneling No No -Circular Undermining No No -Change in Wound Grade/Stage No -Exudate Amt None Present Medium -Exudate Type Purulent -Wound Margin Distinct, Outline Attached -Granulation Quality N/A -Slough/Fibrin No -Necrosis Amt None Present (0 %) -Structure Exposed N/A -Texture (Yajaira-wound Skin Appearance) Assessed,Callus Assessed, Localized Edema -Moisture (Yajaira-wound Skin Appearance) No Abnormality, Assessed,Dry/ Assessed Scaly -Color (Yajaira-wound Skin Appearance) No Abnormality, Assessed Assessed -Temperature (Yajaira-wound Skin No Abnormality No Abnormality Appearance) (Pt Warm) (Pt Warm) -Tenderness on Palpation (Yajaira-wound Yes Yes Skin Appearance) -Ulcer Cleansing Soap and Water Rinsed/ Irrigated with Saline -Foul Odor after Cleansing No No -Anesthetic Used 4% Lidocaine 4% Lidocaine Solution Solution -Wound Comment(s) very small hole , difficult to assess #4 Left Post Lateral -Combined with other wound No No -Current Size (cm) - Length 8.9 7.5 7.9 -Current Size (cm) - Width 2 2 1.6 -Current Size (cm) - Depth 0.1 0.2 0.1 -Total Square Cm 17.8 15.0 12.64 -Date of Last Picture (Recall this 11/04/21 11/11/21 field) -Photo Taken Yes Yes No -Epithelialization None Present None Present -Tunneling No No No -Undermining/Tunneling No No No -Circular Undermining No No No -Exudate Amt Medium Medium Medium -Exudate Type Serosanguineous Serosanguineous Serosanguineous -Wound Margin Distinct, Distinct, Distinct, Outline Outline Outline Attached Attached Attached -Granulation Amt Large (67-100%) Small (1-33%) Medium (34-66%) -Granulation Quality [place],Red -Slough/Fibrin Yes Yes -Necrosis Amt Small (1-33%) Large (67-100%) Medium (34-66%) -Necrotic Tissue Type Adherent Slough Adherent Slough Adherent Slough -Structure Exposed N/A -Texture (Yajaira-wound Skin Appearance) Assessed, Assessed, No Abnormality, Scarring Scarring Assessed -Moisture (Yajaira-wound Skin Appearance) Assessed Assessed,Dry/ No Abnormality, Scaly Assessed -Color (Yajaira-wound Skin Appearance) Assessed, Assessed No Abnormality, Hemosiderin Assessed Staining -Temperature (Yajaira-wound Skin No Abnormality No Abnormality No Abnormality Appearance) (Pt Warm) (Pt Warm) (Pt Warm) -Tenderness on Palpation (Yajaira-wound Yes No No Skin Appearance) -Ulcer Cleansing Soap and Water Rinsed/ Rinsed/ Irrigated with Irrigated with Saline Saline -Foul Odor after Cleansing No No No -Anesthetic Used 4% Lidocaine 4% Lidocaine 4% Lidocaine Solution Solution Solution 3-right medial lower leg -Combined with other wound No No No -Current Size (cm) - Length 0.5 0.5 0.8 -Current Size (cm) - Width 0.5 0.5 0.6 -Current Size (cm) - Depth 0.5 0.6 1.4 -Total Square Cm 0.25 0.25 0.48 -Date of Last Picture (Recall this 11/04/21 11/11/21 field) -Photo Taken Yes Yes No -Epithelialization None Present -Tunneling No No No -Undermining/Tunneling No No No -Circular Undermining No No No -Change in Wound Grade/Stage No -Exudate Amt Medium Medium Large -Exudate Type Serosanguineous Serosanguineous Serosanguineous -Wound Margin Distinct, Distinct, Distinct, Outline Outline Outline Attached Attached Attached -Granulation Amt None Present (0 Large (67-100%) Large (67-100%) %) -Granulation Quality N/A [place],Red -Slough/Fibrin Yes No Yes -Necrosis Amt Small (1-33%) None Present (0 Medium (34-66%) %) -Necrotic Tissue Type Adherent Slough Adherent Slough -Structure Exposed N/A -Texture (Yajaira-wound Skin Appearance) No Abnormality, Assessed, No Abnormality, Assessed Scarring Assessed -Moisture (Yajaira-wound Skin Appearance) No Abnormality, Assessed,Dry/ No Abnormality, Assessed Scaly Assessed -Color (Yajaira-wound Skin Appearance) Assessed, Assessed No Abnormality, Hemosiderin Assessed Staining -Temperature (Yajaira-wound Skin No Abnormality No Abnormality No Abnormality Appearance) (Pt Warm) (Pt Warm) (Pt Warm) -Tenderness on Palpation (Yajaira-wound Yes Yes No Skin Appearance) -Ulcer Cleansing Soap and Water Rinsed/ Rinsed/ Irrigated with Irrigated with Saline Saline -Foul Odor after Cleansing No No No -Anesthetic Used 4% Lidocaine 4% Lidocaine 4% Lidocaine Solution Solution Solution Right Calf (cm) 34.7 35.6 Right Ankle (cm) 21.4 22.1 Left Calf (cm) 35.5 34.2 Left Ankle (cm) 21.4 23.3 WC - Nurse 2 - General Ulcer CM Notes Start: 11/04/21 10:38 Freq: Status: Active Protocol: Activity Type Activity Date Activity User E-Sign Co-Sign Detail Recorded Client Recorded Date Recorded By Document 11/04/21 11:32 [id number] 11/04/21 11:44 Document 11/11/21 14:14 PL [id number] 11/11/21 14:19 PL Edit Result 11/11/21 14:14 PL (1) [id number] 11/12/21 07:17 PL Document 11/18/21 13:14 PL [id number] 11/18/21 13:19 PL (1) #7 R 2nd toe - Debridement - Subq, 1st 20sq cm Yes => No 11/04/21 11/11/21 11/18/21 11:32 14:14 13:14 Wound Center Nurse 2 #7 R 2nd toe -Time 11:10 -Correct Patient No Yes -Correct Side, Site, Position No Yes -Correct Procedure No Yes -Procedure Performed No Yes No -Type of Procedure Debridement -Clinical Debridement Subcutaneous -Tissue Removed Subcutaneous -Post Debridement (cm) - Length 0.1 -Post Debridement (cm) - Width 0.1 -Post Debridement (cm) - Depth 0.2 -Total Square (Post) (cm) 0.01 -Area of Debridement (cm) - Length 0.1 -Area of Debridement (cm) - Width 0.1 -Total Square (Area) (cm) 0.01 -Tunneling No -Undermining/Tunneling No -Circular Undermining No -Wound/Ulcer Outcome Not Healed Not Healed Healed- Epithelialized -Ulcer Cleansing Rinsed/ Irrigated with Saline -Foul Odor after Cleansing No -Bioengineered Tissue No -Bleeding Controlled with Pressure -Treatment Response Procedure Tolerated Well -Debridement - Subq, 1st 20sq cm No No #4 Left Post Lateral -Time 11:33 11:10 11:15 -Correct Patient Yes Yes Yes -Correct Side, Site, Position Yes Yes Yes -Correct Procedure Yes Yes Yes -Procedure Performed Yes Yes Yes -Type of Procedure Debridement Debridement Debridement -Clinical Debridement Subcutaneous Subcutaneous Subcutaneous -Tissue Removed Subcutaneous Subcutaneous Subcutaneous -Post Debridement (cm) - Length 9 7.5 7.9 -Post Debridement (cm) - Width 2 2 1.6 -Post Debridement (cm) - Depth 0.1 0.2 0.1 -Total Square (Post) (cm) 18 15.0 12.64 -Area of Debridement (cm) - Length 9 7.5 7.9 -Area of Debridement (cm) - Width 2 2.0 1.6 -Total Square (Area) (cm) 18 15.00 12.64 -Tunneling No No No -Undermining/Tunneling No No No -Circular Undermining No No No -Wound/Ulcer Outcome Not Healed Not Healed Not Healed -Ulcer Cleansing Rinsed/ Rinsed/ Rinsed/ Irrigated with Irrigated with Irrigated with Saline Saline Saline -Foul Odor after Cleansing No No No -Bioengineered Tissue No No No -Bleeding Controlled with Pressure Pressure Pressure -Treatment Response Procedure Procedure Procedure Tolerated Well Tolerated Well Tolerated Well -Offloading No -Debridement - Subq, 1st 20sq cm No No No 3-right medial lower leg -Time 11:41 11:10 11:15 -Correct Patient Yes Yes Yes -Correct Side, Site, Position Yes Yes Yes -Correct Procedure Yes Yes Yes -Procedure Performed Yes Yes Yes -Type of Procedure Debridement Debridement Debridement -Clinical Debridement Subcutaneous Subcutaneous Subcutaneous -Tissue Removed Subcutaneous Subcutaneous Subcutaneous -Post Debridement (cm) - Length 0.6 0.5 0.8 -Post Debridement (cm) - Width 0.5 0.5 0.6 -Post Debridement (cm) - Depth 0.9 0.6 1.4 -Total Square (Post) (cm) 0.30 0.25 0.48 -Area of Debridement (cm) - Length 0.6 0.5 0.8 -Area of Debridement (cm) - Width 0.5 0.5 0.6 -Total Square (Area) (cm) 0.30 0.25 0.48 -Tunneling No No No -Undermining/Tunneling No No No -Circular Undermining No No No -Wound/Ulcer Outcome Not Healed Not Healed Not Healed -Ulcer Cleansing Rinsed/ Rinsed/ Rinsed/ Irrigated with Irrigated with Irrigated with Saline Saline Saline -Foul Odor after Cleansing No No No -Bioengineered Tissue No No No -Bleeding Controlled with Pressure Pressure Pressure -Treatment Response Procedure Procedure Procedure Tolerated Well Tolerated Well Tolerated Well -Offloading No -Debridement - Subq, 1st 20sq cm Yes Yes Yes Pain Scale: 0-10 Numeric Is Patient Pain Free? Yes Yes Yes - Nurse 3 - General Ulcer D/C NN Start: 11/04/21 10:38 Freq: Status: Active Protocol: Activity Type Activity Date Activity User E-Sign Co-Sign Detail Recorded Client Recorded Date Recorded By Document 11/04/21 12:05 [facility] [id number] 11/04/21 12:07 [facility] Document 11/11/21 11:44 [facility] [id number] 11/11/21 11:47 [facility] Document 11/18/21 11:58 [id number] 11/18/21 12:00 KR 11/04/21 11/11/21 11/18/21 12:05 11:44 11:58 Wound Care Nurse 3 #7 R 2nd toe -Ulcer Cleansing Rinsed/ Irrigated with Saline -Foul Odor after Cleansing No -Primary Dressing Applied Other -Other Dressing apperture pads aperture pad -Other Covering per fl registration scheduling specialist #4 Left Post Lateral -Ulcer Cleansing Rinsed/ Rinsed/ Rinsed/ Irrigated with Irrigated with Irrigated with Saline Saline Saline -Foul Odor after Cleansing No No -Primary Dressing Applied Promogran Promogran Aquacel AG 4x4 Ashly Matter -Primary Dressing Covered/Secured with Dry Gauze & Dry Gauze & Dry Gauze,Dry Roll Gauze, Roll Gauze, Gauze & Roll Secured with Secured with Gauze,Secured Tape,Other Tape with Tape -Other Covering abd drsg per fl registration scheduling specialist -Aquacel AG 4x4 1 -Promogran 1 -Promogran Ashly Matter 1 3-right medial lower leg -Ulcer Cleansing Rinsed/ Rinsed/ Rinsed/ Irrigated with Irrigated with Irrigated with Saline Saline Saline -Foul Odor after Cleansing No No -Primary Dressing Applied Aquacel AG 4x4 Aquacel AG 4x4 Aquacel Rope -Primary Dressing Covered/Secured with Dry Gauze & Dry Gauze & Dry Gauze,Dry Roll Gauze, Roll Gauze, Gauze & Roll Secured with Secured with Gauze,Secured Tape,Other Tape with Tape -Other Covering abd drsg per ak registration scheduling specialist -Aquacel AG 4x4 1 1 -Aquacel Rope 1 Left -Compression Wrap Surepress ($) Surepress ($) Surepress ($) RIGHT -Compression Wrap Surepress ($) Surepress ($) Surepress ($) Treatment Response Procedure Procedure Tolerated Well Tolerated Well Pain Scale: 0-10 Numeric Is Patient Pain Free? Yes Yes Yes WC - Visit Discharge Discharge Condition Stable Stable Stable Ambulatory Status Wheelchair Wheelchair Wheelchair Transportation Ambulance Accompan[facility] by [facility] Additional Wound Wound debrided: Right medial lower extremity Laterality: Right Wound Grade/Stage: Isaac stage II Type of Debridement: Excisional debridement Anesthesia Used: 5% Lidocaine Gel Depth: Down to and including healthy tissue and in the subcutaneous layer Percentage of wound debrided: 100 Instrument Used: - (uma information [employer]onix Ultrasonic Debrider) Tissue Removed: Fibrous, devitalized subcutaneous, biofilm, slough Severity: Fat Layer Exposed Amount of bleeding with debridement: Mild Bleeding Controlled with: Compression and gauze Patient tolerated procedure: Patient tolerated procedure well Assessment/Plan Assessment/Plan (1) Non-pressure chronic ulcer of left calf with fat layer exposed: CODE(S): L97.222 - Non-pressure chronic ulcer of left calf with fat layer exposed (2) Non-pressure chronic ulcer of right calf with fat layer exposed: CODE(S): L97.212 - Non-pressure chronic ulcer of right calf with fat layer exposed (3) Venous ulcer of left lower extremity without varicose veins: CODE(S): I87.2 - Venous insufficiency (chronic) (peripheral); L97.929 - Non-pressure chronic ulcer of unspecified part of left lower leg with unspecified severity (4) Venous insufficiency of both lower extremities: CODE(S): I87.2 - Venous insufficiency (chronic) (peripheral) (5) Lower extremity edema: CODE(S): R60.0 - Localized edema (6) History of pulmonary embolism: CODE(S): Z86.711 - Personal history of pulmonary embolism (7) Essential (primary) hypertension: CODE(S): I10 - Essential (primary) hypertension (8) Hyperlipidemia: CODE(S): E78.5 - Hyperlipidemia, unspecified (9) Nicotine dependence: CODE(S): F17.200 - Nicotine dependence, unspecified, uncomplicated (10) Toe ulcer, right: CODE(S): L97.519 - Non-pressure chronic ulcer of other part of right foot with unspecified severity PLAN: This is a 71-year-old female who presents to the wound care center for follow-up of left lower extremity ulceration secondary to venous insufficiency, complicated by essential primary hypertension, hyperlipidemia, lower extremity edema, and nicotine dependence. She has prior history of pulmonary embolism is currently on warfarin. She is a chronic nicotine abuser and continues to smoke daily. Patient seen and evaluated Second digit medial wound secondary to a hammertoe deformity abutting against th e hallux is healed today. No signs of infection. She is instructed to continue to place a cotton ball/gauze/silicone spacer between the toes to offload the site. Ulceration posterior left lower extremity was examined today and noted to be decreasing in size. Ulceration measures 7.9 cm x 1.6 cm x 0.1 cm. Ulceration demonstrates no signs of infection. Ulceration sites were debrided sharply with Misonix ultrasonic debridement as stated in clinical panel above. Surrounding skin is atrophic and dry. Promogran applied to ulceration site and dressed with Aquacel Ag, then a super absorbent dressing with SurePress compression dressing. Dressings are to be changed once a day at her assisted living facility. She is to continue to elevate her lower extremities during periods of rest and offload the site with a soft pillow to the back of her leg. Right anterior medial leg ulceration secondary to chronic venous insufficiency was sharply debrided with a Misonix ultrasonic debrider as stated in clinical panel above. Ulcerative site measures 0.8 cm x 0.6 cm x 1.4 cm. There is no signs of infection. The site was packed with Aquacel Ag rope and a SurePress compression wrap to be changed daily. Patient is a known chronic smoker who continues smoking. I continue to remind her on the essentials of proper wound healing and stressed the importance of smoking cessation today to ensure proper wound healing. I informed her that continuing to smoke will slow down the progression of her wound healing by decreasing blood flow to the extremity and the ulceration site and thus complicate her healing status, overall health, and result in possible loss of limb. Patient states that she will try the best she can to stop smoking. I discussed localized signs of infection for her to observe. I discussed with her if she notices any increased redness moving up the leg, purulent drainage from the site, malodor, increased pain not controlled by [id number] medications, or if she experiences any fever, nausea, vomiting, chills or other constitutional symptoms that she is to report to the ED as these are signs of a progressing infection. She voices understanding of this. I reviewed and discussed her case today. Debridement was performed today as noted in the clinical panel to all of the ulcer sites. The following work up and care recommendations were made: Dressing: Promogran to the ulceration site, Aquacel Ag then super absorbent dressing, then a SurePress compressive dressing changed once daily. Aquacel Ag rope pack to right leg ulceration with SurePress compression dressing change daily Wash: Soap and water Tissue growth optimization: Promogran Offload: Offloading with soft pillows to the back of the leg and elevate lower extremity Vascular: Multiphasic pulses on Doppler from 07/22/21 Edema: Elevate left lower extremity comply with compression wrap dressing Infection: No localized signs of infection Pain: May take [id number] Tylenol extra strength Host factors: Smoking cessation and edema control secondary to chronic venous insufficiency, increase protein intake Microbiology: Aerobic and anaerobic cultures taken of this wound site 09/02/2021 and the tunnel demonstrate +1 Serratia liquefaction's, rare MRSA, and +1 strep mitis. She has completed full course of doxycycline and levofloxacin. Cellulitis resolved. I answered all the patient's questions. To return to the wound healing center in 1 week or call sooner if the patient has any questions or concerns. Note: [employer] speech recognition flight hostess software was used to create portions of this document. Sound-alike and misspelled words, as well as other flight hostess errors may be contained in the documentation.
== END 2021-11-23 23:59 | disposition home or self-care (01) ==
LOC: WC 10:45
PROVIDERS: PCP Family Medicine; Visit Provider Student in an Organized Health Care Education/Training Program
DX: I87.2 Venous insufficiency (chronic) (peripheral) (principal); L97.212 Non-pressure chronic ulcer of right calf with fat layer exposed; L97.222 Non-pressure chronic ulcer of left calf with fat layer exposed; L97.512 Non-pressure chronic ulcer of other part of right foot with fat layer exposed; I10 Essential (primary) hypertension; E78.5 Hyperlipidemia, unspecified; R60.0 Localized edema; Z86.711 Personal history of pulmonary embolism; F17.210 Nicotine dependence, cigarettes, uncomplicated
CPT/HCPCS: 11042

== ENCOUNTER 2021-11-28 15:15 | Emergency (ER) | payer MEDICARE, MEDICAID, SELFPAY ==
[2021-11-28 15:16] VITALS: BP 121/72; PULSE 72; RESP 16; TEMP 36.4; O2SAT 98; BMI 34.5
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
--- NOTE | 2021-11-28 16:05 | RAD_ITS ---
INDICATION: trauma EXAMINATION/TECHNIQUE: X-RAY - XR Spine Thoracic 2 Views COMPARISON: None FINDINGS: VERTEBRAE: Multiple age-indeterminate compression deformities of several thoracic vertebral bodies. No fracture. No spondylolisthesis. Preservation of the normal thoracic kyphosis. Severe multilevel facet arthropathy. DISCS: Severe multilevel degenerative disc disease and spondylosis. INCLUDED CHEST/ABDOMEN: No acute abnormalities. RAD/Thoracic Spine 2 Views IMPRESSION: Multiple age-indeterminate compression deformities of several thoracic vertebral bodies. Recommend CT thoracic and lumbar spine. Severe multilevel degenerative disc disease and spondylosis. Electronically Signed: Hussein Dumont MD at 17:12 EDT ,
[2021-11-28] MEDS: HYDROcodone Bitartrate/Apap 5/325 Tablet PO (16:17)
[2021-11-28 16:30] LABS: International Normalized Ratio 2.3; Prothrombin Time (Protime)PT. 24.8 SECONDS (11.7-14.9)
[2021-11-28 18:25] VITALS: BP 149/75; PULSE 88; RESP 16; O2SAT 95
== END 2021-11-28 18:26 | disposition intermediate care facility (04) ==
PROVIDERS: Emergency Provider Emergency Medicine; PCP Nurse Practitioner Adult Health; Visit Provider Emergency Medicine
DX: M54.6 Pain in thoracic spine (principal); M47.814 Spondylosis without myelopathy or radiculopathy, thoracic region; F17.210 Nicotine dependence, cigarettes, uncomplicated; Z99.3 Dependence on wheelchair
CPT/HCPCS: 72070; 85610; 99284

== ENCOUNTER 2021-12-09 11:00 | Outpatient (RCR) | payer MEDICARE, MEDICAID, SELFPAY ==
[2021-11-24 00:51] VITALS: BP 152/101; PULSE 69; RESP 18; TEMP 35.7; BMI 39.4
[2021-11-25 10:11] VITALS: BP 133/79; PULSE 72; RESP 16; TEMP 36.2; BMI 39.4
--- NOTE | 2021-11-25 17:54 | PN.PCM_ITS ---
History of Present Illness Date of Service: 11/25/21 Chief Complaint: Left lower extremity posterior ulceration History of Wound: This is a 70-year-old female who presents to the wound healing center today with complaint of a nonhealing ulcer posterior left lower extremity. 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 Patient states she is at an assisted living facility where they care for her posterior ulceration. They have been applying Aquacel Ag and a compression dressing with Jorge wraps. She is elevating the left lower extremity and o ffloading with pillow padding. She denies any systemic or localized signs of infection at this time. Past medical, family, and social history reviewed and not pertinent to the current visit and all other systems reviewed and negative with exception of those listed above. Subjective Subjective This 71-year-old female presents to the wound center for follow-up of bilateral lower extremity ulcerations secondary to chronic venous insufficiency. She denies any constitutional symptoms today. She states her dressings are being changed at her assisted living facility daily. She admits to still smoking. She has no other complaints. Objective Data Objective Data Vital Signs: Vital Signs Temp Pulse Resp BP 97.1 F L 72 16 133/79 H 11/25/21 10:11 11/25/21 10:11 11/25/21 10:11 11/25/21 10:11 Weight: 82.554 kg Body Mass Index (BMI) 39.4 Physical Exam Const alert, oriented x3 and no apparent distress General Appearance: cooperative and comfortable HEENT normocephalic Eyes General Eye: normal appearance of both eyes Neck General: normal visual inspection Lymph Lymphatic: no lymphadenopathy noted and no lymphedema noted Resp normal respiratory effort Cardio regular rate and regular rhythm Extremity normal capillary refill, no joint enlargement, no calf tenderness and no pedal edema Skin no rashes or lesions noted General Skin Exam: venous stasis Wound Narrative: Left lower extremity posterior leg/calf ulceration secondary to chronic venous insufficiency. Ulcerative site demonstrates 100% granular base with rolled wound edges and fibrotic tissue at the ulcerative margins with serosanguineous exudate. Ulcerative site measures 7.9 cm x 1.6 cm x 0.1 cm. Wound demonstrates no localized signs of infection. Surrounding skin is atrophic and intact. Left lower extremity posterior leg/calf ulceration healed well localized signs of injury. Right lower extremity medial leg/calf ulceration secondary to chronic venous insufficiency. Ulcerative site demonstrates a 50-50 fibrotic granular base with serosanguineous exudate. Ulcerative site measures 0.8 cm x 0.6 cm x 1.4 cm. Wound demonstrates no localized signs of infection. Right second digit wound secondary to pressure from abutting hallux and second digit hammertoe deformity. Wound remains healed today. Neuro oriented x3 and moves all extremities Debridement Note Debridement Note Wound debrided: Left posterior lower extremity Laterality: Left Wound Grade/Stage: Isaac stage I Type of Debridement: Excisional debridement Anesthesia Used: 5% Lidocaine Gel Depth: Down to and including healthy tissue and in the subcutaneous layer Percentage of wound debrided: 100 Instrument Used: - (Misonix) Tissue Removed: Fibrous, devitalized subcutaneous, biofilm, slough Severity: Fat Layer Exposed Amount of bleeding with debridement: Mild Bleeding Controlled with: Compression and gauze Patient tolerated procedure: Patient tolerated procedure well Post-Debridement Measurements and Additional Note: Post-Debridement Measurements/Treatment - Nurse 1 - General Ulcer Assessment Start: 11/25/21 10:10 Freq: Status: Active Protocol: [email or web address] Activity Type Activity Date Activity User E-Sign Co-Sign Detail Recorded Client Recorded Date Recorded By Document 11/25/21 10:11 PHAN [id number] 11/25/21 10:31 PHAN 11/25/21 10:11 - Today's Visit Information Type of service Follow-up Visit (Physician/DEPUTY CHIEF MAGISTRATE ) Arrival Mode Ambulatory, Wheelchair Patient Identification Verified (Name & Yes ) Patient Requires Transmission-Based No Precautions Height and Weight Body Mass Index (BMI) 39.4 BMI Classification Obese Vital Signs Temperature (97.8 F-99.1 F) 97.1 F L Temperature Source Temporal Pulse Rate (60-100) 72 Pulse Location Monitor Respiratory Rate (12-18) 16 Respiratory rate source Observation Blood Pressure (90/60-120/80) 133/79 H Blood Pressure Mean (mm Hg) 97 Source Monitor Position Sitting Blood Pressure Location Right Arm History Since Last Visit- (Skip if this is Patient's initial visit) Have you changed medications since your No last visit? Any new allergies or adverse reactions No Had a fall/change in ADL's that may No increase risk of falls Signs or symptoms of abuse and/or No neglect since last visit Have you been in the hospital since your No last visit? Has dressing in place as prescribed Yes Has compression in place as prescribed Yes Has offloadiing in place as prescribed N/A Experienced any changes in pain level or No management Left Footwear Regular Shoe Right Footwear Regular Shoe Pain Scale: 0-10 Numeric Is Patient Pain Free? Yes WC - Nurse 1 - General Ulcer Measurement Start: 11/25/21 10:10 Freq: Status: Active Protocol: Activity Type Activity Date Activity User E-Sign Co-Sign Detail Recorded Client Recorded Date Recorded By Document 11/25/21 10:11 PHAN [id number] 11/25/21 10:31 PHAN 11/25/21 10:11 Wound Center Nurse 1 #4 Left Post Lateral -Combined with other wound No -Current Size (cm) - Length 7.0 -Current Size (cm) - Width 1.3 -Current Size (cm) - Depth 0.1 -Total Square Cm 9.10 -Photo Taken No -Epithelialization Small 1-33% -Tunneling No -Undermining/Tunneling No -Circular Undermining No -Exudate Amt Medium -Exudate Type Serosanguineous -Wound Margin Flat & Intact -Granulation Amt Large (67-100%) -Granulation Quality Red -Slough/Fibrin Yes -Necrosis Amt Small (1-33%) -Necrotic Tissue Type Adherent Slough -Structure Exposed N/A -Texture (Yajaira-wound Skin Appearance) Assessed, Localized Edema -Moisture (Yajaira-wound Skin Appearance) Assessed,Dry/ Scaly -Color (Yajaira-wound Skin Appearance) Assessed -Temperature (Yajaira-wound Skin No Abnormality Appearance) (Pt Warm) -Tenderness on Palpation (Yajaira-wound No Skin Appearance) -Ulcer Cleansing Wound Cleanser -Foul Odor after Cleansing No -Anesthetic Used 4% Lidocaine Solution 3-right medial lower leg -Combined with other wound No -Current Size (cm) - Length 1.0 -Current Size (cm) - Width 0.5 -Current Size (cm) - Depth 0.9 -Total Square Cm 0.50 -Photo Taken No -Epithelialization Small 1-33% -Tunneling No -Undermining/Tunneling No -Circular Undermining No -Exudate Amt Medium -Exudate Type Serosanguineous -Wound Margin Flat & Intact -Granulation Amt Large (67-100%) -Granulation Quality Red -Slough/Fibrin Yes -Necrosis Amt Small (1-33%) -Necrotic Tissue Type Adherent Slough -Structure Exposed N/A -Texture (Yajaira-wound Skin Appearance) Assessed, Localized Edema -Moisture (Yajaira-wound Skin Appearance) Assessed,Dry/ Scaly -Color (Yajaira-wound Skin Appearance) Assessed, Hemosiderin Staining -Temperature (Yajaira-wound Skin No Abnormality Appearance) (Pt Warm) -Tenderness on Palpation (Yajaira-wound No Skin Appearance) -Ulcer Cleansing Wound Cleanser -Foul Odor after Cleansing No -Anesthetic Used 4% Lidocaine Solution Lower Limb Edema Present Yes Right Calf (cm) 32 Right Ankle (cm) 21.4 Left Calf (cm) 33 Left Ankle (cm) 21.2 WC - Nurse 2 - General Ulcer CM Notes Start: 11/25/21 10:10 Freq: Status: Active Protocol: Activity Type Activity Date Activity User E-Sign Co-Sign Detail Recorded Client Recorded Date Recorded By Document 11/25/21 14:48 PL [id number] 11/25/21 14:49 PL 11/25/21 14:48 Wound Center Nurse 2 #4 Left Post Lateral -Time 11:20 -Correct Patient Yes -Correct Side, Site, Position Yes -Correct Procedure Yes -Procedure Performed Yes -Type of Procedure Debridement -Clinical Debridement Subcutaneous -Tissue Removed Subcutaneous -Post Debridement (cm) - Length 7.0 -Post Debridement (cm) - Width 1.3 -Post Debridement (cm) - Depth 0.1 -Total Square (Post) (cm) 9.10 -Area of Debridement (cm) - Length 7.0 -Area of Debridement (cm) - Width 1.3 -Total Square (Area) (cm) 9.10 -Tunneling No -Undermining/Tunneling No -Circular Undermining No -Wound/Ulcer Outcome Not Healed -Ulcer Cleansing Rinsed/ Irrigated with Saline -Foul Odor after Cleansing No -Bioengineered Tissue No -Bleeding Controlled with Pressure -Treatment Response Procedure Tolerated Well -Debridement - Subq, 1st 20sq cm No 3-right medial lower leg -Time 11:20 -Correct Patient Yes -Correct Side, Site, Position Yes -Correct Procedure Yes -Procedure Performed Yes -Type of Procedure Debridement -Clinical Debridement Subcutaneous -Tissue Removed Subcutaneous -Post Debridement (cm) - Length 1.0 -Post Debridement (cm) - Width 0.5 -Post Debridement (cm) - Depth 0.9 -Total Square (Post) (cm) 0.50 -Area of Debridement (cm) - Length 1.0 -Area of Debridement (cm) - Width 0.5 -Total Square (Area) (cm) 0.50 -Tunneling No -Undermining/Tunneling No -Circular Undermining No -Wound/Ulcer Outcome Not Healed -Ulcer Cleansing Rinsed/ Irrigated with Saline -Foul Odor after Cleansing No -Bioengineered Tissue No -Bleeding Controlled with Pressure -Treatment Response Procedure Tolerated Well -Debridement - Subq, 1st 20sq cm Yes Pain Scale: 0-10 Numeric Is Patient Pain Free? Yes - Nurse 3 - General Ulcer D/C NN Start: 11/25/21 10:10 Freq: Status: Active Protocol: Activity Type Activity Date Activity User E-Sign Co-Sign Detail Recorded Client Recorded Date Recorded By Document 11/25/21 11:36 [id number] 11/25/21 11:37 11/25/21 11:36 Wound Care Nurse 3 #4 Left Post Lateral -Ulcer Cleansing Rinsed/ Irrigated with Saline -Primary Dressing Applied Promogran -Primary Dressing Covered/Secured with Dry Gauze, Secured with Tape -Promogran 1 3-right medial lower leg -Primary Dressing Applied Aquacel AG 4x4 -Primary Dressing Covered/Secured with Dry Gauze, Secured with Tape -Aquacel AG 4x4 1 Right -Compression Wrap Surepress ($) Left -Compression Wrap Surepress ($) Pain Scale: 0-10 Numeric Is Patient Pain Free? Yes - Visit Discharge Discharge Condition Stable Ambulatory Status Wheelchair Transportation Ambulance Additional Wound Wound debrided: Right medial lower extremity Laterality: Right Wound Grade/Stage: Isaac stage II Type of Debridement: Excisional debridement Anesthesia Used: 5% Lidocaine Gel Depth: Down to and including healthy tissue and in the subcutaneous layer Percentage of wound debrided: 100 Instrument Used: - (Misonix) Tissue Removed: Fibrous, devitalized subcutaneous, biofilm, slough Severity: Fat Layer Exposed Amount of bleeding with debridement: Mild Bleeding Controlled with: Compression and gauze Patient tolerated procedure: Patient tolerated procedure well Assessment/Plan Assessment/Plan (1) Non-pressure chronic ulcer of left calf with fat layer exposed: CODE(S): L97.222 - Non-pressure chronic ulcer of left calf with fat layer exposed (2) Non-pressure chronic ulcer of right calf with fat layer exposed: CODE(S): L97.212 - Non-pressure chronic ulcer of right calf with fat layer exposed (3) Venous ulcer of left lower extremity without varicose veins: CODE(S): I87.2 - Venous insufficiency (chronic) (peripheral); L97.929 - Non-pressure chronic ulcer of unspecified part of left lower leg with unspecifie d severity (4) Venous insufficiency of both lower extremities: CODE(S): I87.2 - Venous insufficiency (chronic) (peripheral) (5) Lower extremity edema: CODE(S): R60.0 - Localized edema (6) History of pulmonary embolism: CODE(S): Z86.711 - Personal history of pulmonary embolism (7) Essential (primary) hypertension: CODE(S): I10 - Essential (primary) hypertension (8) Hyperlipidemia: CODE(S): E78.5 - Hyperlipidemia, unspecified (9) Nicotine dependence: CODE(S): F17.200 - Nicotine dependence, unspecified, uncomplicated (10) Toe ulcer, right: CODE(S): L97.519 - Non-pressure chronic ulcer of other part of right foot with unspecified severity PLAN: This is a 71-year-old female who presents to the wound care center for follow-up of left lower extremity ulceration secondary to venous insufficiency, complicated by essential primary hypertension, hyperlipidemia, lower extremity edema, and nicotine dependence. She has prior history of pulmonary embolism is currently on warfarin. She is a chronic nicotine abuser and continues to smoke daily. Patient seen and evaluated Second digit medial wound secondary to a hammertoe deformity abutting against the hallux remains healed today. No signs of infection. She is instructed to continue to place a cotton ball/gauze/silicone spacer between the toes to offload the site. Ulceration posterior left lower extremity was examined today and noted to be decreasing in size. Ulceration measures 7.0 cm x 1.3 cm x 0.1 cm. Ulceration demonstrates no signs of infection. Ulceration sites were debrided sharply with Misonix ultrasonic debridement as stated in clinical panel above. Surrounding skin is atrophic and dry. Promogran applied to ulceration site and dressed with Aquacel Ag, then a super absorbent dressing with SurePress compression dressing. Dressings are to be changed once a day at her assisted living facility. She is to continue to elevate her lower extremities during periods of rest and offload the site with a soft pillow to the back of her leg. Right anterior medial leg ulceration secondary to chronic venous insufficiency was sharply debrided with a misterbnbonix ultrasonic debrider as stated in clinical panel above. Ulcerative site measures 1.0 cm x 0.5 cm x 0.9 cm. There is no signs of infection. The site was packed with Aquacel Ag rope and a SurePress compression wrap to be changed daily. Patient is a known chronic smoker who continues smoking. I continue to remind her on the essentials of proper wound healing and stressed the importance of smoking cessation today to ensure proper wound healing. I informed her that continuing to smoke will slow down the progression of her wound healing by decreasing blood flow to the extremity and the ulceration site and thus complicate her healing status, overall health, and result in possible loss of limb. Patient states that she will try the best she can to stop smoking. I discussed localized signs of infection for her to observe. I discussed with her if she notices any increased redness moving up the leg, purulent drainage from the site, malodor, increased pain not controlled by [id number] medications, or if she experiences any fever, nausea, vomiting, chills or other constitutional symptoms that she is to report to the ED as these are signs of a progressing infection. She voices understanding of this. I reviewed and discussed her case today. Debridement was performed today as noted in the clinical panel to all of the ulcer sites. The following work up and care recommendations were made: Dressing: Promogran to the ulceration site, Aquacel Ag then super absorbent dressing, then a SurePress compressive dressing changed once daily. Aquacel Ag rope pack to right leg ulceration with SurePress compression dressing change daily Wash: Soap and water Tissue growth optimization: Promogran Offload: Offloading with soft pillows to the back of the leg and elevate lower extremity Vascular: Multiphasic pulses on Doppler from 07/22/21 Edema: Elevate left lower extremity comply with compression wrap dressing Infection: No localized signs of infection Pain: May take [id number] Tylenol extra strength Host factors: Smoking cessation and edema control secondary to chronic venous insufficiency, increase protein intake Microbiology: Aerobic and anaerobic cultures taken of this wound site 09/02/2021 and the tunnel demonstrate +1 Serratia liquefaction's, rare MRSA, and +1 strep mitis. She has completed full course of doxycycline and levofloxacin. Cellulitis resolved. I answered all the patient's questions. To return to the wound healing center in 1 week or call sooner if the patient has any questions or concerns. Note: [employer] speech recognition practice managers software was used to create portions of this document. Sound-alike and misspelled words, as well as other practice managers errors may be contained in the documentation.
[2021-12-02 11:08] VITALS: BP 155/91; PULSE 74; RESP 17; TEMP 35.5; BMI 39.4
--- NOTE | 2021-12-02 12:14 | NURSING ---
charted 3M by mistake
--- NOTE | 2021-12-02 15:14 | PN.PCM_ITS ---
History of Present Illness Date of Service: 12/02/21 Chief Complaint: Left lower extremity posterior ulceration History of Wound: This is a 70-year-old female who presents to the wound healing center today with complaint of a nonhealing ulcer posterior left lower extremity. 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 Patient states she is at an assisted living facility where they care for her posterior ulceration. They have been applying Aquacel Ag and a compression dressing with Jorge wraps. She is elevating the left lower extremity and o ffloading with pillow padding. She denies any systemic or localized signs of infection at this time. Past medical, family, and social history reviewed and not pertinent to the current visit and all other systems reviewed and negative with exception of those listed above. Subjective Subjective This 71-year-old female presents to the wound center for follow-up of bilateral lower extremity ulcerations secondary to chronic venous insufficiency. She denies any constitutional symptoms today. She states her dressings are being changed at her assisted living facility daily. She is trying to elevate both feet at times of rest. She admits to still smoking. She has no other complaints. Objective Data Objective Data Vital Signs: Vital Signs Temp Pulse Resp BP 96 F L 74 17 155/91 H 12/02/21 11:08 12/02/21 11:08 12/02/21 11:08 12/02/21 11:08 Weight: 82.554 kg Body Mass Index (BMI) 39.4 Physical Exam Const alert, oriented x3 and no apparent distress General Appearance: cooperative and comfortable HEENT normocephalic Eyes General Eye: normal appearance of both eyes Neck General: normal visual inspection Lymph Lymphatic: no lymphadenopathy noted and no lymphedema noted Resp normal respiratory effort Cardio regular rate and regular rhythm Extremity normal capillary refill, no joint enlargement, no calf tenderness and no pedal edema Skin no rashes or lesions noted General Skin Exam: venous stasis Wound Narrative: Left lower extremity posterior leg/calf ulceration secondary to chronic venous insufficiency. Ulcerative site demonstrates 100% granular base with rolled wound edges and fibrotic tissue at the ulcerative margins with serosanguineous exudate. Ulcerative site measures 5.8 cm x 1.6 cm x 0.1 cm. Wound demonstrates no localized signs of infection. Surrounding skin is atrophic and intact. Left lower extremity posterior leg/calf ulceration healed well localized signs of injury. Right lower extremity medial leg/calf ulceration secondary to chronic venous insufficiency. Ulcerative site demonstrates a 50-50 fibrotic granular base with serosanguineous exudate. Ulcerative site measures 0.6 cm x 0.6 cm x 0.4 cm. Wound demonstrates no localized signs of infection. Right second digit wound secondary to pressure from abutting hallux and second digit hammertoe deformity. Wound remains healed today. Neuro oriented x3 and moves all extremities Debridement Note Debridement Note Wound debrided: Posterior left leg Laterality: Left Type of Debridement: Excisional debridement Anesthesia Used: 5% Lidocaine Gel Depth: Down to and including healthy tissue and in the subcutaneous layer Percentage of wound debrided: 100 Instrument Used: - (Misonix) Tissue Removed: Fibrous, devitalized subcutaneous, biofilm, slough Severity: Fat Layer Exposed Amount of bleeding with debridement: Mild Bleeding Controlled with: Compression and gauze Patient tolerated procedure: Patient tolerated procedure well Post-Debridement Measurements and Additional Note: Post-Debridement Measurements/Treatment - Nurse 1 - General Ulcer Assessment Start: 11/25/21 10:10 Freq: Status: Active Protocol: [email or web address].SINA Activity Type Activity Date Activity User E-Sign Co-Sign Detail Recorded Client Recorded Date Recorded By Document 11/25/21 10:11 [id number] 11/25/21 10:31 Document 12/02/21 11:08 [id number] 12/02/21 11:18 11/25/21 12/02/21 10:11 11:08 - Today's Visit Information Type of service Follow-up Visit Follow-up Visit (Physician/[employer] (Physician/[employer] ) ) Arrival Mode Ambulatory, Wheelchair Wheelchair Transfer Assistance Manual Patient Identification Verified (Name & Yes Yes ) Patient Requires Transmission-Based No No Precautions Safety Precautions NA Height and Weight Body Mass Index (BMI) 39.4 39.4 BMI Classification Obese Obese Vital Signs Temperature (97.8 F-99.1 F) 97.1 F L 96 F L Temperature Source Temporal Temporal Pulse Rate (60-100) 72 74 Pulse Location Monitor Monitor Respiratory Rate (12-18) 16 17 Respiratory rate source Observation Observation Blood Pressure (90/60-120/80) 133/79 H 155/91 H Blood Pressure Mean (mm Hg) 97 112 Source Monitor Monitor Position Sitting Sitting Blood Pressure Location Right Arm Left Arm History Since Last Visit- (Skip if this is Patient's initial visit) Have you changed medications since your No No last visit? Any new allergies or adverse reactions No No Had a fall/change in ADL's that may No No increase risk of falls Signs or symptoms of abuse and/or No No neglect since last visit Have you been in the hospital since your No No last visit? Has dressing in place as prescribed Yes Yes Has compression in place as prescribed Yes Yes Has offloadiing in place as prescribed N/A N/A Experienced any changes in pain level or No No management Left Footwear Regular Shoe Regular Shoe Right Footwear Regular Shoe Regular Shoe Pain Scale: 0-10 Numeric Is Patient Pain Free? Yes Yes - Nurse 1 - General Ulcer Measurement Start: 11/25/21 10:10 Freq: Status: Active Protocol: Activity Type Activity Date Activity User E-Sign Co-Sign Detail Recorded Client Recorded Date Recorded By Document 11/25/21 10:11 [id number] 11/25/21 10:31 Document 12/02/21 11:08 [id number] 12/02/21 11:18 KR 11/25/21 12/02/21 10:11 11:08 Wound Center Nurse 1 #4 Left Post Lateral -Combined with other wound No -Current Size (cm) - Length 7.0 5.8 -Current Size (cm) - Width 1.3 1.6 -Current Size (cm) - Depth 0.1 0.1 -Total Square Cm 9.10 9.28 -Photo Taken No -Epithelialization Small 1-33% Medium 34-66% -Tunneling No -Undermining/Tunneling No -Circular Undermining No -Exudate Amt Medium Medium -Exudate Type Serosanguineous Serosanguineous -Wound Margin Flat & Intact Distinct, Outline Attached -Granulation Amt Large (67-100%) Medium (34-66%) -Granulation Quality Red [place] -Slough/Fibrin Yes Yes -Necrosis Amt Small (1-33%) Medium (34-66%) -Necrotic Tissue Type Adherent Slough Adherent Slough -Structure Exposed N/A -Texture (Yajaira-wound Skin Appearance) Assessed, Assessed Localized Edema -Moisture (Yajaira-wound Skin Appearance) Assessed,Dry/ Assessed Scaly -Color (Yajaira-wound Skin Appearance) Assessed Assessed -Temperature (Yajaira-wound Skin No Abnormality No Abnormality Appearance) (Pt Warm) (Pt Warm) -Tenderness on Palpation (Yajaira-wound No No Skin Appearance) -Ulcer Cleansing Wound Cleanser Rinsed/ Irrigated with Saline -Foul Odor after Cleansing No No -Anesthetic Used 4% Lidocaine 4% Lidocaine Solution Solution 3-right medial lower leg -Combined with other wound No -Current Size (cm) - Length 1.0 0.6 -Current Size (cm) - Width 0.5 0.5 -Current Size (cm) - Depth 0.9 0.4 -Total Square Cm 0.50 0.30 -Photo Taken No -Epithelialization Small 1-33% -Tunneling No -Undermining/Tunneling No Yes -Undermining/Tunneling Starts (O'clock 11 ) -Undermining/Tunneling Ends (O'clock) 1 -Maximum Distance (cm) 0.4 -Circular Undermining No -Exudate Amt Medium Medium -Exudate Type Serosanguineous Serosanguineous -Wound Margin Flat & Intact -Granulation Amt Large (67-100%) Medium (34-66%) -Granulation Quality Red [place] -Slough/Fibrin Yes Yes -Necrosis Amt Small (1-33%) Medium (34-66%) -Necrotic Tissue Type Adherent Slough Adherent Slough -Structure Exposed N/A -Texture (Yajaira-wound Skin Appearance) Assessed, Assessed Localized Edema -Moisture (Yajaira-wound Skin Appearance) Assessed,Dry/ Assessed Scaly -Color (Yajaira-wound Skin Appearance) Assessed, Assessed Hemosiderin Staining -Temperature (Yajaira-wound Skin No Abnormality No Abnormality Appearance) (Pt Warm) (Pt Warm) -Tenderness on Palpation (Yajaira-wound No No Skin Appearance) -Ulcer Cleansing Wound Cleanser Rinsed/ Irrigated with Saline -Foul Odor after Cleansing No No -Anesthetic Used 4% Lidocaine 4% Lidocaine Solution Solution Lower Limb Edema Present Yes Right Calf (cm) 32 Right Ankle (cm) 21.4 Left Calf (cm) 33 Left Ankle (cm) 21.2 WC - Nurse 2 - General Ulcer CM Notes Start: 11/25/21 10:10 Freq: Status: Active Protocol: Activity Type Activity Date Activity User E-Sign Co-Sign Detail Recorded Client Recorded Date Recorded By Document 11/25/21 14:48 PL [id number] 11/25/21 14:49 PL Document 12/02/21 11:43 [id number] 12/02/21 11:45 11/25/21 12/02/21 14:48 11:43 Wound Center Nurse 2 #4 Left Post Lateral -Time 11:20 11:43 -Correct Patient Yes Yes -Correct Side, Site, Position Yes Yes -Correct Procedure Yes Yes -Procedure Performed Yes Yes -Type of Procedure Debridement Debridement -Clinical Debridement Subcutaneous Subcutaneous -Tissue Removed Subcutaneous Dermis -Post Debridement (cm) - Length 7.0 5.8 -Post Debridement (cm) - Width 1.3 1.7 -Post Debridement (cm) - Depth 0.1 0.1 -Total Square (Post) (cm) 9.10 9.86 -Area of Debridement (cm) - Length 7.0 5.8 -Area of Debridement (cm) - Width 1.3 1.7 -Total Square (Area) (cm) 9.10 9.86 -Tunneling No No -Undermining/Tunneling No No -Circular Undermining No No -Wound/Ulcer Outcome Not Healed Not Healed -Ulcer Cleansing Rinsed/ Rinsed/ Irrigated with Irrigated with Saline Saline -Foul Odor after Cleansing No No -Bioengineered Tissue No No -Bleeding Controlled with Pressure Pressure -Treatment Response Procedure Procedure Tolerated Well Tolerated Well -Offloading No -Debridement - Subq, 1st 20sq cm No Yes 3-right medial lower leg -Time 11:20 11:45 -Correct Patient Yes Yes -Correct Side, Site, Position Yes Yes -Correct Procedure Yes Yes -Procedure Performed Yes Yes -Type of Procedure Debridement Debridement -Clinical Debridement Subcutaneous Subcutaneous -Tissue Removed Subcutaneous Dermis -Post Debridement (cm) - Length 1.0 0.6 -Post Debridement (cm) - Width 0.5 0.6 -Post Debridement (cm) - Depth 0.9 0.4 -Total Square (Post) (cm) 0.50 0.36 -Area of Debridement (cm) - Length 1.0 0.6 -Area of Debridement (cm) - Width 0.5 0.6 -Total Square (Area) (cm) 0.50 0.36 -Tunneling No No -Undermining/Tunneling No No -Circular Undermining No No -Wound/Ulcer Outcome Not Healed Not Healed -Ulcer Cleansing Rinsed/ Rinsed/ Irrigated with Irrigated with Saline Saline -Foul Odor after Cleansing No No -Bioengineered Tissue No No -Bleeding Controlled with Pressure Pressure -Treatment Response Procedure Tolerated Well -Offloading No -Debridement - Subq, 1st 20sq cm Yes No Pain Scale: 0-10 Numeric Is Patient Pain Free? Yes Yes WC - Nurse 3 - General Ulcer D/C NN Start: 11/25/21 10:10 Freq: Status: Active Protocol: Activity Type Activity Date Activity User E-Sign Co-Sign Detail Recorded Client Recorded Date Recorded By Document 11/25/21 11:36 KR [id number] 11/25/21 11:37 KR Document 12/02/21 12:12 KR [id number] 12/02/21 12:13 KR Document 12/02/21 12:14 KR [id number] 12/02/21 12:15 KR 11/25/21 12/02/21 12/02/21 11:36 12:12 12:14 Wound Care Nurse 3 #4 Left Post Lateral -Ulcer Cleansing Rinsed/ Rinsed/ Irrigated with Irrigated with Saline Saline -Primary Dressing Applied Promogran Aquacel AG 4x4 -Primary Dressing Covered/Secured with Dry Gauze, Dry Gauze,Dry Secured with Gauze & Roll Tape Gauze,Secured with Tape -Aquacel AG 4x4 1 -Promogran 1 3-right medial lower leg -Ulcer Cleansing Rinsed/ Irrigated with Saline -Primary Dressing Applied Aquacel AG 4x4 Promogran -Primary Dressing Covered/Secured with Dry Gauze, Dry Gauze, Secured with Secured with Tape Tape -Aquacel AG 4x4 1 -Promogran 1 Right -Multi-Layered Wrap Application Multi-Layer Comp - Bilat ($ ) -Compression Wrap Surepress ($) Surepress ($) Left -Compression Wrap Surepress ($) Surepress ($) Pain Scale: 0-10 Numeric Is Patient Pain Free? Yes Yes Yes WC - Visit Discharge Discharge Condition Stable Stable Ambulatory Status Wheelchair Wheelchair Transportation Ambulance [facility] by [facility] 12/02/21 12:14 Nursing Note by Shayy Bonner charted 3M by mistake Initialized on 12/02/21 12:14 - END OF NOTE Additional Wound Wound debrided: Right lower medial leg Laterality: Right Wound Grade/Stage: Isaac stage II Type of Debridement: Excisional debridement Anesthesia Used: 5% Lidocaine Gel Depth: Down to and including healthy tissue and in the subcutaneous layer Percentage of wound debrided: 100 Instrument Used: - (Misonix) Tissue Removed: Fibrous, devitalized subcutaneous, biofilm, slough Severity: Fat Layer Exposed Amount of bleeding with debridement: Mild Bleeding Controlled with: Compression and gauze Patient tolerated procedure: Patient tolerated procedure well Assessment/Plan Assessment/Plan (1) Non-pressure chronic ulcer of left calf with fat layer exposed: CODE(S): L97.222 - Non-pressure chronic ulcer of left calf with fat layer exposed (2) Non-pressure chronic ulcer of right calf with fat layer exposed: CODE(S): L97.212 - Non-pressure chronic ulcer of right calf with fat layer exposed (3) Venous ulcer of left lower extremity without varicose veins: CODE(S): I87.2 - Venous insufficiency (chronic) (peripheral); L97.929 - Non-pressure chronic ulcer of unspecified part of left lower leg with unspecified severity (4) Venous insufficiency of both lower extremities: CODE(S): I87.2 - Venous insufficiency (chronic) (peripheral) (5) Lower extremity edema: CODE(S): R60.0 - Localized edema (6) History of pulmonary embolism: CODE(S): Z86.711 - Personal history of pulmonary embolism (7) Essential (primary) hypertension: CODE(S): I10 - Essential (primary) hypertension (8) Hyperlipidemia: CODE(S): E78.5 - Hyperlipidemia, unspecified (9) Nicotine dependence: CODE(S): F17.200 - Nicotine dependence, unspecified, uncomplicated (10) Toe ulcer, right: CODE(S): L97.519 - Non-pressure chronic ulcer of other part of right foot with unspecified severity PLAN: This is a 71-year-old female who presents to the wound care center for follow-up of left lower extremity ulceration secondary to venous insufficiency, complicated by essential primary hypertension, hyperlipidemia, lower extremity edema, and nicotine dependence. She has prior history of pulmonary embolism is currently on warfarin. She is a chronic nicotine abuser and continues to smoke daily. Patient seen and evaluated Second digit medial wound secondary to a hammertoe deformity abutting against the hallux remains healed today. She is instructed to continue to place a cotton ball/gauze/silicone spacer between the toes to offload the site. Ulceration posterior left lower extremity was examined today and noted to be decreasing in size. Ulceration measures 5.8 cm x 1.6 cm x 0.1 cm. Ulceration demonstrates no signs of infection. Ulceration sites were debrided sharply with Misonix ultrasonic debridement as stated in clinical panel above. Surrounding skin is atrophic and dry. Promogran applied to ulceration site and dressed with Aquacel Ag, then a super absorbent dressing with SurePress compression dressing. Dressings are to be changed once a day at her assisted living facility. She is to continue to elevate her lower extremities during periods of rest and offload the site with a soft pillow to the back of her leg. Right anterior medial leg ulceration secondary to chronic venous insufficiency was sharply debrided with a Misonix ultrasonic debrider as stated in clinical panel above. Ulcerative site measures 0.6 cm x 0.6 cm x 0.4 cm. There is no signs of infection. The site was packed with Aquacel Ag rope and a SurePress compression wrap to be changed daily. Patient is a known chronic smoker who continues smoking. I continue to remind her on the essentials of proper wound healing and stressed the importance of smoking cessation today to ensure proper wound healing. I informed her that continuing to smoke will slow down the progression of her wound healing by decreasing blood flow to the extremity and the ulceration site and thus complicate her healing status, overall health, and result in possible loss of limb. Patient states that she will try the best she can to stop smoking. I discussed localized signs of infection for her to observe. I discussed with her if she notices any increased redness moving up the leg, purulent drainage from the site, malodor, increased pain not controlled by [id number] medications, or if she experiences any fever, nausea, vomiting, chills or other constitutional symptoms that she is to report to the ED as these are signs of a progressing infection. She voices understanding of this. The following work up and care recommendations were made: Dressing: Promogran to the ulceration site, Aquacel Ag then super absorbent dressing, then a SurePress compressive dressing changed once daily. Aquacel Ag rope pack to right leg ulceration with SurePress compression dressing change daily Wash: Soap and water Tissue growth optimization: Promogran Offload: Offloading with soft pillows to the back of the leg and elevate lower extremity Vascular: Multiphasic pulses on Doppler from 07/22/21 Edema: Elevate left lower extremity comply with compression wrap dressing Infection: No localized signs of infection Pain: May take [id number] Tylenol extra strength Host factors: Smoking cessation and edema control secondary to chronic venous insufficiency, increase protein intake Microbiology: Aerobic and anaerobic cultures taken of this wound site 09/02/2021 and the tunnel demonstrate +1 Serratia liquefaction's, rare MRSA, and +1 strep mitis. She has completed full course of doxycycline and levofloxacin. Cellulitis resolved. I answered all the patient's questions. To return to the wound healing center in 1 week or call sooner if the patient has any questions or concerns. Note: [employer] speech recognition sliver lap machine tender software was used to create portions of this document. Sound-alike and misspelled words, as well as other sliver lap machine tender errors may be contained in the documentation.
[2021-12-09 10:29] VITALS: BP 155/81; PULSE 87; TEMP 36.6; BMI 39.4
--- NOTE | 2021-12-09 11:29 | PCM.WC.PN ---
History of Present Illness Date of Service: 12/09/21 Chief Complaint: Left lower extremity posterior ulceration History of Wound: This is a 70-year-old female who presents to the wound healing center today with complaint of a nonhealing ulcer posterior left lower extremity. 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 Patient states she is at an assisted living facility where they care for her posterior ulceration. They have been applying Aquacel Ag and a compression dressing with Jorge wraps. She is elevating the left lower extremity and offloading with pillow padding. She denies any systemic or localized signs of infection at this time. Past medical, family, and social history reviewed and not pertinent to the current visit and all other systems reviewed and negative with exception of those listed above. Subjective Subjective This 71-year-old female presents to the wound center for follow-up of bilateral lower extremity ulcerations secondary to chronic venous insufficiency.? She denies any constitutional symptoms today.? She states her dressings are being changed daily at her assisted living facility daily.? She is trying to elevate both feet at times of rest.? She admits to still smoking.? She has no other complaints today. Objective Data Objective Data Vital Signs: Vital Signs Temp Pulse Resp BP 97.8 F 87 17 155/81 H 12/09/21 10:29 12/09/21 10:29 12/02/21 11:08 12/09/21 10:29 Weight: 82.554 kg Body Mass Index (BMI) 39.4 Physical Exam Const alert, oriented x3 and no apparent distress General Appearance: cooperative and comfortable HEENT normocephalic Eyes General Eye: normal appearance of both eyes Neck General: normal visual inspection Lymph Lymphatic: no lymphadenopathy noted and no lymphedema noted Resp normal respiratory effort Cardio regular rate and regular rhythm Extremity normal capillary refill, no joint enlargement, no calf tenderness and no pedal edema Skin no rashes or lesions noted General Skin Exam: venous stasis Wound Narrative: Left lower extremity posterior leg/calf ulceration secondary to chronic venous insufficiency. Ulcerative site demonstrates 100% granular base with rolled wound edges and fibrotic tissue at the ulcerative margins with serosanguineous exudate. Ulcerative site measures 5.8 cm x 1.6 cm x 0.1 cm. Wound demonstrates no localized signs of infection. Surrounding skin is atrophic and intact. Left lower extremity posterior leg/calf ulceration healed well localized signs of injury. Right lower extremity medial leg/calf ulceration secondary to chronic venous insufficiency. Ulcerative site demonstrates a 50-50 fibrotic granular base with serosanguineous exudate. Ulcerative site measures 0.6 cm x 0.6 cm x 0.3 cm. Wound demonstrates no localized signs of infection. Right second digit wound secondary to pressure from abutting hallux and second digit hammertoe deformity. Wound remains healed today. Neuro oriented x3 and moves all extremities Debridement Note Debridement Note Wound debrided: Left posterior medial lower extremity Laterality: Left Wound Grade/Stage: Isaac stage I Type of Debridement: Excisional debridement Anesthesia Used: 5% Lidocaine Gel Depth: Down to and including healthy tissue and in the subcutaneous layer Percentage of wound debrided: 100 Instrument Used: - (Misonix) Tissue Removed: Fibrous, devitalized subcutaneous, biofilm, slough Severity: Fat Layer Exposed Amount of bleeding with debridement: Mild Bleeding Controlled with: Compression and gauze Patient tolerated procedure: Patient tolerated procedure well Post-Debridement Measurements and Additional Note: Post-Debridement Measurements/Treatment - Nurse 1 - General Ulcer Assessment Start: 11/25/21 10:10 Freq: Status: Active Protocol: JAZZ Activity Type Activity Date Activity User E-sign Co-sign Detail Recorded Client Recorded Date Recorded By Document 11/25/21 10:11 PHAN [id number] 11/25/21 10:31 PHAN Document 12/02/21 11:08 FILIPPO [id number] 12/02/21 11:18 FILIPPO Document 12/09/21 10:29 FILIPPO [id number] 12/09/21 10:33 FILIPPO 11/25/21 12/02/21 12/09/21 10:11 11:08 10:29 - Today's Visit Information Type of service Follow-up Visit Follow-up Visit Follow-up Visit (Physician/MEDICAL CSR (Physician/MEDICAL CSR (Physician/MEDICAL CSR ) ) ) Arrival Mode Ambulatory, Wheelchair Wheelchair Wheelchair Transfer Assistance Manual Patient Identification Verified (Name & Yes Yes Yes ) Patient Requires Transmission-Based No No Precautions Safety Precautions NA Height and Weight Body Mass Index (BMI) 39.4 39.4 39.4 BMI Classification Obese Obese Obese Vital Signs Temperature (97.8 F-99.1 F) 97.1 F L 96 F L 97.8 F Temperature Source Temporal Temporal Temporal Pulse Rate (60-100) 72 74 87 Pulse Location Monitor Monitor Monitor Respiratory Rate (12-18) 16 17 Respiratory rate source Observation Observation Blood Pressure (90/60-120/80) 133/79 H 155/91 H 155/81 H Blood Pressure Mean (mm Hg) 97 112 105 Source Monitor Monitor Monitor Position Sitting Sitting Sitting Blood Pressure Location Right Arm Left Arm Right Arm History Since Last Visit- (Skip if this is Patient's initial visit) Have you changed medications since your No No No last visit? Any new allergies or adverse reactions No No No Had a fall/change in ADL's that may No No No increase risk of falls Signs or symptoms of abuse and/or No No No neglect since last visit Have you been in the hospital since your No No No last visit? Has dressing in place as prescribed Yes Yes Yes Has compression in place as prescribed Yes Yes Yes Has offloadiing in place as prescribed N/A N/A N/A Experienced any changes in pain level or No No No management Left Footwear Regular Shoe Regular Shoe Regular Shoe Right Footwear Regular Shoe Regular Shoe Regular Shoe Pain Scale: 0-10 Numeric Is Patient Pain Free? Yes Yes Yes WC - Nurse 1 - General Ulcer Measurement Start: 11/25/21 10:10 Freq: Status: Active Protocol: Activity Type Activity Date Activity User E-sign Co-sign Detail Recorded Client Recorded Date Recorded By Document 11/25/21 10:11 [id number] 11/25/21 10:31 Document 12/02/21 11:08 [id number] 12/02/21 11:18 KR Document 12/09/21 10:29 [id number] 12/09/21 10:33 KR 11/25/21 12/02/21 12/09/21 10:11 11:08 10:29 Wound Center Nurse 1 #4 Left Post Lateral -Combined with other wound No -Current Size (cm) - Length 7.0 5.8 7.5 -Current Size (cm) - Width 1.3 1.6 0.3 -Current Size (cm) - Depth 0.1 0.1 0.1 -Total Square Cm 9.10 9.28 2.25 -Photo Taken No -Epithelialization Small 1-33% Medium 34-66% -Tunneling No -Undermining/Tunneling No -Circular Undermining No -Exudate Amt Medium Medium Medium -Exudate Type Serosanguineous Serosanguineous Serosanguineous -Wound Margin Flat & Intact Distinct, Distinct, Outline Outline Attached Attached -Granulation Amt Large (67-100%) Medium (34-66%) Large (67-100%) -Granulation Quality [place] -Slough/Fibrin Yes Yes -Necrosis Amt Small (1-33%) Medium (34-66%) None Present (0 %) -Necrotic Tissue Type Adherent Slough Adherent Slough -Structure Exposed N/A -Texture (Yajaira-wound Skin Appearance) Assessed, Assessed Assessed, Localized Edema Scarring -Moisture (Yajaira-wound Skin Appearance) Assessed,Dry/ Assessed No Abnormality, Scaly Assessed -Color (Yajaira-wound Skin Appearance) Assessed Assessed No Abnormality, Assessed -Temperature (Yajaira-wound Skin No Abnormality No Abnormality No Abnormality Appearance) (Pt Warm) (Pt Warm) (Pt Warm) -Tenderness on Palpation (Yajaira-wound No No No Skin Appearance) -Ulcer Cleansing Wound Cleanser Rinsed/ Rinsed/ Irrigated with Irrigated with Saline Saline -Foul Odor after Cleansing No No No -Anesthetic Used 4% Lidocaine 4% Lidocaine 4% Lidocaine Solution Solution Solution 3-right medial lower leg -Combined with other wound No -Current Size (cm) - Length 1.0 0.6 1 -Current Size (cm) - Width 0.5 0.5 1 -Current Size (cm) - Depth 0.9 0.4 0.4 -Total Square Cm 0.50 0.30 1 -Photo Taken No -Epithelialization Small 1-33% -Tunneling No -Undermining/Tunneling No Yes -Undermining/Tunneling Starts (O'clock 11 ) -Undermining/Tunneling Ends (O'clock) 1 -Maximum Distance (cm) 0.4 -Circular Undermining No -Exudate Amt Medium Medium Small -Exudate Type Serosanguineous Serosanguineous Serosanguineous -Wound Margin Flat & Intact Distinct, Outline Attached -Granulation Amt Large (67-100%) Medium (34-66%) Medium (34-66%) -Granulation Quality [place] -Slough/Fibrin Yes Yes -Necrosis Amt Small (1-33%) Medium (34-66%) None Present (0 %) -Necrotic Tissue Type Adherent Slough Adherent Slough -Structure Exposed N/A -Texture (Yajaira-wound Skin Appearance) Assessed, Assessed Assessed, Localized Edema Scarring -Moisture (Yajaira-wound Skin Appearance) Assessed,Dry/ Assessed No Abnormality, Scaly Assessed -Color (Yajaira-wound Skin Appearance) Assessed, Assessed No Abnormality, Hemosiderin Assessed Staining -Temperature (Yajaira-wound Skin No Abnormality No Abnormality No Abnormality Appearance) (Pt Warm) (Pt Warm) (Pt Warm) -Tenderness on Palpation (Yajaira-wound No No No Skin Appearance) -Ulcer Cleansing Wound Cleanser Rinsed/ Rinsed/ Irrigated with Irrigated with Saline Saline -Foul Odor after Cleansing No No No -Anesthetic Used 4% Lidocaine 4% Lidocaine 4% Lidocaine Solution Solution Solution Lower Limb Edema Present Yes Right Calf (cm) 32 Right Ankle (cm) 21.4 Left Calf (cm) 33 Left Ankle (cm) 21.2 WC - Nurse 2 - General Ulcer CM Notes Start: 11/25/21 10:10 Freq: Status: Active Protocol: Activity Type Activity Date Activity User E-sign Co-sign Detail Recorded Client Recorded Date Recorded By Document 11/25/21 14:48 TRIXIE [id number] 11/25/21 14:49 PL Document 12/02/21 11:43 [id number] 12/02/21 11:45 11/25/21 12/02/21 14:48 11:43 Wound Center Nurse 2 #4 Left Post Lateral -Time 11:20 11:43 -Correct Patient Yes Yes -Correct Side, Site, Position Yes Yes -Correct Procedure Yes Yes -Procedure Performed Yes Yes -Type of Procedure Debridement Debridement -Clinical Debridement Subcutaneous Subcutaneous -Tissue Removed Subcutaneous Dermis -Post Debridement (cm) - Length 7.0 5.8 -Post Debridement (cm) - Width 1.3 1.7 -Post Debridement (cm) - Depth 0.1 0.1 -Total Square (Post) (cm) 9.10 9.86 -Area of Debridement (cm) - Length 7.0 5.8 -Area of Debridement (cm) - Width 1.3 1.7 -Total Square (Area) (cm) 9.10 9.86 -Tunneling No No -Undermining/Tunneling No No -Circular Undermining No No -Wound/Ulcer Outcome Not Healed Not Healed -Ulcer Cleansing Rinsed/ Rinsed/ Irrigated with Irrigated with Saline Saline -Foul Odor after Cleansing No No -Bioengineered Tissue No No -Bleeding Controlled with Pressure Pressure -Treatment Response Procedure Procedure Tolerated Well Tolerated Well -Offloading No -Debridement - Subq, 1st 20sq cm No Yes 3-right medial lower leg -Time 11:20 11:45 -Correct Patient Yes Yes -Correct Side, Site, Position Yes Yes -Correct Procedure Yes Yes -Procedure Performed Yes Yes -Type of Procedure Debridement Debridement -Clinical Debridement Subcutaneous Subcutaneous -Tissue Removed Subcutaneous Dermis -Post Debridement (cm) - Length 1.0 0.6 -Post Debridement (cm) - Width 0.5 0.6 -Post Debridement (cm) - Depth 0.9 0.4 -Total Square (Post) (cm) 0.50 0.36 -Area of Debridement (cm) - Length 1.0 0.6 -Area of Debridement (cm) - Width 0.5 0.6 -Total Square (Area) (cm) 0.50 0.36 -Tunneling No No -Undermining/Tunneling No No -Circular Undermining No No -Wound/Ulcer Outcome Not Healed Not Healed -Ulcer Cleansing Rinsed/ Rinsed/ Irrigated with Irrigated with Saline Saline -Foul Odor after Cleansing No No -Bioengineered Tissue No No -Bleeding Controlled with Pressure Pressure -Treatment Response Procedure Tolerated Well -Offloading No -Debridement - Subq, 1st 20sq cm Yes No Pain Scale: 0-10 Numeric Is Patient Pain Free? Yes Yes WC - Nurse 3 - General Ulcer D/C NN Start: 11/25/21 10:10 Freq: Status: Active Protocol: Activity Type Activity Date Activity User E-sign Co-sign Detail Recorded Client Recorded Date Recorded By Document 11/25/21 11:36 KR [id number] 11/25/21 11:37 KR Document 12/02/21 12:12 KR [id number] 12/02/21 12:13 KR Document 12/02/21 12:14 KR [id number] 12/02/21 12:15 KR 11/25/21 12/02/21 12/02/21 11:36 12:12 12:14 Wound Care Nurse 3 #4 Left Post Lateral -Ulcer Cleansing Rinsed/ Rinsed/ Irrigated with Irrigated with Saline Saline -Primary Dressing Applied Promogran Aquacel AG 4x4 -Primary Dressing Covered/Secured with Dry Gauze, Dry Gauze,Dry Secured with Gauze & Roll Tape Gauze,Secured with Tape -Aquacel AG 4x4 1 -Promogran 1 3-right medial lower leg -Ulcer Cleansing Rinsed/ Irrigated with Saline -Primary Dressing Applied Aquacel AG 4x4 Promogran -Primary Dressing Covered/Secured with Dry Gauze, Dry Gauze, Secured with Secured with Tape Tape -Aquacel AG 4x4 1 -Promogran 1 Right -Multi-Layered Wrap Application Multi-Layer Comp - Bilat ($ ) -Compression Wrap Surepress ($) Surepress ($) Left -Compression Wrap Surepress ($) Surepress ($) Pain Scale: 0-10 Numeric Is Patient Pain Free? Yes Yes Yes WC - Visit Discharge Discharge Condition Stable Stable Ambulatory Status Wheelchair Wheelchair Transportation Ambulance [facility] 12/02/21 12:14 Nursing Note by Shayy Bonner charted 3M by mistake Initialized on 12/02/21 12:14 - END OF NOTE Additional Wound Wound debrided: Right medial lower extremity Laterality: Right Wound Grade/Stage: Isaac stage II Type of Debridement: Excisional debridement Anesthesia Used: 5% Lidocaine Gel Depth: Down to and including healthy tissue and in the subcutaneous layer Percentage of wound debrided: 100 Instrument Used: - (Misonix) Tissue Removed: Fibrous, devitalized subcutaneous, biofilm, slough Severity: Fat Layer Exposed Amount of bleeding with debridement: Mild Bleeding Controlled with: Compression and gauze Patient tolerated procedure: Patient tolerated procedure well Assessment/Plan Assessment/Plan (1) Non-pressure chronic ulcer of left calf with fat layer exposed: CODE(S): L97.222 - Non-pressure chronic ulcer of left calf with fat layer exposed (2) Non-pressure chronic ulcer of right calf with fat layer exposed: CODE(S): L97.212 - Non-pressure chronic ulcer of right calf with fat layer exposed (3) Venous ulcer of left lower extremity without varicose veins: CODE(S): I87.2 - Venous insufficiency (chronic) (peripheral); L97.929 - Non-pressure chronic ulcer of unspecified part of left lower leg with unspecified severity (4) Venous insufficiency of both lower extremities: CODE(S): I87.2 - Venous insufficiency (chronic) (peripheral) (5) Lower extremity edema: CODE(S): R60.0 - Localized edema (6) History of pulmonary embolism: CODE(S): Z86.711 - Personal history of pulmonary embolism (7) Essential (primary) hypertension: CODE(S): I10 - Essential (primary) hypertension (8) Hyperlipidemia: CODE(S): E78.5 - Hyperlipidemia, unspecified (9) Nicotine dependence: CODE(S): F17.200 - Nicotine dependence, unspecified, uncomplicated (10) Toe ulcer, right: CODE(S): L97.519 - Non-pressure chronic ulcer of other part of right foot with unspecified severity PLAN: Plan This is a 71-year-old female who presents to the wound care center for follow-up of left lower extremity ulceration secondary to venous insufficiency, complicated by essential primary hypertension, hyperlipidemia, lower extremity edema, and nicotine dependence. She has prior history of pulmonary embolism is currently on warfarin. She is a chronic nicotine abuser and continues to smoke daily. Patient seen and evaluated Second digit medial wound secondary to a hammertoe deformity abutting against the hallux remains healed today. She is instructed to continue to place a cotton ball/gauze/silicone spacer between the toes to offload the site. Ulceration posterior left lower extremity was examined today and noted to be decreasing in size. Ulceration measures 5.8 cm x 1.7 cm x 0.1 cm. Ulceration demonstrates no signs of infection. Ulceration sites were debrided sharply with Misonix ultrasonic debridement as stated in clinical panel above. Surrounding skin is atrophic and dry. Promogran applied to ulceration site and dressed with Aquacel Ag, then a super absorbent dressing with SurePress compression dressing. Dressings are to be changed once a day at her assisted living facility. She is to continue to elevate her lower extremities during periods of rest and offload the site with a soft pillow to the back of her leg. Right anterior medial leg ulceration secondary to chronic venous insufficiency was sharply debrided with a Misonix ultrasonic debrider as stated in clinical panel above. Ulcerative site measures 0.6 cm x 0.6 cm x 0.4 cm. There is no signs of infection. The site was packed with Aquacel Ag rope and a SurePress compression wrap to be changed daily. Patient is a known chronic smoker who continues smoking. I continue to remind her on the essentials of proper wound healing and stressed the importance of smoking cessation today to ensure proper wound healing. I informed her that continuing to smoke will slow down the progression of her wound healing by decreasing blood flow to the extremity and the ulceration site and thus complicate her healing status, overall health, and result in possible loss of limb. Patient states that she will try the best she can to stop smoking. I discussed localized signs of infection for her to observe. I discussed with her if she notices any increased redness moving up the leg, purulent drainage from the site, malodor, increased pain not controlled by [id number] medications, or if she experiences any fever, nausea, vomiting, chills or other constitutional symptoms that she is to report to the ED as these are signs of a progressing infection. She voices understanding of this. The following work up and care recommendations were made: Dressing: Promogran to the ulceration site, Aquacel Ag then super absorbent dressing, then a SurePress compressive dressing changed once daily. Aquacel Ag rope pack to right leg ulceration with SurePress compression dressing change daily Wash: Soap and water Tissue growth optimization: Promogran Offload: Offloading with soft pillows to the back of the leg and elevate lower extremity Vascular: Multiphasic pulses on Doppler from 07/22/21 Edema: Elevate left lower extremity comply with compression wrap dressing Infection: No localized signs of infection Pain: May take [id number] Tylenol extra strength Host factors: Smoking cessation and edema control secondary to chronic venous insufficiency, increase protein intake Microbiology: Aerobic and anaerobic cultures taken of this wound site 09/02/2021 and the tunnel demonstrate +1 Serratia liquefaction's, rare MRSA, and +1 strep mitis. She has completed full course of doxycycline and levofloxacin. Cellulitis resolved. I answered all the patient's questions. To return to the wound healing center in 2 weeks or call sooner if the patient has any questions or concerns. Note: [employer] speech recognition product distribution specialist software was used to create portions of this document. Sound-alike and misspelled words, as well as other product distribution specialist errors may be contained in the documentation.
--- NOTE | 2021-12-09 11:35 | WC ---
Continue appenture pad to toes right foot.
== END 2021-12-23 23:59 | disposition home or self-care (01) ==
LOC: WC 11:00
PROVIDERS: PCP Family Medicine; Visit Provider Student in an Organized Health Care Education/Training Program
DX: I87.2 Venous insufficiency (chronic) (peripheral) (principal); L97.222 Non-pressure chronic ulcer of left calf with fat layer exposed; L97.212 Non-pressure chronic ulcer of right calf with fat layer exposed; I10 Essential (primary) hypertension; F17.200 Nicotine dependence, unspecified, uncomplicated; R60.0 Localized edema; E78.5 Hyperlipidemia, unspecified; Z86.711 Personal history of pulmonary embolism; Z79.01 Long term (current) use of anticoagulants
CPT/HCPCS: 11042; 29581

== ENCOUNTER 2021-12-11 03:55 | Emergency (ER) | payer MEDICARE, MEDICAID, SELFPAY ==
[2021-12-11] VITALS (15 sets, daily range): BP systolic 128–228; BP diastolic 73–135; PULSE 62–125; RESP 14–25; TEMP 36.8; O2SAT 96–100; BMI 48.8
--- NOTE | 2021-12-11 04:16 | EKG12_ITS ---
Test Reason : STROKE Blood Pressure : / mmHG Vent. Rate : 093 BPM Atrial Rate : 093 BPM P-R Int : 132 ms QRS Dur : 080 ms QT Int : 380 ms P-R-T Axes : 052 -27 052 degrees QTc Int : 472 ms Normal sinus rhythm Normal ECG Confirmed by SYD CHU, RABIA ([id number]), graphics editor ALEXANDRA LARRY ([id number]) on 12/13/2021 12:47:53 PM Referred By: KARLY Confirmed By:RABIA VELARDE MD
--- NOTE | 2021-12-11 04:18 | EDS_ITS ---
HPI HPI - GI History of Present Illness Chief Complaint: Nausea/Vomiting Informant: patient Abdominal Pain/Flank Pain Onset: - (few minutes ago) Context: Sudden Onset (after drinking 3 sips of beer) Timing: Continuous Quality: - (pain) Location: - (middle/periumbilical) Current Severity: Mild Maximum Severity: Mild Worsened by: Nothing Relieved by: Nothing Nausea/Vomiting/Emesis GI Symptom: Positive for Nausea and Vomiting Onset: Today Quality: Positive for Nonbilious; Negative for Blood streaks, Coffee ground or Hematemesis Diarrhea/Melena/Hematochezia GI Symptom: Negative for Diarrhea, Melena or Hematochezia Associated Symptoms Associated Symptoms: Negative for Dysuria, Frequency or Hematuria Narrative Narrative: History is limited because the patient's speech is fairly slurred, but she states that she had 3 sips of beer tonight, and right afterwards started having vomiting and periumbilical abdominal pain. EMS brought her from home and states she has been drinking. Patient denies any chest pain or shortness of breath, headache, focal numbness or weakness. Pain does not go into her back. Vomiting is worse than the pain. [facility] Medical History Anxiety Bladder dysfunction Compression fracture of thoracic vertebra Deep vein thrombosis Essential (primary) hypertension History of pulmonary embolism (2011) Hyperlipidemia Lower extremity edema Mental retardation Morbid obesity Nicotine dependence Osteoporosis Positive colorectal cancer screening using Cologuard test Rheumatoid arthritis Toe ulcer, right Ulcer of right lower extremity with fat layer exposed Venous insufficiency of both lower extremities Home Medications omega-3 fatty acids-fish oil 340 mg-1,000 mg capsule 2 ea PO DAILY 03/27/15 [History Last Taken Unknown] potassium chloride 10 mEq tablet,extended release(part/cryst) 10 meq PO DAILY 03/27/15 [History Last Taken Unknown] prednisone 5 mg tablet 10 mg PO DAILY 03/27/15 [History Last Taken Unknown] sertraline 100 mg tablet 200 mg PO DAILY 03/27/15 [History Last Taken Unknown] vitamin B complex 1 ea PO DAILY 03/27/15 [History Last Taken Unknown] pravastatin 10 mg tablet 40 mg PO QHS 09/14/15 [History Last Taken Unknown] metoprolol tartrate 25 mg tablet 25 mg PO BID #60 tabs 01/08/19 [History Last Taken Unknown] acetaminophen 500 mg tablet 1,000 mg PO BID PRN Pain Or Fever 07/11/19 [History Last Taken Unknown] bismuth subsalicylate 262 mg/15 mL oral suspension 15 ml PO Q6H PRN Indigestion 07/11/19 [History Last Taken Unknown] diphenhydramine HCl 25 mg capsule 25 mg PO Q6H PRN Itching 07/11/19 [History Last Taken Unknown] loperamide 2 mg capsule 2 mg PO Q8H PRN PRN Diarrhea 07/11/19 [History Last Taken Unknown] multivitamin 1 ea PO DAILY 07/11/19 [History Last Taken Unknown] naphazoline-glycerin 0.03 %-0.5 % eye drops 2 drp OP BID 07/11/19 [History Last Taken Unknown] saliva substitute combo no.9 30 ml MM DAILY PRN Dry Mouth 07/11/19 [History Last Taken Unknown] simethicone 125 mg capsule 125 mg PO 4X/DAY PRN Indigestion 07/11/19 [History Last Taken Unknown] tizanidine 2 mg capsule 2 mg PO Q8H PRN Spasms 07/11/19 [History Last Taken Unknown] cholecalciferol (vitamin D3) 50 mcg (2,000 unit) capsule 50 mcg PO DAILY 08/07/20 [History Last Taken Unknown] mirabegron 50 mg tablet,extended release 24 hr (Myrbetriq) 50 mg PO DAILY 08/07/20 [History Last Taken Unknown] warfarin 6 mg tablet 6 mg PO DAILY 08/07/20 [History Last Taken Unknown] aripiprazole 2 mg tablet 2 mg PO DAILY 09/07/20 [History Last Taken Unknown] benzonatate 100 mg capsule 200 mg PO Q8H PRN PRN Cough 09/07/20 [History Last Taken Unknown] buprenorphine 5 mcg/hour weekly transdermal patch 1 ea transdermal QWEEK 09/07/20 [History Last Taken Unknown] capsaicin 0.075 % topical cream 57 gm TP DAILY 09/07/20 [History Last Taken Unknown] celecoxib 200 mg capsule 200 mg PO DAILY 09/07/20 [History Last Taken Unknown] fluticasone propionate 50 mcg/actuation nasal spray,suspension 2 spray NASAL DAILY 09/07/20 [History Last Taken Unknown] gabapentin 100 mg capsule 100 mg PO DAILY 09/07/20 [History Last Taken Unknown] guaifenesin 400 mg tablet 400 mg PO BID PRN Congestion 09/07/20 [History Last Taken Unknown] hydrocodone 7.5 mg-acetaminophen 325 mg tablet 1 ea PO TID 09/07/20 [History Last Taken Unknown] methotrexate sodium 2.5 mg tablet 15 mg PO QWEEK 09/07/20 [History Last Taken Unknown] montelukast 10 mg tablet 10 mg PO DAILY 09/07/20 [History Last Taken Unknown] nystatin (bulk) 1 million unit powder 1,000,000 unit miscellaneous BID 09/07/20 [History Last Taken Unknown] oxybutynin chloride 10 mg tablet,extended release 24 hr 10 mg PO DAILY 09/07/20 [History Last Taken Unknown] pantoprazole 40 mg tablet,delayed release 40 mg PO BID #56 tabs 09/07/20 [Rx Last Taken Unknown] phenol 1.4 % mucosal aerosol spray 177 ml MM Q2H PRN Sore Throat 09/07/20 [History Last Taken Unknown] psyllium husk 0.4 gram capsule 0.4 gm PO DAILY PRN Constipation 09/07/20 [History Last Taken Unknown] saliva substitute combo no.9 15 ml MM 5X/DAY 09/07/20 [History Last Taken Unknown] sucralfate 1 gram tablet 1 gm PO 4X/DAY #84 tabs 09/07/20 [Rx Last Taken Unknown] warfarin 3 mg tablet 2.5 mg PO DAILY 09/07/20 [History Last Taken Unknown] cephalexin 500 mg capsule 500 mg PO Q8H #21 caps 01/28/21 [Rx Last Taken Unknown] tizanidine 2 mg tablet 2 mg PO Q8H PRN muscle spasticity #7 tabs 11/28/21 [Rx Last Taken Unknown] Allergy/AdvReac Type Severity Reaction Status Date / Time No Known Allergies Allergy Verified 12/11/21 03:57 Family History Other Hypertension Surgical History History of right hip replacement History of total left knee replacement Social History Smoking Status: Current every day smoker tobacco type: cigarettes alcohol intake: current alcohol intake frequency: holidays/special occasions only ROS ROS ED Constitutional Constitutional ED: Denies chills or fever(s) Eyes Eyes: Denies change in vision or diplopia ENT ENT ED: Denies rhinorrhea or sore throat Cardiovascular Cardiovascular: Reports leg edema; Denies chest pain or palpitations Respiratory/Chest Respiratory/Chest: Denies cough or dyspnea Gastrointestinal Gastrointestinal: Reports abdominal pain, nausea and vomiting; Denies diarrhea Genitourinary Genitourinary ED: Denies dysuria or hematuria Musculoskeletal Musculoskeletal: Denies back pain or neck pain Integumentary Denies abscess or rash Neurologic Neurologic: Denies headache(s), paresthesias or weakness Psychiatric Psychiatric: Denies anxiety or suicidal thoughts EXAM Physical Exam Const Vital Signs: 12/11/21 03:57 12/11/21 06:26 Temperature 98.2 F Temperature Source Temporal Pulse Rate 89 Respiratory Rate 16 Blood Pressure 182/101 H 145/75 H Blood Pressure Mean 128 98 Pulse Ox 98 Oxygen Delivery Method Room Air Positive well nourished, well developed and obese General Appearance ED: well developed and NAD Nutritional Appearance: obese HEENT Reports moist mucous membranes normocephalic and atraumatic Eyes PERRL and EOMs intact bilaterally Neck full ROM and supple Resp normal respiratory effort and clear to auscultation bilaterally Cardio regular rate, regular rhythm and no murmurs GI non-tender and non-distended Auscultation: normoactive bowel sounds Palpation: soft Back/Spine no CVA tenderness General Back: other FROM Extremity normal to inspection Extremity Narrative: Symmetric bilateral lower extremity moderate edema with wraps in place bilaterally General Extremety ED: Negative for pulses abnormal or tenderness General Extremity: Negative for pulses abnormal Neuro oriented x3, CN's II-XII intact bilaterally and no sensory deficits noted Neuro Narrative: Somnolent but eyes open, slurring speech, difficult to understand but patient continues to repeat 1 word at a time to help me understand what she is saying. Sensorium / Orientation: awake and alert Motor Exam: strength 5/5 throughout Skin no rashes or lesions noted and no wounds MDM MDM MDM Narrative Medical decision making narrative: The patient speech is slurred like she is intoxicated however she states she had very little alcohol. In order to evaluate this further I obtained an alcohol level in addition to the other abdominal labs. Her alcohol level is indeed very low. She has a leukocytosis, mildly low potassium, and very slight nonspecific elevations of AST and alkaline phosphatase without any other liver enzyme abnormalities. Her lipase is low/normal. Sent her for CT of the abdomen/pelvis, nothing acute as below. She was treated with some gentle IV fluids in addition to Zofran and Bentyl. She states the abdominal pain is gone, but she still very nauseated. She was additionally given Reglan. Afterward she felt much better, able to drink some oral fluids. At this time I do not think she needs any more testing, we will discharge her back to [facility]. Lab Data Attestation: I reviewed the patient's lab results. Labs: Laboratory Results - last 24 hr 12/11/21 12/11/21 12/11/21 04:35 04:35 04:35 WBC 14.1 H RBC 5.74 H Hgb 14.2 Hct 46.3 MCV 80.7 L MCH 24.7 L MCHC 30.7 L RDW Std Deviation 55.6 H RDW Coeff of Isidro 19.8 H Plt Count 282 MPV 9.4 Immature Gran % (Auto) 0.600 Neut % (Auto) 75.1 H Lymph % (Auto) 14.7 L Davis % (Auto) 8.1 Eos % (Auto) 1.3 Baso % (Auto) 0.2 Absolute Neuts (auto) 10.6 H Absolute Lymphs (auto) 2.07 Nucleated RBC % 0 Sodium 138 Potassium 3.2 L Chloride 104 Carbon Dioxide 25.0 Anion Gap 9 BUN 17 Creatinine 0.65 Estim Creat Clear Calc 71.41 Est GFR (MDRD) Af Amer 116 Est GFR (MDRD) Non-Af 96 BUN/Creatinine Ratio 26.1 H Glucose 162 H Calcium 9.4 Total Bilirubin 0.40 AST 55 H ALT 41 Alkaline Phosphatase 153 H Troponin I High Sens 10 Total Protein 8.1 Albumin 3.6 Globulin 4.5 H Albumin/Globulin Ratio 0.8 L Lipase 54 L Ethyl Alcohol 7.0 Radiography Diagnostic Testing: Clinical Impression(s) from Imaging Studies Abdomen/Pelvis CT 12/11/21 06:00 IMPRESSION: No definite acute intra-abdominal findings. Left ovarian dermoid not significantly changed. Multiple compression fractures throughout the thoracic and lumbar spine several which with increased height loss that appear chronic. T9 compression fracture possibly acute/subacute. Upper sacral fracture uncertain age. Electronically Signed: Mariana Crisostomo MD at 6:39 EDT , Rhythm Strip Rhythm Strip: Sinus Rhythm Rate: 75 Ectopy: None EKG Initial EKG: Attestation: I personally reviewed and interpreted this EKG as follows: Interpretation: No Acute Injury Pattern, Sinus Arrythmia and LAFB Discharge Plan Triage Chief Complaint: Nausea/Vomiting ED Provider: Jose Dangelo Dx/Rx/DC Orders Clinical Impression: Acute gastritis without bleeding, Lower extremity edema Instructions: ED Gastritis (Adult) Prescriptions: No Action metoprolol tartrate 25 mg tablet 25 mg PO BID Qty: 60 Myrbetriq 50 mg tablet extended release 24 hr 50 mg PO DAILY cholecalciferol (vitamin D3) 50 mcg (2,000 unit) capsule 50 mcg PO DAILY warfarin 6 mg tablet 6 mg PO DAILY Rx Instructions: Everyday except Tuesdays and sertraline 100 MG tablet 200 mg PO DAILY prednisone 5 MG tablet 10 mg PO DAILY vitamin B complex 1 EACH capsule 1 ea PO DAILY potassium chloride 10 MEQ tablet 10 meq PO DAILY omega-3 fatty acids-fish oil 1 EACH capsule 2 ea PO DAILY pravastatin 10 MG tablet 40 mg PO QHS multivitamin 1 EACH tablet 1 ea PO DAILY loperamide 2 MG capsule 2 mg PO Q8H PRN PRN (Reason: Diarrhea) simethicone 125 MG capsule 125 mg PO 4X/DAY PRN (Reason: Indigestion) acetaminophen 500 MG tablet 1,000 mg PO BID PRN (Reason: Pain Or Fever) diphenhydramine HCl 25 MG capsule 25 mg PO Q6H PRN (Reason: Itching) bismuth subsalicylate 262 MG/15 ML suspension 15 ml PO Q6H PRN (Reason: Indigestion) tizanidine 2 MG capsule 2 mg PO Q8H PRN (Reason: Spasms) naphazoline-glycerin 30 ML drops 2 drp OP BID saliva substitute combo no.9 473 ML mouthwash 30 ml MM DAILY PRN (Reason: Dry Mouth) celecoxib 200 MG capsule 200 mg PO DAILY oxybutynin chloride 10 MG tablet extended release 24hr 10 mg PO DAILY capsaicin 57 GM cream 57 gm TP DAILY warfarin 3 MG tablet 2.5 mg PO DAILY Rx Instructions: Take 5.5mg on Monday and methotrexate sodium 2.5 MG tablet 15 mg PO QWEEK Rx Instructions: Take 3 tablets in the morning and 3 tablets in the evening benzonatate 100 MG capsule 200 mg PO Q8H PRN PRN (Reason: Cough) hydrocodone-acetaminophen 1 TABLET tablet 1 ea PO TID montelukast 10 MG tablet 10 mg PO DAILY gabapentin 100 MG capsule 100 mg PO DAILY fluticasone propionate 1 SPRAY spray,suspension 2 spray NASAL DAILY phenol 177 ML aerosol,spray 177 ml MM Q2H PRN (Reason: Sore Throat) guaifenesin 400 MG tablet 400 mg PO BID PRN (Reason: Congestion) aripiprazole 2 MG tablet 2 mg PO DAILY buprenorphine 1 EACH patch weekly 1 ea TD QWEEK saliva substitute combo no.9 237 ML bottle 15 ml MM 5X/DAY psyllium husk 0.4 GM capsule 0.4 gm PO DAILY PRN (Reason: Constipation) nystatin (bulk) 1,000,000 UNIT powder 1,000,000 unit MC BID Rx Instructions: armpits pantoprazole 40 MG tablet 40 mg PO BID Qty: 56 1RF Rx Instructions: Take Protonix 40 mg p.o. twice daily x2 weeks then changed to 40 mg p.o. daily sucralfate 1 GM tablet 1 gm PO 4X/DAY Qty: 84 0RF tizanidine 2 mg tablet 2 mg PO Q8H PRN (Reason: muscle spasticity) Qty: 7 0RF cephalexin 500 mg capsule 500 mg PO Q8H Qty: 21 0RF Primary Care Provider: Bobbi Pandey CONVERTER OPERATOR Referrals: Bobbi Pandey CONVERTER OPERATOR, CONVERTER OPERATOR-C [Primary Care Provider] - 3-5 Days if not improving Disposition Disposition: Home, Self Care
--- NOTE | 2021-12-11 04:24 | EKG12_ITS ---
Test Reason : DYSRHYTHMIA Blood Pressure : / mmHG Vent. Rate : 077 BPM Atrial Rate : 077 BPM P-R Int : 144 ms QRS Dur : 084 ms QT Int : 370 ms P-R-T Axes : 034 -30 008 degrees QTc Int : 418 ms Sinus rhythm with marked sinus arrhythmia Left axis deviation Voltage criteria for left ventricular hypertrophy Abnormal ECG Confirmed by SYD CHU, RABIA ([id number]), subeditor ALEXANDRA LARRY ([id number]) on 12/13/2021 12:52:23 PM Referred By: GISELLE Confirmed By:RABIA VELARDE MD
[2021-12-11] MEDS: Ondansetron 4 MG/2 ML Vial IV (04:40)
[2021-12-11 04:42] LABS: Absolute Lymphocyte Count 2.07 X10^3/uL (0.83-4.51); Absolute Neutrophil Count 10.6 X10^3/uL (2.0-7.7); Basophil# 0.03 X10^3/uL; Basophil% 0.2 % (0-1); Eosinophil# 0.18 X10^3/uL; Eosinophils% 1.3 % (0-5); Hematocrit 46.3 % (37-47); Hemoglobin 14.2 g/dL (12.0-15.0); Lymphocyte # 2.07 X10^3/ul (0.83-4.51); Lymphocyte % 14.7 % (19-41); Mean Corp Hgb Conc 30.7 g/dL (32-36); Mean Corpuscular Hgb 24.7 pg (27.0-32.0); Mean Corpuscular Volume 80.7 fL (81-99); Mean Platelet Vol. 9.4 fl (6.2-12.0); Monocyte# 1.14 X10^3/uL; Monocyte% 8.1 % (0-10); NRBC Flagged by Analyzer 0 % (0-5); Neutrophil # 10.55 X10^3/uL (2.7-7.7); Neutrophil % 75.1 % (47-70); Platelet Count 282 K/mm3 (150-450); RBC Distribution Width CV 19.8 % (11.6-14.6); RBC Distribution Width SD 55.6 fl (35.1-43.9); Red Blood Count 5.74 M/mm3 (4.2-5.4); White Blood Count 14.1 K/mm3 (4.4-11.0)
[2021-12-11] MEDS: Dicyclomine 20 MG/2 ML Vial 10 MG IM (04:43)
[2021-12-11 05:02] LABS: ALB/GLOB Ratio 0.8 RATIO (0.9-2.4); AST(SGOT) 55 U/L (15-37); Alanine Aminotransfer ALT/SGPT 41 U/L (13-56); Albumin, Serum 3.6 g/dL (3.2-5.0); Alkaline Phosphatase 153 U/L (45-117); Anion Gap 9 (5-15); BUN 17 mg/dL (7-18); BUN/Creat Ratio 26.1 RATIO (10-20); Calcium,Total 9.4 mg/dL (8.5-10.1); Chloride 104 mmol/L (98-107); Creatinine, Serum 0.65 mg/dL (0.55-1.02); EST Glomerular Filtration Rate 96 mL/min (>60); Est Glom Filt Rate - Afr Amer 116 mL/min (>60); Estimated Creatinine Clearance 71.41 ml/min; Globulin 4.5 g/dL (2.2-4.2); Glucose 162 mg/dL (74-106); Lipase 54 U/L (73-393); Potassium 3.2 mmol/L (3.5-5.1); Protein, Total 8.1 g/dL (6.4-8.2); Sodium Level 138 mmol/L (136-145); Troponin-I HS 10 pg/mL (3.0-54.0)
--- NOTE | 2021-12-11 06:00 | CT_ITS ---
STUDY: CT ABDOMEN AND PELVIS WITHOUT CONTRAST REASON FOR EXAM: Female, 71 years old. upper abd pain, n/v RADIATION DOSAGE (If Supplied By Facility): CTDIvol = ( 17.87 ) mGy, DLP = ( 808.08 ) mGycm TECHNIQUE: Transaxial images were obtained from the dome of the diaphragm to the symphysis pubis without oral contrast, and without intravenous contrast. Sagittal and coronal images were reconstructed. Individualized dose optimization techniques were used for this CT. COMPARISON: CT abdomen pelvis 09/11/2013. FINDINGS: LOWER CHEST: Interstitial changes in the lung bases increased compared to prior study. Mild coronary artery calcifications. LIVER: Grossly unremarkable. GALLBLADDER AND BILIARY TREE: Grossly unremarkable. PANCREAS: Grossly unremarkable. SPLEEN: Grossly unremarkable. ADRENAL GLANDS: Grossly unremarkable. KIDNEYS AND URETERS: No calculi demonstrated. No hydronephrosis. PERITONEUM: No free air. No free fluid. BOWEL: No bowel obstruction. APPENDIX: Visualized and unremarkable. No evidence of acute appendicitis. VESSELS: Abdominal aorta is normal caliber. REPRODUCTIVE ORGANS: Left ovarian 3.8 x 2.3 cm structure with fat attenuation likely ovarian dermoid, not significantly changed compared to prior study. Calcified uterine fibroid. URINARY BLADDER: Mildly distended.. ABDOMINAL WALL: Small umbilical hernia contains only fat, no bowel. BONES: Bones are osteopenic. Multiple compression fractures in the thoracic and lumbar spine appears similar to prior study with increased height loss at a few levels. T9 compression fractures of uncertain age and may be acute or subacute, with approximately 20% vertebral body height loss, mild adjacent soft tissue thickening. Upper sacral fracture at S1 level is of uncertain age but was not present on the prior study. Surgical hardware in the right hip. Marked degenerative changes of the left hip. CT/Abdomen/Pelvis without Cont IMPRESSION: No definite acute intra-abdominal findings. Left ovarian dermoid not significantly changed. Multiple compression fractures throughout the thoracic and lumbar spine several which with increased height loss that appear chronic. T9 compression fracture possibly acute/subacute. Upper sacral fracture uncertain age. Electronically Signed: Mariana Crisostomo MD at 6:39 EDT ,
[2021-12-11] MEDS: Metoclopramide 10 MG/2 ML Vial 5 MG IV (06:23)
[2021-12-11 08:35] LABS: Bedside Glucose 154 mg/dL (74-106)
--- NOTE | 2021-12-11 08:57 | CT_ITS ---
We are attempting to reach an attending provider to discuss findings. An addendum with communication details will be sent when the communication is complete. HISTORY: confusion. TECHNIQUE: Multiple axial images were obtained of the head without intravenous contrast. A radiation dose optimization technique was used for this scan. 252 images. COMPARISON: MR 10/17/2016. FINDINGS: BRAIN PARENCHYMA: 2.3 x 3.5 cm acute midline cerebellar hemorrhage extending to the cerebellar vermis with surrounding edema. Chronic small vessel ischemic gliosis noted. CSF SPACES: Acute subarachnoid hemorrhage in the basal cisterns. Mild subdural hemorrhage along the tentorium. Mild-moderate acute hemorrhage in the left lateral ventricle, third, and fourth ventricles. Mild enlargement of the lateral and third ventricles. Narrowing of the basal cisterns. No midline shift. CALVARIUM: Intact. PARANASAL SINUSES AND MASTOID AIR CELLS: Clear. ORBITS: Unremarkable. CT/Brain/Head without Contrast IMPRESSION: Acute midline cerebellar hemorrhage with surrounding edema resulting in transtentorial herniation. Rupture of hemorrhage in the cerebral ventricles with mild-moderate intraventricular hemorrhage and mild hydrocephalus. Mild subarachnoid and subdural hemorrhage. Electronically Signed: Jeny June MD at 9:37 EDT ,
[2021-12-11] MEDS: Etomidate 20 MG/10 ML Vial IV (09:48)
[2021-12-11] MEDS: Rocuronium Bromide 50 MG/5 ML Vial 40 MG IV (09:48)
--- NOTE | 2021-12-11 09:51 | ED.RN ---
Unable to assess NIHSS d/t sedation, intubation.
[2021-12-11 09:55] LABS: Prothrombin Time (Protime)PT. 22.6 SECONDS (11.7-14.9)
[2021-12-11] MEDS: Propofol 10MG/Ml 1,000 MG/100 ML Bottle 5.1 MG CONT INF (09:55)
--- NOTE | 2021-12-11 10:09 | SUR.HOLD ---
Unable to assess NIHSS d/t sedation.
[2021-12-11] MEDS: hydrALAZINE 20 MG/ML Vial IV (10:12)
--- NOTE | 2021-12-11 10:13 | RAD_ITS ---
HISTORY: ET TUBE PLACEMENT. TECHNIQUE: XR Chest 1 View. COMPARISON: 09/07/2020. FINDINGS: CARDIOMEDIASTINAL BORDERS: Unchanged mild enlargement. Endotracheal tube tip 3 to 4 cm above the bryan. Nasogastric tube side port extends to the region of stomach with the tip excluded from the [id number]. LUNGS: Mild interstitial and linear opacities in the lung bases with low lung volumes. PLEURA: No pleural effusion or pneumothorax seen. OSSEOUS STRUCTURES: Degenerative changes. Progression of severe erosion of the right humeral head. Severe arthritis and erosion of the left humeral head. RAD/Chest 1 View (Portable) IMPRESSION: Satisfactory endotracheal and nasogastric tube placement. Inflammation or atelectasis in the lungs. Electronically Signed: Jeny June MD at 10:43 EDT ,
--- NOTE | 2021-12-11 10:15 | ED.RN ---
Unable to assess NIHSS d/t sedation.
[2021-12-11] MEDS: Sodium Cl 3% 500 ML 999 ML IV (10:21)
[2021-12-11] MEDS: levETIRAcetam IV 1,000 MG/100 ML BAG 400 MG IV (10:22)
[2021-12-11] MEDS: Sodium Cl 3% 500 ML 50 ML IV (10:30)
--- NOTE | 2021-12-11 10:32 | ED.RN ---
LT AC #20 Keppra infusing RT AC #20 Propofol infusing RT hand #20 3% infusing OGT ETT 7.5 23 teeth temp lundberg clear yellow AC 14 450 35% 5
--- NOTE | 2021-12-11 11:04 | ED.RN ---
0948- etomidate 20mg iv, 49mg rocuronium 0950- 7.5 ETT, 23cm at teeth- (-) color change, ETT removed 0952- re-intubated 7.5 ETT, 23cm teeth, (+) color change, b/l breath sounds
--- NOTE | 2021-12-11 11:09 | ED.RN ---
[facility] crew w/pt on cot to transfer to [facility] ER.
--- NOTE | 2021-12-11 11:29 | ED.RN ---
Addendum entered by El Marcial RN 12/11/21 11:42: time change 7044 Original Note: Unable to assess NIHSS d/t sedation
== END 2021-12-11 11:47 | disposition home or self-care (01) ==
PROVIDERS: Emergency Medicine; Emergency Provider Student in an Organized Health Care Education/Training Program; PCP Nurse Practitioner Adult Health; Visit Provider Student in an Organized Health Care Education/Training Program
DX: K29.00 Acute gastritis without bleeding (principal); R60.0 Localized edema; F17.210 Nicotine dependence, cigarettes, uncomplicated; E66.9 Obesity, unspecified; Z86.711 Personal history of pulmonary embolism
CPT/HCPCS: 31500; 51702; 70450; 71045; 74176; 80053; 82077; 82962; 83690; 84484; 85025; 85610; 93005; 94002; 96365; 96367; 96372; 96375; 99285; J7030; J7040; J7168; A4216; J2405; J3490

== ENCOUNTER → 2022-02-21 | Outpatient (REF) | payer MEDICARE, MEDICAID, SELFPAY ==
[2022-02-21 08:06] LABS: Hematocrit 43.9 % (37-47); Hemoglobin 13.5 g/dL (12.0-15.0); Mean Corp Hgb Conc 30.8 g/dL (32-36); Mean Corpuscular Hgb 25.4 pg (27.0-32.0); Mean Corpuscular Volume 82.7 fL (81-99); Mean Platelet Vol. 10.4 fl (6.2-12.0); Platelet Count 306 K/mm3 (150-450); RBC Distribution Width SD 55.8 fl (35.1-43.9); Red Blood Count 5.31 M/mm3 (4.2-5.4); White Blood Count 7.2 K/mm3 (4.4-11.0)
[2022-02-21 08:27] LABS: Anion Gap 7 (5-15); BUN 12 mg/dL (7-18); BUN/Creat Ratio 23.3 RATIO (10-20); Calcium,Total 9.3 mg/dL (8.5-10.1); Chloride 102 mmol/L (98-107); Creatinine, Serum 0.52 mg/dL (0.55-1.02); EST Glomerular Filtration Rate 126 mL/min (>60); Est Glom Filt Rate - Afr Amer 152 mL/min (>60); Glucose 84 mg/dL (74-106); Potassium 4.4 mmol/L (3.5-5.1); Sodium Level 139 mmol/L (136-145)
== END ==
LOC: OLS.WHLEAS 05:00
PROVIDERS: PCP Nurse Practitioner Adult Health; Visit Provider Family Medicine
DX: I61.4 Nontraumatic intracerebral hemorrhage in cerebellum (principal); G91.9 Hydrocephalus, unspecified; S06.A Traumatic brain compression and herniation; D64.9 Anemia, unspecified
CPT/HCPCS: 36415; 80048; 85027

== ENCOUNTER → 2022-03-21 | Outpatient (REF) | payer MEDICARE, MEDICAID, SELFPAY ==
[2022-03-21 09:09] LABS: Hematocrit 47.9 % (37-47); Hemoglobin 14.5 g/dL (12.0-15.0); Mean Corp Hgb Conc 30.3 g/dL (32-36); Mean Corpuscular Hgb 25.3 pg (27.0-32.0); Mean Corpuscular Volume 83.4 fL (81-99); Mean Platelet Vol. 10.6 fl (6.2-12.0); Platelet Count 278 K/mm3 (150-450); RBC Distribution Width CV 19.7 % (11.6-14.6); RBC Distribution Width SD 57.6 fl (35.1-43.9); Red Blood Count 5.74 M/mm3 (4.2-5.4)
[2022-03-21 09:21] LABS: Anion Gap 6 (5-15); BUN 15 mg/dL (7-18); BUN/Creat Ratio 26.5 RATIO (10-20); Calcium,Total 9.8 mg/dL (8.5-10.1); Chloride 102 mmol/L (98-107); Creatinine, Serum 0.57 mg/dL (0.55-1.02); EST Glomerular Filtration Rate 112 mL/min (>60); Est Glom Filt Rate - Afr Amer 136 mL/min (>60); Glucose 82 mg/dL (74-106); Potassium 3.9 mmol/L (3.5-5.1); Sodium Level 139 mmol/L (136-145)
== END ==
LOC: OLS.WHLEAS 05:00
PROVIDERS: PCP Nurse Practitioner Adult Health; Visit Provider Family Medicine
DX: I61.4 Nontraumatic intracerebral hemorrhage in cerebellum (principal); G91.9 Hydrocephalus, unspecified; S06.A Traumatic brain compression and herniation; D64.9 Anemia, unspecified; Z48.811 Encounter for surgical aftercare following surgery on the nervous system
CPT/HCPCS: 36415; 80048; 85027

== ENCOUNTER → 2022-06-21 | Outpatient (REF) | payer MEDICARE, MEDICAID, SELFPAY ==
[2022-06-21 10:39] LABS: Hematocrit 47.9 % (37-47); Hemoglobin 14.7 g/dL (12.0-15.0); Mean Corp Hgb Conc 30.7 g/dL (32-36); Mean Corpuscular Hgb 25.3 pg (27.0-32.0); Mean Corpuscular Volume 82.3 fL (81-99); Mean Platelet Vol. 11.6 fl (6.2-12.0); Platelet Count 228 K/mm3 (150-450); RBC Distribution Width CV 18.9 % (11.6-14.6); RBC Distribution Width SD 53.8 fl (35.1-43.9); Red Blood Count 5.82 M/mm3 (4.2-5.4); White Blood Count 7.1 K/mm3 (4.4-11.0)
[2022-06-21 11:08] LABS: Anion Gap 7 (5-15); BUN 18 mg/dL (7-18); BUN/Creat Ratio 36.1 RATIO (10-20); Calcium,Total 9.5 mg/dL (8.5-10.1); Chloride 103 mmol/L (98-107); EST Glomerular Filtration Rate 130 mL/min (>60); Est Glom Filt Rate - Afr Amer 158 mL/min (>60); Glucose 54 mg/dL (74-106); Potassium 4.3 mmol/L (3.5-5.1); Sodium Level 136 mmol/L (136-145)
== END ==
LOC: OLS.WHLEAS 04:00
PROVIDERS: PCP Nurse Practitioner Adult Health; Visit Provider Internal Medicine
DX: D64.9 Anemia, unspecified (principal)
CPT/HCPCS: 36415; 80048; 85027

== ENCOUNTER 2022-08-20 13:32 | Emergency (ER) | payer MEDICARE, MEDICAID, SELFPAY ==
[2022-08-20 13:34] VITALS: BP 128/111; PULSE 77; RESP 18; TEMP 35.9; O2SAT 99
--- NOTE | 2022-08-20 14:06 | EX.ED.DYSGE1 ---
HPI <BALTAZAR Zelaya - Last Filed: 08/20/22 15:10> History of Present Illness Chief Complaint: Other, Pain/Inj Narrative Narrative: Patient is a 71-year-old female with history of CVA with severe debility who is currently on hospice. Patient has a PEG tube where she receives her nutrition as well as her medications. It has been slow moving over the last 3 to 4 days. Today at the facility, they could not aspirate or inject any medications. She is here for evaluation. Patient is baseline, no signs or symptoms of discomfort or infection. PFSH <BALTAZAR Zelaya - Last Filed: 08/20/22 15:10> [facility] Medical History Anxiety Bladder dysfunction Compression fracture of thoracic vertebra Deep vein thrombosis Essential (primary) hypertension History of pulmonary embolism (2011) Hyperlipidemia Lower extremity edema Mental retardation Morbid obesity Nicotine dependence Osteoporosis Positive colorectal cancer screening using Cologuard test Rheumatoid arthritis Toe ulcer, right Ulcer of right lower extremity with fat layer exposed Venous insufficiency of both lower extremities Home Medications omega-3 fatty acids-fish oil 340 mg-1,000 mg capsule 2 ea PO DAILY 03/27/15 [History Last Taken Unknown] potassium chloride 10 mEq tablet,extended release(part/cryst) 10 meq PO DAILY 03/27/15 [History Last Taken Unknown] prednisone 5 mg tablet 10 mg PO DAILY 03/27/15 [History Last Taken Unknown] sertraline 100 mg tablet 200 mg PO DAILY 03/27/15 [History Last Taken Unknown] vitamin B complex 1 ea PO DAILY 03/27/15 [History Last Taken Unknown] pravastatin 10 mg tablet 40 mg PO QHS 09/14/15 [History Last Taken Unknown] metoprolol tartrate 25 mg tablet 25 mg PO BID #60 tabs 01/08/19 [History Last Taken Unknown] acetaminophen 500 mg tablet 1,000 mg PO BID PRN Pain Or Fever 07/11/19 [History Last Taken Unknown] bismuth subsalicylate 262 mg/15 mL oral suspension 15 ml PO Q6H PRN Indigestion 07/11/19 [History Last Taken Unknown] diphenhydramine HCl 25 mg capsule 25 mg PO Q6H PRN Itching 07/11/19 [History Last Taken Unknown] loperamide 2 mg capsule 2 mg PO Q8H PRN PRN Diarrhea 07/11/19 [History Last Taken Unknown] multivitamin 1 ea PO DAILY 07/11/19 [History Last Taken Unknown] naphazoline-glycerin 0.03 %-0.5 % eye drops 2 drp OP BID 07/11/19 [History Last Taken Unknown] saliva substitute combo no.9 30 ml MM DAILY PRN Dry Mouth 07/11/19 [History Last Taken Unknown] simethicone 125 mg capsule 125 mg PO 4X/DAY PRN Indigestion 07/11/19 [History Last Taken Unknown] tizanidine 2 mg capsule 2 mg PO Q8H PRN Spasms 07/11/19 [History Last Taken Unknown] cholecalciferol (vitamin D3) 50 mcg (2,000 unit) capsule 50 mcg PO DAILY 08/07/20 [History Last Taken Unknown] mirabegron 50 mg tablet,extended release 24 hr (Myrbetriq) 50 mg PO DAILY 08/07/20 [History Last Taken Unknown] warfarin 6 mg tablet 6 mg PO DAILY 08/07/20 [History Last Taken Unknown] aripiprazole 2 mg tablet 2 mg PO DAILY 09/07/20 [History Last Taken Unknown] benzonatate 100 mg capsule 200 mg PO Q8H PRN PRN Cough 09/07/20 [History Last Taken Unknown] buprenorphine 5 mcg/hour weekly transdermal patch 1 ea transdermal QWEEK 09/07/20 [History Last Taken Unknown] capsaicin 0.075 % topical cream 57 gm TP DAILY 09/07/20 [History Last Taken Unknown] celecoxib 200 mg capsule 200 mg PO DAILY 09/07/20 [History Last Taken Unknown] fluticasone propionate 50 mcg/actuation nasal spray,suspension 2 spray NASAL DAILY 09/07/20 [History Last Taken Unknown] gabapentin 100 mg capsule 100 mg PO DAILY 09/07/20 [History Last Taken Unknown] guaifenesin 400 mg tablet 400 mg PO BID PRN Congestion 09/07/20 [History Last Taken Unknown] hydrocodone 7.5 mg-acetaminophen 325 mg tablet 1 ea PO TID 09/07/20 [History Last Taken Unknown] methotrexate sodium 2.5 mg tablet 15 mg PO QWEEK 09/07/20 [History Last Taken Unknown] montelukast 10 mg tablet 10 mg PO DAILY 09/07/20 [History Last Taken Unknown] nystatin (bulk) 1 million unit powder 1,000,000 unit miscellaneous BID 09/07/20 [History Last Taken Unknown] oxybutynin chloride 10 mg tablet,extended release 24 hr 10 mg PO DAILY 09/07/20 [History Last Taken Unknown] pantoprazole 40 mg tablet,delayed release 40 mg PO BID #56 tabs 09/07/20 [Rx Last Taken Unknown] phenol 1.4 % mucosal aerosol spray 177 ml MM Q2H PRN Sore Throat 09/07/20 [History Last Taken Unknown] psyllium husk 0.4 gram capsule 0.4 gm PO DAILY PRN Constipation 09/07/20 [History Last Taken Unknown] saliva substitute combo no.9 15 ml MM 5X/DAY 09/07/20 [History Last Taken Unknown] sucralfate 1 gram tablet 1 gm PO 4X/DAY #84 tabs 09/07/20 [Rx Last Taken Unknown] warfarin 3 mg tablet 2.5 mg PO DAILY 09/07/20 [History Last Taken Unknown] cephalexin 500 mg capsule 500 mg PO Q8H #21 caps 01/28/21 [Rx Last Taken Unknown] tizanidine 2 mg tablet 2 mg PO Q8H PRN muscle spasticity #7 tabs 11/28/21 [Rx Last Taken Unknown] Allergy/AdvReac Type Severity Reaction Status Date / Time No Known Allergies Allergy Verified 08/20/22 13:33 Family History Other Hypertension Surgical History History of right hip replacement History of total left knee replacement Social History Smoking Status: Former smoker alcohol intake: current alcohol intake frequency: holidays/special occasions only ROS <BALTAZAR Zelaya - Last Filed: 08/20/22 15:10> ROS ED ROS Narrative Constitutional: Negative for fever, chills, weight loss, weakness Eyes: Negative for vision loss, vision change, double vision ENT: Negative for any sore throat, ear pain, congestion Cardiovascular: Negative for any chest pain, tightness, palpitations Respiratory: Negative for any cough, sputum production, hemoptysis, dyspnea, dyspnea on exertion, orthopnea Gastrointestinal: Negative for any abdominal pain, nausea, vomiting, diarrhea, constipation, blood in stool, blood in vomit. Positive for blocked PEG tube : Negative for any urinary frequency, dysuria, retention, blood in urine Muscle skeletal: Negative for any muscle joint pain, stiffness, myalgias, arthralgias, neck pain, back pain Neurological: Negative for any headache, syncope, numbness or tingling, dizziness Skin: Negative for any rashes, lumps, itching, abrasions, lacerations Psychiatric: Negative for any depression, anxiety, stress, suicidal ideation, homicidal ideation Hematologic: Negative for any easy bruising, excessive bruising, easy bleeding Allergies: Negative for any eczema, hives, rash EXAM <BALTAZAR Zelaya - Last Filed: 08/20/22 15:10> Physical Exam Narrative Exam Narrative: Vital signs reviewed. HEET: Head normocephalic atraumatic, TMs clear bilaterally. Posterior pharynx is clear, moist mucous membranes. Nares clear bilaterally. Neck: Supple with no lymphadenopathy or tenderness. No signs of meningismus, negative jolt sign. Cardiac: Regular rate and rhythm no murmurs gallops or rubs, equal peripheral pulses bilaterally. Respiratory: Lungs clear to auscultation bilaterally. No chest tenderness. Abdomen: Soft, nontender, nondistended. No abdominal bruit or pulsatile masses. No hepatosplenomegaly. Patient has PEG tube left upper abdomen. There is no signs or symptoms of drainage, no signs or symptoms of redness or infection. Extremities: No peripheral edema, no signs of gross trauma or deformity. Active full range of motion of all extremities. Neuro: Cranial nerves II through XII intact, no focal neurological deficits. Skin: Clean dry and intact with no rash, purpura, petechiae, vesicles or pustules. Backs/flank: No CVA tenderness, no midline spinal tenderness, no deformity. Psych: Normal mood and affect. No SI, HI or acute psychosis. Const Vital Signs: 08/20/22 13:34 08/20/22 13:41 Temperature 96.6 F L Temperature Source Temporal Pulse Rate 77 Respiratory Rate 18 Respiratory Effort Normal Non-Labored Respiratory Pattern Normal Blood Pressure 128/111 H Blood Pressure Mean 116 Pulse Ox 99 Oxygen Delivery Method Room Air <Dr. Jose Dangelo MD - Last Filed: 08/20/22 15:26> Physical Exam Const Vital Signs: 08/20/22 13:34 08/20/22 13:41 Temperature 96.6 F L Temperature Source Temporal Pulse Rate 77 Respiratory Rate 18 Respiratory Effort Normal Non-Labored Respiratory Pattern Normal Blood Pressure 128/111 H Blood Pressure Mean 116 Pulse Ox 99 Oxygen Delivery Method Room Air [facility] <BALTAZAR Zelaya - Last Filed: 08/20/22 15:10> [facility] Radiography Diagnostic Testing: Clinical Impression(s) from Imaging Studies Chest X-Ray 08/20/22 14:30 IMPRESSION: Mild bibasilar atelectasis or fibrosis. Poor inspiratory effort. Degenerative changes of both shoulders detailed above. Electronically Signed: Jason Patel MD, MARVIN at 14:56 EST , Treatment and Re-Evaluation Narrative: Peers generally well, patient appears nontoxic, vital signs are stable. Patient presents to the emergency department via the nursing facility secondary to clogged PEG tube. Per the hospice nurse, she is also coughing. And they would like a chest x-ray. Secondary to concern of pneumonia, aspiration pneumonia, patient's chest x-ray showed poor inspiration however no acute process. We did use Sprite to unclog the PEG tube. It is now flushing easily. Patient is stable go back to the hospice care center. I did speak with the hospice nurse. Patient is stable for discharge. They will return for any worsening shortness of breath, fever chills nausea vomiting <Dr. Jose Dangelo MD - Last Filed: 08/20/22 15:26> [facility] Narrative Medical decision making narrative: Seen and evaluated independently and in conjunction with nurse practitioner. Agree with notes above unless documented otherwise. Patient at her baseline except for a cough she has had for 2 to 3 weeks, but apparently her gastrostomy has been difficult to use lately and today completely blocked. Attempted treatment prior to coming here was warm water. Abdomen soft, benign, gastrostomy site does not appear to be infected. The tube is intact as is the balloon, competent. See procedure note. We were able to flush the tube successfully without having to do any physical manipulation to the tube. Therefore at this time I would recommend the least amount of manipulation possible, so we will discharge the patient with this tube, discussed with the hospice nurse and showed it to her and she is comfortable with that plan. We did do a chest x-ray given her cough, shows no signs of acute pneumonia and she is not hypoxic or febrile. Radiography Diagnostic Testing: Clinical Impression(s) from Imaging Studies Chest X-Ray 08/20/22 14:30 IMPRESSION: Mild bibasilar atelectasis or fibrosis. Poor inspiratory effort. Degenerative changes of both shoulders detailed above. Electronically Signed: Jason Patel MD, MARVIN at 14:56 EST , <Dr. Jose Dangelo MD - Last Filed: 08/20/22 15:26> Other Procedures Procedure(s): G-tube declogged by EDMD by flushing w/ carbonated beverage. No pain/discomfort to pt, flushed easily, repeated with water afterwards. Discharge Plan Triage Chief Complaint: Other, Pain/Inj ED Midlevel Provider: Danny Colon ED Provider: Jose Dangelo Dx/Rx/DC Orders Clinical Impression: PEG tube malfunction, Cough Instructions: Gastrostomy Feeding Tube Care ..., ED Cough Chronic Uncertain Cause Adult Prescriptions: No Action metoprolol tartrate 25 mg tablet 25 mg PO BID Qty: 60 Myrbetriq 50 mg tablet extended release 24 hr 50 mg PO DAILY cholecalciferol (vitamin D3) 50 mcg (2,000 unit) capsule 50 mcg PO DAILY warfarin 6 mg tablet 6 mg PO DAILY Rx Instructions: Everyday except Tuesdays and sertraline 100 MG tablet 200 mg PO DAILY prednisone 5 MG tablet 10 mg PO DAILY vitamin B complex 1 EACH capsule 1 ea PO DAILY potassium chloride 10 MEQ tablet 10 meq PO DAILY omega-3 fatty acids-fish oil 1 EACH capsule 2 ea PO DAILY pravastatin 10 MG tablet 40 mg PO QHS multivitamin 1 EACH tablet 1 ea PO DAILY loperamide 2 MG capsule 2 mg PO Q8H PRN PRN (Reason: Diarrhea) simethicone 125 MG capsule 125 mg PO 4X/DAY PRN (Reason: Indigestion) acetaminophen 500 MG tablet 1,000 mg PO BID PRN (Reason: Pain Or Fever) diphenhydramine HCl 25 MG capsule 25 mg PO Q6H PRN (Reason: Itching) bismuth subsalicylate 262 MG/15 ML suspension 15 ml PO Q6H PRN (Reason: Indigestion) tizanidine 2 MG capsule 2 mg PO Q8H PRN (Reason: Spasms) naphazoline-glycerin 30 ML drops 2 drp OP BID saliva substitute combo no.9 473 ML mouthwash 30 ml MM DAILY PRN (Reason: Dry Mouth) celecoxib 200 MG capsule 200 mg PO DAILY oxybutynin chloride 10 MG tablet extended release 24hr 10 mg PO DAILY capsaicin 57 GM cream 57 gm TP DAILY warfarin 3 MG tablet 2.5 mg PO DAILY Rx Instructions: Take 5.5mg on Monday and methotrexate sodium 2.5 MG tablet 15 mg PO QWEEK Rx Instructions: Take 3 tablets in the morning and 3 tablets in the evening benzonatate 100 MG capsule 200 mg PO Q8H PRN PRN (Reason: Cough) hydrocodone-acetaminophen 1 TABLET tablet 1 ea PO TID montelukast 10 MG tablet 10 mg PO DAILY gabapentin 100 MG capsule 100 mg PO DAILY fluticasone propionate 1 SPRAY spray,suspension 2 spray NASAL DAILY phenol 177 ML aerosol,spray 177 ml MM Q2H PRN (Reason: Sore Throat) guaifenesin 400 MG tablet 400 mg PO BID PRN (Reason: Congestion) aripiprazole 2 MG tablet 2 mg PO DAILY buprenorphine 1 EACH patch weekly 1 ea TD QWEEK saliva substitute combo no.9 237 ML bottle 15 ml MM 5X/DAY psyllium husk 0.4 GM capsule 0.4 gm PO DAILY PRN (Reason: Constipation) nystatin (bulk) 1,000,000 UNIT powder 1,000,000 unit MC BID Rx Instructions: armpits pantoprazole 40 MG tablet 40 mg PO BID Qty: 56 1RF Rx Instructions: Take Protonix 40 mg p.o. twice daily x2 weeks then changed to 40 mg p.o. daily sucralfate 1 GM tablet 1 gm PO 4X/DAY Qty: 84 0RF tizanidine 2 mg tablet 2 mg PO Q8H PRN (Reason: muscle spasticity) Qty: 7 0RF cephalexin 500 mg capsule 500 mg PO Q8H Qty: 21 0RF Primary Care Provider: Bobbi Pandey MANUAL ARTS THERAPIST Referrals: Bobbi Pandey MANUAL ARTS THERAPIST, MANUAL ARTS THERAPIST-C [Primary Care Provider] - Disposition Disposition: Home, Self Care
--- NOTE | 2022-08-20 14:30 | RAD_ITS ---
INDICATION: cough EXAMINATION/TECHNIQUE: X-RAY - XR Chest 1 View COMPARISON: 12/11/2021 FINDINGS: LINES/DEVICES: Interval removal of endotracheal tube and nasogastric tube. LUNGS: Poor inspiratory effort. Mild bibasilar atelectasis or fibrosis stable. MEDIASTINUM AND CARDIOVASCULAR STRUCTURES: Cardiac silhouette not enlarged. Central airways and mediastinal contour are unremarkable. BONES AND SOFT TISSUES: Severe osteoarthritis left glenohumeral joint. Flattening of the right humeral head medially with underlying severe osteoarthritis. RAD/Chest 1 View (Portable) IMPRESSION: Mild bibasilar atelectasis or fibrosis. Poor inspiratory effort. Degenerative changes of both shoulders detailed above. Electronically Signed: Jason Patel MD, MARVIN at 14:56 EST ,
== END 2022-08-20 16:49 | disposition home or self-care (01) ==
PROVIDERS: Emergency Provider Emergency Medicine; PCP Nurse Practitioner Adult Health; Visit Provider Emergency Medicine
DX: K94.23 Gastrostomy malfunction (principal); R05.9 Cough, unspecified; Z86.73 Personal history of transient ischemic attack (TIA), and cerebral infarction without residual deficits; Z87.891 Personal history of nicotine dependence; Z86.718 Personal history of other venous thrombosis and embolism
CPT/HCPCS: 71045; 99284

== ENCOUNTER 2022-08-31 08:41 | Day surgery (SDC) | payer MEDICARE, MEDICAID, SELFPAY ==
[2022-08-31] VITALS (7 sets, daily range): BP systolic 106–116; BP diastolic 72–80; PULSE 72–81; RESP 16–18; TEMP 36.3–37.1; O2SAT 95–97; BMI 29.3
[2022-08-31] MEDS: Lactated Ringers 1,000 ML 15 ML IV (09:19)
--- NOTE | 2022-08-31 10:29 | PCM.HP.STD ---
HPI - General HPI Narrative PRICE MACK, is a 71 F who presents for EGD with new PEG tube placement [facility] Medical History (Updated 08/31/22 @ 10:[address] Dylan Peña MD) Anxiety Bladder dysfunction Compression fracture of thoracic vertebra Deep vein thrombosis Dysphagia Essential (primary) hypertension History of pulmonary embolism (2011) Hyperlipidemia Lower extremity edema Mental retardation Morbid obesity Nicotine dependence Osteoporosis Positive colorectal cancer screening using Cologuard test Rheumatoid arthritis Toe ulcer, right Ulcer of right lower extremity with fat layer exposed Venous insufficiency of both lower extremities Home Medications sertraline 100 mg tablet 100 mg PO QHS 03/27/15 [History Last Taken Unknown] metoprolol tartrate 25 mg tablet 37.5 mg PO BID #60 tabs 01/08/19 [History Last Taken Unknown] fluticasone propionate 50 mcg/actuation nasal spray,suspension 2 spray NASAL DAILY 09/07/20 [History Last Taken Unknown] amlodipine 10 mg tablet 10 mg PO DAILY 08/29/22 [History Last Taken Unknown] fexofenadine 180 mg tablet (Allergy Relief (fexofenadine)) 180 mg PO DAILY PRN Allergy Symptoms 08/29/22 [History Last Taken Unknown] hyoscyamine sulfate 0.125 mg tablet (Levsin) 0.125 mg PO BID-QID PRN Secretions 08/29/22 [History Last Taken Unknown] morphine 10 mg/5 mL oral solution 10 mg PO Q2H PRN Pain 08/29/22 [History Last Taken Unknown] promethazine 6.25 mg/5 mL oral syrup 25 mg PO Q6H PRN Nausea 08/29/22 [History Last Taken Unknown] esomeprazole magnesium 40 mg granules delayed release for susp 40 mg PO DAILY 08/31/22 [History Last Taken Unknown] gabapentin 250 mg/5 mL (5 mL) oral solution 100 mg PO BID 08/31/22 [History Last Taken Unknown] oxycodone 5 mg capsule 5 mg PO BID 08/31/22 [History Last Taken Unknown] oxycodone 5 mg capsule 5 mg PO Q6H PRN Pain 08/31/22 [History Last Taken Unknown] polyethylene glycol 3350 17 gram oral powder packet (Miralax) 17 g PO DAILY PRN Constipation 08/31/22 [History Last Taken Unknown] prednisone 5 mg/5 mL oral solution 15 mg PO DAILY 03/08/23 [History Last Taken Unknown] Allergy/AdvReac Type Severity Reaction Status Date / Time abatacept Allergy PT UNSURE Verified 08/30/22 14:53 OF REACTION infliximab Allergy PT UNSURE Verified 08/30/22 14:53 OF REACTION tocilizumab Allergy PT UNSURE Uncoded 08/29/22 14:56 OF REACTION Family History Other Hypertension Surgical History History of right hip replacement History of total left knee replacement Social History Smoking Status: Former smoker alcohol intake: current alcohol intake frequency: holidays/special occasions only Vital Signs Vital Signs Vital Signs: 08/31/22 09:24 08/31/22 09:24 Temperature 97.4 F L Temperature Source Temporal Pulse Rate 72 Respiratory Rate 17 Respiratory Pattern Normal Blood Pressure 114/72 Blood Pressure Mean 86 Blood Pressure Source Monitor Blood Pressure Position Semi-Fowlers Blood Pressure Location Left Arm Pulse Ox 96 Oxygen Delivery Method Room Air Weight Weight: 171 lb Body Mass Index (BMI) 29.3 Assessment & Plan Assessment/Plan (1) Dysphagia: QUALIFIERS: Dysphagia type: pharyngeal phase Qualified Code(s): R13.13 - Dysphagia, pharyngeal phase PLAN: The patient was in the office yesterday and her PEG tube was removed and I was unable to place a new PEG tube. Patient had been eating so I sent her back to her shelter to see if she really required a new feeding tube but the shelter insist that she have a feeding tube. I will take her for EGD and a new tube will be placed today. I explained endoscopy in detail to the patient. I explained the risks including but not limited to stroke or heart attack with anesthesia, perforation of the GI tract, bleeding, infection. I explained that any of these could necessitate further emergency surgery. The patient understands and all questions were answered sufficiently. The patient wishes to proceed with procedure. Dylan Peña MD Pager: [facility] [address] [place] [address], [address] [place] [address] Office:
--- NOTE | 2022-08-31 11:30 | OP.EGD_ITS ---
Patient Name: Ana M Sanabria Procedure Date: 08/31/2022 10:00 AM Date of : 1950 Age: 71 Procedure: Upper GI endoscopy Indications: Dysphagia, Replace PEG tube Providers: Dylan Peña MD Medicines: Monitored Anesthesia Care Patient Profile: This is a 71 year old female. Refer to note in patient chart for documentation of history and physical. Complications: No immediate complications. Procedure: Pre-Anesthesia Assessment: - Prior to the procedure, a History and Physical was performed, and patient medications and allergies were reviewed. The patient's tolerance of previous anesthesia was also reviewed. The risks and benefits of the procedure and the sedation options and risks were discussed with the patient. All questions were answered, and informed consent was obtained. Prior Anticoagulants: The patient has taken no previous anticoagulant or antiplatelet agents. After reviewing the risks and benefits, the patient was deemed in satisfactory condition to undergo the procedure. After obtaining informed consent, the endoscope was passed under direct vision. Throughout the procedure, the patient's blood pressure, pulse, and oxygen saturations were monitored continuously. The Endoscope was introduced through the mouth, and advanced to the second part of duodenum. The upper GI endoscopy was accomplished without difficulty. The patient tolerated the procedure well. Scope In: 11:20:23 AM Scope Out: 11:26:04 AM Total Procedure Duration Time 0 hours 5 minutes 41 seconds Findings: The esophagus was normal. The stomach was normal. The examined duodenum was normal. The patient was placed in the supine position for PEG placement. The stomach was insufflated to appose gastric and abdominal peralta. A site was located in the body of the stomach with excellent transillumination and manual external pressure for placement. The abdominal wall was marked and prepped in a sterile manner. The area was anesthetized with 5 mL of 0.5% lidocaine. The trocar needle was introduced through the abdominal wall and into the stomach under direct endoscopic view. A snare was introduced through the endoscope and opened in the gastric lumen. The guide wire was passed through the trocar and into the open snare. The snare was closed around the guide wire. The endoscope and snare were removed, pulling the wire out through the mouth. A skin incision was made at the site of needle insertion. The externally removable 20 Fr EndoVive Safety gastrostomy tube was lubricated. The G-tube was tied to the guide wire and pulled through the mouth and into the stomach. The trocar needle was removed, and the gastrostomy tube was pulled out from the stomach through the skin. The external bumper was attached to the gastrostomy tube, and the tube was cut to remove the guide wire. The final position of the gastrostomy tube was confirmed by relook endoscopy, and skin marking noted to be 4 cm at the external bumper. The final tension and compression of the abdominal wall by the PEG tube and external bumper were checked and revealed that the bumper was loose and lightly touching the skin and that the PEG balloon was loose and lightly touching the stomach. The feeding tube was capped, and the tube site cleaned and dressed. Impression: - Normal esophagus. - Normal stomach. - Normal examined duodenum. - An externally removable PEG placement was successfully completed. - No specimens collected. Recommendation: - Discharge patient to a [facility] (ambulatory). - Resume previous diet. - Please follow the post-PEG recommendations including: external bolster 1 cm from abdominal wall, change dressing once per day, may use PEG today for meds and water, may use PEG tomorrow for feedings, check site for bleeding q 4 hrs and clean site with soap and water daily and dry thoroughly. - Continue present medications. Procedure Code(s): --- Professional --- 73885, Esophagogastroduodenoscopy, flexible, transoral; with directed placement of percutaneous gastrostomy tube Diagnosis Code(s): --- Professional --- R13.10, Dysphagia, unspecified Z43.1, Encounter for attention to gastrostomy CPT copyright 2017 [employer]. All rights reserved. The codes documented in this report are preliminary and upon soap boiler review may be revised to meet current compliance requirements. Dylan Peña MD 08/31/2022 11:30:26 AM This report has been signed electronically. Number of Addenda: 0 Note Initiated On: 08/31/2022 10:00 AM
--- NOTE | 2022-08-31 11:30 | OP.CCLET_ITS ---
08/31/2022 Bobbi Pandey Re : Upper GI endoscopy procedure for Ana M Sanabria Dear Dannie This procedure was performed on Wednesday, August 31, 2022. My impressions and recommendations are as follows: Impressions : - Normal esophagus. - Normal stomach. - Normal examined duodenum. - An externally removable PEG placement was successfully completed. - No specimens collected. Recommendations : - Discharge patient to a alf (ambulatory). - Resume previous diet. - Please follow the post-PEG recommendations including: external bolster 1 cm from abdominal wall, change dressing once per day, may use PEG today for meds and water, may use PEG tomorrow for feedings, check site for bleeding q 4 hrs and clean site with soap and water daily and dry thoroughly. - Continue present medications. My findings are described in the full procedure note, which is enclosed. If I can be of further assistance, please feel free to contact me at Doctor phone number(s): , Work: . Sincerely, Dylan Peña MD 08/31/2022 11:30:26 AM This report has been signed electronically.
== END 2022-08-31 12:20 | disposition home or self-care (01) ==
LOC: EN 08:45 → AC 08:45
PROVIDERS: PCP Nurse Practitioner Adult Health; Referring Provider Nurse Practitioner Adult Health; Visit Provider Surgery
PROC: 0DJ08ZZ Inspection of Upper Intestinal Tract, Via Natural or Artificial Opening Endoscopic (ICD-10-PCS; CPT 43235; principal; 2022-08-31 10:40)
DX: Z93.1 Gastrostomy status (principal); R13.13 Dysphagia, pharyngeal phase; I10 Essential (primary) hypertension; F41.9 Anxiety disorder, unspecified; Z87.891 Personal history of nicotine dependence; Z86.711 Personal history of pulmonary embolism; Z86.718 Personal history of other venous thrombosis and embolism; Z79.899 Other long term (current) drug therapy
CPT/HCPCS: 43246; J7120; J2405

== ENCOUNTER 2023-11-24 18:19 | Emergency (ER) | payer MEDICARE, MEDICAID, SELFPAY ==
[2023-11-24 18:19] VITALS: BP 212/192; PULSE 92; RESP 18; TEMP 36.4; O2SAT 96; BMI 23.9
--- NOTE | 2023-11-24 18:40 | CT_ITS ---
INDICATION: PEG TUBE EXAMINATION: CT Abdomen And Pelvis W/O Contrast Injection TECHNIQUE: Helically acquired images were obtained of the abdomen and pelvis without the use of IV contrast. A radiation dose optimization technique was used for this scan. Oral contrast: None. COMPARISON: None FINDINGS: Evaluation of the solid organs and vascular structures is limited without intravenous contrast. Visualized lung bases: Bibasilar atelectasis. Liver: Unremarkable Gallbladder: Contracted. Spleen: Unremarkable Pancreas: Unremarkable Adrenal Glands: Unremarkable Kidneys: Unremarkable Vasculature: Mild scattered aortoiliac atherosclerotic calcifications. GI Tract: PEG tube has been dislodged and is within the subcutaneous tissue of the anterior abdominal wall. Lymphadenopathy: None Peritoneum: No ascites. Bladder: Unremarkable Reproductive organs: Unremarkable Bones/Soft tissues: There are diffuse degenerative changes of the spine. Severe degenerative changes of the left hip. Total right hip arthroplasty. Several chronic compression deformities of the visualized thoracolumbar spine. CT/Abdomen/Pelvis without Cont IMPRESSION: PEG tube has been dislodged and is within the subcutaneous tissue of the anterior abdominal wall. Recommend replacement. Several chronic compression deformities of the visualized thoracolumbar spine. Electronically Signed: Hussein Dumont MD at 20:09 EDT ,
--- NOTE | 2023-11-24 18:52 | EDS_ITS ---
HPI History of Present Illness Chief Complaint: Other, Pain/Inj Detail of Chief Complaint: Clogged PEG tube Informant: patient and EMS Narrative Narrative: Patient sent in from local ECF secondary to clogged PEG tube. In review of records it appears patient frequently gets clogged PEG tube. In August 2022 they attempted to change out her PEG tube in the surgical office but were unable to place a new one. She did require a trip to the OR to replace the PEG tube. She does reportedly have a history of the PEG tube migrating out of position. Patient denies any pain around the area. Nursing staff report was that they were getting backflow through the PEG tube but were not able to instill any fluids. [facility] Medical History Dysphagia Toe ulcer, right Positive colorectal cancer screening using Cologuard test Nicotine dependence Venous insufficiency of both lower extremities Ulcer of right lower extremity with fat layer exposed History of pulmonary embolism (2011) Essential (primary) hypertension Lower extremity edema Hyperlipidemia Bladder dysfunction Rheumatoid arthritis Osteoporosis Compression fracture of thoracic vertebra Anxiety Deep vein thrombosis Morbid obesity Mental retardation Home Medications ?Medication ?Instructions ?Recorded ?Last Taken ?Type sertraline 100 mg tablet 125 mg feeding tube Q24H 03/27/15 Unknown History metoprolol tartrate 25 mg tablet 25 mg feeding tube BID #60 tabs 01/08/19 Unknown History fluticasone propionate 50 2 spray NASAL DAILY 09/07/20 Unknown History mcg/actuation nasal spray,suspension amlodipine 10 mg tablet 5 mg feeding tube DAILY 08/29/22 Unknown History fexofenadine 180 mg tablet 180 mg PO DAILY PRN Allergy 08/29/22 Unknown History (Allergy Relief (fexofenadine)) Symptoms hyoscyamine sulfate 0.125 mg 0.125 mg PO BID-QID PRN Secretions 08/29/22 Unknown History tablet (Levsin) morphine 10 mg/5 mL oral solution 10 mg PO Q2H PRN Pain 08/29/22 Unknown History promethazine 6.25 mg/5 mL oral 25 mg PO Q6H PRN Nausea 08/29/22 Unknown History syrup esomeprazole magnesium 40 mg 40 mg PO DAILY 08/31/22 Unknown History granules delayed release for susp gabapentin 250 mg/5 mL (5 mL) oral 100 mg feeding tube BID 03/08/23 Unknown History solution oxycodone 5 mg capsule 5 mg feeding tube Q6H PRN Pain 08/31/22 Unknown History oxycodone 5 mg capsule 5 mg feeding tube Q8H 08/31/22 Unknown History polyethylene glycol 3350 17 gram 17 g feeding tube MOWEFR PRN 08/31/22 Unknown History oral powder packet (Miralax) Constipation prednisone 5 mg/5 mL oral solution 10 mg feeding tube DAILY 08/31/22 Unknown History lactose-reduced food-fiber 0.07 250 ml feeding tube 4XD 11/24/23 Unknown History gram-1.5 kcal/mL liquid for tube feed (Isosource 1.5 Artem) Allergy/AdvReac Type Severity Reaction Status Date / Time abatacept Allergy PT UNSURE Verified 11/24/23 18:19 OF REACTION infliximab Allergy PT UNSURE Verified 11/24/23 18:19 OF REACTION tocilizumab Allergy NEEDS Verified 11/24/23 18:19 FOLLOW-UP Family History Other Hypertension Surgical History History of total left knee replacement History of right hip replacement Social History Smoking Status: Former smoker alcohol intake: current alcohol intake frequency: holidays/special occasions only ROS ROS ED ROS Narrative Patient denies significant abdominal pain. She denies chest pain or vomiting. Constitutional Constitutional ED: Denies fever(s) EXAM Physical Exam Const Vital Signs: 11/24/23 18:19 11/24/23 18:19 11/24/23 19:52 Temperature 97.6 F L Temperature Source Temporal Pulse Rate 92 84 Respiratory Rate 18 15 Respiratory Effort Normal Non-Labored Respiratory Pattern Normal Blood Pressure 212/192 H 107/70 Blood Pressure Mean 198 82 Pulse Ox 96 93 Oxygen Delivery Method Room Air Room Air Positive well nourished and well developed General Appearance ED: well developed HEENT Reports moist mucous membranes Eyes EOMs intact bilaterally Chest Wall inspection of chest normal and palpation of chest normal Resp normal respiratory effort and clear to auscultation bilaterally Cardio regular rate and regular rhythm GI GI Narrative: PEG tube in place in the mid upper abdomen. Unable to advance the PEG any deeper raising suspicion for possible displacement. No sign of surrounding infection. Extremity normal to inspection Neuro oriented x3 and no sensory deficits noted Motor Exam: strength 5/5 throughout Psych mental status grossly normal Skin no rashes or lesions noted MDM MDM MDM Narrative Medical decision making narrative: Due to concern for the PEG tube malpositioned, I will obtain a CT of the abdomen to evaluate if it is indeed still in the stomach. As the patient has had problems having it removed and replaced in the outpatient setting I am reluctant to just pull it at this time if it is in good position. Shortly after I saw the patient, her hospice center called and spoke with the nurse. Reportedly if we need to consult anyone, they want to be contacted first. Patient CT scan was obtained and reveals that the PEG tube has been dislodged is within the subcutaneous tissue. I went back to remove the tube and attempt to place a new one, however the patient is refusing to let me do anything unless I put her to sleep. I do feel that this would be high risk. We contacted hospice and they are sending someone here to see her. They understand that we will not do anything further until they arrive. At the end of my shift [facility] staff has just arrived to see the patient. They are asking about a GIP contract so the patient can be admitted under their care. supervisor stage carpentry is working on this. Patient be signed out to oncoming physician for final placement issues. Radiography Diagnostic Testing: Clinical Impression(s) from Imaging Studies Abdomen/Pelvis CT 11/24/23 18:40 IMPRESSION: PEG tube has been dislodged and is within the subcutaneous tissue of the anterior abdominal wall. Recommend replacement. Several chronic compression deformities of the visualized thoracolumbar spine. Electronically Signed: Hussein Dumont MD at 20:09 EDT , Discharge Plan Triage Chief Complaint: Other, Pain/Inj ED Provider: Elizabeth Reza Dx/Rx/DC Orders Clinical Impression: Malfunction of percutaneous endoscopic gastrostomy (PEG) tube Prescriptions: No Action metoprolol tartrate 25 mg tablet 25 mg feeding tube BID Qty: 60 promethazine 6.25 mg/5 mL syrup 25 mg PO Q6H PRN (Reason: Nausea) fexofenadine [Allergy Relief (fexofenadine)] 180 mg tablet 180 mg PO DAILY PRN (Reason: Allergy Symptoms) amlodipine 10 mg tablet 5 mg feeding tube DAILY hyoscyamine sulfate [Levsin] 0.125 mg tablet 0.125 mg PO BID-QID PRN (Reason: Secretions) morphine 10 mg/5 mL solution 10 mg PO Q2H PRN (Reason: Pain) sertraline 100 MG tablet 125 mg feeding tube Q24H fluticasone propionate 1 SPRAY spray,suspension 2 spray NASAL DAILY polyethylene glycol 3350 [Miralax] 17 gram Powder In Packet 17 g feeding tube MOWEFR PRN (Reason: Constipation) prednisone 5 mg/5 mL Solution 10 mg feeding tube DAILY oxycodone 5 mg Capsule 5 mg feeding tube Q8H oxycodone 5 mg Capsule 5 mg feeding tube Q6H PRN (Reason: Pain) esomeprazole magnesium [address] For Susp In Packet 40 mg PO DAILY gabapentin 250 mg/5 mL (5 mL) Solution 100 mg feeding tube BID Isosource 1.5 Artem 0.07 gram-1.5 kcal/mL liquid 250 ml feeding tube 4XD Primary Care Provider: Jaime Marion Referrals: Bobbi Pandey CENTRAL OFFICE WORKER, CENTRAL OFFICE WORKER-C [Non-Staff] - Print Language: Belarusian
[2023-11-24 19:52] VITALS: BP 107/70; PULSE 84; RESP 15; O2SAT 93
[2023-11-24 23:00] VITALS: BP 109/79; PULSE 76; RESP 16; O2SAT 96
[2023-11-25] VITALS (7 sets, daily range): BP systolic 82–138; BP diastolic 64–86; PULSE 63–94; RESP 16–25; TEMP 36.6–36.7; O2SAT 21–100
[2023-11-25] MEDS: Propofol 200 MG/20 ML Vial IV BOLUS (02:12)
--- NOTE | 2023-11-25 02:17 | RAD_ITS ---
INDICATION: PEG Placement -- gastrograffin EXAMINATION/TECHNIQUE: X-RAY - Supine AP view following 30 mL of Gastrografin injected through a percutaneous gastrostomy tube. COMPARISON: 11/24/2023 CT. FINDINGS: Contrast is seen within the lumen of the stomach. No evidence of contrast extravasation. Partially visualized bowel gas pattern is unremarkable. Vascular calcifications are seen in the pelvis. Probable uterine calcifications. RAD/Abdomen Single View (Portable) IMPRESSION: Functional gastrostomy tube with no evidence of a leak. Electronically Signed: Mark Crane DO at 2:58 EDT ,
--- NOTE | 2023-11-25 02:29 | EDS_ITS ---
HPI History of Present Illness Chief Complaint: Other, Pain/Inj PFSH PFSH Medical History Dysphagia Toe ulcer, right Positive colorectal cancer screening using Cologuard test Nicotine dependence Venous insufficiency of both lower extremities Ulcer of right lower extremity with fat layer exposed History of pulmonary embolism (2011) Essential (primary) hypertension Lower extremity edema Hyperlipidemia Bladder dysfunction Rheumatoid arthritis Osteoporosis Compression fracture of thoracic vertebra Anxiety Deep vein thrombosis Morbid obesity Mental retardation Home Medications ?Medication ?Instructions ?Recorded ?Last Taken ?Type sertraline 100 mg tablet 125 mg feeding tube Q24H 03/27/15 Unknown History metoprolol tartrate 25 mg tablet 25 mg feeding tube BID #60 tabs 01/08/19 Unknown History fluticasone propionate 50 2 spray NASAL DAILY 09/07/20 Unknown History mcg/actuation nasal spray,suspension amlodipine 10 mg tablet 5 mg feeding tube DAILY 08/29/22 Unknown History fexofenadine 180 mg tablet 180 mg PO DAILY PRN Allergy 08/29/22 Unknown History (Allergy Relief (fexofenadine)) Symptoms hyoscyamine sulfate 0.125 mg 0.125 mg PO BID-QID PRN Secretions 08/29/22 Unknown History tablet (Levsin) morphine 10 mg/5 mL oral solution 10 mg PO Q2H PRN Pain 08/29/22 Unknown History promethazine 6.25 mg/5 mL oral 25 mg PO Q6H PRN Nausea 08/29/22 Unknown History syrup esomeprazole magnesium 40 mg 40 mg PO DAILY 08/31/22 Unknown History granules delayed release for susp gabapentin 250 mg/5 mL (5 mL) oral 100 mg feeding tube BID 08/31/22 Unknown History solution oxycodone 5 mg capsule 5 mg feeding tube Q6H PRN Pain 08/31/22 Unknown History oxycodone 5 mg capsule 5 mg feeding tube Q8H 08/31/22 Unknown History polyethylene glycol 3350 17 gram 17 g feeding tube MOWEFR PRN 08/31/22 Unknown History oral powder packet (Miralax) Constipation prednisone 5 mg/5 mL oral solution 10 mg feeding tube DAILY 08/31/22 Unknown History lactose-reduced food-fiber 0.07 250 ml feeding tube 4XD 11/24/23 Unknown History gram-1.5 kcal/mL liquid for tube feed (Isosource 1.5 Artem) Allergy/AdvReac Type Severity Reaction Status Date / Time abatacept Allergy PT UNSURE Verified 11/24/23 18:19 OF REACTION infliximab Allergy PT UNSURE Verified 11/24/23 18:19 OF REACTION tocilizumab Allergy NEEDS Verified 11/24/23 18:19 FOLLOW-UP Family History Other Hypertension Surgical History History of total left knee replacement History of right hip replacement Social History Smoking Status: Former smoker alcohol intake: current alcohol intake frequency: holidays/special occasions only EXAM Physical Exam Const Vital Signs: 11/24/23 18:19 11/24/23 18:19 11/24/23 19:52 Temperature 97.6 F L Temperature Source Temporal Pulse Rate 92 84 Respiratory Rate 18 15 Respiratory Effort Normal Non-Labored Respiratory Pattern Normal Blood Pressure 212/192 H 107/70 Blood Pressure Mean 198 82 Pulse Ox 96 93 Oxygen Delivery Method Room Air Room Air 11/24/23 23:00 11/25/23 01:41 Temperature 97.8 F Temperature Source Pulse Rate 76 77 Respiratory Rate 16 24 H Respiratory Effort Respiratory Pattern Blood Pressure 109/79 127/83 H Blood Pressure Mean 89 Pulse Ox 96 98 Oxygen Delivery Method Room Air Room Air MDM MDM Radiography Diagnostic Testing: Clinical Impression(s) from Imaging Studies Abdomen/Pelvis CT 11/24/23 18:40 IMPRESSION: PEG tube has been dislodged and is within the subcutaneous tissue of the anterior abdominal wall. Recommend replacement. Several chronic compression deformities of the visualized thoracolumbar spine. Electronically Signed: Hussein Dumont MD at 20:09 EDT , Procedures Procedural Sedation 1 (Initial Baseline): Consent Signed: No (Verbal discussion made with hospice patient and the patient's sister on the) Any Problems With Anesthesia: No You/Your family experience fever (hyperthermia) w/anesthesia: No Sedation medication: Propofol Dose: 46.5 Total Moderate Sedation Units: 12 Maliampati Score: Class III ASA Classification: II Discharge Plan Triage Chief Complaint: Other, Pain/Inj ED Provider: Elizabeth Reza Dx/Rx/DC Orders Clinical Impression: Malfunction of percutaneous endoscopic gastrostomy (PEG) tube Prescriptions: No Action metoprolol tartrate 25 mg tablet 25 mg feeding tube BID Qty: 60 promethazine 6.25 mg/5 mL syrup 25 mg PO Q6H PRN (Reason: Nausea) fexofenadine [Allergy Relief (fexofenadine)] 180 mg tablet 180 mg PO DAILY PRN (Reason: Allergy Symptoms) amlodipine 10 mg tablet 5 mg feeding tube DAILY hyoscyamine sulfate [Levsin] 0.125 mg tablet 0.125 mg PO BID-QID PRN (Reason: Secretions) morphine 10 mg/5 mL solution 10 mg PO Q2H PRN (Reason: Pain) sertraline 100 MG tablet 125 mg feeding tube Q24H fluticasone propionate 1 SPRAY spray,suspension 2 spray NASAL DAILY polyethylene glycol 3350 [Miralax] 17 gram Powder In Packet 17 g feeding tube MOWEFR PRN (Reason: Constipation) prednisone 5 mg/5 mL Solution 10 mg feeding tube DAILY oxycodone 5 mg Capsule 5 mg feeding tube Q8H oxycodone 5 mg Capsule 5 mg feeding tube Q6H PRN (Reason: Pain) esomeprazole magnesium [address] For Susp In Packet 40 mg PO DAILY gabapentin 250 mg/5 mL (5 mL) Solution 100 mg feeding tube BID Isosource 1.5 Artem 0.07 gram-1.5 kcal/mL liquid 250 ml feeding tube 4XD Primary Care Provider: Jaime Marion Referrals: Bobbi Pandey ASSISTANT NEWS DIRECTOR, ASSISTANT NEWS DIRECTOR-C [Non-Staff] - Print Language: French
--- NOTE | 2023-11-25 07:00 | ED.RN ---
Called Carlos delacruz and gave report to Alfredo. All questions answered.
== END 2023-11-25 07:01 | disposition skilled nursing facility (03) ==
PROVIDERS: Emergency Provider Emergency Medicine; PCP Internal Medicine; Visit Provider Emergency Medicine
DX: K94.23 Gastrostomy malfunction (principal); I10 Essential (primary) hypertension; F41.9 Anxiety disorder, unspecified; Z87.891 Personal history of nicotine dependence; Z79.899 Other long term (current) drug therapy; Z86.711 Personal history of pulmonary embolism; Z86.718 Personal history of other venous thrombosis and embolism
CPT/HCPCS: 74018; 74176; 99152; 99285; A4216

== ENCOUNTER → 2023-12-06 | Outpatient (REF) | payer MEDICARE, MEDICAID, SELFPAY ==
[2023-12-06 07:08] LABS: Absolute Lymphocyte Count 1.07 X10^3/uL (0.83-4.51); Absolute Neutrophil Count 4.6 X10^3/uL (2.0-7.7); Basophil# 0.04 X10^3/uL; Basophil% 0.6 % (0-1); Eosinophil# 0.11 X10^3/uL; Eosinophils% 1.7 % (0-5); Hematocrit 50.1 % (37-47); Hemoglobin 14.8 g/dL (12.0-15.0); Lymphocyte # 1.07 X10^3/ul (0.83-4.51); Lymphocyte % 16.1 % (19-41); Mean Corp Hgb Conc 29.5 g/dL (32-36); Mean Corpuscular Volume 84.8 fL (81-99); Mean Platelet Vol. 11.1 fl (6.2-12.0); Monocyte# 0.81 X10^3/uL; Monocyte% 12.2 % (0-10); NRBC Flagged by Analyzer 0 % (0-5); Neutrophil # 4.58 X10^3/uL (2.7-7.7); Neutrophil % 68.8 % (47-70); Platelet Count 255 K/mm3 (150-450); RBC Distribution Width CV 18.6 % (11.6-14.6); RBC Distribution Width SD 54.4 fl (35.1-43.9); Red Blood Count 5.91 M/mm3 (4.2-5.4); White Blood Count 6.7 K/mm3 (4.4-11.0)
[2023-12-06 07:36] LABS: ALB/GLOB Ratio 0.6 RATIO (0.9-2.4); AST(SGOT) 22 U/L (15-37); Alanine Aminotransfer ALT/SGPT 27 U/L (13-56); Albumin, Serum 2.6 g/dL (3.2-5.0); Alkaline Phosphatase 165 U/L (45-117); Anion Gap 5 (5-15); BUN 8 mg/dL (7-18); BUN/Creat Ratio 22.1 RATIO (10-20); Calcium,Total 9.3 mg/dL (8.5-10.1); Chloride 105 mmol/L (98-107); Cholesterol 156 mg/dL (200); Creatinine, Serum 0.36 mg/dL (0.55-1.02); EST Glomerular Filtration Rate 188 mL/min (>60); Est Glom Filt Rate - Afr Amer 227 mL/min (>60); Globulin 4.5 g/dL (2.2-4.2); Glucose 81 mg/dL (74-106); High Density Lipoprotein 50 mg/dL; Potassium 4.1 mmol/L (3.5-5.1); Protein, Total 7.1 g/dL (6.4-8.2); Sodium Level 135 mmol/L (136-145); Triglycerides 46 mg/dL; Very Low Density Lipoprotein 9 mg/dL (5-40)
== END ==
LOC: OLS.WHLEAS 05:00
PROVIDERS: PCP Internal Medicine; Visit Provider Internal Medicine
DX: D52.9 Folate deficiency anemia, unspecified (principal); R13.12 Dysphagia, oropharyngeal phase; F03.90 Unspecified dementia, unspecified severity, without behavioral disturbance, psychotic disturbance, mood disturbance, and anxiety; Z79.899 Other long term (current) drug therapy
CPT/HCPCS: 36415; 80053; 80061; 82746; 85025

== ENCOUNTER → 2024-02-28 05:00 | Outpatient (REF) | payer MEDICARE, MEDICAID, SELFPAY ==
[2024-02-28 08:39] LABS: Absolute Neutrophil Count 3.9 X10^3/uL (2.0-7.7); Basophil# 0.04 X10^3/uL; Basophil% 0.7 % (0-1); Eosinophils% 3.3 % (0-5); Lymphocyte % 17.9 % (19-41); Mean Corp Hgb Conc 30.4 g/dL (32-36); Mean Corpuscular Hgb 24.7 pg (27.0-32.0); Mean Corpuscular Volume 81.3 fL (81-99); Mean Platelet Vol. 12.1 fl (6.2-12.0); Monocyte% 14.7 % (0-10); NRBC Flagged by Analyzer 0 % (0-5); Neutrophil # 3.86 X10^3/uL (2.7-7.7); Neutrophil % 62.7 % (47-70); Platelet Count 333 K/mm3 (150-450); RBC Distribution Width CV 17.5 % (11.6-14.6); RBC Distribution Width SD 48.9 fl (35.1-43.9); Red Blood Count 5.66 M/mm3 (4.2-5.4); White Blood Count 6.1 K/mm3 (4.4-11.0)
[2024-02-28 09:01] LABS: ALB/GLOB Ratio 0.5 RATIO (0.9-2.4); AST(SGOT) 23 U/L (15-37); Alanine Aminotransfer ALT/SGPT 26 U/L (13-56); Albumin, Serum 2.5 g/dL (3.2-5.0); Alkaline Phosphatase 135 U/L (45-117); Anion Gap 5 (5-15); BUN 11 mg/dL (7-18); BUN/Creat Ratio 24.6 RATIO (10-20); Calcium,Total 9.2 mg/dL (8.5-10.1); Chloride 103 mmol/L (98-107); Cholesterol 160 mg/dL (200); Creatinine, Serum 0.45 mg/dL (0.55-1.02); EST Glomerular Filtration Rate 147 mL/min (>60); Est Glom Filt Rate - Afr Amer 177 mL/min (>60); Globulin 4.6 g/dL (2.2-4.2); Glucose 76 mg/dL (74-106); High Density Lipoprotein 52 mg/dL; Potassium 4.1 mmol/L (3.5-5.1); Protein, Total 7.1 g/dL (6.4-8.2); Sodium Level 136 mmol/L (136-145); Triglycerides 58 mg/dL; Very Low Density Lipoprotein 12 mg/dL (5-40)
== END ==
LOC: OLS.WHLEAS 05:00
PROVIDERS: PCP Internal Medicine; Visit Provider Internal Medicine
DX: D52.9 Folate deficiency anemia, unspecified (principal)
CPT/HCPCS: 36415; 80053; 80061; 82746; 85025

== ENCOUNTER → 2024-05-22 | Outpatient (REF) | payer MEDICARE, MEDICAID, SELFPAY ==
[2024-05-22 07:16] LABS: Absolute Lymphocyte Count 1.08 X10^3/uL (0.83-4.51); Absolute Neutrophil Count 4.5 X10^3/uL (2.0-7.7); Basophil# 0.02 X10^3/uL; Basophil% 0.3 % (0-1); Eosinophil# 0.08 X10^3/uL; Eosinophils% 1.2 % (0-5); Hematocrit 46.3 % (37-47); Lymphocyte # 1.08 X10^3/ul (0.83-4.51); Lymphocyte % 16.8 % (19-41); Mean Corp Hgb Conc 30.2 g/dL (32-36); Mean Corpuscular Hgb 24.7 pg (27.0-32.0); Mean Corpuscular Volume 81.7 fL (81-99); Mean Platelet Vol. 10.8 fl (6.2-12.0); Monocyte# 0.75 X10^3/uL; Monocyte% 11.6 % (0-10); NRBC Flagged by Analyzer 0 % (0-5); Neutrophil % 69.9 % (47-70); Platelet Count 323 K/mm3 (150-450); RBC Distribution Width CV 17.9 % (11.6-14.6); Red Blood Count 5.67 M/mm3 (4.2-5.4); White Blood Count 6.4 K/mm3 (4.4-11.0)
[2024-05-22 07:50] LABS: ALB/GLOB Ratio 0.5 RATIO (0.9-2.4); AST(SGOT) 26 U/L (15-37); Alanine Aminotransfer ALT/SGPT 24 U/L (13-56); Albumin, Serum 2.5 g/dL (3.2-5.0); Alkaline Phosphatase 132 U/L (45-117); Anion Gap 5 (5-15); BUN 12 mg/dL (7-18); BUN/Creat Ratio 26.7 RATIO (10-20); Calcium,Total 8.9 mg/dL (8.5-10.1); Chloride 108 mmol/L (98-107); Cholesterol 162 mg/dL (200); Creatinine, Serum 0.45 mg/dL (0.55-1.02); EST Glomerular Filtration Rate 146 mL/min (>60); Est Glom Filt Rate - Afr Amer 176 mL/min (>60); Globulin 4.7 g/dL (2.2-4.2); Glucose 71 mg/dL (74-106); High Density Lipoprotein 55 mg/dL; Potassium 4.2 mmol/L (3.5-5.1); Protein, Total 7.2 g/dL (6.4-8.2); Sodium Level 138 mmol/L (136-145); Triglycerides 54 mg/dL; Very Low Density Lipoprotein 11 mg/dL (5-40)
== END ==
LOC: OLS.WHLEAS 05:00
PROVIDERS: PCP Internal Medicine; Visit Provider Internal Medicine
DX: D52.9 Folate deficiency anemia, unspecified (principal); F03.90 Unspecified dementia, unspecified severity, without behavioral disturbance, psychotic disturbance, mood disturbance, and anxiety; E78.5 Hyperlipidemia, unspecified; I10 Essential (primary) hypertension
CPT/HCPCS: 36415; 80053; 80061; 82746; 85025

== ENCOUNTER → 2024-08-15 05:00 | Outpatient (REF) | payer MEDICARE, MEDICAID, SELFPAY ==
[2024-08-15 09:09] LABS: Absolute Lymphocyte Count 0.88 X10^3/uL (0.83-4.51); Absolute Neutrophil Count 4.4 X10^3/uL (2.0-7.7); Basophil# 0.03 X10^3/uL; Basophil% 0.5 % (0-1); Eosinophil# 0.09 X10^3/uL; Eosinophils% 1.5 % (0-5); Hematocrit 51.7 % (37-47); Hemoglobin 15.2 g/dL (12.0-15.0); Lymphocyte # 0.88 X10^3/ul (0.83-4.51); Lymphocyte % 14.4 % (19-41); Mean Corp Hgb Conc 29.4 g/dL (32-36); Mean Corpuscular Hgb 24.8 pg (27.0-32.0); Mean Corpuscular Volume 84.5 fL (81-99); Monocyte# 0.67 X10^3/uL; Monocyte% 10.9 % (0-10); NRBC Flagged by Analyzer 0 % (0-5); Neutrophil # 4.43 X10^3/uL (2.7-7.7); Neutrophil % 72.4 % (47-70); Platelet Count 283 K/mm3 (150-450); RBC Distribution Width CV 19.1 % (11.6-14.6); RBC Distribution Width SD 54.7 fl (35.1-43.9); Red Blood Count 6.12 M/mm3 (4.2-5.4); White Blood Count 6.1 K/mm3 (4.4-11.0)
[2024-08-15 10:01] LABS: ALB/GLOB Ratio 0.5 RATIO (0.9-2.4); AST(SGOT) 39 U/L (15-37); Alanine Aminotransfer ALT/SGPT 42 U/L (13-56); Albumin, Serum 2.4 g/dL (3.2-5.0); Alkaline Phosphatase 141 U/L (45-117); Anion Gap 8 (5-15); BUN 11 mg/dL (7-18); BUN/Creat Ratio 21.2 RATIO (10-20); Calcium,Total 9.5 mg/dL (8.5-10.1); Chloride 105 mmol/L (98-107); Cholesterol 182 mg/dL (200); Creatinine, Serum 0.52 mg/dL (0.55-1.02); EST Glomerular Filtration Rate 124 mL/min (>60); Est Glom Filt Rate - Afr Amer 150 mL/min (>60); Globulin 4.8 g/dL (2.2-4.2); Glucose 100 mg/dL (74-106); High Density Lipoprotein 52 mg/dL; Potassium 4.7 mmol/L (3.5-5.1); Protein, Total 7.2 g/dL (6.4-8.2); Sodium Level 137 mmol/L (136-145); Triglycerides 96 mg/dL; Very Low Density Lipoprotein 19 mg/dL (5-40)
== END ==
LOC: OLS.WHLEAS 05:00
PROVIDERS: PCP Internal Medicine; Visit Provider Internal Medicine
DX: I69.398 Other sequelae of cerebral infarction (principal); I69.391 Dysphagia following cerebral infarction; R13.12 Dysphagia, oropharyngeal phase; F03.90 Unspecified dementia, unspecified severity, without behavioral disturbance, psychotic disturbance, mood disturbance, and anxiety; D52.9 Folate deficiency anemia, unspecified
CPT/HCPCS: 36415; 80053; 80061; 82746; 85025

== ENCOUNTER 2025-01-06 14:45 | Emergency (ER) | payer MEDICARE, MEDICAID, SELFPAY ==
[2025-01-06 14:48] VITALS: BP 108/78; PULSE 81; RESP 16; TEMP 36.7; O2SAT 99; BMI 19.9
--- NOTE | 2025-01-06 15:52 | EX.ED.DYSGE1 ---
HPI History of Present Illness Chief Complaint: Wound Check Narrative Narrative: 74-year-old female presents from [facility] because her PEG tube fell out this morning. She had a longstanding PEG tube in review of her electronic medical record. She states that her PEG tube had fallen out sometime this morning. She is not quite sure how long ago. She denies any fevers or chills, no nausea or vomiting, no abdominal pain. [facility] Medical History Dysphagia Toe ulcer, right Positive colorectal cancer screening using Cologuard test Nicotine dependence Venous insufficiency of both lower extremities Ulcer of right lower extremity with fat layer exposed History of pulmonary embolism (2011) Essential (primary) hypertension Lower extremity edema Hyperlipidemia Bladder dysfunction Rheumatoid arthritis Osteoporosis Compression fracture of thoracic vertebra Anxiety Deep vein thrombosis Morbid obesity Mental retardation Home Medications ?Medication ?Instructions ?Recorded ?Last Taken ?Type sertraline 100 mg tablet 75 mg feeding tube Q24H 03/27/15 Unknown History polyethylene glycol 3350 17 gram 17 g feeding tube MOWEFR PRN 08/31/22 Unknown History oral powder packet (Miralax) Constipation prednisone 5 mg/5 mL oral solution 10 mg feeding tube DAILY 08/31/22 Unknown History oxycodone 5 mg tablet 5 mg PO Q6H PRN pain 30 days #60 12/26/24 Unknown Rx tabs acetaminophen 325 mg tablet 650 mg feeding tube Q4H PRN fever 01/06/25 Unknown History or pain artificial 2 drp EACH EYE QHS 01/06/25 Unknown History tears(mrkrehq-cymnrctg-cngitbs) 0.1 %-0.3 %-0.2 % eye drops atropine 1 % eye drops 3 drp PO PRN pneumonia preventative 01/06/25 Unknown History buspirone 5 mg tablet 5 mg PO BID 01/06/25 Unknown History dextromethorphan-guaifenesin 5 10 ml feeding tube Q4H PRN cough 01/06/25 Unknown History mg-100 mg/5 mL oral liquid (Child Robitussin Cough-Chest DM) ipratropium 0.5 mg-albuterol 3 mg 3 ml inhalation Q4H PRN shortness 01/06/25 Unknown History (2.5 mg base)/3 mL nebulization of breath soln loperamide 2 mg tablet (Diamode) 2 mg feeding tube Q6H PRN loose 01/06/25 Unknown History stool Allergy/AdvReac Type Severity Reaction Status Date / Time abatacept Allergy PT UNSURE Verified 01/06/25 14:55 OF REACTION infliximab Allergy PT UNSURE Verified 01/06/25 14:55 OF REACTION tocilizumab Allergy NEEDS Verified 01/06/25 14:55 FOLLOW-UP Family History Other Hypertension Surgical History History of total left knee replacement History of right hip replacement Social History Smoking Status: Former smoker alcohol intake: current alcohol intake frequency: holidays/special occasions only ROS ROS ED ROS Narrative Review of systems positive for PEG tube malfunction/falling out. Patient denies any fevers or chills, no nausea or vomiting, no abdominal pain. EXAM Physical Exam Narrative Exam Narrative: Afebrile. Vital signs noted. Nontoxic-appearing. Inspection of the abdomen does reveal orifice where PEG tube had been, with a well-healed scar more lateral. No erythema or fluctuance. Abdomen otherwise soft with positive bowel sounds. Const Vital Signs: 01/06/25 14:48 Temperature 98.1 F Temperature Source Oral Pulse Rate 81 Respiratory Rate 16 Blood Pressure 108/78 Blood Pressure Mean 88 Pulse Ox 99 Oxygen Delivery Method Room Air MDM MDM MDM Narrative Medical decision making narrative: I do not feel that differential diagnosis is applicable in this case. She needs PEG tube replacement. The 1 that was laying across her abdomen is 22 English. With nursing assistance, patient was unable to tolerate insertion of 22 English feeding tube so 20 English was obtained. This was able to be inserted at the bedside. KUB obtained with Gastrografin and interpreted by myself independently which shows no extravasation and proper PEG tube placement. I reviewed the radiology report which confirms my independent interpretation. 20 mL of saline had been inserted into the balloon. At this point in time, I do feel she can be discharged back to the longterm facility. Return instructions reviewed. Disposition is discharged home in improved and stable condition. History & Record Review Discussion w/independent historian: Patient Radiography Diagnostic Testing: Clinical Impression(s) from Imaging Studies KUB X-Ray 01/06/25 16:30 IMPRESSION: PEG tube within the stomach. No evidence for contrast leakage. Ancillary findings as noted above. Reading Location: [id number] Discharge Plan Triage Chief Complaint: Wound Check ED Provider: Reagan Carranza Dx/Rx/DC Orders Clinical Impression: PEG tube malfunction, Visit for feeding tube placement Instructions: ED Feeding Tube Replacement Prescriptions: No Action sertraline 100 MG tablet 75 mg feeding tube Q24H polyethylene glycol 3350 [Miralax] 17 gram Powder In Packet 17 g feeding tube MOWEFR PRN (Reason: Constipation) prednisone 5 mg/5 mL Solution 10 mg feeding tube DAILY buspirone 5 mg tablet 5 mg PO BID acetaminophen 325 mg tablet 650 mg feeding tube Q4H PRN (Reason: fever or pain) atropine 1 % drops 3 drp PO PRN loperamide [Diamode] 2 mg tablet 2 mg feeding tube Q6H PRN (Reason: loose stool) ipratropium-albuterol 0.5 mg-3 mg(2.5 mg base)/3 mL solution for nebulization 3 ml inhalation Q4H PRN (Reason: shortness of breath) Patient Comments: [NO ORIGINAL SIG] artificial tear(sqxtx-[id number]) 0.1-0.3-0.2 % drops 2 drp EACH EYE QHS dextromethorphan-guaifenesin [Chld Robitussin Cough-Chest DM] 5-100 mg/5 mL liquid 10 ml feeding tube Q4H PRN (Reason: cough) oxycodone 5 mg tablet 5 mg PO Q6H PRN (Reason: pain) 30 Days Qty: 60 0RF Rx Instructions: Via PEG Primary Care Provider: Jaime Marion Referrals: Jaime Marion MD [Primary Care Provider] - As Needed Activity Restrictions/Additional Instructions: Okay to use replaced PEG tube/feeding tube. Return with new or worsening symptoms. Print Language: Tamazight Disposition Disposition: Home, Self Care
--- NOTE | 2025-01-06 16:30 | RAD_ITS ---
PROCEDURE: ABDOMEN SINGLE VIEW (PORTABLE) 01/06/2025 REASON FOR EXAM: PEG TUBE PLACEMENT TECHNIQUE: ABDOMEN SINGLE VIEW (PORTABLE) COMPARISON: 11/25/2023 FINDINGS: Percutaneous gastrostomy tube projects over the upper midabdomen. Enteric contrast is injected through the PEG tube which opacifies the stomach lumen, with no evidence for contrast extravasation/leakage. Nonobstructive gas pattern. No discernible free air. Probable calcified degenerative uterine fibroid in the left hemipelvis. Partially imaged right hip arthroplasty hardware, intact. Advanced arthrosis of the left hip joint. Degenerative changes of the spine with several chronic compression fracture deformities. Qualitative osteopenia. RAD/Abdomen Single View (Portable) IMPRESSION: PEG tube within the stomach. No evidence for contrast leakage. Ancillary findings as noted above. Reading Location: [id number]
[2025-01-06 17:15] VITALS: BP 119/85; PULSE 87; RESP 16; O2SAT 95
[2025-01-06 17:16] VITALS: BP 119/85; PULSE 87; RESP 16; TEMP 36.3; O2SAT 95
--- NOTE | 2025-01-06 17:49 | ED.RN ---
HOSPICE TRIAGE NURSE CALLED THIS NURSE FOR AN UPDATE. THIS NURSE RELAYED THE INFO AND TX PLAN FOR THE PT. SHE IS D/C AFTER REODICA PLACED HE NEW G TUBE AND CONFIRMED WITH KUB. PT IS UP FOR D/C BUT AWATING [facility] ETA [facility] 2030
== END 2025-01-06 19:35 | disposition home or self-care (01) ==
PROVIDERS: Emergency Provider Emergency Medicine; PCP Internal Medicine; Visit Provider Emergency Medicine
DX: K94.23 Gastrostomy malfunction (principal); M06.9 Rheumatoid arthritis, unspecified; F41.9 Anxiety disorder, unspecified; M81.0 Age-related osteoporosis without current pathological fracture; Z86.711 Personal history of pulmonary embolism; Z79.899 Other long term (current) drug therapy; Z87.891 Personal history of nicotine dependence
CPT/HCPCS: 74018; 99284; A4216